=== PATIENT | male | born 1975 | race Caucasian/White ===

== ENCOUNTER 2023-10-30 22:10 | Emergency (ER) | payer OTHER, SELFPAY ==
[2023-10-30 22:12] VITALS: BP 171/84; PULSE 108; RESP 20; TEMP 37.2; O2SAT 94; BMI 30.3
--- NOTE | 2023-10-30 22:21 | ECG_ITS ---
Test Reason : CHEST PAIN Blood Pressure : / mmHG Vent. Rate : 102 BPM Atrial Rate : 102 BPM P-R Int : 132 ms QRS Dur : 078 ms QT Int : 342 ms P-R-T Axes : 068 048 044 degrees QTc Int : 445 ms Sinus tachycardia Nonspecific ST abnormality Abnormal ECG When compared with ECG of 10-SEP-2013 18:09, No significant change was found Referred By: Generic ED Physician Electronically Signed By:CHINTAN KING MD
[2023-10-30 22:39] LABS: Basophils Absolute Auto 0.1 X10*3/uL (0.0-0.2); Basophils Percent Auto 0.8 % (0-2); Eosinophils Absolute Auto 0.1 X10*3/uL (0.0-0.4); Eosinophils Percent Auto 0.9 % (0-4); Hematocrit 43.8 % (42.0-52.0); Hemoglobin 15.9 g/dl (14.0-18.0); Imm Gran Abs Auto 0.04 X10*3/uL (0.00-0.03); Imm Gran Pct Auto 0.3 % (0.0-0.4); Lymphocytes Percent Auto 25.4 % (20-40); MANUAL DIFF FLAG NO; Mean Corpuscular HGB Conc 36.3 g/dl (31.0-36.0); Mean Corpuscular Hemoglobin 31.3 pg (27.0-33.0); Mean Corpuscular Volume 86.2 fL (80.0-98.0); Mean Platelet Volume 10.4 fL (9.4-12.4); Monocytes Absolute Auto 1.3 X10*3/uL (0.1-1.2); Monocytes Percent Auto 10.5 % (2-11); Neutrophils Absolute Auto 7.4 x10*3/uL (2.0-8.3); Neutrophils Percent Auto 62.1 % (45-73); Platelet Count 254 X10*3/uL (160-400); Red Blood Count 5.08 X10*6/uL (4.60-5.80); White Blood Count 11.9 X10*3/uL (4.8-10.8)
[2023-10-30 22:55] LABS: Alanine Aminotransferase 18 U/L (0-40); Albumin Level 4.4 g/dL (3.5-5.0); Alkaline Phosphatase 126 U/L (39-117); Anion Gap 20 (12-20); Aspartate Amino Transferase 37 U/L (5-37); Bilirubin Total 0.7 mg/dL (0.0-1.0); Blood Urea Nitrogen 21 mg/dL (9-16); Calcium 9.1 mg/dL (8.4-10.2); Carbon Dioxide 20 mmol/L (22-29); Chloride 101 mmol/L (96-108); Creatinine Clr Calc Pharmacy 92.1; Estimated Glomerular Filt Rate > 60; Ethanol 14 mg/dL; Glucose Random 285 mg/dL (60-115); Potassium 4.1 mmol/L (3.3-5.1); Sodium 137 mmol/L (135-145); Total Protein 7.9 g/dL (6.5-8.0)
[2023-10-30 23:02] LABS: Troponin-I High Sensitivity 20.1 ng/L (<3.5-35.0)
--- NOTE | 2023-10-31 01:23 | ED_ITS ---
HPI - General Adult General Chief complaint: ETOH/Substance Use Stated complaint: detox Time Seen by Provider: 10/31/23 00:51 Source: patient, RN notes reviewed and old records reviewed Mode of arrival: ambulatory Limitations: no limitations History of Present Illness HPI narrative: 48-year-old male with past medical history significant for substance abuse, anxiety, depression presents for evaluation of muscle aches Patient reports that he left his snf house 2 days ago. He has been wandering the streets and walking all day every day ever since He states he left the snf house because ?they were talking about things that they had no business talking about and it was bringing up past trauma. ? Patient reports he had muscle aches all over his body over last couple of days. He endorses drinking alcohol using cocaine an hour prior to arrival He reports some chest pain to nursing staff but denied this during my evaluation. No other complaints or concerns at this time Related Data Allergies Allergy/AdvReac Type Severity Reaction Status Date / Time No Known Allergies Allergy Verified 10/30/23 22:19 Review of Systems 2 Constitutional: Constitutional: Denies body ache(s), Denies chills, Denies fever(s) and Denies frequent falls Eyes: Eyes: Denies blurry vision ENT: Denies sore throat Cardiovascular: Cardiovascular: Reports chest pain, Denies chest pain at rest and Denies dyspnea Respiratory: Respiratory: Denies cough and Denies dyspnea Gastrointestinal: Gastrointestinal: Denies abdominal pain, Denies nausea and Denies vomiting Genitourinary: Genitourinary: Denies hematuria and Denies dysuria Musculoskeletal: Musculoskeletal: Reports muscle cramps Integumentary/Breasts: Skin/Breast: Denies rash Neurologic: Denies frequent falls PMFSH Social History Social History Advance Directives: No Advance Directives Information Provided: No Do you have a plan to hurt others: No Plan Physical Exam ED Vital Signs: Vital Signs - 24 hr 10/30/23 22:12 10/31/23 02:00 10/31/23 06:30 Temperature 99.0 F 97.8 F 98.4 F Pulse Rate 108 H 96 80 Respiratory Rate 20 16 16 Blood Pressure 171/84 H 161/82 H 160/78 H Pulse Oximetry 94 96 96 Oxygen Delivery Method Room Air Room Air Room Air 10/31/23 09:08 Temperature 97.6 F Pulse Rate 84 Respiratory Rate 20 Blood Pressure 134/87 Pulse Oximetry 96 Oxygen Delivery Method Room Air BMI result Body Mass Index 30.3 Const General: healthy appearing, comfortable, no acute distress, alert and awake Nutritional Appearance: well nourished Orientation/consciousness: patient oriented x3 HENMT Head: Yes normocephalic and Yes atraumatic Throat: Yes posterior oropharynx normal Eyes Eyelids: Yes eyelids normal Conjunctivae: conjunctivae normal Sclerae: sclerae normal Corneas: corneas normal Pupils: Equal, round and reactive pupils present EOM: EOMs intact bilaterally Neck Neck: Yes full ROM Resp Effort & Inspection: normal respiratory effort, able to speak in complete sentences and not labored Cardio Rate: regular rate Rhythm: regular rhythm GI Inspection: No distended Palpation (GI): Soft to palpation, not firm, nontender, no guarding and not rigid Skin General skin exam: elasticity normal Neuro General: patient oriented x3 Cranial nerves: Yes CN's II-XII intact bilaterally, Yes Equal, round and reactive pupils present and Yes Bilaterally intact EOM present Cognition (Neuro): normal cognition Extrem Other: Moving all extremities well without any obvious deformities Course Reevaluation(s) Reevaluation #1: Patient's repeat troponin decreased from 20.1 to 18.7. He is now medically cleared for addiction medicine intervention Time: 02:11 Reevaluation #2: patients CPK 2600 should receive more fluid and a recheck of CPK - I ordered both he is very upset and states he was not given any medications overnight his phone is not charging he is demanding his suboxone 16mg he states he last took it yesterday he is not worried about precipitated withdrawal he is threatening to leave AMA but now agrees to fluids and recheck of labs. CELESTINE 824am Reevaluation #3: observation care revealed that the patient does not meet medical necessity for hospitalization. final disposition discussed with the patient. The patient completed observation care at 1153am. Total time in observation care was 10 hours. Medications Administered Discontinued Medications Generic Name Dose Route Start Last Admin Trade Name Freq PRN Reason Stop Dose Admin Buprenorphine/Naloxone 2 film 10/31/23 08:22 10/31/23 08:43 Buprenorphine/Naloxone 8/2 Mg Film SUBLINGUAL 10/31/23 08:23 2 film ONCE ONE Administration Sodium Chloride 1,000 mls @ 999 mls/hr 10/31/23 01:30 10/31/23 03:23 Ns IV 10/31/23 02:30 Infused .Q1H1M CHELSEA Infusion Sodium Chloride 1,000 mls @ 999 mls/hr 10/31/23 08:09 10/31/23 08:43 Ns IV 10/31/23 09:09 999 mls/hr .Q1H1M ONE Administration Medical Decision Making Medical Decision Making [facility] Narrative: 48-year-old male with past medical history as documented above presents for evaluation of body aches. He reports being homeless and walking for last 2 days, plan to check basic labs, CPK to evaluate for rhabdomyolysis. Plan for UA, tox screen. The patient is not suicidal. He did complain of chest pain, his EKG is unchanged from August of this year. His initial troponin was 20.1 plan to repeat a troponin level. The patient is resting quite comfortably he was slightly hypertensive which may be related to cocaine use Differential Diagnosis Differential Diagnoses: The differential diagnosis associated with the presentation includes Substance abuse Homelessness Elevated troponin ACS less likely Rhabdomyolysis Admission/Observation Consideration of admission/observation: Escalation of care including admission/observation considered Consider admission for rhabdomyolysis Lab Data [facility] Lab Attestation statement: I reviewed the patient's lab results. Leukocytosis to 11.9 which is likely related to substance abuse. No anemia and normal platelet count. No significant electrolyte abnormalities. Patient's CO2 is just below normal at 20. His BUN is slightly elevated 21 but his creatinine is normal at 1.08. Patient's sugar is elevated to 285 10/30/23 22:32 10/30/23 22:32 Labs: Lab Results 10/30/23 10/31/23 10/31/23 Range/Units 22:32 01:41 02:03 WBC 11.9 H (4.8-10.8) X10*3/uL RBC 5.08 (4.60-5.80) X10*6/uL Hgb 15.9 (14.0-18.0) g/dl Hct 43.8 (42.0-52.0) % MCV 86.2 (80.0-98.0) fL MCH 31.3 (27.0-33.0) pg MCHC 36.3 H (31.0-36.0) g/dl RDW 13.0 (11.0-16.0) % Plt Count 254 (160-400) X10*3/uL MPV 10.4 (9.4-12.4) fL Immature Gran % (Auto) 0.3 (0.0-0.4) % Neut % (Auto) 62.1 (45-73) % Lymph % (Auto) 25.4 (20-40) % [place] % (Auto) 10.5 (2-11) % Eos % (Auto) 0.9 (0-4) % Baso % (Auto) 0.8 (0-2) % Lymph # (Auto) 3.0 (1.2-4.9) X10*3/uL [place] # (Auto) 1.3 H (0.1-1.2) X10*3/uL Eos # (Auto) 0.1 (0.0-0.4) X10*3/uL Baso # (Auto) 0.1 (0.0-0.2) X10*3/uL Abs Immat Gran (auto) 0.04 H (0.00-0.03) X10*3/uL Absolute Neuts (auto) 7.4 (2.0-8.3) x10*3/uL Absolute Nucleated RBC 0.000 (0.0-0.012) X10*3/uL Nucleated RBC % (auto) 0.0 (0.0-0.2) /100WBC Sodium 137 (135-145) mmol/L Potassium 4.1 (3.3-5.1) mmol/L Chloride 101 (96-108) mmol/L Carbon Dioxide 20 L (22-29) mmol/L Anion Gap 20 (12-20) BUN 21 H (9-16) mg/dL Creatinine 1.08 (0.5-1.4) mg/dL Estim Creat Clear Calc 92.1 Estimated GFR > 60 Random Glucose 285 H (60-115) mg/dL Calcium 9.1 (8.4-10.2) mg/dL Total Bilirubin 0.7 (0.0-1.0) mg/dL AST 37 (5-37) U/L ALT 18 (0-40) U/L Alkaline Phosphatase 126 H (39-117) U/L Total Creatine Kinase 2684 H (38-174) U/L Troponin I High Sens 20.1 18.7 (<3.5-35.0) ng/L Total Protein 7.9 (6.5-8.0) g/dL Albumin 4.4 (3.5-5.0) g/dL Urine Color Yellow Urine Appearance Clear Urine pH 5.5 (5.0-9.0) Ur Specific [employer] >= 1.030 H (1.005-1.025) Urine Protein Trace (Neg-Trace) mg/dL Urine Glucose (UA) >=1000 H (Negative) mg/dL Urine Ketones 40 (Negative) mg/dL Urine Blood Negative (Negative) Urine Nitrite Negative (Negative) Ur Leukocyte Esterase Negative (Negative) Urine RBC 0-2 (0-2) /HPF Urine WBC 0-5 (0-5) /HPF Ur Squamous Epith Cells 0-2 (0-2) /HPF Urine Bacteria None Seen (None Seen) Hyaline Casts 0-2 (0-2) /LPF Urine Opiates Screen Not Detected (Not Detect) Ur Buprenorphine Scrn Positive H (Not Detect) ng/mL Ur Oxycodone Screen Not Detected (Not Detect) ng/mL Urine Methadone Screen Not Detected (Not Detect) ng/mL Urine Fentanyl Screen Not Detected (Not Detect) Ur Barbiturates Screen Not Detected (Not Detect) Ur Phencyclidine Scrn Not Detected (Not Detect) Ur Amphetamines Screen Not Detected (Not Detect) U Benzodiazepines Scrn Not Detected (Not Detect) Urine Cocaine Screen POSITIVE H (Not Detect) U Marijuana (THC) Screen Not Detected (Not Detect) Ethyl Alcohol 14 mg/dL 10/31/23 Range/Units 10:40 WBC (4.8-10.8) X10*3/uL RBC (4.60-5.80) X10*6/uL Hgb (14.0-18.0) g/dl Hct (42.0-52.0) % MCV (80.0-98.0) fL MCH (27.0-33.0) pg MCHC (31.0-36.0) g/dl RDW (11.0-16.0) % Plt Count (160-400) X10*3/uL MPV (9.4-12.4) fL Immature Gran % (Auto) (0.0-0.4) % Neut % (Auto) (45-73) % Lymph % (Auto) (20-40) % [place] % (Auto) (2-11) % Eos % (Auto) (0-4) % Baso % (Auto) (0-2) % Lymph # (Auto) (1.2-4.9) X10*3/uL [place] # (Auto) (0.1-1.2) X10*3/uL Eos # (Auto) (0.0-0.4) X10*3/uL Baso # (Auto) (0.0-0.2) X10*3/uL Abs Immat Gran (auto) (0.00-0.03) X10*3/uL Absolute Neuts (auto) (2.0-8.3) x10*3/uL Absolute Nucleated RBC (0.0-0.012) X10*3/uL Nucleated RBC % (auto) (0.0-0.2) /100WBC Sodium (135-145) mmol/L Potassium (3.3-5.1) mmol/L Chloride (96-108) mmol/L Carbon Dioxide (22-29) mmol/L Anion Gap (12-20) BUN (9-16) mg/dL Creatinine (0.5-1.4) mg/dL Estim Creat Clear Calc Estimated GFR Random Glucose (60-115) mg/dL Calcium (8.4-10.2) mg/dL Total Bilirubin (0.0-1.0) mg/dL AST (5-37) U/L ALT (0-40) U/L Alkaline Phosphatase (39-117) U/L Total Creatine Kinase 1361 H (38-174) U/L Troponin I High Sens (<3.5-35.0) ng/L Total Protein (6.5-8.0) g/dL Albumin (3.5-5.0) g/dL Urine Color Urine Appearance Urine pH (5.0-9.0) Ur Specific [employer] (1.005-1.025) Urine Protein (Neg-Trace) mg/dL Urine Glucose (UA) (Negative) mg/dL Urine Ketones (Negative) mg/dL Urine Blood (Negative) Urine Nitrite (Negative) Ur Leukocyte Esterase (Negative) Urine RBC (0-2) /HPF Urine WBC (0-5) /HPF Ur Squamous Epith Cells (0-2) /HPF Urine Bacteria (None Seen) Hyaline Casts (0-2) /LPF Urine Opiates Screen (Not Detect) Ur Buprenorphine Scrn (Not Detect) ng/mL Ur Oxycodone Screen (Not Detect) ng/mL Urine Methadone Screen (Not Detect) ng/mL Urine Fentanyl Screen (Not Detect) Ur Barbiturates Screen (Not Detect) Ur Phencyclidine Scrn (Not Detect) Ur Amphetamines Screen (Not Detect) U Benzodiazepines Scrn (Not Detect) Urine Cocaine Screen (Not Detect) U Marijuana (THC) Screen (Not Detect) Ethyl Alcohol mg/dL Independent Interpretation I performed an independent interpretation of an: EKG (Sinus tachycardia rate of 102 beats minute. No significant change when compared to September 11, 2023) Discharge Plan Discharge Clinical Impression: Substance abuse, Rhabdomyolysis Patient Disposition: Home, Self-Care Instructions: Rhabdomyolysis (ED), Polysubstance Abuse (ED) Additional Instructions: please follow up with detox resources given to you by addiction medicine can follow up with vika kelly if you have any issues such as severe muscle pain, dark brown urine please return to the ER Print Language: Guyanese
[2023-10-31 02:00] VITALS: BP 161/82; PULSE 96; RESP 16; TEMP 36.6; O2SAT 96
[2023-10-31] MEDS: 0.9 % Sodium Chloride 1,000 ML 999 ML IV ×2 (02:04→08:43)
--- NOTE | 2023-10-31 02:07 | PC.NURSE ---
Pt safety checked, belongings placed in locker #12.
[2023-10-31 02:08] LABS: Appearance Urine Clear; Color Urine Yellow; Glucose Urine UA >=1000 mg/dL (Negative); Leukocyte Esterase Urine Negative (Negative); Nitrite Urine Negative (Negative); PH 5.5 (5.0-9.0); Specific Gravity - Urine >= 1.030 (1.005-1.025); UMIC TRIGGER UACC YES; Urine Blood Negative (Negative); Urine Ketones 40 mg/dL (Negative); Urine Protein Trace mg/dL (Neg-Trace)
[2023-10-31 02:09] LABS: Troponin-I High Sensitivity 18.7 ng/L (<3.5-35.0)
[2023-10-31 02:13] LABS: Bacteria Urine None Seen (None Seen); Hyaline Casts Urine 0-2 /LPF (0-2); RBC Urine 0-2 /HPF (0-2); Squamous Epithelial Cell Urine 0-2 /HPF (0-2); WBC Urine 0-5 /HPF (0-5)
[2023-10-31 02:21] LABS: Amphetamine Screen Urine Not Detected (Not Detect); Barbiturates, Urine Not Detected (Not Detect); Benzodiazepines Screen Urine Not Detected (Not Detect); Buprenorphine Scr Positive (Not Detect); Cannabinoid Screen Urine Not Detected (Not Detect); Cocaine Screen Urine POSITIVE (Not Detect); Fentanyl, urine Not Detected (Not Detect); Methadone Screen, Urine Not Detected (Not Detect); Opiate Screen Urine Not Detected (Not Detect); Oxycodone Screen Urine Not Detected (Not Detect); Phencyclidine Screen Urine Not Detected (Not Detect)
--- NOTE | 2023-10-31 03:29 | PC.NURSE ---
pt cleansed of urinary incontinence.
[2023-10-31 06:30] VITALS: BP 160/78; PULSE 80; RESP 16; TEMP 36.9; O2SAT 96
[2023-10-31] MEDS: Buprenorphine/Naloxone 8/2 mg FILM 2 FILM SUBLINGUAL (08:43)
[2023-10-31 09:08] VITALS: BP 134/87; PULSE 84; RESP 20; TEMP 36.4; O2SAT 96
[2023-10-31 12:02] VITALS: BP 134/87; PULSE 84; RESP 20; TEMP 36.4; O2SAT 96
== END 2023-10-31 12:03 | disposition home or self-care (01) ==
PROVIDERS: Emergency Medicine; Physician Assistant; Emergency Provider Emergency Medicine
DX: M62.82 Rhabdomyolysis (principal); F19.10 Other psychoactive substance abuse, uncomplicated; Z79.891 Long term (current) use of opiate analgesic
CPT/HCPCS: 36415; 80053; 80307; 81001; 82550; 84484; 85025; 93005; 96360; 99284; 99285

== ENCOUNTER → 2023-10-30 22:21 | Outpatient (BNV) | payer OTHER, SELFPAY | PROVIDERS: Emergency Provider Emergency Medicine; Visit Provider Internal Medicine Cardiovascular Disease | DX: R00.0 Tachycardia, unspecified (principal) | CPT/HCPCS: 93010 ==

== ENCOUNTER 2024-06-03 17:12 | Inpatient (IN) | payer OTHER, SELFPAY ==
[2024-06-03 17:14] VITALS: BP 157/99; PULSE 103; RESP 20; TEMP 36.9; O2SAT 97; BMI 28.2
--- NOTE | 2024-06-03 17:18 | ED_ITS ---
HPI - Psych General Chief Complaint: Psychiatric Symptoms Stated Complaint: Crisis Time Seen by Provider: 06/03/24 17:38 Source: patient, RN notes reviewed and old records reviewed Mode of arrival: ambulatory History of Present Illness ED Provider: Ambika Pascal PA-C [facility] Narrative: 48-year-old male with a past medical history substance abuse, anxiety, depression, homelessness, presenting to the ED complaining of substance abuse, SI, increasing depression/anxiety, and feels like his mental health is out of control. Per triage patient with SI plan of by endoscopy rn. Admits to using crack cocaine, most recently last night. Denies recent ETOH. States he was previously clean for 5 weeks, and restarted his prescribed psych medications which he feels haven't kicked in yet. Reports auditory and visual hallucinations chronically. Related Data Allergies Allergy/AdvReac Type Severity Reaction Status Date / Time No Known Allergies Allergy Verified 06/03/24 17:20 Review of Systems 2 Review of Systems: Yes all other systems are reviewed and are negative Constitutional: Constitutional: Reports as per HPI [facility] Past Medical History Attestation statement: The following information was validated with the patient. Source: old records reviewed Social History Social History Smoked in Last 30 Days: Yes Use of substances other than those prescribed or required for medical reasons: Yes Substance Use Type: Crack/Cocaine Substance Use Frequency: Chronic Longstanding Any prior treatment program specific to substance use: Yes Advance Directives: No Advance Directives Information Provided: No Do you have a plan to hurt others: No Plan Physical Exam 2 Vital Signs: Vital Signs: Last Vital Signs Temp 98.4 F 06/03/24 17:38 Pulse 103 H 06/03/24 17:38 Resp 20 06/03/24 17:38 BP 157/99 H 06/03/24 17:38 Pulse Ox 97 06/03/24 17:38 O2 Del Method Room Air 06/03/24 17:38 BMI result Body Mass Index 28.2 Const: General: cooperative, healthy appearing and no acute distress O rientation/consciousness: patient oriented x3 Limitations: no limitations HEENT: Head: Yes normal to inspection and Yes atraumatic Ears: hearing grossly normal bilaterally General nose exam: Normal external nose present Face and sinus: Yes normal facial exam Eyes: General: appearance normal, both eyes and all related structures EOM: EOMs intact bilaterally Neck: Neck: Yes normal visual inspection and Yes no meningeal signs Resp: Effort & Inspection: normal respiratory effort and no respiratory distress Cardio: Rate: regular rate GI: Inspection: Yes normal to inspection Palpation (GI): Soft to palpation, nontender, no guarding and not rigid Skin: Rashes: no rashes Wounds: no wounds Neuro: General: patient oriented x3, tone normal and no meningeal signs C ranial nerves: Yes CN's II-XII intact bilaterally Gait exam (Neuro): Normal gait present Extrem: General: Yes normal to inspection Psych: Attitude: cooperative Thought process: Flight of ideas present T hought content: Suicidality present, no homicidality, Hallucination(s) present and Depressive thoughts present Course Course Course Narrative: This is a Rapid Medical Examination (RME) performed by Trent Vaughn PA-C in triage. Full HPI, ROS, assessment and treatment plan per primary provider in the Main ED. 48-year-old male with past medical history significant for substance abuse, anxiety, depression, homelessness who presents to the ER for SI with plan by endoscopy rn. he has been taking all of his psych meds for the last 5 weeks and doesn't feel like they are working. has appointment with psychiatrist on 06/07. last drug use was crack last night. feels like if he homeless any longer he will kill himself. +AH and VH which are ongoing for years. Plan: medical clearance, CARE team evaluation -1926--leukocytosis of 13.2. BUN chronically elevated. Labs otherwise reassuring. -UA with 80 ketones, not infected. Tox screen positive for cocaine > physician observation initiated at 19:27 as patient needs more time to be evaluated by CARE team -2099--ED care transferred to [facility] pending CARE team eval Medical Decision Making Medical Decision Making MDM Narrative: 48-year-old male with a past medical history substance abuse, anxiety, depression, homelessness, presenting to the ED complaining of substance abuse, SI, increasing depression/anxiety, and feels like his mental health is out of control. On exam mildly tachycardic, NAD, depressed, flight of ideas, pressured speech, suicidal. Concern for substance abuse and mental health disorder. Rule out metabolic infectious etiologies Plan: Labs, tox screen, CARE team consult Please refer to course for remaining clinical decision making, interpretation of labs/imaging results, and discussions with consultants and/or family members. Differential Diagnosis Differential Diagnoses: The differential diagnosis associated with the presentation includes As above Admission/Observation Consideration of admission/observation: Escalation of care including admission/observation considered Consult Healthcare Provider Management of the patient was discussed with: Behavioral Health Provider Lab Data MDM Lab Attestation statement: I reviewed the patient's lab results. 06/03/24 17:52 06/03/24 17:52 Labs: Lab Results 06/03/24 06/03/24 Range/Units 17:52 18:26 WBC 13.2 H (4.8-10.8) X10*3/uL RBC 4.91 (4.60-5.80) X10*6/uL Hgb 15.6 (14.0-18.0) g/dl Hct 44.4 (42.0-52.0) % MCV 90.4 (80.0-98.0) fL MCH 31.8 (27.0-33.0) pg MCHC 35.1 (31.0-36.0) g/dl RDW 13.5 (11.0-16.0) % Plt Count 165 D (160-400) X10*3/uL MPV 10.0 (9.4-12.4) fL Immature Gran % (Auto) 0.8 H (0.0-0.4) % Neut % (Auto) 67.7 (45-73) % Lymph % (Auto) 20.8 (20-40) % [place] % (Auto) 9.1 (2-11) % Eos % (Auto) 0.9 (0-4) % Baso % (Auto) 0.7 (0-2) % Lymph # (Auto) 2.7 (1.2-4.9) X10*3/uL [place] # (Auto) 1.2 (0.1-1.2) X10*3/uL Eos # (Auto) 0.1 (0.0-0.4) X10*3/uL Baso # (Auto) 0.1 (0.0-0.2) X10*3/uL Abs Immat Gran (auto) 0.10 H (0.00-0.03) X10*3/uL Absolute Neuts (auto) 8.9 H (2.0-8.3) x10*3/uL Absolute Nucleated RBC 0.000 (0.0-0.012) X10*3/uL Nucleated RBC % (auto) 0.0 (0.0-0.2) /100WBC Sodium 142 (135-145) mmol/L Potassium 3.8 (3.3-5.1) mmol/L Chloride 106 (96-108) mmol/L Carbon Dioxide 25 (22-29) mmol/L Anion Gap 15 (12-20) BUN 23 H (9-16) mg/dL Creatinine 1.02 (0.5-1.4) mg/dL Estim Creat Clear Calc 94.3 Estimated GFR > 60 Random Glucose 137 H (60-115) mg/dL Calcium 9.3 (8.4-10.2) mg/dL Magnesium 2.2 (1.6-2.6) mg/dL Total Bilirubin 1.2 H (0.0-1.0) mg/dL Direct Bilirubin 0.3 (0.0-0.5) mg/dL AST 35 (5-37) U/L ALT 19 (0-40) U/L Alkaline Phosphatase 98 (39-117) U/L Total Protein 8.1 H (6.5-8.0) g/dL Albumin 4.7 (3.5-5.0) g/dL Urine Color Dark Yellow Urine Appearance Clear Urine pH 5.5 (5.0-9.0) Ur Specific [place] >= 1.030 H (1.005-1.025) Urine Protein 30 (1+) H (Neg-Trace) mg/dL Urine Glucose (UA) Negative (Negative) mg/dL Urine Ketones 80 (Negative) mg/dL Urine Blood Negative (Negative) Urine Nitrite Negative (Negative) Ur Leukocyte Esterase Negative (Negative) Urine RBC 0-2 (0-2) /HPF Urine WBC 0-5 (0-5) /HPF Ur Squamous Epith Cells 0-2 (0-2) /HPF Urine Bacteria None Seen (None Seen) Hyaline Casts 0-2 (0-2) /LPF Urine Opiates Screen Not Detected (Not Detect) Ur Buprenorphine Scrn Not Detected (Not Detect) ng/mL Ur Oxycodone Screen Not Detected (Not Detect) ng/mL Urine Methadone Screen Not Detected (Not Detect) ng/mL Urine Fentanyl Screen Not Detected (Not Detect) Ur Barbiturates Screen Not Detected (Not Detect) Ur Phencyclidine Scrn Not Detected (Not Detect) Ur Amphetamines Screen Not Detected (Not Detect) U Benzodiazepines Scrn Not Detected (Not Detect) Urine Cocaine Screen POSITIVE H (Not Detect) U Marijuana (THC) Screen Not Detected (Not Detect) Ethyl Alcohol < 10 mg/dL External Record Review External record reviewed: Inpatient record, Office record, Outpatient record, Prior outpatient labs, Prior outpatient radiology, Primary care record and Outside ED record Tests considered The following testing was considered but not selected: As above Prescription Management I considered prescription management with: Other Chronic Conditions Patient?s care impacted by: Other Social Determinants Patient?s care significantly limited by Social Determinants of Health including: Inadequate housing, Low income, Alcoholism and drug addiction in family, Problems related to primary support group, Unemployment, Problems related to employment and Other Social Determinant of Health Discharge Plan Discharge Clinical Impression: Suicidal ideation, Substance use disorder Patient Disposition: Still a Patient Interventions: [place]-Suicide Risk Severity Scale Last Done: 06/03/24 17:38 Print Language: Kyrgyz
[2024-06-03 17:38] VITALS: BP 157/99; PULSE 103; RESP 20; TEMP 36.9; O2SAT 97
[2024-06-03 17:57] LABS: MANUAL DIFF FLAG NO
--- NOTE | 2024-06-03 18:00 | PC.NURSE ---
Pt comes to ED BH pod from waiting room. Pt reports SI with a plan for suicide by [employer]. He reports he is currently homeless, using crack/cocaine, uses ETOH when he can, and he has been exchanging sex for drugs. Given these factors he feels like he cannot go on much longer like this. A&Ox3, VSS Pt denies any new injuries/new pain. Breaths and speech are unlabored. NAD noted. auto seat cover installer completed with security. Belongings locked in pod locker--security took custody of several weapons Pt arrived with.
[2024-06-03 18:02] LABS: Basophils Absolute Auto 0.1 X10*3/uL (0.0-0.2); Basophils Percent Auto 0.7 % (0-2); Eosinophils Absolute Auto 0.1 X10*3/uL (0.0-0.4); Eosinophils Percent Auto 0.9 % (0-4); Hematocrit 44.4 % (42.0-52.0); Hemoglobin 15.6 g/dl (14.0-18.0); Imm Gran Pct Auto 0.8 % (0.0-0.4); Lymphocytes Absolute Auto 2.7 X10*3/uL (1.2-4.9); Lymphocytes Percent Auto 20.8 % (20-40); Mean Corpuscular HGB Conc 35.1 g/dl (31.0-36.0); Mean Corpuscular Hemoglobin 31.8 pg (27.0-33.0); Mean Corpuscular Volume 90.4 fL (80.0-98.0); Monocytes Absolute Auto 1.2 X10*3/uL (0.1-1.2); Monocytes Percent Auto 9.1 % (2-11); Neutrophils Absolute Auto 8.9 x10*3/uL (2.0-8.3); Neutrophils Percent Auto 67.7 % (45-73); Platelet Count 165 X10*3/uL (160-400); Red Blood Count 4.91 X10*6/uL (4.60-5.80); Red Cell Distribution Width 13.5 % (11.0-16.0); White Blood Count 13.2 X10*3/uL (4.8-10.8)
[2024-06-03 18:13] LABS: Alanine Aminotransferase 19 U/L (0-40); Albumin Level 4.7 g/dL (3.5-5.0); Alkaline Phosphatase 98 U/L (39-117); Anion Gap 15 (12-20); Aspartate Amino Transferase 35 U/L (5-37); Bilirubin Direct 0.3 mg/dL (0.0-0.5); Bilirubin Total 1.2 mg/dL (0.0-1.0); Blood Urea Nitrogen 23 mg/dL (9-16); Calcium 9.3 mg/dL (8.4-10.2); Carbon Dioxide 25 mmol/L (22-29); Chloride 106 mmol/L (96-108); Creatinine Clr Calc Pharmacy 94.3; Estimated Glomerular Filt Rate > 60; Ethanol < 10 mg/dL; Glucose Random 137 mg/dL (60-115); Magnesium 2.2 mg/dL (1.6-2.6); Potassium 3.8 mmol/L (3.3-5.1); Sodium 142 mmol/L (135-145); Total Protein 8.1 g/dL (6.5-8.0)
[2024-06-03 18:44] LABS: Appearance Urine Clear; Color Urine Dark Yellow; Glucose Urine UA Negative (Negative); Leukocyte Esterase Urine Negative (Negative); Nitrite Urine Negative (Negative); PH 5.5 (5.0-9.0); Specific Gravity - Urine >= 1.030 (1.005-1.025); UMIC TRIGGER UACC YES; Urine Blood Negative (Negative); Urine Ketones 80 mg/dL (Negative); Urine Protein 30 (1+) mg/dL (Neg-Trace)
[2024-06-03 18:47] LABS: Bacteria Urine None Seen (None Seen); Hyaline Casts Urine 0-2 /LPF (0-2); RBC Urine 0-2 /HPF (0-2); Squamous Epithelial Cell Urine 0-2 /HPF (0-2); WBC Urine 0-5 /HPF (0-5)
[2024-06-03 18:54] LABS: Amphetamine Screen Urine Not Detected (Not Detect); Barbiturates, Urine Not Detected (Not Detect); Benzodiazepines Screen Urine Not Detected (Not Detect); Buprenorphine Scr Not Detected (Not Detect); Cannabinoid Screen Urine Not Detected (Not Detect); Cocaine Screen Urine POSITIVE (Not Detect); Fentanyl, urine Not Detected (Not Detect); Methadone Screen, Urine Not Detected (Not Detect); Opiate Screen Urine Not Detected (Not Detect); Oxycodone Screen Urine Not Detected (Not Detect); Phencyclidine Screen Urine Not Detected (Not Detect)
--- NOTE | 2024-06-03 20:20 | PC.NURSE ---
patient appears relaxed in milieu, asked to shower, completed, appears in no distress.
--- NOTE | 2024-06-03 22:17 | PHA.MEDREC ---
Addendum entered by Angelo Beltran [facility] 06/04/24 09:17: JK, patient saw the inhaler in question in his locker, and confirmed he is on this medication. Addendum entered by Angelo Beltran [facility] 06/04/24 08:56: When asking patient to bring in his inhaler Ciclesonide ([place]), pt says he is not on an inhaler and does not have this medication? Contacting provider. Original Note: Pharmacy Consult ? Medication Reconciliation Pharmacy has completed the medication reconciliation.Med rec complete, spoke to patient who was a good historian, patient also had a large bag of medications with him so was able to compare bottles with what patient stated.
--- NOTE | 2024-06-03 22:25 | MHC.CARE ---
Pt accepted to [facility], [address] [place] [address] for 06/04/24, ETA 12pm, accepting faclity will call for n2n, Dr. Jimenes accepting
[2024-06-03] MEDS: Topiramate 25 MG TABLET PO (22:32)
--- NOTE | 2024-06-04 | ECG_ITS ---
Test Reason : CHECK PRLONG QT Blood Pressure : / mmHG Vent. Rate : 086 BPM Atrial Rate : 086 BPM P-R Int : 142 ms QRS Dur : 080 ms QT Int : 368 ms P-R-T Axes : 072 064 056 degrees QTc Int : 440 ms Normal sinus rhythm Normal ECG When compared with ECG of 30-OCT-2023 22:22, No significant change was found Referred By: Felix Ames Electronically Signed By:TABBY RECIO
[2024-06-04 00:09] LABS: Valproate 16.7 mcg/mL (50.0-100.0)
[2024-06-04] MEDS: Gabapentin 300 MG CAPSULE PO ×2 (00:36→20:46)
[2024-06-04 00:37] VITALS: BP 157/99
[2024-06-04] MEDS: Divalproex Sodium 500 MG TABLET.DR 1000 MG PO ×2 (00:37→20:45)
[2024-06-04] MEDS: cloNIDine HCL 0.2 MG TABLET PO ×3 (00:37→20:45)
[2024-06-04] MEDS: QUEtiapine Fumarate 300 MG TABLET PO ×2 (00:37→20:46)
[2024-06-04 02:27] VITALS: BP 137/84; PULSE 91; RESP 16; TEMP 36.7; O2SAT 98
[2024-06-04] MEDS: amLODIPine Besylate 5 MG TABLET PO (08:38)
[2024-06-04] MEDS: QUEtiapine Fumarate 50 MG TABLET 150 MG PO (08:39)
[2024-06-04] MEDS: buPROPion HCL 100 MG TABLET PO (08:40)
[2024-06-04] MEDS: Divalproex Sodium 500 MG TABLET.DR PO (08:40)
[2024-06-04] MEDS: metFORMIN HCl 500 MG TABLET 1000 MG PO ×2 (08:40→20:45)
[2024-06-04] MEDS: Emtricitabin/Tenofovir DF 200/300 TABLET 1 TAB PO (08:41)
[2024-06-04] MEDS: Nicotine Polacrilex 2 MG GUM 4 MG BUCCAL (08:42)
[2024-06-04] MEDS: Topiramate 25 MG TABLET PO ×2 (08:44→20:47)
[2024-06-04] MEDS: Buprenorphine/Naloxone 8/2 mg FILM 1 FILM SUBLINGUAL ×2 (09:07→18:51)
--- NOTE | 2024-06-04 09:32 | PC.NURSE ---
Patients medications in locker # 5, controlled medications counted with 2 nurses
--- NOTE | 2024-06-04 10:28 | PC.NURSE ---
Patient aware that inhaler he brought from home is and cant be used. Aware that provider ordered new inhaler- patient stating I dont need that right now, I will let you know when I need to use my inhaler . Educated about difference between rescue vs maintenance inhalers
--- NOTE | 2024-06-04 13:46 | PC.NURSE ---
Report given to María on m5
[2024-06-04 14:38] VITALS: BP 116/70; PULSE 82; RESP 18; TEMP 36.6; O2SAT 98; BMI 29.3
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
[2024-06-04 20:00] VITALS: BP 125/63; PULSE 94; TEMP 36.7; O2SAT 97
[2024-06-04 20:45] VITALS: BP 125/63
[2024-06-04] MEDS: Prazosin HCL 1 MG CAPSULE PO (20:45)
[2024-06-05 08:17] LABS: Glucose, Whole Blood 122 mg/dL (60-115)
[2024-06-05 08:19] LABS: Estimated Average Glucose 137 mg/dL; Hemoglobin A1c % 6.4 % (<6.0); Total Hemoglobin (HGBA1C) 3090.9679 umol/L
[2024-06-05 08:29] LABS: Cholesterol 145 mg/dL (<200); HDL Cholesterol 35 mg/dL (>40); LDL Cholesterol Calculated 84 mg/dL (<100); Triglycerides 131 mg/dL (<150)
[2024-06-05 08:44] LABS: TSH reflex Free T4 6.54 uIU/mL (0.32-4.0)
[2024-06-05 08:50] VITALS: BP 126/85; PULSE 94; RESP 16; TEMP 36.9; O2SAT 95
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
[2024-06-05 09:25] LABS: Free T4 (Free Thyroxine) 1.13 ng/dL (0.71-1.85)
[2024-06-05 09:57] VITALS: BP 136/74
[2024-06-05] MEDS: Topiramate 25 MG TABLET PO ×2 (09:57→20:22)
[2024-06-05] MEDS: Nicotine 21 MG PATCH.TD24 TRANSDERMA (09:57)
[2024-06-05] MEDS: cloNIDine HCL 0.2 MG TABLET PO ×2 (09:57→20:22)
[2024-06-05] MEDS: Fluticasone Propionate 100 MCG BLST.W.DEV 1 PUFF INHALE ×2 (09:57→20:22)
[2024-06-05] MEDS: QUEtiapine Fumarate 50 MG TABLET 150 MG PO (09:57)
[2024-06-05] MEDS: metFORMIN HCl 500 MG TABLET 1000 MG PO ×2 (09:57→20:21)
[2024-06-05] MEDS: Nicotine Polacrilex 2 MG GUM 4 MG BUCCAL (09:57)
[2024-06-05 09:58] VITALS: BP 136/74
[2024-06-05] MEDS: amLODIPine Besylate 5 MG TABLET PO (09:58)
[2024-06-05] MEDS: Divalproex Sodium 500 MG TABLET.DR PO ×3 (09:58→20:21)
[2024-06-05] MEDS: Emtricitabin/Tenofovir DF 200/300 TABLET 1 TAB PO (09:58)
[2024-06-05] MEDS: buPROPion HCL 100 MG TABLET PO (09:58)
[2024-06-05] MEDS: Buprenorphine/Naloxone 8/2 mg FILM 1 FILM SUBLINGUAL ×2 (10:30→20:27)
[2024-06-05 20:00] VITALS: BP 130/82; PULSE 88; O2SAT 97
[2024-06-05 20:09] LABS: Glucose, Whole Blood 106 mg/dL (60-115)
[2024-06-05] MEDS: QUEtiapine Fumarate 300 MG TABLET PO (20:20)
[2024-06-05] MEDS: Acetaminophen 325 MG TABLET 650 MG PO (20:20)
[2024-06-05] MEDS: Gabapentin 300 MG CAPSULE PO (20:20)
[2024-06-05 20:21] VITALS: BP 130/82
[2024-06-05] MEDS: Prazosin HCL 1 MG CAPSULE PO (20:21)
[2024-06-05 20:22] VITALS: BP 130/82
[2024-06-05] MEDS: CICLESONIDE 1 EACH INHALE (20:22)
[2024-06-06 08:19] LABS: Glucose, Whole Blood 131 mg/dL (60-115)
[2024-06-06 09:09] VITALS: BP 131/76
[2024-06-06] MEDS: Nicotine 21 MG PATCH.TD24 TRANSDERMA (09:09)
[2024-06-06] MEDS: QUEtiapine Fumarate 50 MG TABLET 150 MG PO (09:09)
[2024-06-06] MEDS: cloNIDine HCL 0.2 MG TABLET PO ×2 (09:09→20:36)
[2024-06-06] MEDS: buPROPion HCL 100 MG TABLET PO (09:09)
[2024-06-06 09:10] VITALS: BP 131/76; PULSE 87; RESP 16; TEMP 36.4; O2SAT 96
[2024-06-06] MEDS: Emtricitabin/Tenofovir DF 200/300 TABLET 1 TAB PO (09:10)
[2024-06-06] MEDS: amLODIPine Besylate 5 MG TABLET PO (09:10)
[2024-06-06] MEDS: Nicotine Polacrilex 2 MG GUM 4 MG BUCCAL (09:10)
[2024-06-06] MEDS: metFORMIN HCl 500 MG TABLET 1000 MG PO ×2 (09:10→20:39)
[2024-06-06] MEDS: Topiramate 25 MG TABLET PO ×2 (09:10→20:35)
--- NOTE | 2024-06-06 09:28 | P.PNPSI_ITS ---
Subjective Subjective Date of Service: 06/06/24 Reason For Visit: depressed / SI Subjective Notes: Conditional Voluntary Interim History: Patient was seen and discussed in rounds today. Records and plans were reviewed. He has settled in and is visible, social and interactive with others. No complaints or side effects. He is compliant with medications. No SI. No changes were made today Review of Systems Review of Systems Yes all other systems are reviewed and are negative Mental Status Exam Mental Status Exam Narrative: In today's visit he is alert, oriented and pleasant. Normal speech. Good eye contact. Appropriate affect. No signs of psychosis. No SI. Moves all limbs. No abnormalities of gait. Cognitively intact. Judgment is intact Diagnostics Vital Signs (24Hr): Vital Signs - 24 hr 06/05/24 09:57 06/05/24 09:58 06/05/24 20:00 Pulse Rate 88 Blood Pressure 136/74 136/74 130/82 Pulse Oximetry 97 Oxygen Delivery Method Room Air 06/05/24 20:21 06/05/24 20:22 06/06/24 09:09 Pulse Rate Blood Pressure 130/82 130/82 131/76 Pulse Oximetry Oxygen Delivery Method 06/06/24 09:10 Pulse Rate Blood Pressure 131/76 Pulse Oximetry Oxygen Delivery Method BMI result Body Mass Index 29.3 Labs 06/03/24 17:52 06/03/24 17:52 Labs: Laboratory Results - last 48 hr 06/05/24 06/05/24 06/05/24 08:02 08:09 20:04 POC Glucose 122 H 106 Estimat Average Glucose 137 Hemoglobin A1c % 6.4 H Triglycerides 131 Cholesterol 145 LDL Cholesterol, Calc 84 HDL Cholesterol 35 L TSH 6.54 H Free T4 1.13 06/06/24 08:15 POC Glucose 131 H Estimat Average Glucose Hemoglobin A1c % Triglycerides Cholesterol LDL Cholesterol, Calc HDL Cholesterol TSH Free T4 Medications Medications Current Medications Acetaminophen (Acetaminophen 325 Mg Tablet) 650 mg PO Q6H PRN PRN Reason: Headache/Pain Mild Scale (1-3) Last Admin: 06/05/24 20:20 Dose: 650 mg Al Hydroxide/Mg Hydroxide (Magnesium Hydrox/Alum Hydrox 30 Ml Oral.Susp) 30 ml PO Q6H PRN PRN Reason: Heartburn/Nausea Amlodipine Besylate (Amlodipine Besylate 5 Mg Tablet) 5 mg PO DAILY [facility]; Protocol Last Admin: 06/06/24 09:10 Dose: 5 mg Buprenorphine/Naloxone (Buprenorphine/Naloxone 8/2 Mg Film) 1 film SUBLINGUAL BID PRN PRN Reason: opiate wd Last Admin: 06/05/24 20:27 Dose: 1 film Bupropion HCl (Bupropion Hcl 100 Mg Tablet) 100 mg PO DAILY [facility] Last Admin: 06/06/24 09:09 Dose: 100 mg Clonidine HCl (Clonidine Hcl 0.2 Mg Tablet) 0.2 mg PO BID [facility]; Protocol Last Admin: 06/06/24 09:09 Dose: 0.2 mg Divalproex Sodium (Divalproex Sodium 500 Mg Tablet.Dr) 500 mg PO TID [facility] Last Admin: 06/05/24 20:21 Dose: 500 mg Emtricitabine/Tenofovir (Emtricitabin/Tenofovir Df 200/300 Tablet) 1 tab PO DAILY [facility] Last Admin: 06/06/24 09:10 Dose: 1 tab Fluticasone Propionate (Fluticasone Propionate 100 Mcg Blst.W.Dev) 1 puff INHALE RBID [facility] Last Admin: 06/05/24 20:22 Dose: 1 puff Gabapentin (Gabapentin 300 Mg Capsule) 300 mg PO BEDTIME [facility] Last Admin: 06/05/24 20:20 Dose: 300 mg Hydroxyzine HCl (Hydroxyzine Hcl 25 Mg Tablet) 25 mg PO Q6H PRN PRN Reason: Anxiety Magnesium Hydroxide (Milk Of Magnesia 30 Ml Oral.Susp) 30 ml PO DAILY PRN PRN Reason: Constipation Metformin HCl (Metformin Hcl 500 Mg Tablet) 1,000 mg PO BID [facility] Last Admin: 06/06/24 09:10 Dose: 1,000 mg Nicotine (Nicotine 21 Mg Patch.Td24) 21 mg TRANSDERMA DAILY PRN PRN Reason: smoking cessation Last Admin: 06/06/24 09:09 Dose: 21 mg Nicotine Polacrilex (Nicotine Polacrilex 2 Mg Gum) 4 mg BUCCAL Q2H PRN PRN Reason: Nicotine Cravings Last Admin: 06/06/24 09:10 Dose: 4 mg Patient Own Medication ( Ciclesonide [Alvesco ] 160 Mcg/Actuation Hfa Aerosol Inhaler) 1 puff INHALE RBID [facility] Last Admin: 06/05/24 20:22 Dose: 1 puff Olanzapine (Olanzapine 5 Mg Tablet) 5 mg PO TID PRN PRN Reason: agitation Prazosin HCl (Prazosin Hcl 1 Mg Capsule) 1 mg PO BEDTIME [facility]; Protocol Last Admin: 06/05/24 20:21 Dose: 1 mg Quetiapine Fumarate (Quetiapine Fumarate 50 Mg Tablet) 150 mg PO DAILY [facility] Last Admin: 06/06/24 09:09 Dose: 150 mg Quetiapine Fumarate (Quetiapine Fumarate 300 Mg Tablet) 300 mg PO BEDTIME [facility] Last Admin: 06/05/24 20:20 Dose: 300 mg Topiramate (Topiramate 25 Mg Tablet) 25 mg PO BID [facility] Last Admin: 06/06/24 09:10 Dose: 25 mg Trazodone HCl (Trazodone Hcl 50 Mg Tablet) 50 mg PO BEDTIME [id number] PRN PRN Reason: Insomnia Allergies Allergies Allergy/AdvReac Type Severity Reaction Status Date / Time No Known Allergies Allergy Verified 06/03/24 17:20 Assessment & Plan Assessment & Plan (1) Suicidal ideation: Status: Acute Code(s): R45.851 - Suicidal ideations (2) Bipolar 1 disorder, mixed: Status: Acute Code(s): F31.60 - Bipolar disorder, current episode mixed, unspecified Plan Geo meets criteria for IP LOC for safety and stabilization. Medications were reviewed and maintained and continued. Depakote was changed to 500 mg t.i.d. prazosin which was started recently has been helpful with his nightmares but still has some sleep interruptions. He is not appearing to be in need of detoxification from alcohol. He will meet with his treatment team on 06/07/24. 06/06: Continue current regimen and plans Reason for continued inpatient stay Substantial Risk for: med/psych decompensation Time Spent With Patient Time: Total time managing care of this patient today ____ minutes.
[2024-06-06] MEDS: Buprenorphine/Naloxone 8/2 mg FILM 1 FILM SUBLINGUAL ×2 (09:45→20:46)
[2024-06-06] MEDS: CICLESONIDE 1 EACH INHALE ×2 (09:45→20:41)
[2024-06-06] MEDS: Fluticasone Propionate 100 MCG BLST.W.DEV 1 PUFF INHALE ×2 (09:45→20:41)
[2024-06-06] MEDS: Divalproex Sodium 500 MG TABLET.DR PO ×3 (09:45→20:38)
[2024-06-06] MEDS: OLANZapine 5 MG TABLET PO (09:45)
[2024-06-06 12:15] LABS: Glucose, Whole Blood 139 mg/dL (60-115)
[2024-06-06 17:09] LABS: Glucose, Whole Blood 138 mg/dL (60-115)
[2024-06-06 20:00] VITALS: BP 115/66; PULSE 90; TEMP 37.1; O2SAT 96
[2024-06-06 20:36] VITALS: BP 115/66
[2024-06-06 20:37] VITALS: BP 115/66
[2024-06-06] MEDS: Prazosin HCL 1 MG CAPSULE PO (20:37)
[2024-06-06] MEDS: QUEtiapine Fumarate 300 MG TABLET PO (20:37)
[2024-06-06] MEDS: Acetaminophen 325 MG TABLET 650 MG PO (20:37)
[2024-06-06] MEDS: Gabapentin 300 MG CAPSULE PO (20:37)
[2024-06-06 21:08] LABS: Glucose, Whole Blood 186 mg/dL (60-115)
[2024-06-07 08:00] VITALS: BP 151/77; PULSE 89; RESP 16; TEMP 36.4; O2SAT 97
[2024-06-07 08:11] LABS: Glucose, Whole Blood 161 mg/dL (60-115)
[2024-06-07] MEDS: CICLESONIDE 1 EACH INHALE ×2 (08:41→20:41)
[2024-06-07] MEDS: Fluticasone Propionate 100 MCG BLST.W.DEV 1 PUFF INHALE ×2 (08:41→20:41)
[2024-06-07] MEDS: Buprenorphine/Naloxone 8/2 mg FILM 1 FILM SUBLINGUAL ×2 (08:43→20:48)
[2024-06-07 08:44] VITALS: BP 151/77
[2024-06-07] MEDS: cloNIDine HCL 0.2 MG TABLET PO ×2 (08:44→20:38)
[2024-06-07] MEDS: metFORMIN HCl 500 MG TABLET 1000 MG PO ×2 (08:44→20:43)
[2024-06-07] MEDS: QUEtiapine Fumarate 50 MG TABLET 150 MG PO (08:44)
[2024-06-07 08:45] VITALS: BP 151/77
[2024-06-07] MEDS: Divalproex Sodium 500 MG TABLET.DR PO ×3 (08:45→20:43)
[2024-06-07] MEDS: buPROPion HCL 100 MG TABLET PO (08:45)
[2024-06-07] MEDS: amLODIPine Besylate 5 MG TABLET PO (08:45)
[2024-06-07] MEDS: Topiramate 25 MG TABLET PO ×2 (08:45→20:38)
[2024-06-07] MEDS: Emtricitabin/Tenofovir DF 200/300 TABLET 1 TAB PO (08:45)
--- NOTE | 2024-06-07 08:57 | P.PNPSI_ITS ---
Subjective Subjective Date of Service: 06/07/24 Reason For Visit: depressed / SI Interim History: Met with Patient; discussed with team; reviewed chart Patient reviewed recent history and he explains that He Came back here (from [place]) May 04. He was arrested and charged for shoplifting assaulting an officer and has an upcoming court date this June. Patient was accepted to [facility] around that time and completed the program. However, on completion he was sent to a TSS in [place], in the same neighborhood where he's spent years both embroiled in substance abuse and getting into trouble and where he currently feels he is a target. Patient was overwhelmed with anxiety and so He left the TSS after 2 hours, got high and next day self-presented to hospital. He has remained on his medications. Regarding symptoms said his mood is better. He struggles with AH throughout the day (that say degrading things to him); also says he can't filter shit out and is hypersensitive to noises on the unit and hears typing, footsteps and other noises... He also reports that there is electronic hum which has been in his head for years. Regarding sleep, he finds that while he is now able to fall asleep he still waking up frequently, anxious, however he is no longer having the nightmares and not remembering nightmares. 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 He's only been able to get off the [employer] jobs and finding it hard to move forward. Meds: Depakote dose splt up this weekend to help with daytime AH Patient agreed to moving his Seroquel to bedtime since he has had trouble sleeping and adding Seroquel 50 mg p.r.n. throughout the day to help with bothersome AH; patient used to be on 600 mg Seroquel total daily dose Prazosin increased to 2 mg to help continued sleep anxiety Patient described what sounds like ADHD symptoms and asks about stimulant Mental Status Exam Mental Status Exam Narrative: Pt is alert and oriented; behavior is cooperative, calm; patient is not in distress; dressed in casual attire with unkempt hair but adequate hygiene; mood is described as still depressed but better and affect congruent, though still downcast; eye contact appropriate; Speech is verbose, but not pressured, normal rate, volume and prosody and not pressured; no psychomotor agitation/retardation present; thought process is organized and goal directed; Thought content is on tx and aftercare; otherwise pertinent to relevant topics and without any delusional content, paranoid ideations or grandiosity; denies any SI/HI. AH remains bothersome and pronounced throughout the day. Patients insight and judgment impaired but improving Diagnostics Vital Signs (24Hr): Vital Signs - 24 hr 06/06/24 09:09 06/06/24 09:10 06/06/24 09:10 Temperature 97.6 F Pulse Rate 87 Respiratory Rate 16 Blood Pressure 131/76 131/76 131/76 Pulse Oximetry 96 Oxygen Delivery Method Room Air 06/06/24 20:00 06/06/24 20:36 06/06/24 20:37 Temperature 98.7 F Pulse Rate 90 Respiratory Rate Blood Pressure 115/66 115/66 115/66 Pulse Oximetry 96 Oxygen Delivery Method Room Air 06/07/24 08:44 06/07/24 08:45 Temperature Pulse Rate Respiratory Rate Blood Pressure 151/77 H 151/77 H Pulse Oximetry Oxygen Delivery Method BMI result Body Mass Index 29.3 Labs 06/03/24 17:52 06/03/24 17:52 Labs: Laboratory Results - last 48 hr 06/05/24 06/05/24 06/06/24 08:02 20:04 08:15 POC Glucose 106 131 H Free T4 1.13 06/06/24 06/06/24 06/06/24 12:10 17:06 21:04 POC Glucose 139 H 138 H 186 H Free T4 06/07/24 08:07 POC Glucose 161 H Free T4 Medications Medications Current Medications Acetaminophen (Acetaminophen 325 Mg Tablet) 650 mg PO Q6H PRN PRN Reason: Headache/Pain Mild Scale (1-3) Last Admin: 06/06/24 20:37 Dose: 650 mg Al Hydroxide/Mg Hydroxide (Magnesium Hydrox/Alum Hydrox 30 Ml Oral.Susp) 30 ml PO Q6H PRN PRN Reason: Heartburn/Nausea Amlodipine Besylate (Amlodipine Besylate 5 Mg Tablet) 5 mg PO DAILY [facility]; Protocol Last Admin: 06/07/24 08:45 Dose: 5 mg Buprenorphine/Naloxone (Buprenorphine/Naloxone 8/2 Mg Film) 1 film SUBLINGUAL BID PRN PRN Reason: opiate wd Last Admin: 06/07/24 08:43 Dose: 1 film Bupropion HCl (Bupropion Hcl 100 Mg Tablet) 100 mg PO DAILY [facility] Last Admin: 06/07/24 08:45 Dose: 100 mg Clonidine HCl (Clonidine Hcl 0.2 Mg Tablet) 0.2 mg PO BID [facility]; Protocol Last Admin: 06/07/24 08:44 Dose: 0.2 mg Divalproex Sodium (Divalproex Sodium 500 Mg Tablet.Dr) 500 mg PO TID [facility] Last Admin: 06/07/24 08:45 Dose: 500 mg Emtricitabine/Tenofovir (Emtricitabin/Tenofovir Df 200/300 Tablet) 1 tab PO DAILY [facility] Last Admin: 06/07/24 08:45 Dose: 1 tab Fluticasone Propionate (Fluticasone Propionate 100 Mcg Blst.W.Dev) 1 puff INHALE RBID [facility] Last Admin: 06/07/24 08:41 Dose: 1 puff Gabapentin (Gabapentin 300 Mg Capsule) 300 mg PO BEDTIME [facility] Last Admin: 06/06/24 20:37 Dose: 300 mg Hydroxyzine HCl (Hydroxyzine Hcl 25 Mg Tablet) 25 mg PO Q6H PRN PRN Reason: Anxiety Magnesium Hydroxide (Milk Of Magnesia 30 Ml Oral.Susp) 30 ml PO DAILY PRN PRN Reason: Constipation Metformin HCl (Metformin Hcl 500 Mg Tablet) 1,000 mg PO BID [facility] Last Admin: 06/07/24 08:44 Dose: 1,000 mg Nicotine (Nicotine 21 Mg Patch.Td24) 21 mg TRANSDERMA DAILY PRN PRN Reason: smoking cessation Last Admin: 06/06/24 09:09 Dose: 21 mg Nicotine Polacrilex (Nicotine Polacrilex 2 Mg Gum) 4 mg BUCCAL Q2H PRN PRN Reason: Nicotine Cravings Last Admin: 06/06/24 09:10 Dose: 4 mg Patient Own Medication ( Ciclesonide [Alvesco ] 160 Mcg/Actuation Hfa Aerosol Inhaler) 1 puff INHALE RBID [facility] Last Admin: 06/07/24 08:41 Dose: 1 puff Olanzapine (Olanzapine 5 Mg Tablet) 5 mg PO TID PRN PRN Reason: agitation Last Admin: 06/06/24 09:45 Dose: 5 mg Prazosin HCl (Prazosin Hcl 1 Mg Capsule) 1 mg PO BEDTIME [facility]; Protocol Last Admin: 06/06/24 20:37 Dose: 1 mg Quetiapine Fumarate (Quetiapine Fumarate 50 Mg Tablet) 150 mg PO DAILY [facility] Last Admin: 06/07/24 08:44 Dose: 150 mg Quetiapine Fumarate (Quetiapine Fumarate 300 Mg Tablet) 300 mg PO BEDTIME [facility] Last Admin: 06/06/24 20:37 Dose: 300 mg Topiramate (Topiramate 25 Mg Tablet) 25 mg PO BID [facility] Last Admin: 06/07/24 08:45 Dose: 25 mg Trazodone HCl (Trazodone Hcl 50 Mg Tablet) 50 mg PO BEDTIME MRX1 PRN PRN Reason: Insomnia Allergies Allergies Allergy/AdvReac Type Severity Reaction Status Date / Time No Known Allergies Allergy Verified 06/03/24 17:20 Assessment & Plan Assessment & Plan (1) Suicidal ideation: Status: Acute Code(s): R45.851 - Suicidal ideations (2) Bipolar 1 disorder, mixed: Status: Acute Code(s): F31.60 - Bipolar disorder, current episode mixed, unspecified Plan HPI: Geo is a 48-year-old white, , unemployed, homeless man who is known to me from previous years at [employer]. He has a longstanding history of bipolar disorder, crack cocaine and some alcohol abuse/dependence. He had moved to [place] over the past few months; this April he returned to [place] on May 04. He was arrested and charged for shoplifting assaulting an officer and has an upcoming court date this June. Patient was accepted to [facility] around that time and completed the program. However, on completion he was sent to a TSS in [place], in the same neighborhood where he's spent years both embroiled in substance abuse and getting into trouble and where he currently feels he is a target. Patient was overwhelmed with anxiety and so He left the TSS after 2 hours, got high and next day self-presented to hospital, reporting depression and SI (no history of attempts). He has remained on his medications. He reports he uses substance abuse to treat his symptoms including racing 1000 ADHD symptoms. HOSPITAL COURSE: Geo meets criteria for IP LOC for safety and stabilization. Medications were reviewed and maintained and continued. Depakote was changed to 500 mg t.i.d. prazosin which was started recently has been helpful with his nightmares but still has some sleep interruptions. He is not appearing to be in need of detoxification from alcohol. He will meet with his treatment team on 06/07/24. 06/07 Patient reviewed recent history. Regarding symptoms said his mood is better. He struggles with AH throughout the day (that say degrading things to him); also says he can't filter shit out and is hypersensitive to noises on the unit and hears typing, footsteps and other noises... He also reports that there is electronic hum which has been in his head for years. Regarding sleep, he finds that while he is now able to fall asleep he still waking up frequently, anxious, however he is no longer having the nightmares and not remembering nightmares. 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 He's only been able to get off the [employer] jobs and finding it hard to move forward. Meds: Depakote dose splt up this weekend to help with daytime AH Patient agreed to moving his Seroquel to bedtime since he has had trouble sleeping and adding Seroquel 50 mg p.r.n. throughout the day to help with bothersome AH; patient used to be on 600 mg Seroquel total daily dose Prazosin increased to 2 mg to help continued sleep anxiety Patient described what sounds like ADHD symptoms and asks about stimulant Plan: CV Q 15 minute check Change Seroquel to 450 mg q.h.s. (instead of divided doses); to help with sleep Add Seroquel 50 mg t.i.d. p.r.n. for AH during the day Continue Divalproex Sodium 500 mg PO TID [facility] (broken up into divided doses to address AH during the day) -will get Level>... For now, continue Bupropion HCl 100 mg PO DAILY [facility] Continue Clonidine HCl 0.2 mg PO BID [facility] Continue Gabapentin 300 mg PO BEDTIME [facility]; says started to help asleep Increase to Prazosin HCl 2 mg PO BEDTIME [facility]; since patient still having anxiety filled sleep Patient asked to be restarted on baclofen 10 mg b.i.d. which was started for cocaine craving; rfp writer discussed risks/side effects including withdrawal from stopping, which he understands and with which he wants to continue Continue Buprenorphine/Naloxone 8/2 Mg Film? 1 film SUBLINGUAL BID PRN Topiramate (Topiramate 25 Mg Tablet) 25 mg PO BID [facility] Amlodipine Besylate 5 mg PO DAILY [facility]; Protocol Emtricitabine/Tenofovir (Emtricitabin/Tenofovir Df 200/300 Tablet) 1 tab PO DAILY [facility] Fluticasone Propionate (Fluticasone Propionate 100 Mcg Blst.W.Dev) 1 puff INHALE RBID Metformin HCl 1,000 mg PO BID [facility] Patient Own Medication ( Ciclesonide [Alvesco ] 160 Mcg/Actuation Hfa Aerosol Inhaler) 1 puff INHALE RBID [facility] Patient educated on: diagnosis, medication risk/benefits, substance abuse and therapeutic strategies Informed Consent: understands Reason for continued inpatient stay Substantial Risk for: stable for discharge and rapid decompensation Time Spent With Patient Time: Total time managing care of this patient today ____ minutes.
[2024-06-07] MEDS: Nicotine Polacrilex 2 MG GUM 4 MG BUCCAL ×2 (08:59→20:48)
[2024-06-07] MEDS: Nicotine 21 MG PATCH.TD24 TRANSDERMA (09:00)
[2024-06-07] MEDS: Acetaminophen 325 MG TABLET 650 MG PO (11:32)
[2024-06-07 16:56] LABS: Glucose, Whole Blood 168 mg/dL (60-115)
[2024-06-07 20:00] VITALS: BP 142/82; PULSE 84; TEMP 36.8; O2SAT 96
[2024-06-07 20:31] LABS: Glucose, Whole Blood 157 mg/dL (60-115)
[2024-06-07 20:37] VITALS: BP 142/82
[2024-06-07] MEDS: Prazosin HCL 1 MG CAPSULE 2 MG PO (20:37)
[2024-06-07 20:38] VITALS: BP 142/82
[2024-06-07] MEDS: Gabapentin 300 MG CAPSULE PO (20:38)
[2024-06-07] MEDS: QUEtiapine Fumarate 300 MG TABLET PO (20:44)
--- NOTE | 2024-06-07 20:51 | PC.NURSE ---
Patient is angry at this time. 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 This law writer attempted to explain this is a hospital, he is a patient, and the peer is a confused person. The patient continued to be highly agitated, bouncing on the balls of his feet, scanning the hallway, and unable to be around any peers. He was assessed, medicated, and he returned to his room in an attempt to calm down.
[2024-06-08 08:16] LABS: Glucose, Whole Blood 166 mg/dL (60-115)
[2024-06-08] MEDS: metFORMIN HCl 500 MG TABLET 1000 MG PO ×2 (08:48→20:35)
[2024-06-08] MEDS: Topiramate 25 MG TABLET PO ×2 (08:48→20:35)
[2024-06-08] MEDS: Emtricitabin/Tenofovir DF 200/300 TABLET 1 TAB PO (08:48)
[2024-06-08] MEDS: Divalproex Sodium 500 MG TABLET.DR PO (08:49)
[2024-06-08] MEDS: cloNIDine HCL 0.2 MG TABLET PO ×2 (08:49→20:35)
[2024-06-08] MEDS: amLODIPine Besylate 5 MG TABLET PO (08:49)
[2024-06-08] MEDS: buPROPion HCL 100 MG TABLET PO (08:49)
[2024-06-08] MEDS: Fluticasone Propionate 100 MCG BLST.W.DEV 1 PUFF INHALE ×2 (08:55→20:38)
[2024-06-08] MEDS: CICLESONIDE 1 EACH INHALE ×2 (08:55→20:38)
[2024-06-08] MEDS: Nicotine 21 MG PATCH.TD24 TRANSDERMA (08:55)
[2024-06-08 09:01] VITALS: BP 129/76; PULSE 98; RESP 18; TEMP 36.9; O2SAT 97
--- NOTE | 2024-06-08 09:58 | HO.PSYCHPN ---
Subjective Subjective Date of Service: 06/08/24 Reason For Visit: depressed / SI Interim History: Met with patient; discussed with team discussed more of hx and 2005 first time in alf, started hum in ear regarding depakote, he does not think it likely he'll be able to keep up TID regimen and so agrees to move it all to bedtime- feels mood is better, though still depressed Mental Status Exam Mental Status Exam Narrative: Pt is alert and oriented; behavior is cooperative, calm; patient is not in distress; dressed in casual attire with unkempt hair but adequate hygiene; mood is described as still depressed but better and affect congruent, though still downcast; eye contact appropriate; Speech is verbose, but not pressured, normal rate, volume and prosody and not pressured; no psychomotor agitation/retardation present; thought process is organized and goal directed; Thought content is on tx and aftercare; otherwise pertinent to relevant topics and without any delusional content, paranoid ideations or grandiosity; denies any SI/HI. AH remains bothersome and pronounced throughout the day. Patients insight and judgment impaired but improving Diagnostics Vital Signs (24Hr): Vital Signs - 24 hr 06/07/24 20:00 06/07/24 20:37 06/07/24 20:38 Temperature 98.3 F Pulse Rate 84 Respiratory Rate Blood Pressure 142/82 H 142/82 H 142/82 H Pulse Oximetry 96 Oxygen Delivery Method Room Air 06/08/24 09:01 Temperature 98.5 F Pulse Rate 98 Respiratory Rate 18 Blood Pressure 129/76 Pulse Oximetry 97 Oxygen Delivery Method Room Air BMI result Body Mass Index 29.3 Labs 06/03/24 17:52 06/10/24 08:11 Labs: Laboratory Results - last 48 hr 06/06/24 06/06/24 06/06/24 12:10 17:06 21:04 POC Glucose 139 H 138 H 186 H 06/07/24 06/07/24 06/07/24 08:07 16:51 20:26 POC Glucose 161 H 168 H 157 H 06/08/24 08:12 POC Glucose 166 H Medications Medications Current Medications Acetaminophen (Acetaminophen 325 Mg Tablet) 650 mg PO Q6H PRN PRN Reason: Headache/Pain Mild Scale (1-3) Last Admin: 06/07/24 11:32 Dose: 650 mg Al Hydroxide/Mg Hydroxide (Magnesium Hydrox/Alum Hydrox 30 Ml Oral.Susp) 30 ml PO Q6H PRN PRN Reason: Heartburn/Nausea Amlodipine Besylate (Amlodipine Besylate 5 Mg Tablet) 5 mg PO DAILY [facility]; Protocol Last Admin: 06/08/24 08:49 Dose: 5 mg Baclofen (Baclofen 10 Mg Tablet) 10 mg PO BID [facility] Buprenorphine/Naloxone (Buprenorphine/Naloxone 8/2 Mg Film) 1 film SUBLINGUAL BID PRN PRN Reason: opiate wd Last Admin: 06/07/24 20:48 Dose: 1 film Bupropion HCl (Bupropion Hcl 100 Mg Tablet) 100 mg PO DAILY [facility] Last Admin: 06/08/24 08:49 Dose: 100 mg Clonidine HCl (Clonidine Hcl 0.2 Mg Tablet) 0.2 mg PO BID [facility]; Protocol Last Admin: 06/08/24 08:49 Dose: 0.2 mg Divalproex Sodium (Divalproex Sodium 500 Mg Tablet.Dr) 500 mg PO TID [facility] Last Admin: 06/08/24 08:49 Dose: 500 mg Emtricitabine/Tenofovir (Emtricitabin/Tenofovir Df 200/300 Tablet) 1 tab PO DAILY [facility] Last Admin: 06/08/24 08:48 Dose: 1 tab Fluticasone Propionate (Fluticasone Propionate 100 Mcg Blst.W.Dev) 1 puff INHALE RBID [facility] Last Admin: 06/08/24 08:55 Dose: 1 puff Gabapentin (Gabapentin 300 Mg Capsule) 300 mg PO BEDTIME [facility] Last Admin: 06/07/24 20:38 Dose: 300 mg Hydroxyzine HCl (Hydroxyzine Hcl 25 Mg Tablet) 25 mg PO Q6H PRN PRN Reason: Anxiety Magnesium Hydroxide (Milk Of Magnesia 30 Ml Oral.Susp) 30 ml PO DAILY PRN PRN Reason: Constipation Metformin HCl (Metformin Hcl 500 Mg Tablet) 1,000 mg PO BID [facility] Last Admin: 06/08/24 08:48 Dose: 1,000 mg Nicotine (Nicotine 21 Mg Patch.Td24) 21 mg TRANSDERMA DAILY PRN PRN Reason: smoking cessation Last Admin: 06/08/24 08:55 Dose: 21 mg Nicotine Polacrilex (Nicotine Polacrilex 2 Mg Gum) 4 mg BUCCAL Q2H PRN PRN Reason: Nicotine Cravings Last Admin: 06/07/24 20:48 Dose: 4 mg Patient Own Medication ( Ciclesonide [Alvesco ] 160 Mcg/Actuation Hfa Aerosol Inhaler) 1 puff INHALE RBID [facility] Last Admin: 06/08/24 08:55 Dose: 1 puff Prazosin HCl (Prazosin Hcl 1 Mg Capsule) 2 mg PO BEDTIME [facility]; Protocol Last Admin: 06/07/24 20:37 Dose: 2 mg Quetiapine Fumarate (Quetiapine Fumarate 50 Mg Tablet) 50 mg PO TID PRN PRN Reason: AH/mild agitation Quetiapine Fumarate (Quetiapine Fumarate 400 Mg Tablet) 400 mg PO BEDTIME [facility] Quetiapine Fumarate (Quetiapine Fumarate 50 Mg Tablet) 50 mg PO BEDTIME [facility] Topiramate (Topiramate 25 Mg Tablet) 25 mg PO BID [facility] Last Admin: 06/08/24 08:48 Dose: 25 mg Trazodone HCl (Trazodone Hcl 50 Mg Tablet) 50 mg PO BEDTIME MRX1 PRN PRN Reason: Insomnia Allergies Allergies Allergy/AdvReac Type Severity Reaction Status Date / Time No Known Allergies Allergy Verified 06/03/24 17:20 Assessment & Plan Assessment & Plan (1) Bipolar 1 disorder, mixed: Status: Acute Code(s): F31.60 - Bipolar disorder, current episode mixed, unspecified Plan HPI: Geo is a 48-year-old white, , unemployed, homeless man who is known to me from previous years at [facility] [facility]. He has a longstanding history of bipolar disorder, crack cocaine and some alcohol abuse/dependence. He had moved to [place] over the past few months; this April he returned to [place] on May 04. He was arrested and charged for shoplifting assaulting an officer and has an upcoming court date this June. Patient was accepted to [facility] around that time and completed the program. However, on completion he was sent to a TSS in [place], in the same neighborhood where he's spent years both embroiled in substance abuse and getting into trouble and where he currently feels he is a target. Patient was overwhelmed with anxiety and so He left the TSS after 2 hours, got high and next day self-presented to hospital, reporting depression and SI (no history of attempts). He has remained on his medications. He reports he uses substance abuse to treat his symptoms including racing 1000 ADHD symptoms. HOSPITAL COURSE: Geo meets criteria for IP LOC for safety and stabilization. Medications were reviewed and maintained and continued. Depakote was changed to 500 mg t.i.d. prazosin which was started recently has been helpful with his nightmares but still has some sleep interruptions. He is not appearing to be in need of detoxification from alcohol. He will meet with his treatment team on 06/07/24. 06/07 Patient reviewed recent history. Regarding symptoms said his mood is better. He struggles with AH throughout the day (that say degrading things to him); also says he can't filter shit out and is hypersensitive to noises on the unit and hears typing, footsteps and other noises... He also reports that there is electronic hum which has been in his head for years. Regarding sleep, he finds that while he is now able to fall asleep he still waking up frequently, anxious, however he is no longer having the nightmares and not remembering nightmares. 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 He's only been able to get off the [employer] jobs and finding it hard to move forward. Meds: Depakote dose splt up this weekend to help with daytime AH Patient agreed to moving his Seroquel to bedtime since he has had trouble sleeping and adding Seroquel 50 mg p.r.n. throughout the day to help with bothersome AH; patient used to be on 600 mg Seroquel total daily dose Prazosin increased to 2 mg to help continued sleep anxiety Patient described what sounds like ADHD symptoms and asks about stimulant 06/08 discussed more of hx and 2005 first time in alf, started hum in ear regarding depakote, he does not think it likely he'll be able to keep up TID regimen and so agrees to move it all to bedtime- feels mood is better, though still depressed -has not availed self of prn serqouel Plan: CV Q 15 minute check Changed to Seroquel to 450 mg q.h.s. (instead of divided doses); to help with sleep Add Seroquel 50 mg t.i.d. p.r.n. for AH during the day Changed to Divalproex Sodium ER 1500mg qhs -will get Level>... For now, continue Bupropion HCl 100 mg PO DAILY [facility] Continue Clonidine HCl 0.2 mg PO BID [facility] Continue Gabapentin 300 mg PO BEDTIME [facility]; says started to help asleep Increase to Prazosin HCl 2 mg PO BEDTIME [facility]; since patient still having anxiety filled sleep Patient asked to be restarted on baclofen 10 mg b.i.d. which was started for cocaine craving; commercial real estate underwriter discussed risks/side effects including withdrawal from stopping, which he understands and with which he wants to continue Continue Buprenorphine/Naloxone 8/2 Mg Film? 1 film SUBLINGUAL BID PRN Topiramate (Topiramate 25 Mg Tablet) 25 mg PO BID [facility] Amlodipine Besylate 5 mg PO DAILY [facility]; Protocol Emtricitabine/Tenofovir (Emtricitabin/Tenofovir Df 200/300 Tablet) 1 tab PO DAILY [facility] Fluticasone Propionate (Fluticasone Propionate 100 Mcg Blst.W.Dev) 1 puff INHALE RBID Metformin HCl 1,000 mg PO BID [facility] Patient Own Medication ( Ciclesonide [Alvesco ] 160 Mcg/Actuation Hfa Aerosol Inhaler) 1 puff INHALE RBID [facility] Patient educated on: diagnosis, medication risk/benefits, substance abuse and therapeutic strategies Informed Consent: understands Reason for continued inpatient stay Substantial Risk for: rapid decompensation Time Spent With Patient Time: Total time managing care of this patient today ____ minutes.
[2024-06-08 13:13] LABS: CT PCR NOT DETECTED (Not Detect.); NG PCR NOT DETECTED (Not Detect.)
[2024-06-08] MEDS: QUEtiapine Fumarate 50 MG TABLET PO ×3 (15:11→20:36)
[2024-06-08 20:30] VITALS: BP 134/73; PULSE 87; RESP 18; TEMP 36.8; O2SAT 95
[2024-06-08] MEDS: Divalproex Sodium ER 500 MG TAB.ER.24H 1500 MG PO (20:35)
[2024-06-08] MEDS: Gabapentin 300 MG CAPSULE PO (20:35)
[2024-06-08] MEDS: Prazosin HCL 1 MG CAPSULE 2 MG PO (20:36)
[2024-06-08] MEDS: QUEtiapine Fumarate 400 MG TABLET PO (20:36)
--- NOTE | 2024-06-09 08:54 | HO.PSYCHPN ---
Subjective Subjective Date of Service: 06/09/24 Reason For Visit: depressed / SI Interim History: Met with pt, reviewed with the team. Pt denies specific concerns today. He denies feeling overmedicated, however, appears to be sedate at times. It is good that I am here I guess. He did ask for renewal of Alvesco for asthma which was completed. Medication Compliance: Yes Side effects from medications: No Attending Groups: Intermittent Review of Systems Acute medical concerns: No Review of Systems Review of Systems asthma sx Mental Status Exam Mental Status Exam Patient Appearance: Fatigued Patient Orientation: Person, Place, Time and Situation Level of Consciousness: Alert Patient Behavior: Appropriate, Talkative and Good Eye Contact Mood Description: Apprehensive Affect Description: Apprehensive Patient Cognition Impaired: No Ability to Follow Directions: Fair Speech Pattern: Spontaneous Speech Memory Description: Intact Thought Process: Distracted Thought Content: positive for Circumstantial and positive for Suicidal Ideation (reports safety on the unit today) Judgement: Fair Diagnostics Vital Signs (24Hr): Vital Signs - 24 hr 06/08/24 09:01 06/08/24 20:30 Temperature 98.5 F 98.2 F Pulse Rate 98 87 Respiratory Rate 18 18 Blood Pressure 129/76 134/73 Pulse Oximetry 97 95 Oxygen Delivery Method Room Air Room Air BMI result Body Mass Index 29.3 Labs 06/03/24 17:52 06/10/24 08:11 Labs: Laboratory Results - last 48 hr 06/07/24 06/07/24 06/08/24 16:51 20:26 08:12 POC Glucose 168 H 157 H 166 H Chlam trachomat DNA PCR N.gonorrhoeae DNA (PCR) 06/08/24 11:15 POC Glucose Chlam trachomat DNA PCR NOT DETECTED N.gonorrhoeae DNA (PCR) NOT DETECTED Medications Medications Current Medications Acetaminophen (Acetaminophen 325 Mg Tablet) 650 mg PO Q6H PRN PRN Reason: Headache/Pain Mild Scale (1-3) Last Admin: 06/07/24 11:32 Dose: 650 mg Al Hydroxide/Mg Hydroxide (Magnesium Hydrox/Alum Hydrox 30 Ml Oral.Susp) 30 ml PO Q6H PRN PRN Reason: Heartburn/Nausea Amlodipine Besylate (Amlodipine Besylate 5 Mg Tablet) 5 mg PO DAILY [facility]; Protocol Last Admin: 06/08/24 08:49 Dose: 5 mg Baclofen (Baclofen 10 Mg Tablet) 10 mg PO BID [facility] Buprenorphine/Naloxone (Buprenorphine/Naloxone 8/2 Mg Film) 1 film SUBLINGUAL BID PRN PRN Reason: opiate wd Last Admin: 06/07/24 20:48 Dose: 1 film Bupropion HCl (Bupropion Hcl 100 Mg Tablet) 100 mg PO DAILY [facility] Last Admin: 06/08/24 08:49 Dose: 100 mg Clonidine HCl (Clonidine Hcl 0.2 Mg Tablet) 0.2 mg PO BID [facility]; Protocol Last Admin: 06/08/24 20:35 Dose: 0.2 mg Divalproex Sodium (Divalproex Sodium Er 500 Mg Tab.Er.24h) 1,500 mg PO BEDTIME [facility] Last Admin: 06/08/24 20:35 Dose: 1,500 mg Emtricitabine/Tenofovir (Emtricitabin/Tenofovir Df 200/300 Tablet) 1 tab PO DAILY [facility] Last Admin: 06/08/24 08:48 Dose: 1 tab Fluticasone Propionate (Fluticasone Propionate 100 Mcg Blst.W.Dev) 1 puff INHALE RBID [facility] Last Admin: 06/08/24 20:38 Dose: 1 puff Gabapentin (Gabapentin 300 Mg Capsule) 300 mg PO BEDTIME [facility] Last Admin: 06/08/24 20:35 Dose: 300 mg Hydroxyzine HCl (Hydroxyzine Hcl 25 Mg Tablet) 25 mg PO Q6H PRN PRN Reason: Anxiety Magnesium Hydroxide (Milk Of Magnesia 30 Ml Oral.Susp) 30 ml PO DAILY PRN PRN Reason: Constipation Metformin HCl (Metformin Hcl 500 Mg Tablet) 1,000 mg PO BID [facility] Last Admin: 06/08/24 20:35 Dose: 1,000 mg Nicotine (Nicotine 21 Mg Patch.Td24) 21 mg TRANSDERMA DAILY PRN PRN Reason: smoking cessation Last Admin: 06/08/24 08:55 Dose: 21 mg Nicotine Polacrilex (Nicotine Polacrilex 2 Mg Gum) 4 mg BUCCAL Q2H PRN PRN Reason: Nicotine Cravings Last Admin: 06/07/24 20:48 Dose: 4 mg Patient Own Medication ( Ciclesonide [Alvesco ] 160 Mcg/Actuation Hfa Aerosol Inhaler) 1 puff INHALE RBID [facility] Last Admin: 06/08/24 20:38 Dose: 1 puff Prazosin HCl (Prazosin Hcl 1 Mg Capsule) 2 mg PO BEDTIME [facility]; Protocol Last Admin: 06/08/24 20:36 Dose: 2 mg Quetiapine Fumarate (Quetiapine Fumarate 50 Mg Tablet) 50 mg PO TID PRN PRN Reason: AH/mild agitation Last Admin: 06/08/24 18:05 Dose: 50 mg Quetiapine Fumarate (Quetiapine Fumarate 400 Mg Tablet) 400 mg PO BEDTIME [facility] Last Admin: 06/08/24 20:36 Dose: 400 mg Quetiapine Fumarate (Quetiapine Fumarate 50 Mg Tablet) 50 mg PO BEDTIME [facility] Last Admin: 06/08/24 20:36 Dose: 50 mg Topiramate (Topiramate 25 Mg Tablet) 25 mg PO BID [facility] Last Admin: 06/08/24 20:35 Dose: 25 mg Trazodone HCl (Trazodone Hcl 50 Mg Tablet) 50 mg PO BEDTIME MRX1 PRN PRN Reason: Insomnia Allergies Allergies Allergy/AdvReac Type Severity Reaction Status Date / Time No Known Allergies Allergy Verified 06/03/24 17:20 Assessment & Plan Assessment & Plan (1) Suicidal ideation: Status: Acute Code(s): R45.851 - Suicidal ideations (2) Bipolar 1 disorder, mixed: Status: Acute Code(s): F31.60 - Bipolar disorder, current episode mixed, unspecified Plan HPI: Geo is a 48-year-old white, , unemployed, homeless man who is known to me from previous years at service [employer]. He has a longstanding history of bipolar disorder, crack cocaine and some alcohol abuse/dependence. He had moved to [place] over the past few months; this April he returned to [place] on May 04. He was arrested and charged for shoplifting assaulting an officer and has an upcoming court date this June. Patient was accepted to [facility] around that time and completed the program. However, on completion he was sent to a TSS in [place], in the same neighborhood where he's spent years both embroiled in substance abuse and getting into trouble and where he currently feels he is a target. Patient was overwhelmed with anxiety and so He left the TSS after 2 hours, got high and next day self-presented to hospital, reporting depression and SI (no history of attempts). He has remained on his medications. He reports he uses substance abuse to treat his symptoms including racing 1000 ADHD symptoms. HOSPITAL COURSE: Geo meets criteria for IP LOC for safety and stabilization. Medications were reviewed and maintained and continued. Depakote was changed to 500 mg t.i.d. prazosin which was started recently has been helpful with his nightmares but still has some sleep interruptions. He is not appearing to be in need of detoxification from alcohol. He will meet with his treatment team on 06/07/24. 06/07 Patient reviewed recent history. Regarding symptoms said his mood is better. He struggles with AH throughout the day (that say degrading things to him); also says he can't filter shit out and is hypersensitive to noises on the unit and hears typing, footsteps and other noises... He also reports that there is electronic hum which has been in his head for years. Regarding sleep, he finds that while he is now able to fall asleep he still waking up frequently, anxious, however he is no longer having the nightmares and not remembering nightmares. 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 He's only been able to get off the [employer] jobs and finding it hard to move forward. !08/10: Continue current plan of care and regime. Meds: Depakote dose splt up this weekend to help with daytime AH Patient agreed to moving his Seroquel to bedtime since he has had trouble sleeping and adding Seroquel 50 mg p.r.n. throughout the day to help with bothersome AH; patient used to be on 600 mg Seroquel total daily dose Prazosin increased to 2 mg to help continued sleep anxiety Patient described what sounds like ADHD symptoms and asks about stimulant Plan: CV Q 15 minute check Change Seroquel to 450 mg q.h.s. (instead of divided doses); to help with sleep Add Seroquel 50 mg t.i.d. p.r.n. for AH during the day Continue Divalproex Sodium 500 mg PO TID [facility] (broken up into divided doses to address AH during the day) -will get Level>... For now, continue Bupropion HCl 100 mg PO DAILY [facility] Continue Clonidine HCl 0.2 mg PO BID [facility] Continue Gabapentin 300 mg PO BEDTIME [facility]; says started to help asleep Increase to Prazosin HCl 2 mg PO BEDTIME [facility]; since patient still having anxiety filled sleep Patient asked to be restarted on baclofen 10 mg b.i.d. which was started for cocaine craving; food writer discussed risks/side effects including withdrawal from stopping, which he understands and with which he wants to continue Continue Buprenorphine/Naloxone 8/2 Mg Film? 1 film SUBLINGUAL BID PRN Topiramate (Topiramate 25 Mg Tablet) 25 mg PO BID [facility] Amlodipine Besylate 5 mg PO DAILY [facility]; Protocol Emtricitabine/Tenofovir (Emtricitabin/Tenofovir Df 200/300 Tablet) 1 tab PO DAILY [facility] Fluticasone Propionate (Fluticasone Propionate 100 Mcg Blst.W.Dev) 1 puff INHALE RBID Metformin HCl 1,000 mg PO BID [facility] Patient Own Medication ( Ciclesonide [Alvesco ] 160 Mcg/Actuation Hfa Aerosol Inhaler) 1 puff INHALE RBID [facility] Reason for continued inpatient stay Substantial Risk for: rapid decompensation Time Spent With Patient Time: Total time managing care of this patient today ____ minutes.
[2024-06-09] MEDS: CICLESONIDE 1 EACH INHALE (09:45)
[2024-06-09] MEDS: metFORMIN HCl 500 MG TABLET 1000 MG PO ×2 (09:46→21:28)
[2024-06-09] MEDS: Baclofen 10 MG TABLET PO ×2 (09:46→21:28)
[2024-06-09] MEDS: Fluticasone Propionate 100 MCG BLST.W.DEV 1 PUFF INHALE ×2 (09:46→21:32)
[2024-06-09] MEDS: cloNIDine HCL 0.2 MG TABLET PO ×2 (09:46→21:30)
[2024-06-09] MEDS: buPROPion HCL 100 MG TABLET PO (09:46)
[2024-06-09] MEDS: amLODIPine Besylate 5 MG TABLET PO (09:46)
[2024-06-09] MEDS: Topiramate 25 MG TABLET PO ×2 (09:46→21:32)
[2024-06-09] MEDS: Emtricitabin/Tenofovir DF 200/300 TABLET 1 TAB PO (09:46)
[2024-06-09] MEDS: QUEtiapine Fumarate 50 MG TABLET PO ×2 (14:22→21:31)
[2024-06-09 20:00] VITALS: BP 148/85; BP 169/88; PULSE 87; TEMP 36.7; O2SAT 97
[2024-06-09] MEDS: Divalproex Sodium ER 500 MG TAB.ER.24H 1500 MG PO (21:27)
[2024-06-09 21:29] VITALS: BP 169/88
[2024-06-09] MEDS: Prazosin HCL 1 MG CAPSULE 2 MG PO (21:29)
[2024-06-09 21:30] VITALS: BP 169/88
[2024-06-09] MEDS: QUEtiapine Fumarate 400 MG TABLET PO (21:31)
[2024-06-09] MEDS: Gabapentin 300 MG CAPSULE PO (21:31)
[2024-06-10 07:59] VITALS: BP 163/89; PULSE 82; TEMP 36.5; O2SAT 97
[2024-06-10] MEDS: Fluticasone Propionate 100 MCG BLST.W.DEV 1 PUFF INHALE ×2 (08:47→20:52)
[2024-06-10] MEDS: Emtricitabin/Tenofovir DF 200/300 TABLET 1 TAB PO (08:48)
[2024-06-10] MEDS: metFORMIN HCl 500 MG TABLET 1000 MG PO ×2 (08:48→20:46)
[2024-06-10] MEDS: Nicotine 21 MG PATCH.TD24 TRANSDERMA (08:48)
[2024-06-10] MEDS: cloNIDine HCL 0.2 MG TABLET PO ×2 (08:48→20:47)
[2024-06-10] MEDS: Baclofen 10 MG TABLET PO ×2 (08:48→20:47)
[2024-06-10] MEDS: Topiramate 25 MG TABLET PO ×2 (08:49→20:46)
[2024-06-10] MEDS: buPROPion HCL 100 MG TABLET PO (08:49)
[2024-06-10] MEDS: amLODIPine Besylate 5 MG TABLET PO (08:49)
[2024-06-10] MEDS: Buprenorphine/Naloxone 8/2 mg FILM 1 FILM SUBLINGUAL ×2 (08:54→20:51)
[2024-06-10 08:56] LABS: Creatinine Clr Calc Pharmacy 130.7; Estimated Glomerular Filt Rate > 60
--- NOTE | 2024-06-10 09:26 | HO.PSYCHPN ---
Subjective Subjective Date of Service: 06/10/24 Reason For Visit: depressed / SI Subjective Notes: Conditional Voluntary Interim History: Pt reports sleeping better. He reports in terms of his mood, it has improved with treatment and he is no longer suicidal. He presents as future oriented, wondering where he will go next and looking forward to talk with SW about aftercare. We discussed about moving meds to nighttime. Review of Systems Review of Systems Yes all other systems are reviewed and are negative Constitutional: Reports as per HPI Mental Status Exam Mental Status Exam Narrative: Pt is alert and oriented; behavior is cooperative, calm; patient is not in distress; dressed in casual attire with unkempt hair but adequate hygiene; mood is described as still depressed but better and affect congruent, though still downcast; eye contact appropriate; Speech is verbose, but not pressured, normal rate, volume and prosody and not pressured; no psychomotor agitation/retardation present; thought process is organized and goal directed; Thought content is on tx and aftercare; otherwise pertinent to relevant topics and without any delusional content, paranoid ideations or grandiosity; denies any SI/HI. AH remains bothersome and pronounced throughout the day. Patients insight and judgment impaired but improving Diagnostics Vital Signs (24Hr): Vital Signs - 24 hr 06/09/24 20:00 06/09/24 20:00 06/09/24 21:29 Temperature 98.0 F Pulse Rate 87 Blood Pressure 169/88 H 148/85 H 169/88 H Pulse Oximetry 97 Oxygen Delivery Method Room Air 06/09/24 21:30 06/10/24 07:59 Temperature 97.7 F Pulse Rate 82 Blood Pressure 169/88 H 163/89 H Pulse Oximetry 97 Oxygen Delivery Method Room Air BMI result Body Mass Index 29.3 Labs 06/03/24 17:52 06/10/24 08:11 Labs: Laboratory Results - last 48 hr 06/08/24 06/10/24 11:15 08:11 Creatinine 0.75 Estim Creat Clear Calc 130.7 Estimated GFR > 60 Chlam trachomat DNA PCR NOT DETECTED N.gonorrhoeae DNA (PCR) NOT DETECTED Medications Medications Current Medications Acetaminophen (Acetaminophen 325 Mg Tablet) 650 mg PO Q6H PRN PRN Reason: Headache/Pain Mild Scale (1-3) Last Admin: 06/07/24 11:32 Dose: 650 mg Al Hydroxide/Mg Hydroxide (Magnesium Hydrox/Alum Hydrox 30 Ml Oral.Susp) 30 ml PO Q6H PRN PRN Reason: Heartburn/Nausea Amlodipine Besylate (Amlodipine Besylate 5 Mg Tablet) 5 mg PO DAILY [facility]; Protocol Last Admin: 06/10/24 08:49 Dose: 5 mg Baclofen (Baclofen 10 Mg Tablet) 10 mg PO BID [facility] Last Admin: 06/10/24 08:48 Dose: 10 mg Buprenorphine/Naloxone (Buprenorphine/Naloxone 8/2 Mg Film) 1 film SUBLINGUAL BID PRN PRN Reason: opiate wd Last Admin: 06/10/24 08:54 Dose: 1 film Bupropion HCl (Bupropion Hcl 100 Mg Tablet) 100 mg PO DAILY [facility] Last Admin: 06/10/24 08:49 Dose: 100 mg Clonidine HCl (Clonidine Hcl 0.2 Mg Tablet) 0.2 mg PO BID [facility]; Protocol Last Admin: 06/10/24 08:48 Dose: 0.2 mg Divalproex Sodium (Divalproex Sodium Er 500 Mg Tab.Er.24h) 1,500 mg PO BEDTIME [facility] Last Admin: 06/09/24 21:27 Dose: 1,500 mg Emtricitabine/Tenofovir (Emtricitabin/Tenofovir Df 200/300 Tablet) 1 tab PO DAILY [facility] Last Admin: 06/10/24 08:48 Dose: 1 tab Fluticasone Propionate (Fluticasone Propionate 100 Mcg Blst.W.Dev) 1 puff INHALE RBID [facility] Last Admin: 06/10/24 08:47 Dose: 1 puff Gabapentin (Gabapentin 300 Mg Capsule) 300 mg PO BEDTIME [facility] Last Admin: 06/09/24 21:31 Dose: 300 mg Hydroxyzine HCl (Hydroxyzine Hcl 25 Mg Tablet) 25 mg PO Q6H PRN PRN Reason: Anxiety Magnesium Hydroxide (Milk Of Magnesia 30 Ml Oral.Susp) 30 ml PO DAILY PRN PRN Reason: Constipation Metformin HCl (Metformin Hcl 500 Mg Tablet) 1,000 mg PO BID [facility] Last Admin: 06/10/24 08:48 Dose: 1,000 mg Nicotine (Nicotine 21 Mg Patch.Td24) 21 mg TRANSDERMA DAILY PRN PRN Reason: smoking cessation Last Admin: 06/10/24 08:48 Dose: 21 mg Nicotine Polacrilex (Nicotine Polacrilex 2 Mg Gum) 4 mg BUCCAL Q2H PRN PRN Reason: Nicotine Cravings Last Admin: 06/07/24 20:48 Dose: 4 mg Patient Own Medication ( Ciclesonide [Alvesco ] 160 Mcg/Actuation Hfa Aerosol Inhaler) 1 puff INHALE RBID [facility] Last Admin: 06/10/24 08:54 Dose: Not Given Prazosin HCl (Prazosin Hcl 1 Mg Capsule) 2 mg PO BEDTIME [facility]; Protocol Last Admin: 06/09/24 21:29 Dose: 2 mg Quetiapine Fumarate (Quetiapine Fumarate 50 Mg Tablet) 50 mg PO TID PRN PRN Reason: AH/mild agitation Last Admin: 06/09/24 14:22 Dose: 50 mg Quetiapine Fumarate (Quetiapine Fumarate 400 Mg Tablet) 400 mg PO BEDTIME [facility] Last Admin: 06/09/24 21:31 Dose: 400 mg Quetiapine Fumarate (Quetiapine Fumarate 50 Mg Tablet) 50 mg PO BEDTIME [facility] Last Admin: 06/09/24 21:31 Dose: 50 mg Topiramate (Topiramate 25 Mg Tablet) 25 mg PO BID [facility] Last Admin: 06/10/24 08:49 Dose: 25 mg Trazodone HCl (Trazodone Hcl 50 Mg Tablet) 50 mg PO BEDTIME MRX1 PRN PRN Reason: Insomnia Allergies Allergies Allergy/AdvReac Type Severity Reaction Status Date / Time No Known Allergies Allergy Verified 06/03/24 17:20 Assessment & Plan Assessment & Plan (1) Suicidal ideation: Status: Acute Code(s): R45.851 - Suicidal ideations (2) Bipolar 1 disorder, mixed: Status: Acute Code(s): F31.60 - Bipolar disorder, current episode mixed, unspecified Plan HPI: Geo is a 48-year-old white, , unemployed, homeless man who is known to me from previous years at service [employer]. He has a longstanding history of bipolar disorder, crack cocaine and some alcohol abuse/dependence. He had moved to [place] over the past few months; this April he returned to [place] on May 04. He was arrested and charged for shoplifting assaulting an officer and has an upcoming court date this June. Patient was accepted to [facility] around that time and completed the program. However, on completion he was sent to a [facility] in [place], in the same neighborhood where he's spent years both embroiled in substance abuse and getting into trouble and where he currently feels he is a target. Patient was overwhelmed with anxiety and so He left the TSS after 2 hours, got high and next day self-presented to hospital, reporting depression and SI (no history of attempts). He has remained on his medications. He reports he uses substance abuse to treat his symptoms including racing 1000 ADHD symptoms. HOSPITAL COURSE: Geo meets criteria for IP LOC for safety and stabilization. Medications were reviewed and maintained and continued. Depakote was changed to 500 mg t.i.d. prazosin which was started recently has been helpful with his nightmares but still has some sleep interruptions. He is not appearing to be in need of detoxification from alcohol. He will meet with his treatment team on 06/07/24. 06/07 Patient reviewed recent history. Regarding symptoms said his mood is better. He struggles with AH throughout the day (that say degrading things to him); also says he can't filter shit out and is hypersensitive to noises on the unit and hears typing, footsteps and other noises... He also reports that there is electronic hum which has been in his head for years. Regarding sleep, he finds that while he is now able to fall asleep he still waking up frequently, anxious, however he is no longer having the nightmares and not remembering nightmares. 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 He's only been able to get off the [employer] jobs and finding it hard to move forward. Meds: Depakote dose splt up this weekend to help with daytime AH Patient agreed to moving his Seroquel to bedtime since he has had trouble sleeping and adding Seroquel 50 mg p.r.n. throughout the day to help with bothersome AH; patient used to be on 600 mg Seroquel total daily dose Prazosin increased to 2 mg to help continued sleep anxiety Patient described what sounds like ADHD symptoms and asks about stimulant 06/10 continue tx. will change depakote to bedtime. Plan: CV Q 15 minute check Change Seroquel to 450 mg q.h.s. (instead of divided doses); to help with sleep Add Seroquel 50 mg t.i.d. p.r.n. for AH during the day Continue Divalproex Sodium 500 mg PO TID [facility] (broken up into divided doses to address AH during the day) -will get Level>... For now, continue Bupropion HCl 100 mg PO DAILY [facility] Continue Clonidine HCl 0.2 mg PO BID [facility] Continue Gabapentin 300 mg PO BEDTIME [facility]; says started to help asleep Increase to Prazosin HCl 2 mg PO BEDTIME [facility]; since patient still having anxiety filled sleep Patient asked to be restarted on baclofen 10 mg b.i.d. which was started for cocaine craving; speech writer discussed risks/side effects including withdrawal from stopping, which he understands and with which he wants to continue Continue Buprenorphine/Naloxone 8/2 Mg Film? 1 film SUBLINGUAL BID PRN Topiramate (Topiramate 25 Mg Tablet) 25 mg PO BID [facility] Amlodipine Besylate 5 mg PO DAILY [facility]; Protocol Emtricitabine/Tenofovir (Emtricitabin/Tenofovir Df 200/300 Tablet) 1 tab PO DAILY [facility] Fluticasone Propionate (Fluticasone Propionate 100 Mcg Blst.W.Dev) 1 puff INHALE RBID Metformin HCl 1,000 mg PO BID [facility] Patient Own Medication ( Ciclesonide [Alvesco ] 160 Mcg/Actuation Hfa Aerosol Inhaler) 1 puff INHALE RBID [facility] Reason for continued inpatient stay Substantial Risk for: harm to self Time Spent With Patient Time: Total time managing care of this patient today ____ minutes.
[2024-06-10] MEDS: Nicotine Polacrilex 2 MG GUM 4 MG BUCCAL (10:22)
[2024-06-10 15:19] LABS: Syphilis Screen Nonreactive (Nonreactive)
[2024-06-10 15:30] LABS: HBS Num1 1.73 mIU/mL (0-7.99); HBc Num1 0.12 S/CO (0.00-0.79); HBsAGNum1 0.36 S/CO (0.00-0.99); HIV AB/AG Nonreactive (Nonreactive); HIV Num 1 0.07 S/CO (0.00-0.99); Hepatitis B Core Antibody Nonreactive (Nonreactive); Hepatitis B Surface Antigen Negative (Negative); ~HepC Num1 0.14 S/CO (0.00-0.79); ~Hepatitis B Surface Antibody NONREACTIVE (Nonreactive); ~Hepatitis C Antibody Nonreactive (Nonreactive)
[2024-06-10 19:44] VITALS: BP 120/80; PULSE 81; RESP 16; TEMP 36.8; O2SAT 98
[2024-06-10] MEDS: Divalproex Sodium ER 500 MG TAB.ER.24H 1500 MG PO (20:46)
[2024-06-10] MEDS: QUEtiapine Fumarate 400 MG TABLET PO (20:47)
[2024-06-10] MEDS: QUEtiapine Fumarate 50 MG TABLET PO (20:47)
[2024-06-10] MEDS: Gabapentin 300 MG CAPSULE PO (20:47)
[2024-06-10] MEDS: Prazosin HCL 1 MG CAPSULE 2 MG PO (20:47)
[2024-06-11 08:09] VITALS: BP 120/81; PULSE 84; TEMP 36.5; O2SAT 98
[2024-06-11] MEDS: Fluticasone Propionate 100 MCG BLST.W.DEV 1 PUFF INHALE ×2 (09:20→21:31)
[2024-06-11] MEDS: metFORMIN HCl 500 MG TABLET 1000 MG PO ×2 (09:20→21:35)
[2024-06-11] MEDS: Baclofen 10 MG TABLET PO ×2 (09:20→21:33)
[2024-06-11] MEDS: Buprenorphine/Naloxone 8/2 mg FILM 1 FILM SUBLINGUAL (09:21)
[2024-06-11] MEDS: Topiramate 25 MG TABLET PO ×2 (09:21→21:33)
[2024-06-11] MEDS: cloNIDine HCL 0.2 MG TABLET PO ×2 (09:21→21:34)
[2024-06-11] MEDS: Emtricitabin/Tenofovir DF 200/300 TABLET 1 TAB PO (09:21)
[2024-06-11] MEDS: buPROPion HCL 100 MG TABLET PO (09:21)
[2024-06-11] MEDS: amLODIPine Besylate 5 MG TABLET PO (09:21)
[2024-06-11] MEDS: Nicotine 21 MG PATCH.TD24 TRANSDERMA (09:40)
[2024-06-11] MEDS: Nicotine Polacrilex 2 MG GUM 4 MG BUCCAL (09:45)
--- NOTE | 2024-06-11 09:55 | HO.PSYCHPN ---
Subjective Subjective Date of Service: 06/11/24 Reason For Visit: depressed / SI Interim History: Met with patient; discussed with team Patient remains depressed and agrees to increase Wellbutrin to long-acting. AH is much better; it is only at a low level and he is able to ignore it. Patient reports that he is sleeping well. Discussed aftercare and patient understands options are limited. He very much wants to remain sober and asks for Suboxone to be scheduled Mental Status Exam Mental Status Exam Narrative: Pt is alert and oriented; behavior is cooperative, calm; patient is not in distress; dressed in casual attire with unkempt hair but adequate hygiene; mood is described as still depressed but better and affect congruent, though still downcast; eye contact appropriate; Speech is normal rate, volume and prosody; not pressured; no psychomotor agitation/retardation present; thought process is organized and goal directed; Thought content is on tx and aftercare; otherwise pertinent to relevant topics and without any delusional content, paranoid ideations or grandiosity; denies any SI/HI. AH mostly resolved and able to be ignored. Patients insight and judgment fair. Diagnostics Vital Signs (24Hr): Vital Signs - 24 hr 06/10/24 19:44 06/11/24 08:09 Temperature 98.2 F 97.7 F Pulse Rate 81 84 Respiratory Rate 16 Blood Pressure 120/80 120/81 Pulse Oximetry 98 98 Oxygen Delivery Method Room Air Room Air BMI result Body Mass Index 29.3 Labs 06/03/24 17:52 06/10/24 08:11 Labs: Laboratory Results - last 48 hr 06/07/24 06/10/24 19:12 08:11 Creatinine 0.75 Estim Creat Clear Calc 130.7 Estimated GFR > 60 T.pallidum Ab (EIA) Nonreactive Hep Bs Antigen Negative Hep Bs Antibody NONREACTIVE Hep B Core Total Ab Nonreactive Hepatitis C Ab (EIA) Nonreactive HIV 1&2 Ab/P24 Ag 4thGn Nonreactive Medications Medications Current Medications Acetaminophen (Acetaminophen 325 Mg Tablet) 650 mg PO Q6H PRN PRN Reason: Headache/Pain Mild Scale (1-3) Last Admin: 06/07/24 11:32 Dose: 650 mg Al Hydroxide/Mg Hydroxide (Magnesium Hydrox/Alum Hydrox 30 Ml Oral.Susp) 30 ml PO Q6H PRN PRN Reason: Heartburn/Nausea Amlodipine Besylate (Amlodipine Besylate 5 Mg Tablet) 5 mg PO DAILY [facility]; Protocol Last Admin: 06/11/24 09:21 Dose: 5 mg Baclofen (Baclofen 10 Mg Tablet) 10 mg PO BID [facility] Last Admin: 06/11/24 09:20 Dose: 10 mg Buprenorphine/Naloxone (Buprenorphine/Naloxone 8/2 Mg Film) 1 film SUBLINGUAL BID PRN PRN Reason: opiate wd Last Admin: 06/11/24 09:21 Dose: 1 film Bupropion HCl (Bupropion Hcl 100 Mg Tablet) 100 mg PO DAILY [facility] Last Admin: 06/11/24 09:21 Dose: 100 mg Clonidine HCl (Clonidine Hcl 0.2 Mg Tablet) 0.2 mg PO BID [facility]; Protocol Last Admin: 06/11/24 09:21 Dose: 0.2 mg Divalproex Sodium (Divalproex Sodium Er 500 Mg Tab.Er.24h) 1,500 mg PO BEDTIME [facility] Last Admin: 06/10/24 20:46 Dose: 1,500 mg Emtricitabine/Tenofovir (Emtricitabin/Tenofovir Df 200/300 Tablet) 1 tab PO DAILY [facility] Last Admin: 06/11/24 09:21 Dose: 1 tab Fluticasone Propionate (Fluticasone Propionate 100 Mcg Blst.W.Dev) 1 puff INHALE RBID [facility] Last Admin: 06/11/24 09:20 Dose: 1 puff Gabapentin (Gabapentin 300 Mg Capsule) 300 mg PO BEDTIME [facility] Last Admin: 06/10/24 20:47 Dose: 300 mg Hydroxyzine HCl (Hydroxyzine Hcl 25 Mg Tablet) 25 mg PO Q6H PRN PRN Reason: Anxiety Magnesium Hydroxide (Milk Of Magnesia 30 Ml Oral.Susp) 30 ml PO DAILY PRN PRN Reason: Constipation Metformin HCl (Metformin Hcl 500 Mg Tablet) 1,000 mg PO BID [facility] Last Admin: 06/11/24 09:20 Dose: 1,000 mg Nicotine (Nicotine 21 Mg Patch.Td24) 21 mg TRANSDERMA DAILY PRN PRN Reason: smoking cessation Last Admin: 06/11/24 09:40 Dose: 21 mg Nicotine Polacrilex (Nicotine Polacrilex 2 Mg Gum) 4 mg BUCCAL Q2H PRN PRN Reason: Nicotine Cravings Last Admin: 06/11/24 09:45 Dose: 4 mg Patient Own Medication ( Ciclesonide [Alvesco ] 160 Mcg/Actuation Hfa Aerosol Inhaler) 1 puff INHALE RBID [facility] Last Admin: 06/11/24 09:19 Dose: Not Given Prazosin HCl (Prazosin Hcl 1 Mg Capsule) 2 mg PO BEDTIME [facility]; Protocol Last Admin: 06/10/24 20:47 Dose: 2 mg Quetiapine Fumarate (Quetiapine Fumarate 50 Mg Tablet) 50 mg PO TID PRN PRN Reason: AH/mild agitation Last Admin: 06/09/24 14:22 Dose: 50 mg Quetiapine Fumarate (Quetiapine Fumarate 400 Mg Tablet) 400 mg PO BEDTIME [facility] Last Admin: 06/10/24 20:47 Dose: 400 mg Quetiapine Fumarate (Quetiapine Fumarate 50 Mg Tablet) 50 mg PO BEDTIME [facility] Last Admin: 06/10/24 20:47 Dose: 50 mg Topiramate (Topiramate 25 Mg Tablet) 25 mg PO BID [facility] Last Admin: 06/11/24 09:21 Dose: 25 mg Trazodone HCl (Trazodone Hcl 50 Mg Tablet) 50 mg PO BEDTIME MRX1 PRN PRN Reason: Insomnia Allergies Allergies Allergy/AdvReac Type Severity Reaction Status Date / Time No Known Allergies Allergy Verified 06/03/24 17:20 Assessment & Plan Assessment & Plan (1) Bipolar 1 disorder, mixed: Status: Acute Code(s): F31.60 - Bipolar disorder, current episode mixed, unspecified (2) Substance use disorder: Status: Acute Code(s): F19.90 - Other psychoactive substance use, unspecified, uncomplicated Plan HPI: Geo is a 48-year-old white, , unemployed, homeless man who is known to me from previous years at service [facility]. He has a longstanding history of bipolar disorder, crack cocaine and some alcohol abuse/dependence. He had moved to [place] over the past few months; this April he returned to [place] on May 04. He was arrested and charged for shoplifting assaulting an officer and has an upcoming court date this June. Patient was accepted to [facility] around that time and completed the program. However, on completion he was sent to a [facility] in [place], in the same neighborhood where he's spent years both embroiled in substance abuse and getting into trouble and where he currently feels he is a target. Patient was overwhelmed with anxiety and so He left the TSS after 2 hours, got high and next day self-presented to hospital, reporting depression and SI (no history of attempts). He has remained on his medications. He reports he uses substance abuse to treat his symptoms including racing 1000 ADHD symptoms. HOSPITAL COURSE: Geo meets criteria for IP LOC for safety and stabilization. Medications were reviewed and maintained and continued. Depakote was changed to 500 mg t.i.d. prazosin which was started recently has been helpful with his nightmares but still has some sleep interruptions. He is not appearing to be in need of detoxification from alcohol. He will meet with his treatment team on 06/07/24. 06/07 Patient reviewed recent history. Regarding symptoms said his mood is better. He struggles with AH throughout the day (that say degrading things to him); also says he can't filter shit out and is hypersensitive to noises on the unit and hears typing, footsteps and other noises... He also reports that there is electronic hum which has been in his head for years. Regarding sleep, he finds that while he is now able to fall asleep he still waking up frequently, anxious, however he is no longer having the nightmares and not remembering nightmares. 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 He's only been able to get off the [employer] jobs and finding it hard to move forward. Meds: Depakote dose splt up this weekend to help with daytime AH Patient agreed to moving his Seroquel to bedtime since he has had trouble sleeping and adding Seroquel 50 mg p.r.n. throughout the day to help with bothersome AH; patient used to be on 600 mg Seroquel total daily dose Prazosin increased to 2 mg to help continued sleep anxiety Patient described what sounds like ADHD symptoms and asks about stimulant 06/08 discussed more of hx and 2005 [facility] time in [facility], started hum in ear regarding depakote, he does not think it likely he'll be able to keep up TID regimen and so agrees to move it all to bedtime- feels mood is better, though still depressed -has not availed self of prn serqouel 06/11 steadily improving; still with depression although mood is better. Will switch to long-acting Wellbutrin and consider titration. Patient sleeping well. AH is a non-issue, only minimal and able to be ignored. -Depakote level pending; alk-phos and ammonia mildly elevated. Depending on level will adjust Patient is stabilizing well, with improved mood. He remains in good behavioral and impulse control, engaged in treatment, attending groups and forthcoming in 1 on 1 sessions. Appropriate with peers and staff Plan: CV Q 15 minute check Continue Seroquel to 450 mg q.h.s. (instead of divided doses); to help with sleep Continue Seroquel 50 mg t.i.d. p.r.n. for AH during the day Continue Divalproex Sodium ER 1500mg qhs -level pending Change to Wellbutrin XL 150 mg daily; will titrate as needed Continue Clonidine HCl 0.2 mg PO BID [facility] Continue Gabapentin 300 mg PO BEDTIME [facility]; says started to help asleep Continue Prazosin HCl 2 mg PO BEDTIME [facility]; since patient still having anxiety filled sleep Patient asked to be restarted on baclofen 10 mg b.i.d. 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 1 film SUBLINGUAL BID Topiramate (Topiramate 25 Mg Tablet) 25 mg PO BID [facility] Amlodipine Besylate 5 mg PO DAILY [facility]; Protocol Emtricitabine/Tenofovir (Emtricitabin/Tenofovir Df 200/300 Tablet) 1 tab PO change to p.r.n. daily Fluticasone Propionate (Fluticasone Propionate 100 Mcg Blst.W.Dev) 1 puff INHALE RBID Metformin HCl 1,000 mg PO BID [facility] Patient Own Medication ( Ciclesonide [Alvesco ] 160 Mcg/Actuation Hfa Aerosol Inhaler) 1 puff INHALE RBID [facility] Patient educated on: diagnosis, medication risk/benefits, substance abuse and therapeutic strategies Informed Consent: understands Reason for continued inpatient stay Substantial Risk for: stable for discharge Time Spent With Patient Time: Total time managing care of this patient today ____ minutes.
[2024-06-11 14:27] LABS: Ammonia 62 umol/L (13-55)
[2024-06-11 14:36] LABS: Alanine Aminotransferase 12 U/L (0-40); Albumin Level 4.2 g/dL (3.5-5.0); Alkaline Phosphatase 130 U/L (39-117); Aspartate Amino Transferase 15 U/L (5-37); Bilirubin Direct 0.1 mg/dL (0.0-0.5); Bilirubin Total 0.3 mg/dL (0.0-1.0); Total Protein 7.4 g/dL (6.5-8.0)
[2024-06-11 14:45] LABS: Valproate 67.4 mcg/mL (50.0-100.0)
[2024-06-11 20:00] VITALS: BP 129/83; PULSE 85; RESP 16; TEMP 36.7; O2SAT 97
[2024-06-11] MEDS: QUEtiapine Fumarate 400 MG TABLET PO (21:34)
[2024-06-11] MEDS: QUEtiapine Fumarate 50 MG TABLET PO (21:34)
[2024-06-11] MEDS: Gabapentin 300 MG CAPSULE PO (21:34)
[2024-06-11] MEDS: Divalproex Sodium ER 500 MG TAB.ER.24H 1500 MG PO (21:35)
[2024-06-11] MEDS: Prazosin HCL 1 MG CAPSULE 2 MG PO (21:35)
[2024-06-12 08:00] VITALS: BP 128/64; PULSE 88; RESP 18; TEMP 36.5; O2SAT 99
[2024-06-12] MEDS: Fluticasone Propionate 100 MCG BLST.W.DEV 1 PUFF INHALE ×2 (08:55→20:56)
[2024-06-12] MEDS: Baclofen 10 MG TABLET PO ×2 (08:56→20:57)
[2024-06-12] MEDS: Buprenorphine/Naloxone 8/2 mg FILM 1 FILM SUBLINGUAL ×2 (08:56→18:14)
[2024-06-12] MEDS: Nicotine 21 MG PATCH.TD24 TRANSDERMA (08:56)
[2024-06-12] MEDS: buPROPion HCl XL 150 MG TAB.ER.24H PO (08:56)
[2024-06-12] MEDS: Topiramate 25 MG TABLET PO ×2 (08:57→21:07)
[2024-06-12] MEDS: Acetaminophen 325 MG TABLET 650 MG PO (08:57)
[2024-06-12] MEDS: amLODIPine Besylate 5 MG TABLET PO (08:57)
[2024-06-12] MEDS: cloNIDine HCL 0.2 MG TABLET PO ×2 (08:57→20:57)
[2024-06-12] MEDS: metFORMIN HCl 500 MG TABLET 1000 MG PO ×2 (08:57→20:59)
--- NOTE | 2024-06-12 15:17 | HO.PSYCHPN ---
Subjective Subjective Date of Service: 06/12/24 Reason For Visit: depressed / SI Interim History: Pt seen in the milieu, discussed with team Interactive with team, peers, and on the phone. States he is feeling well. Team reports no issues of concern. Medication Compliance: Yes Side effects from medications: No Attending Groups: Intermittent Review of Systems Acute medical concerns: No Medical Review of Systems: unchanged Review of Systems Review of Systems Denies Mental Status Exam Mental Status Exam Patient Appearance: Appropriate Patient Orientation: Person, Place and Situation Level of Consciousness: Alert Patient Behavior: Appropriate Mood Description: Constricted Affect Description: Constricted Patient Cognition Impaired: No Ability to Follow Directions: Good Speech Pattern: Spontaneous Speech Thought Process: Intact Thought Content: positive for Intact and positive for Suicidal Ideation (denies) Depressive Symptoms: Thoughts of /Suicide (denies) Judgement: Fair Diagnostics Vital Signs (24Hr): Vital Signs - 24 hr 06/11/24 20:00 06/12/24 08:00 Temperature 98.1 F 97.7 F Pulse Rate 85 88 Respiratory Rate 16 18 Blood Pressure 129/83 128/64 Pulse Oximetry 97 99 Oxygen Delivery Method Room Air Room Air BMI result Body Mass Index 29.3 Labs 06/03/24 17:52 06/10/24 08:11 Labs: Laboratory Results - last 48 hr 06/07/24 06/11/24 19:12 14:14 Total Bilirubin 0.3 Direct Bilirubin 0.1 AST 15 ALT 12 Alkaline Phosphatase 130 H Ammonia 62 H Total Protein 7.4 Albumin 4.2 Valproic Acid 67.4 T.pallidum Ab (EIA) Nonreactive Hep Bs Antigen Negative Hep Bs Antibody NONREACTIVE Hep B Core Total Ab Nonreactive Hepatitis C Ab (EIA) Nonreactive HIV 1&2 Ab/P24 Ag 4thGn Nonreactive Medications Medications Current Medications Acetaminophen (Acetaminophen 325 Mg Tablet) 650 mg PO Q6H PRN PRN Reason: Headache/Pain Mild Scale (1-3) Last Admin: 06/12/24 08:57 Dose: 650 mg Al Hydroxide/Mg Hydroxide (Magnesium Hydrox/Alum Hydrox 30 Ml Oral.Susp) 30 ml PO Q6H PRN PRN Reason: Heartburn/Nausea Amlodipine Besylate (Amlodipine Besylate 5 Mg Tablet) 5 mg PO DAILY [facility]; Protocol Last Admin: 06/12/24 08:57 Dose: 5 mg Baclofen (Baclofen 10 Mg Tablet) 10 mg PO BID [facility] Last Admin: 12/28/24 08:56 Dose: 10 mg Buprenorphine/Naloxone (Buprenorphine/Naloxone 8/2 Mg Film) 1 film SUBLINGUAL BID@0900,1700 [facility] Last Admin: 06/12/24 08:56 Dose: 1 film Bupropion HCl (Bupropion Hcl Xl 150 Mg Tab.Er.24h) 150 mg PO DAILY [facility] Last Admin: 06/12/24 08:56 Dose: 150 mg Clonidine HCl (Clonidine Hcl 0.2 Mg Tablet) 0.2 mg PO BID [facility]; Protocol Last Admin: 06/12/24 08:57 Dose: 0.2 mg Divalproex Sodium (Divalproex Sodium Er 500 Mg Tab.Er.24h) 1,500 mg PO BEDTIME [facility] Last Admin: 06/11/24 21:35 Dose: 1,500 mg Emtricitabine/Tenofovir (Emtricitabin/Tenofovir Df 200/300 Tablet) 1 tab PO DAILY PRN PRN Reason: prior to risky behavior Fluticasone Propionate (Fluticasone Propionate 100 Mcg Blst.W.Dev) 1 puff INHALE RBID [facility] Last Admin: 06/12/24 08:55 Dose: 1 puff Gabapentin (Gabapentin 300 Mg Capsule) 300 mg PO BEDTIME [facility] Last Admin: 06/11/24 21:34 Dose: 300 mg Hydroxyzine HCl (Hydroxyzine Hcl 25 Mg Tablet) 25 mg PO Q6H PRN PRN Reason: Anxiety Magnesium Hydroxide (Milk Of Magnesia 30 Ml Oral.Susp) 30 ml PO DAILY PRN PRN Reason: Constipation Metformin HCl (Metformin Hcl 500 Mg Tablet) 1,000 mg PO BID [facility] Last Admin: 06/12/24 08:57 Dose: 1,000 mg Nicotine (Nicotine 21 Mg Patch.Td24) 21 mg TRANSDERMA DAILY PRN PRN Reason: smoking cessation Last Admin: 06/12/24 08:56 Dose: 21 mg Nicotine Polacrilex (Nicotine Polacrilex 2 Mg Gum) 4 mg BUCCAL Q2H PRN PRN Reason: Nicotine Cravings Last Admin: 06/11/24 09:45 Dose: 4 mg Patient Own Medication ( Ciclesonide [Alvesco ] 160 Mcg/Actuation Hfa Aerosol Inhaler) 1 puff INHALE RBID [facility] Last Admin: 06/12/24 09:46 Dose: Not Given Prazosin HCl (Prazosin Hcl 1 Mg Capsule) 2 mg PO BEDTIME [facility]; Protocol Last Admin: 06/11/24 21:35 Dose: 2 mg Quetiapine Fumarate (Quetiapine Fumarate 50 Mg Tablet) 50 mg PO TID PRN PRN Reason: AH/mild agitation Last Admin: 06/09/24 14:22 Dose: 50 mg Quetiapine Fumarate (Quetiapine Fumarate 400 Mg Tablet) 400 mg PO BEDTIME [facility] Last Admin: 06/11/24 21:34 Dose: 400 mg Quetiapine Fumarate (Quetiapine Fumarate 50 Mg Tablet) 50 mg PO BEDTIME [facility] Last Admin: 06/11/24 21:34 Dose: 50 mg Topiramate (Topiramate 25 Mg Tablet) 25 mg PO BID [facility] Last Admin: 06/12/24 08:57 Dose: 25 mg Trazodone HCl (Trazodone Hcl 50 Mg Tablet) 50 mg PO BEDTIME MRX1 PRN PRN Reason: Insomnia Allergies Allergies Allergy/AdvReac Type Severity Reaction Status Date / Time No Known Allergies Allergy Verified 06/03/24 17:20 Assessment & Plan Assessment & Plan (1) Suicidal ideation: Status: Acute Code(s): R45.851 - Suicidal ideations (2) Bipolar 1 disorder, mixed: Status: Acute Code(s): F31.60 - Bipolar disorder, current episode mixed, unspecified Plan HPI: Geo is a 48-year-old white, , unemployed, homeless man who is known to me from previous years at [employer] [facility]. He has a longstanding history of bipolar disorder, crack cocaine and some alcohol abuse/dependence. He had moved to [place] over the past few months; this April he returned to [place] on May 04. He was arrested and charged for shoplifting assaulting an officer and has an upcoming court date this June. Patient was accepted to [facility] around that time and completed the program. However, on completion he was sent to a [facility]SS in [place], in the same neighborhood where he's spent years both embroiled in substance abuse and getting into trouble and where he currently feels he is a target. Patient was overwhelmed with anxiety and so He left the TSS after 2 hours, got high and next day self-presented to hospital, reporting depression and SI (no history of attempts). He has remained on his medications. He reports he uses substance abuse to treat his symptoms including racing 1000 ADHD symptoms. HOSPITAL COURSE: Geo meets criteria for IP LOC for safety and stabilization. Medications were reviewed and maintained and continued. Depakote was changed to 500 mg t.i.d. prazosin which was started recently has been helpful with his nightmares but still has some sleep interruptions. He is not appearing to be in need of detoxification from alcohol. He will meet with his treatment team on 06/07/24. 06/07 Patient reviewed recent history. Regarding symptoms said his mood is better. He struggles with AH throughout the day (that say degrading things to him); also says he can't filter shit out and is hypersensitive to noises on the unit and hears typing, footsteps and other noises... He also reports that there is electronic hum which has been in his head for years. Regarding sleep, he finds that while he is now able to fall asleep he still waking up frequently, anxious, however he is no longer having the nightmares and not remembering nightmares. 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 He's only been able to get off the [employer] jobs and finding it hard to move forward. !08/10: Continue current plan of care and regime. 06/12: Continue current plan of care and regime. Meds: Depakote dose splt up this weekend to help with daytime AH Patient agreed to moving his Seroquel to bedtime since he has had trouble sleeping and adding Seroquel 50 mg p.r.n. throughout the day to help with bothersome AH; patient used to be on 600 mg Seroquel total daily dose Prazosin increased to 2 mg to help continued sleep anxiety Patient described what sounds like ADHD symptoms and asks about stimulant Plan: CV Q 15 minute check Change Seroquel to 450 mg q.h.s. (instead of divided doses); to help with sleep Add Seroquel 50 mg t.i.d. p.r.n. for AH during the day Continue Divalproex Sodium 500 mg PO TID [facility] (broken up into divided doses to address AH during the day) -will get Level>... For now, continue Bupropion HCl 100 mg PO DAILY [facility] Continue Clonidine HCl 0.2 mg PO BID [facility] Continue Gabapentin 300 mg PO BEDTIME [facility]; says started to help asleep Increase to Prazosin HCl 2 mg PO BEDTIME [facility]; since patient still having anxiety filled sleep Patient asked to be restarted on baclofen 10 mg b.i.d. 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 1 film SUBLINGUAL BID PRN Topiramate (Topiramate 25 Mg Tablet) 25 mg PO BID [facility] Amlodipine Besylate 5 mg PO DAILY [facility]; Protocol Emtricitabine/Tenofovir (Emtricitabin/Tenofovir Df 200/300 Tablet) 1 tab PO DAILY [facility] Fluticasone Propionate (Fluticasone Propionate 100 Mcg Blst.W.Dev) 1 puff INHALE RBID Metformin HCl 1,000 mg PO BID [facility] Patient Own Medication ( Ciclesonide [Alvesco ] 160 Mcg/Actuation Hfa Aerosol Inhaler) 1 puff INHALE RBID [facility] Reason for continued inpatient stay Substantial Risk for: rapid decompensation Time Spent With Patient Time: Total time managing care of this patient today ____ minutes.
[2024-06-12 19:42] VITALS: BP 122/80; PULSE 82; RESP 18; TEMP 37.1; O2SAT 98
[2024-06-12] MEDS: Divalproex Sodium ER 500 MG TAB.ER.24H 1500 MG PO (20:58)
[2024-06-12] MEDS: QUEtiapine Fumarate 400 MG TABLET PO (20:58)
[2024-06-12] MEDS: Prazosin HCL 1 MG CAPSULE 2 MG PO (20:58)
[2024-06-12] MEDS: Gabapentin 300 MG CAPSULE PO (20:59)
[2024-06-12] MEDS: QUEtiapine Fumarate 50 MG TABLET PO (21:02)
[2024-06-12] MEDS: Nicotine Polacrilex 2 MG GUM 4 MG BUCCAL (21:02)
[2024-06-13 08:00] VITALS: BP 130/64; PULSE 83; TEMP 36.9; O2SAT 96
[2024-06-13] MEDS: Fluticasone Propionate 100 MCG BLST.W.DEV 1 PUFF INHALE ×2 (09:11→21:16)
[2024-06-13] MEDS: Baclofen 10 MG TABLET PO ×2 (09:13→21:17)
[2024-06-13] MEDS: Topiramate 25 MG TABLET PO ×2 (09:14→21:18)
[2024-06-13] MEDS: amLODIPine Besylate 5 MG TABLET PO (09:14)
[2024-06-13] MEDS: metFORMIN HCl 500 MG TABLET 1000 MG PO ×2 (09:14→21:21)
[2024-06-13] MEDS: buPROPion HCl XL 150 MG TAB.ER.24H PO (09:14)
[2024-06-13] MEDS: cloNIDine HCL 0.2 MG TABLET PO ×2 (09:14→21:20)
[2024-06-13] MEDS: Buprenorphine/Naloxone 8/2 mg FILM 1 FILM SUBLINGUAL ×2 (09:16→18:40)
[2024-06-13] MEDS: Nicotine 21 MG PATCH.TD24 TRANSDERMA (10:07)
--- NOTE | 2024-06-13 14:01 | P.PNPSI_ITS ---
Subjective Subjective Date of Service: 06/13/24 Reason For Visit: depressed / SI Subjective Notes: Conditional Voluntary Interim History: Team reports mental status decline with increase in confusion today. Ammonia level slightly high. Will trial Lactulose 20 gm x 1 Pt reports he slept well, feels OK, however is confused Medication Compliance: Yes Side effects from medications: No Attending Groups: Intermittent Review of Systems Acute medical concerns: No Medical Review of Systems: unchanged Review of Systems Review of Systems Denies Observed confusion Mental Status Exam Mental Status Exam Patient Appearance: Fatigued Patient Orientation: Person, Place and Situation Level of Consciousness: Alert Patient Behavior: Confused Mood Description: Flat Affect Description: Flat Patient Cognition Impaired: Yes Ability to Follow Directions: Fair Speech Pattern: Spontaneous Speech and Delayed Memory Description: Episodic Impaired Hallucinations: None Delusions: Not Present Thought Process: Confusion Thought Content: positive for Slowed Thinking Depressive Symptoms: Increased Fatigue Judgement: Poor Diagnostics Vital Signs (24Hr): Vital Signs - 24 hr 06/12/24 19:42 06/13/24 08:00 Temperature 98.7 F 98.4 F Pulse Rate 82 83 Respiratory Rate 18 Blood Pressure 122/80 130/64 Pulse Oximetry 98 96 Oxygen Delivery Method Room Air Room Air BMI result Body Mass Index 29.3 Labs 06/16/24 00:45 06/16/24 00:45 Labs: Laboratory Results - last 48 hr 06/11/24 14:14 Total Bilirubin 0.3 Direct Bilirubin 0.1 AST 15 ALT 12 Alkaline Phosphatase 130 H Ammonia 62 H Total Protein 7.4 Albumin 4.2 Valproic Acid 67.4 Medications Medications Current Medications Acetaminophen (Acetaminophen 325 Mg Tablet) 650 mg PO Q6H PRN PRN Reason: Headache/Pain Mild Scale (1-3) Last Admin: 06/12/24 08:57 Dose: 650 mg Al Hydroxide/Mg Hydroxide (Magnesium Hydrox/Alum Hydrox 30 Ml Oral.Susp) 30 ml PO Q6H PRN PRN Reason: Heartburn/Nausea Amlodipine Besylate (Amlodipine Besylate 5 Mg Tablet) 5 mg PO DAILY [facility]; Protocol Last Admin: 06/13/24 09:14 Dose: 5 mg Baclofen (Baclofen 10 Mg Tablet) 10 mg PO BID [facility] Last Admin: 06/13/24 09:13 Dose: 10 mg Buprenorphine/Naloxone (Buprenorphine/Naloxone 8/2 Mg Film) 1 film SUBLINGUAL BID@0900,1700 [facility] Last Admin: 06/13/24 09:16 Dose: 1 film Bupropion HCl (Bupropion Hcl Xl 150 Mg Tab.Er.24h) 150 mg PO DAILY [facility] Last Admin: 06/13/24 09:14 Dose: 150 mg Clonidine HCl (Clonidine Hcl 0.2 Mg Tablet) 0.2 mg PO BID [facility]; Protocol Last Admin: 06/13/24 09:14 Dose: 0.2 mg Divalproex Sodium (Divalproex Sodium Er 500 Mg Tab.Er.24h) 1,500 mg PO BEDTIME [facility] Last Admin: 06/12/24 20:58 Dose: 1,500 mg Emtricitabine/Tenofovir (Emtricitabin/Tenofovir Df 200/300 Tablet) 1 tab PO DAILY PRN PRN Reason: prior to risky behavior Fluticasone Propionate (Fluticasone Propionate 100 Mcg Blst.W.Dev) 1 puff INHALE RBID [facility] Last Admin: 06/13/24 09:11 Dose: 1 puff Gabapentin (Gabapentin 300 Mg Capsule) 300 mg PO BEDTIME [facility] Last Admin: 06/12/24 20:59 Dose: 300 mg Hydroxyzine HCl (Hydroxyzine Hcl 25 Mg Tablet) 25 mg PO Q6H PRN PRN Reason: Anxiety Magnesium Hydroxide (Milk Of Magnesia 30 Ml Oral.Susp) 30 ml PO DAILY PRN PRN Reason: Constipation Metformin HCl (Metformin Hcl 500 Mg Tablet) 1,000 mg PO BID [facility] Last Admin: 06/13/24 09:14 Dose: 1,000 mg Nicotine (Nicotine 21 Mg Patch.Td24) 21 mg TRANSDERMA DAILY PRN PRN Reason: smoking cessation Last Admin: 06/13/24 10:07 Dose: 21 mg Nicotine Polacrilex (Nicotine Polacrilex 2 Mg Gum) 4 mg BUCCAL Q2H PRN PRN Reason: Nicotine Cravings Last Admin: 06/12/24 21:02 Dose: 4 mg Patient Own Medication ( Ciclesonide [Alvesco ] 160 Mcg/Actuation Hfa Aerosol Inhaler) 1 puff INHALE RBID [facility] Last Admin: 06/13/24 09:19 Dose: Not Given Prazosin HCl (Prazosin Hcl 1 Mg Capsule) 2 mg PO BEDTIME [facility]; Protocol Last Admin: 06/12/24 20:58 Dose: 2 mg Quetiapine Fumarate (Quetiapine Fumarate 50 Mg Tablet) 50 mg PO TID PRN PRN Reason: AH/mild agitation Last Admin: 06/09/24 14:22 Dose: 50 mg Quetiapine Fumarate (Quetiapine Fumarate 400 Mg Tablet) 400 mg PO BEDTIME [facility] Last Admin: 06/12/24 20:58 Dose: 400 mg Quetiapine Fumarate (Quetiapine Fumarate 50 Mg Tablet) 50 mg PO BEDTIME [facility] Last Admin: 06/12/24 21:02 Dose: 50 mg Topiramate (Topiramate 25 Mg Tablet) 25 mg PO BID [facility] Last Admin: 06/13/24 09:14 Dose: 25 mg Trazodone HCl (Trazodone Hcl 50 Mg Tablet) 50 mg PO BEDTIME MRX1 PRN PRN Reason: Insomnia Allergies Allergies Allergy/AdvReac Type Severity Reaction Status Date / Time No Known Allergies Allergy Verified 06/03/24 17:20 Assessment & Plan Assessment & Plan (1) Suicidal ideation: Status: Acute Code(s): R45.851 - Suicidal ideations (2) Bipolar 1 disorder, mixed: Status: Acute Code(s): F31.60 - Bipolar disorder, current episode mixed, unspecified Plan HPI: Geo is a 48-year-old white, , unemployed, homeless man who is known to me from previous years at [employer]. He has a longstanding history of bipolar disorder, crack cocaine and some alcohol abuse/dependence. He had moved to [place] over the past few months; this April he returned to [place] on May 04. He was arrested and charged for shoplifting assaulting an officer and has an upcoming court date this June. Patient was accepted to [facility] around that time and completed the program. However, on completion he was sent to a TSS in [place], in the same neighborhood where he's spent years both embroiled in substance abuse and getting into trouble and where he currently feels he is a target. Patient was overwhelmed with anxiety and so He left the TSS after 2 hours, got high and next day self-presented to hospital, reporting depression and SI (no history of attempts). He has remained on his medications. He reports he uses substance abuse to treat his symptoms including racing 1000 ADHD symptoms. HOSPITAL COURSE: Geo meets criteria for IP LOC for safety and stabilization. Medications were reviewed and maintained and continued. Depakote was changed to 500 mg t.i.d. prazosin which was started recently has been helpful with his nightmares but still has some sleep interruptions. He is not appearing to be in need of detoxification from alcohol. He will meet with his treatment team on 06/07/24. 06/07 Patient reviewed recent history. Regarding symptoms said his mood is better. He struggles with AH throughout the day (that say degrading things to him); also says he can't filter shit out and is hypersensitive to noises on the unit and hears typing, footsteps and other noises... He also reports that there is electronic hum which has been in his head for years. Regarding sleep, he finds that while he is now able to fall asleep he still waking up frequently, anxious, however he is no longer having the nightmares and not remembering nightmares. 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 He's only been able to get off the [employer] jobs and finding it hard to move forward. !08/10: Continue current plan of care and regime. 06/12: Continue current plan of care and regime. 06/13: Lactulose 20 g x 1 Meds: Depakote dose splt up this weekend to help with daytime AH Patient agreed to moving his Seroquel to bedtime since he has had trouble sleeping and adding Seroquel 50 mg p.r.n. throughout the day to help with bothersome AH; patient used to be on 600 mg Seroquel total daily dose Prazosin increased to 2 mg to help continued sleep anxiety Patient described what sounds like ADHD symptoms and asks about stimulant Plan: CV Q 15 minute check Change Seroquel to 450 mg q.h.s. (instead of divided doses); to help with sleep Add Seroquel 50 mg t.i.d. p.r.n. for AH during the day Continue Divalproex Sodium 500 mg PO TID [facility] (broken up into divided doses to address AH during the day) -will get Level>... For now, continue Bupropion HCl 100 mg PO DAILY [facility] Continue Clonidine HCl 0.2 mg PO BID [facility] Continue Gabapentin 300 mg PO BEDTIME [facility]; says started to help asleep Increase to Prazosin HCl 2 mg PO BEDTIME [facility]; since patient still having anxiety filled sleep Patient asked to be restarted on baclofen 10 mg b.i.d. which was started for cocaine craving; mortgage or loan underwriter discussed risks/side effects including withdrawal from stopping, which he understands and with which he wants to continue Continue Buprenorphine/Naloxone 8/2 Mg Film? 1 film SUBLINGUAL BID PRN Topiramate (Topiramate 25 Mg Tablet) 25 mg PO BID [facility] Amlodipine Besylate 5 mg PO DAILY [facility]; Protocol Emtricitabine/Tenofovir (Emtricitabin/Tenofovir Df 200/300 Tablet) 1 tab PO DAILY [facility] Fluticasone Propionate (Fluticasone Propionate 100 Mcg Blst.W.Dev) 1 puff INHALE RBID Metformin HCl 1,000 mg PO BID [facility] Patient Own Medication ( Ciclesonide [Alvesco ] 160 Mcg/Actuation Hfa Aerosol Inhaler) 1 puff INHALE RBID [facility] Reason for continued inpatient stay Substantial Risk for: med/psych decompensation Time Spent With Patient Time: Total time managing care of this patient today ____ minutes.
[2024-06-13] MEDS: Lactulose 20 GM/30 ML SOLUTION PO (18:27)
[2024-06-13 20:00] VITALS: BP 132/78; PULSE 88; TEMP 36.9; O2SAT 96
[2024-06-13] MEDS: QUEtiapine Fumarate 50 MG TABLET PO (21:17)
[2024-06-13] MEDS: Divalproex Sodium ER 500 MG TAB.ER.24H 1500 MG PO (21:17)
[2024-06-13] MEDS: Gabapentin 300 MG CAPSULE PO (21:18)
[2024-06-13 21:19] VITALS: BP 137/78
[2024-06-13] MEDS: Prazosin HCL 1 MG CAPSULE 2 MG PO (21:19)
[2024-06-13 21:20] VITALS: BP 132/78
[2024-06-13] MEDS: QUEtiapine Fumarate 400 MG TABLET PO (21:20)
[2024-06-14 08:00] VITALS: BP 154/97; PULSE 108; RESP 18; TEMP 37.1; O2SAT 93
[2024-06-14 08:56] LABS: MANUAL DIFF FLAG NO
[2024-06-14 09:01] LABS: Basophils Absolute Auto 0.1 X10*3/uL (0.0-0.2); Basophils Percent Auto 0.8 % (0-2); Eosinophils Absolute Auto 0.6 X10*3/uL (0.0-0.4); Eosinophils Percent Auto 4.8 % (0-4); Hematocrit 39.4 % (42.0-52.0); Hemoglobin 13.6 g/dl (14.0-18.0); Imm Gran Abs Auto 0.11 X10*3/uL (0.00-0.03); Imm Gran Pct Auto 0.9 % (0.0-0.4); Lymphocytes Absolute Auto 1.7 X10*3/uL (1.2-4.9); Lymphocytes Percent Auto 14.6 % (20-40); Mean Corpuscular HGB Conc 34.5 g/dl (31.0-36.0); Mean Corpuscular Hemoglobin 31.3 pg (27.0-33.0); Mean Corpuscular Volume 90.6 fL (80.0-98.0); Mean Platelet Volume 9.7 fL (9.4-12.4); Monocytes Absolute Auto 0.9 X10*3/uL (0.1-1.2); Monocytes Percent Auto 7.5 % (2-11); Neutrophils Absolute Auto 8.5 x10*3/uL (2.0-8.3); Neutrophils Percent Auto 71.4 % (45-73); Platelet Count 181 X10*3/uL (160-400); Red Blood Count 4.35 X10*6/uL (4.60-5.80); Red Cell Distribution Width 13.6 % (11.0-16.0); White Blood Count 11.9 X10*3/uL (4.8-10.8)
[2024-06-14] MEDS: Fluticasone Propionate 100 MCG BLST.W.DEV 1 PUFF INHALE ×2 (09:11→21:09)
[2024-06-14] MEDS: Buprenorphine/Naloxone 8/2 mg FILM 1 FILM SUBLINGUAL ×2 (09:12→18:03)
[2024-06-14] MEDS: Baclofen 10 MG TABLET PO ×2 (09:12→21:08)
[2024-06-14] MEDS: metFORMIN HCl 500 MG TABLET 1000 MG PO ×2 (09:12→21:08)
[2024-06-14] MEDS: cloNIDine HCL 0.2 MG TABLET PO ×2 (09:12→21:08)
[2024-06-14] MEDS: amLODIPine Besylate 5 MG TABLET PO (09:12)
[2024-06-14] MEDS: buPROPion HCl XL 150 MG TAB.ER.24H PO (09:12)
[2024-06-14] MEDS: Topiramate 25 MG TABLET PO ×2 (09:12→21:08)
[2024-06-14 09:15] LABS: Alanine Aminotransferase 16 U/L (0-40); Alkaline Phosphatase 167 U/L (39-117); Anion Gap 13 (12-20); Aspartate Amino Transferase 14 U/L (5-37); Bilirubin Total 0.4 mg/dL (0.0-1.0); Blood Urea Nitrogen 11 mg/dL (9-16); Calcium 8.9 mg/dL (8.4-10.2); Carbon Dioxide 24 mmol/L (22-29); Chloride 107 mmol/L (96-108); Creatinine Clr Calc Pharmacy 112.6; Estimated Glomerular Filt Rate > 60; Glucose Random 183 mg/dL (60-115); Potassium 4.4 mmol/L (3.3-5.1); Sodium 140 mmol/L (135-145); Total Protein 7.2 g/dL (6.5-8.0)
--- NOTE | 2024-06-14 09:45 | P.PNPSI_ITS ---
Subjective Subjective Date of Service: 06/14/24 Reason For Visit: depressed / SI Interim History: Met with patient; discussed with team; reviewed chart pt mildly confused, repeating himself all very likely due to hyperammoniema; discussed this with patient who understood and agreed to Lactulose and lowering depakote dose Mood remains improved; AH negligible and a non-factor Mental Status Exam Mental Status Exam Narrative: Pt is alert and oriented; behavior is cooperative, calm; some repetitive movements; patient is not in distress; dressed in casual attire with adequate hygiene; mood is described as better and affect congruent; eye contact appropriate; Speech is normal rate, volume and prosody; not pressured; no psychomotor agitation/retardation present; thought process is a little confused; Thought content is on tx and aftercare; otherwise pertinent to relevant topics and without any delusional content, paranoid ideations or grandiosity; denies any SI/HI. AH negligible. Patients insight and judgment fair. Diagnostics Vital Signs (24Hr): Vital Signs - 24 hr 06/13/24 20:00 06/13/24 21:19 06/13/24 21:20 Temperature 98.4 F Pulse Rate 88 Blood Pressure 132/78 137/78 132/78 Pulse Oximetry 96 Oxygen Delivery Method Room Air BMI result Body Mass Index 29.3 Labs 06/14/24 08:51 06/14/24 08:51 Labs: Laboratory Results - last 48 hr 06/14/24 08:51 WBC 11.9 H RBC 4.35 L Hgb 13.6 L Hct 39.4 L MCV 90.6 MCH 31.3 MCHC 34.5 RDW 13.6 Plt Count 181 MPV 9.7 Immature Gran % (Auto) 0.9 H Neut % (Auto) 71.4 Lymph % (Auto) 14.6 L Valencia % (Auto) 7.5 Eos % (Auto) 4.8 H Baso % (Auto) 0.8 Lymph # (Auto) 1.7 Valencia # (Auto) 0.9 Eos # (Auto) 0.6 H Baso # (Auto) 0.1 Abs Immat Gran (auto) 0.11 H Absolute Neuts (auto) 8.5 H Absolute Nucleated RBC 0.000 Nucleated RBC % (auto) 0.0 Sodium 140 Potassium 4.4 Chloride 107 Carbon Dioxide 24 Anion Gap 13 BUN 11 Creatinine 0.87 Estim Creat Clear Calc 112.6 Estimated GFR > 60 Random Glucose 183 H Calcium 8.9 Total Bilirubin 0.4 AST 14 ALT 16 Alkaline Phosphatase 167 H Total Protein 7.2 Albumin 4.0 Medications Medications Current Medications Acetaminophen (Acetaminophen 325 Mg Tablet) 650 mg PO Q6H PRN PRN Reason: Headache/Pain Mild Scale (1-3) Last Admin: 06/12/24 08:57 Dose: 650 mg Al Hydroxide/Mg Hydroxide (Magnesium Hydrox/Alum Hydrox 30 Ml Oral.Susp) 30 ml PO Q6H PRN PRN Reason: Heartburn/Nausea Amlodipine Besylate (Amlodipine Besylate 5 Mg Tablet) 5 mg PO DAILY [facility]; Protocol Last Admin: 06/14/24 09:12 Dose: 5 mg Baclofen (Baclofen 10 Mg Tablet) 10 mg PO BID [facility] Last Admin: 06/14/24 09:12 Dose: 10 mg Buprenorphine/Naloxone (Buprenorphine/Naloxone 8/2 Mg Film) 1 film SUBLINGUAL BID@0900,1700 [facility] Last Admin: 06/14/24 09:12 Dose: 1 film Bupropion HCl (Bupropion Hcl Xl 150 Mg Tab.Er.24h) 150 mg PO DAILY [facility] Last Admin: 06/14/24 09:12 Dose: 150 mg Clonidine HCl (Clonidine Hcl 0.2 Mg Tablet) 0.2 mg PO BID [facility]; Protocol Last Admin: 06/14/24 09:12 Dose: 0.2 mg Divalproex Sodium (Divalproex Sodium Er 500 Mg Tab.Er.24h) 1,500 mg PO BEDTIME [facility] Last Admin: 06/13/24 21:17 Dose: 1,500 mg Emtricitabine/Tenofovir (Emtricitabin/Tenofovir Df 200/300 Tablet) 1 tab PO DAILY PRN PRN Reason: prior to risky behavior Fluticasone Propionate (Fluticasone Propionate 100 Mcg Blst.W.Dev) 1 puff INHALE RBID [facility] Last Admin: 06/14/24 09:11 Dose: 1 puff Gabapentin (Gabapentin 300 Mg Capsule) 300 mg PO BEDTIME [facility] Last Admin: 06/13/24 21:18 Dose: 300 mg Hydroxyzine HCl (Hydroxyzine Hcl 25 Mg Tablet) 25 mg PO Q6H PRN PRN Reason: Anxiety Magnesium Hydroxide (Milk Of Magnesia 30 Ml Oral.Susp) 30 ml PO DAILY PRN PRN Reason: Constipation Metformin HCl (Metformin Hcl 500 Mg Tablet) 1,000 mg PO BID [facility] Last Admin: 06/14/24 09:12 Dose: 1,000 mg Nicotine (Nicotine 21 Mg Patch.Td24) 21 mg TRANSDERMA DAILY PRN PRN Reason: smoking cessation Last Admin: 06/13/24 10:07 Dose: 21 mg Nicotine Polacrilex (Nicotine Polacrilex 2 Mg Gum) 4 mg BUCCAL Q2H PRN PRN Reason: Nicotine Cravings Last Admin: 06/12/24 21:02 Dose: 4 mg Patient Own Medication ( Ciclesonide [Alvesco ] 160 Mcg/Actuation Hfa Aerosol Inhaler) 1 puff INHALE RBID [facility] Last Admin: 06/14/24 09:32 Dose: Not Given Prazosin HCl (Prazosin Hcl 1 Mg Capsule) 2 mg PO BEDTIME [facility]; Protocol Last Admin: 06/13/24 21:19 Dose: 2 mg Quetiapine Fumarate (Quetiapine Fumarate 50 Mg Tablet) 50 mg PO TID PRN PRN Reason: AH/mild agitation Last Admin: 06/09/24 14:22 Dose: 50 mg Quetiapine Fumarate (Quetiapine Fumarate 400 Mg Tablet) 400 mg PO BEDTIME [facility] Last Admin: 06/13/24 21:20 Dose: 400 mg Quetiapine Fumarate (Quetiapine Fumarate 50 Mg Tablet) 50 mg PO BEDTIME [facility] Last Admin: 06/13/24 21:17 Dose: 50 mg Topiramate (Topiramate 25 Mg Tablet) 25 mg PO BID [facility] Last Admin: 06/14/24 09:12 Dose: 25 mg Trazodone HCl (Trazodone Hcl 50 Mg Tablet) 50 mg PO BEDTIME MRX1 PRN PRN Reason: Insomnia Allergies Allergies Allergy/AdvReac Type Severity Reaction Status Date / Time No Known Allergies Allergy Verified 06/03/24 17:20 Assessment & Plan Assessment & Plan (1) Bipolar 1 disorder, mixed: Status: Acute Code(s): F31.60 - Bipolar disorder, current episode mixed, unspecified (2) PTSD (post-traumatic stress disorder): Status: Acute Code(s): F43.10 - Post-traumatic stress disorder, unspecified (3) Cocaine use disorder: Status: Acute Code(s): F14.10 - Cocaine abuse, uncomplicated (4) Opioid use disorder: Status: Acute Code(s): F11.90 - Opioid use, unspecified, uncomplicated Plan HPI: Geo is a 48-year-old white, , unemployed, homeless man who is known to me from previous years at [employer]. He has a longstanding history of bipolar disorder, crack cocaine and some alcohol abuse/dependence. He had moved to [place] over the past few months; this April he returned to [place] on May 04. He was arrested and charged for shoplifting assaulting an officer and has an upcoming court date this June. Patient was accepted to [facility] around that time and completed the program. However, on completion he was sent to a TSS in [place], in the same neighborhood where he's spent years both embroiled in substance abuse and getting into trouble and where he currently feels he is a target. Patient was overwhelmed with anxiety and so He left the TSS after 2 hours, got high and next day self-presented to hospital, reporting depression and SI (no history of attempts). He has remained on his medications. He reports he uses substance abuse to treat his symptoms including racing 1000 ADHD symptoms. HOSPITAL COURSE: Geo meets criteria for IP LOC for safety and stabilization. Medications were reviewed and maintained and continued. Depakote was changed to 500 mg t.i.d. prazosin which was started recently has been helpful with his nightmares but still has some sleep interruptions. He is not appearing to be in need of detoxification from alcohol. He will meet with his treatment team on 06/07/24. 06/07 Patient reviewed recent history. Regarding symptoms said his mood is better. He struggles with AH throughout the day (that say degrading things to him); also says he can't filter shit out and is hypersensitive to noises on the unit and hears typing, footsteps and other noises... He also reports that there is electronic hum which has been in his head for years. Regarding sleep, he finds that while he is now able to fall asleep he still waking up frequently, anxious, however he is no longer having the nightmares and not remembering nightmares. 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 He's only been able to get off the [employer] jobs and finding it hard to move forward. Meds: Depakote dose splt up this weekend to help with daytime AH Patient agreed to moving his Seroquel to bedtime since he has had trouble sleeping and adding Seroquel 50 mg p.r.n. throughout the day to help with bothersome AH; patient used to be on 600 mg Seroquel total daily dose Prazosin increased to 2 mg to help continued sleep anxiety Patient described what sounds like ADHD symptoms and asks about stimulant 06/08 discussed more of hx and 2005 first time in [facility], started hum in ear regarding depakote, he does not think it likely he'll be able to keep up TID regimen and so agrees to move it all to bedtime- feels mood is better, though still depressed -has not availed self of prn serqouel 06/11 steadily improving; still with depression although mood is better. Will switch to long-acting Wellbutrin and consider titration. Patient sleeping well. AH is a non-issue, only minimal and able to be ignored. -Depakote level pending; alk-phos and ammonia mildly elevated. Depending on level will adjust 06/14 remains overall much improved. Sleeping well. engaged in treatment; Mood remains improved; This weekend and today, pt mildly confused, repeating himself all very likely due to hyperammoniema even though it's only mildly elevated; discussed this with patient who understood and agreed to Lactulose and lowering depakote dose -will consider adding Lcarnatine Otherwise, Patient remains stabilizing well, with improved mood. He remains in good behavioral and impulse control, engaged in treatment, attending groups and forthcoming in 1 on 1 sessions. Appropriate with peers and staff Plan: CV Q 15 minute check LOWERed Divalproex ER to 1000mg qhs (due to mildly elevated ammonia) Continue Seroquel to 450 mg q.h.s. (instead of divided doses); to help with sleep Continue Seroquel 50 mg t.i.d. p.r.n. for AH during the day Change to Wellbutrin XL 150 mg daily; will titrate as needed Continue Clonidine HCl 0.2 mg PO BID [facility] Continue Gabapentin 300 mg PO BEDTIME [facility]; says started to help asleep Continue Prazosin HCl 2 mg PO BEDTIME [facility]; since patient still having anxiety filled sleep Patient asked to be restarted on baclofen 10 mg b.i.d. which was started for cocaine craving; mortgage or loan underwriter discussed risks/side effects including withdrawal from stopping, which he understands and with which he wants to continue Continue Buprenorphine/Naloxone 8/2 Mg Film? 1 film SUBLINGUAL BID Topiramate (Topiramate 25 Mg Tablet) 25 mg PO BID [facility] Amlodipine Besylate 5 mg PO DAILY [facility]; Protocol Emtricitabine/Tenofovir (Emtricitabin/Tenofovir Df 200/300 Tablet) 1 tab PO DAILY [facility] Fluticasone Propionate (Fluticasone Propionate 100 Mcg Blst.W.Dev) 1 puff INHALE RBID Metformin HCl 1,000 mg PO BID [facility] Patient Own Medication ( Ciclesonide [Alvesco ] 160 Mcg/Actuation Hfa Aerosol Inhaler) 1 puff INHALE RBID [facility] Patient educated on: diagnosis, medication risk/benefits and medical condition Informed Consent: understands Reason for continued inpatient stay Substantial Risk for: stable for discharge and med/psych decompensation Time Spent With Patient Time: Total time managing care of this patient today ____ minutes.
[2024-06-14 12:01] LABS: Ammonia 62 umol/L (13-55)
[2024-06-14] MEDS: Lactulose 20 GM/30 ML SOLUTION PO (13:17)
[2024-06-14] MEDS: QUEtiapine Fumarate 50 MG TABLET PO ×2 (18:02→21:08)
[2024-06-14 18:37] LABS: Bacteria Urine None Seen (None Seen); Hyaline Casts Urine 0-2 /LPF (0-2); RBC Urine 0-2 /HPF (0-2); Squamous Epithelial Cell Urine 0-2 /HPF (0-2); WBC Urine 0-5 /HPF (0-5)
[2024-06-14 18:42] LABS: Appearance Urine Clear; Color Urine Yellow; Glucose Urine UA Negative (Negative); Leukocyte Esterase Urine Negative (Negative); Nitrite Urine Negative (Negative); Specific Gravity - Urine 1.025 (1.005-1.025); Urine Blood Negative (Negative); Urine Ketones 15 mg/dL (Negative); Urine Protein Negative (Neg-Trace)
[2024-06-14 19:46] VITALS: BP 128/71; PULSE 93; RESP 16; TEMP 36.7; O2SAT 97
[2024-06-14] MEDS: Gabapentin 300 MG CAPSULE PO (21:08)
[2024-06-14] MEDS: Divalproex Sodium ER 500 MG TAB.ER.24H 1000 MG PO (21:08)
[2024-06-14] MEDS: QUEtiapine Fumarate 400 MG TABLET PO (21:08)
[2024-06-14] MEDS: Prazosin HCL 1 MG CAPSULE 2 MG PO (21:09)
[2024-06-15 08:00] VITALS: BP 179/92; PULSE 85; RESP 16; TEMP 36.6; O2SAT 96
[2024-06-15] MEDS: Nicotine 21 MG PATCH.TD24 TRANSDERMA (08:55)
[2024-06-15] MEDS: Buprenorphine/Naloxone 8/2 mg FILM 1 FILM SUBLINGUAL ×2 (08:56→16:57)
[2024-06-15] MEDS: Topiramate 25 MG TABLET PO ×2 (08:56→22:09)
[2024-06-15] MEDS: Fluticasone Propionate 100 MCG BLST.W.DEV 1 PUFF INHALE ×2 (08:56→22:09)
[2024-06-15] MEDS: metFORMIN HCl 500 MG TABLET 1000 MG PO ×2 (08:56→22:09)
[2024-06-15] MEDS: QUEtiapine Fumarate 50 MG TABLET PO ×2 (08:56→22:09)
[2024-06-15] MEDS: buPROPion HCl XL 150 MG TAB.ER.24H PO (08:57)
[2024-06-15] MEDS: Acetaminophen 325 MG TABLET 650 MG PO (08:57)
[2024-06-15 08:58] VITALS: BP 179/92
[2024-06-15] MEDS: amLODIPine Besylate 5 MG TABLET PO (08:58)
[2024-06-15] MEDS: cloNIDine HCL 0.2 MG TABLET PO ×2 (08:58→22:09)
[2024-06-15] MEDS: Baclofen 10 MG TABLET PO ×2 (08:59→22:09)
[2024-06-15] MEDS: Nicotine Polacrilex 2 MG GUM 4 MG BUCCAL (09:03)
--- NOTE | 2024-06-15 18:00 | HO.PSYCHPN ---
Subjective Subjective Date of Service: 06/15/24 Reason For Visit: depressed / SI Interim History: Met with patient; discussed with team Patient doing much better today, confusion fully cleared. He said he is aware that he was confused, not only did staff and patient felt this but his girlfriend it also. He also said that he was aware he was losing his train of thought which is now back intact. Discussed medication management and he declined to start L carnitine to mitigate possible side effects of Depakote; rather he wants to see how he does on the lower dose of a 1000 mg. Patient shared how he is utilizing his coping skills Mental Status Exam Mental Status Exam Narrative: Pt is alert and oriented; behavior is cooperative, calm; patient is not in distress; dressed in casual attire with adequate hygiene; mood is described as good and affect congruent; eye contact appropriate; Speech is normal rate, volume and prosody; not pressured; no psychomotor agitation/retardation present; thought process is organized and goal directed; Thought content is on tx and aftercare; otherwise pertinent to relevant topics and without any delusional content, paranoid ideations or grandiosity; denies any SI/HI. AH negligible. Patients insight and judgment fair. Diagnostics Vital Signs (24Hr): Vital Signs - 24 hr 06/14/24 19:46 06/15/24 08:00 06/15/24 08:58 Temperature 98.0 F 97.8 F Pulse Rate 93 85 Respiratory Rate 16 16 Blood Pressure 128/71 179/92 H 179/92 H Pulse Oximetry 97 96 Oxygen Delivery Method Room Air 06/15/24 08:58 Temperature Pulse Rate Respiratory Rate Blood Pressure 179/92 H Pulse Oximetry Oxygen Delivery Method BMI result Body Mass Index 29.3 Labs 06/14/24 08:51 06/14/24 08:51 Labs: Laboratory Results - last 48 hr 06/14/24 06/14/24 06/14/24 08:51 11:48 18:28 WBC 11.9 H RBC 4.35 L Hgb 13.6 L Hct 39.4 L MCV 90.6 MCH 31.3 MCHC 34.5 RDW 13.6 Plt Count 181 MPV 9.7 Immature Gran % (Auto) 0.9 H Neut % (Auto) 71.4 Lymph % (Auto) 14.6 L Bertie % (Auto) 7.5 Eos % (Auto) 4.8 H Baso % (Auto) 0.8 Lymph # (Auto) 1.7 Bertie # (Auto) 0.9 Eos # (Auto) 0.6 H Baso # (Auto) 0.1 Abs Immat Gran (auto) 0.11 H Absolute Neuts (auto) 8.5 H Absolute Nucleated RBC 0.000 Nucleated RBC % (auto) 0.0 Sodium 140 Potassium 4.4 Chloride 107 Carbon Dioxide 24 Anion Gap 13 BUN 11 Creatinine 0.87 Estim Creat Clear Calc 112.6 Estimated GFR > 60 Random Glucose 183 H Calcium 8.9 Total Bilirubin 0.4 AST 14 ALT 16 Alkaline Phosphatase 167 H Ammonia 62 H Total Protein 7.2 Albumin 4.0 Urine Color Yellow Urine Appearance Clear Urine pH 6.0 Ur Specific [place] 1.025 Urine Protein Negative Urine Glucose (UA) Negative Urine Ketones 15 Urine Blood Negative Urine Nitrite Negative Ur Leukocyte Esterase Negative Urine RBC 0-2 Urine WBC 0-5 Ur Squamous Epith Cells 0-2 Urine Bacteria None Seen Hyaline Casts 0-2 Medications Medications Current Medications Acetaminophen (Acetaminophen 325 Mg Tablet) 650 mg PO Q6H PRN PRN Reason: Headache/Pain Mild Scale (1-3) Last Admin: 06/15/24 08:57 Dose: 650 mg Al Hydroxide/Mg Hydroxide (Magnesium Hydrox/Alum Hydrox 30 Ml Oral.Susp) 30 ml PO Q6H PRN PRN Reason: Heartburn/Nausea Amlodipine Besylate (Amlodipine Besylate 5 Mg Tablet) 5 mg PO DAILY [facility]; Protocol Last Admin: 06/15/24 08:58 Dose: 5 mg Baclofen (Baclofen 10 Mg Tablet) 10 mg PO BID [facility] Last Admin: 06/15/24 08:59 Dose: 10 mg Buprenorphine/Naloxone (Buprenorphine/Naloxone 8/2 Mg Film) 1 film SUBLINGUAL BID@0900,1700 [facility] Last Admin: 06/15/24 16:57 Dose: 1 film Bupropion HCl (Bupropion Hcl Xl 150 Mg Tab.Er.24h) 150 mg PO DAILY [facility] Last Admin: 06/15/24 08:57 Dose: 150 mg Clonidine HCl (Clonidine Hcl 0.2 Mg Tablet) 0.2 mg PO BID [facility]; Protocol Last Admin: 06/15/24 08:58 Dose: 0.2 mg Divalproex Sodium (Divalproex Sodium Er 500 Mg Tab.Er.24h) 1,000 mg PO BEDTIME [facility] Last Admin: 06/14/24 21:08 Dose: 1,000 mg Emtricitabine/Tenofovir (Emtricitabin/Tenofovir Df 200/300 Tablet) 1 tab PO DAILY PRN PRN Reason: prior to risky behavior Fluticasone Propionate (Fluticasone Propionate 100 Mcg Blst.W.Dev) 1 puff INHALE RBID CHELSEA Last Admin: 06/15/24 08:56 Dose: 1 puff Gabapentin (Gabapentin 300 Mg Capsule) 300 mg PO BEDTIME CHELSEA Last Admin: 06/14/24 21:08 Dose: 300 mg Hydroxyzine HCl (Hydroxyzine Hcl 25 Mg Tablet) 25 mg PO Q6H PRN PRN Reason: Anxiety Magnesium Hydroxide (Milk Of Magnesia 30 Ml Oral.Susp) 30 ml PO DAILY PRN PRN Reason: Constipation Metformin HCl (Metformin Hcl 500 Mg Tablet) 1,000 mg PO BID [facility] Last Admin: 06/15/24 08:56 Dose: 1,000 mg Nicotine (Nicotine 21 Mg Patch.Td24) 21 mg TRANSDERMA DAILY PRN PRN Reason: smoking cessation Last Admin: 06/15/24 08:55 Dose: 21 mg Nicotine Polacrilex (Nicotine Polacrilex 2 Mg Gum) 4 mg BUCCAL Q2H PRN PRN Reason: Nicotine Cravings Last Admin: 06/15/24 09:03 Dose: 4 mg Patient Own Medication ( Ciclesonide [Alvesco ] 160 Mcg/Actuation Hfa Aerosol Inhaler) 1 puff INHALE RBID [facility] Last Admin: 06/15/24 10:02 Dose: Not Given Prazosin HCl (Prazosin Hcl 1 Mg Capsule) 2 mg PO BEDTIME [facility]; Protocol Last Admin: 06/14/24 21:09 Dose: 2 mg Quetiapine Fumarate (Quetiapine Fumarate 50 Mg Tablet) 50 mg PO TID PRN PRN Reason: AH/mild agitation Last Admin: 06/15/24 08:56 Dose: 50 mg Quetiapine Fumarate (Quetiapine Fumarate 400 Mg Tablet) 400 mg PO BEDTIME [facility] Last Admin: 06/14/24 21:08 Dose: 400 mg Quetiapine Fumarate (Quetiapine Fumarate 50 Mg Tablet) 50 mg PO BEDTIME [facility] Last Admin: 06/14/24 21:08 Dose: 50 mg Topiramate (Topiramate 25 Mg Tablet) 25 mg PO BID [facility] Last Admin: 06/15/24 08:56 Dose: 25 mg Trazodone HCl (Trazodone Hcl 50 Mg Tablet) 50 mg PO BEDTIME MRX1 PRN PRN Reason: Insomnia Allergies Allergies Allergy/AdvReac Type Severity Reaction Status Date / Time No Known Allergies Allergy Verified 06/03/24 17:20 Assessment & Plan Assessment & Plan (1) Bipolar 1 disorder, mixed: Status: Acute Code(s): F31.60 - Bipolar disorder, current episode mixed, unspecified (2) PTSD (post-traumatic stress disorder): Status: Acute Code(s): F43.10 - Post-traumatic stress disorder, unspecified (3) Cocaine use disorder: Status: Acute Code(s): F14.10 - Cocaine abuse, uncomplicated (4) Opioid use disorder: Status: Acute Code(s): F11.90 - Opioid use, unspecified, uncomplicated Plan HPI: Geo is a 48-year-old white, , unemployed, homeless man who is known to me from previous years at [employer]. He has a longstanding history of bipolar disorder, crack cocaine and some alcohol abuse/dependence. He had moved to [place] over the past few months; this April he returned to [place] on May 04. He was arrested and charged for shoplifting assaulting an officer and has an upcoming court date this June. Patient was accepted to [facility] around that time and completed the program. However, on completion he was sent to a TSS in [place], in the same neighborhood where he's spent years both embroiled in substance abuse and getting into trouble and where he currently feels he is a target. Patient was overwhelmed with anxiety and so He left the TSS after 2 hours, got high and next day self-presented to hospital, reporting depression and SI (no history of attempts). He has remained on his medications. He reports he uses substance abuse to treat his symptoms including racing 1000 ADHD symptoms. HOSPITAL COURSE: Geo meets criteria for IP LOC for safety and stabilization. Medications were reviewed and maintained and continued. Depakote was changed to 500 mg t.i.d. prazosin which was started recently has been helpful with his nightmares but still has some sleep interruptions. He is not appearing to be in need of detoxification from alcohol. He will meet with his treatment team on 06/07/24. 12/23 Patient reviewed recent history. Regarding symptoms said his mood is better. He struggles with AH throughout the day (that say degrading things to him); also says he can't filter shit out and is hypersensitive to noises on the unit and hears typing, footsteps and other noises... He also reports that there is electronic hum which has been in his head for years. Regarding sleep, he finds that while he is now able to fall asleep he still waking up frequently, anxious, however he is no longer having the nightmares and not remembering nightmares. 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 He's only been able to get off the [employer] jobs and finding it hard to move forward. Meds: Depakote dose splt up this weekend to help with daytime AH Patient agreed to moving his Seroquel to bedtime since he has had trouble sleeping and adding Seroquel 50 mg p.r.n. throughout the day to help with bothersome AH; patient used to be on 600 mg Seroquel total daily dose Prazosin increased to 2 mg to help continued sleep anxiety Patient described what sounds like ADHD symptoms and asks about stimulant 06/08 discussed more of hx and 2005 first time in [facility], started hum in ear regarding depakote, he does not think it likely he'll be able to keep up TID regimen and so agrees to move it all to bedtime- feels mood is better, though still depressed -has not availed self of prn serqouel 06/11 steadily improving; still with depression although mood is better. Will switch to long-acting Wellbutrin and consider titration. Patient sleeping well. AH is a non-issue, only minimal and able to be ignored. -Depakote level pending; alk-phos and ammonia mildly elevated. Depending on level will adjust 06/14 remains overall much improved. Sleeping well. engaged in treatment; Mood remains improved; holding depakote tonight and then tomorrow restart at lower dose This weekend and today, pt mildly confused, repeating himself all very likely due to hyperammoniema even though it's only mildly elevated; discussed this with patient who understood and agreed to Lactulose and lowering depakote dose -will consider adding Lcarnatine 06/15 patient doing much better, confusion fully resolved; remains sleeping well. Does not want to try L carnitine at this time but will see how he does on Depakote a 1000 mg, the lower dose. Patient remains stabilizing well, with improved mood. He remains in good behavioral and impulse control, engaged in treatment, attending groups and forthcoming in 1 on 1 sessions. Appropriate with peers and staff Plan: CV Q 15 minute check LOWERed Divalproex ER to 1000mg qhs (due to mildly elevated ammonia) Continue Seroquel to 450 mg q.h.s. (instead of divided doses); to help with sleep Continue Seroquel 50 mg t.i.d. p.r.n. for AH during the day Change to Wellbutrin XL 150 mg daily; will titrate as needed Continue Clonidine HCl 0.2 mg PO BID CHELSEA Continue Gabapentin 300 mg PO BEDTIME CHELSEA; says started to help asleep Continue Prazosin HCl 2 mg PO BEDTIME CHELSEA; since patient still having anxiety filled sleep Patient asked to be restarted on baclofen 10 mg b.i.d. 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 1 film SUBLINGUAL BID Topiramate (Topiramate 25 Mg Tablet) 25 mg PO BID [facility] Amlodipine Besylate 5 mg PO DAILY [facility]; Protocol Emtricitabine/Tenofovir (Emtricitabin/Tenofovir Df 200/300 Tablet) 1 tab PO DAILY [facility] Fluticasone Propionate (Fluticasone Propionate 100 Mcg Blst.W.Dev) 1 puff INHALE RBID Metformin HCl 1,000 mg PO BID [facility] Patient Own Medication ( Ciclesonide [Alvesco ] 160 Mcg/Actuation Hfa Aerosol Inhaler) 1 puff INHALE RBID [facility] Patient educated on: diagnosis, medication risk/benefits and therapeutic strategies Informed Consent: understands Reason for continued inpatient stay Substantial Risk for: stable for discharge Time Spent With Patient Time: Total time managing care of this patient today ____ minutes.
[2024-06-15 19:41] VITALS: BP 134/75; PULSE 96; RESP 14; TEMP 36.9; O2SAT 98
[2024-06-15] MEDS: Gabapentin 300 MG CAPSULE PO (22:09)
[2024-06-15] MEDS: Divalproex Sodium ER 500 MG TAB.ER.24H 1000 MG PO (22:09)
[2024-06-15] MEDS: QUEtiapine Fumarate 400 MG TABLET PO (22:09)
[2024-06-15] MEDS: Prazosin HCL 1 MG CAPSULE 2 MG PO (22:10)
[2024-06-16 00:17] LABS: Glucose, Whole Blood 274 mg/dL (60-115)
--- NOTE | 2024-06-16 00:46 | HO.PM.IMCN ---
History of Present Illness Data of Consult Service Date: 06/16/24 Requesting physician: Nic Bey Primary Care Provider: Unknown Physician HPI Reason for consult: AMS Patient is a 48-year-old male with a past medical history significant for substance use disorder PTSD, bipolar 1, admitted to adult Psychiatry on M5, consulted for altered mental status. The patient has had multiple episodes recently with confusion and altered mental status and was found to have hyperalbuminemia treated with single doses of lactulose with improvement. Earlier today the patient was back to his normal baseline. His nurse noted that just recently he was pacing the hallway and was confused. She reports that he was saying something about his cell phone which he does not have, and reported that he just showered, however he did not. Review of Systems Constitutional: Constitutional: Denies chills, Denies fatigue, Denies fever(s) and Denies headache(s) Eyes: Eyes: Denies change in vision ENT: Denies headache(s), Denies nasal congestion, Denies nasal discharge and Denies sore throat Cardiovascular: Cardiovascular: Denies chest pain, Denies rapid heart rate, Denies lightheadedness and Denies dyspnea Respiratory: Respiratory: Denies chest congestion, Denies cough, Denies dyspnea and Denies wheezing Gastrointestinal: Gastrointestinal: Denies diarrhea, Denies nausea and Denies vomiting Genitourinary: Genitourinary: Denies dysuria and Denies urinary urgency Musculoskeletal: Musculoskeletal: Denies myalgias Integumentary/Breasts: Skin/Breast: Denies rash Neurologic: Reports as per HPI and Denies headache(s) Psychiatric: Psychiatric: Reports as per HPI Endocrine: Endocrine: Denies fatigue Allergic/Immunologic: Allergic/Immunologic: Denies wheezing [facility] Medical History (Updated 06/16/24 @ 00:53 by Amanda Cedeño PA-C) Opioid use disorder Cocaine use disorder PTSD (post-traumatic stress disorder) Functional capacity: independent ambulation Social History Household Members: None Housing: Homeless Do you presently have visiting nurse or other home services: No Patient Tobacco Use Status: Current everyday Tobacco user Tobacco use type: Cigarette Cigarette Packs Per Day: 1 Cigarettes Per Day: 20.0 Years Smoked: 25 Smoked in Last 30 Days: Yes e-Cigarette/Vaping Use: Currently Using Patient Interested in Nicotine Replacement: Yes Patient Given Instructions on How to Stop Smoking: Yes Date Education Initiated: 06/04/24 Second Hand Smoke Exposure: Yes Use of substances other than those prescribed or required for medical reasons: Yes Substance Use Type: Crack/Cocaine Substance Use Frequency: Recent Binge Last Used Substance: Just Prior to Admission Currently Displaying Signs/Symptoms of Drug Intoxication Withdrawal: No Any prior treatment program specific to substance use: Yes ([facility] and [facility]) Have you been hit, kicked, punched, or otherwise hurt by someone within the past year? If so, by whom?: No Do you feel safe in your current relationship?: Yes Is there a partner from a previous relationship who is making you feel unsafe now?: No Are you made to feel afraid or neglected: No Advance Directives: No Advance Directives Information Provided: No Do you have thoughts of harming others: None Do you have a plan to hurt others: No Plan Recently lost weight without trying: Yes How much weight loss: 2-13 pounds Eating poorly because of decreased appetite: No Nutrition screen score: 3 Nutrition Risks: No Nutritional Risk Poor oral hygiene: No service: No Sexual orientation: Unable to collect Meds Allergies Allergy/AdvReac Type Severity Reaction Status Date / Time No Known Allergies Allergy Verified 06/03/24 17:20 Active Medications: Current Medications Acetaminophen (Acetaminophen 325 Mg Tablet) 650 mg PO Q6H PRN PRN Reason: Headache/Pain Mild Scale (1-3) Last Admin: 06/15/24 08:57 Dose: 650 mg Al Hydroxide/Mg Hydroxide (Magnesium Hydrox/Alum Hydrox 30 Ml Oral.Susp) 30 ml PO Q6H PRN PRN Reason: Heartburn/Nausea Amlodipine Besylate (Amlodipine Besylate 5 Mg Tablet) 5 mg PO DAILY [facility]; Protocol Last Admin: 06/15/24 08:58 Dose: 5 mg Baclofen (Baclofen 10 Mg Tablet) 10 mg PO BID [facility] Last Admin: 06/15/24 22:09 Dose: 10 mg Buprenorphine/Naloxone (Buprenorphine/Naloxone 8/2 Mg Film) 1 film SUBLINGUAL BID@0900,1700 [facility] Last Admin: 06/15/24 16:57 Dose: 1 film Bupropion HCl (Bupropion Hcl Xl 150 Mg Tab.Er.24h) 150 mg PO DAILY [facility] Last Admin: 06/15/24 08:57 Dose: 150 mg Clonidine HCl (Clonidine Hcl 0.2 Mg Tablet) 0.2 mg PO BID [facility]; Protocol Last Admin: 06/15/24 22:09 Dose: 0.2 mg Divalproex Sodium (Divalproex Sodium Er 500 Mg Tab.Er.24h) 1,000 mg PO BEDTIME CHELSEA Last Admin: 06/15/24 22:09 Dose: 1,000 mg Emtricitabine/Tenofovir (Emtricitabin/Tenofovir Df 200/300 Tablet) 1 tab PO DAILY PRN PRN Reason: prior to risky behavior Fluticasone Propionate (Fluticasone Propionate 100 Mcg Blst.W.Dev) 1 puff INHALE RBID CHELSEA Last Admin: 06/15/24 22:09 Dose: 1 puff Gabapentin (Gabapentin 300 Mg Capsule) 300 mg PO BEDTIME [facility] Last Admin: 06/15/24 22:09 Dose: 300 mg Hydroxyzine HCl (Hydroxyzine Hcl 25 Mg Tablet) 25 mg PO Q6H PRN PRN Reason: Anxiety Magnesium Hydroxide (Milk Of Magnesia 30 Ml Oral.Susp) 30 ml PO DAILY PRN PRN Reason: Constipation Metformin HCl (Metformin Hcl 500 Mg Tablet) 1,000 mg PO BID [facility] Last Admin: 06/15/24 22:09 Dose: 1,000 mg Nicotine (Nicotine 21 Mg Patch.Td24) 21 mg TRANSDERMA DAILY PRN PRN Reason: smoking cessation Last Admin: 06/15/24 08:55 Dose: 21 mg Nicotine Polacrilex (Nicotine Polacrilex 2 Mg Gum) 4 mg BUCCAL Q2H PRN PRN Reason: Nicotine Cravings Last Admin: 06/15/24 09:03 Dose: 4 mg Patient Own Medication ( Ciclesonide [Alvesco ] 160 Mcg/Actuation Hfa Aerosol Inhaler) 1 puff INHALE RBID CHELSEA Last Admin: 06/15/24 21:42 Dose: Not Given Prazosin HCl (Prazosin Hcl 1 Mg Capsule) 2 mg PO BEDTIME [facility]; Protocol Last Admin: 06/15/24 22:10 Dose: 2 mg Quetiapine Fumarate (Quetiapine Fumarate 50 Mg Tablet) 50 mg PO TID PRN PRN Reason: AH/mild agitation Last Admin: 06/15/24 08:56 Dose: 50 mg Quetiapine Fumarate (Quetiapine Fumarate 400 Mg Tablet) 400 mg PO BEDTIME C[facility] Last Admin: 06/15/24 22:09 Dose: 400 mg Quetiapine Fumarate (Quetiapine Fumarate 50 Mg Tablet) 50 mg PO BEDTIME CHELSEA Last Admin: 06/15/24 22:09 Dose: 50 mg Topiramate (Topiramate 25 Mg Tablet) 25 mg PO BID [facility] Last Admin: 06/15/24 22:09 Dose: 25 mg Trazodone HCl (Trazodone Hcl 50 Mg Tablet) 50 mg PO BEDTIME MRX1 PRN PRN Reason: Insomnia Home Medications ?Medication ?Instructions ?Recorded ?Confirmed ?Last Taken ?Type amlodipine 5 mg tablet 5 mg PO DAILY 06/03/24 06/03/24 Unknown History buprenorphine 8 mg-naloxone 2 mg 1 film sublingual BID PRN opiate wd 06/03/24 06/03/24 Unknown History sublingual film (Suboxone) bupropion HCl 100 mg tablet 100 mg PO DAILY 06/03/24 06/03/24 Unknown History ciclesonide 160 mcg/actuation 1 puff inhalation BID 06/03/24 06/03/24 Unknown History aerosol inhaler (Alvesco) clonidine HCl 0.2 mg tablet 0.2 mg PO BID 06/03/24 06/03/24 Unknown History divalproex 500 mg tablet,delayed 500 mg PO DAILY 06/03/24 06/03/24 Unknown History release divalproex 500 mg tablet,delayed 1,000 mg PO BEDTIME 06/03/24 06/03/24 Unknown History release (Depakote) emtricitabine 200 mg-tenofovir 1 tab PO DAILY blood clot 06/03/24 06/03/24 Unknown History disoproxil fumarate 300 mg tablet (Truvada) gabapentin 300 mg capsule 300 mg PO BEDTIME 06/03/24 06/03/24 Unknown History metformin 500 mg tablet 1,000 mg PO BID 06/03/24 06/03/24 Unknown History nicotine (polacrilex) 4 mg gum 4 mg buccal Q2H PRN Nicotine 06/03/24 06/03/24 Unknown History Cravings prazosin 1 mg capsule 1 mg PO BEDTIME 06/03/24 06/03/24 Unknown History quetiapine 100 mg tablet (Seroquel) 150 mg PO DAILY 06/03/24 06/03/24 Unknown History quetiapine 300 mg tablet (Seroquel) 300 mg PO BEDTIME 06/03/24 06/03/24 Unknown History topiramate 25 mg tablet 25 mg PO BID 06/03/24 06/03/24 Unknown History Physical Exam Vital Signs and Narrative: Vital Signs: Last Vital Signs Temp 98.4 F 06/15/24 19:41 Pulse 96 06/15/24 19:41 Resp 14 06/15/24 19:41 BP 134/75 06/15/24 19:41 Pulse Ox 98 06/15/24 19:41 O2 Del Method Room Air 06/15/24 19:41 BMI result Body Mass Index 29.3 General: AOx3, no acute distress, appears agitated, pacing the room but cooperative for exam Skin: Warm, dry Neuro: Cranial nerves II-XII grossly intact bilaterally. Motor grossly intact bilaterally Extremities: No LE edema Psych: No confusion but agitated Exam limited due to patient's agitation, did not want to trigger him to become more agitated. Did not seem confused in no acute distress. Results Labs 06/16/24 00:45 06/16/24 00:45 Labs: Laboratory Results - last 24 hr 06/16/24 00:12 POC Glucose 274 H Assessment and Plan (1) AMS (altered mental status): Status: Acute Plan Patient is a 48-year-old male with a past medical history significant for substance use disorder PTSD, bipolar 1, admitted to adult Psychiatry on M5, consulted for altered mental status. Patient did not appear altered when examined, his nurse who agrees that his mood fluctuated significantly from the time of initial concern within the last hour. He was agitated therefore exam was limited to prevent further escalation. Neuro exam was normal. He does not have any upper respiratory, urinary or abdominal complaints. He has had multiple recent episode with hyperammonemia, likely secondary to the Depakote. His dose was decreased today however the patient declined the additional L carnitine. It is likely that his mood fluctuations and hypoammonemia are related to the Depakote. Labs were drawn while the patient was examined, CBC CMP and ammonia. Would recommend additional lactulose if ammonia elevated again, patient may need dosing up to 3 times daily with goal of 3+ bowel movements per day. At this time there is no need for further medical evaluation or transfer to the medical floor. Thank you for allowing me to participate in the pt's care. Signing off for now. Please contact the medical team if any questions or concerns.
[2024-06-16 01:04] LABS: MANUAL DIFF FLAG NO
[2024-06-16 01:05] LABS: Basophils Absolute Auto 0.1 X10*3/uL (0.0-0.2); Basophils Percent Auto 1.1 % (0-2); Eosinophils Absolute Auto 0.6 X10*3/uL (0.0-0.4); Eosinophils Percent Auto 6.8 % (0-4); Hematocrit 38.3 % (42.0-52.0); Hemoglobin 13.3 g/dl (14.0-18.0); Imm Gran Abs Auto 0.16 X10*3/uL (0.00-0.03); Imm Gran Pct Auto 1.9 % (0.0-0.4); Lymphocytes Absolute Auto 3.2 X10*3/uL (1.2-4.9); Lymphocytes Percent Auto 37.5 % (20-40); Mean Corpuscular HGB Conc 34.7 g/dl (31.0-36.0); Mean Corpuscular Hemoglobin 31.7 pg (27.0-33.0); Mean Corpuscular Volume 91.4 fL (80.0-98.0); Mean Platelet Volume 10.2 fL (9.4-12.4); Monocytes Absolute Auto 0.7 X10*3/uL (0.1-1.2); Monocytes Percent Auto 7.8 % (2-11); Neutrophils Absolute Auto 3.8 x10*3/uL (2.0-8.3); Neutrophils Percent Auto 44.9 % (45-73); Platelet Count 164 X10*3/uL (160-400); Red Blood Count 4.19 X10*6/uL (4.60-5.80); Red Cell Distribution Width 13.9 % (11.0-16.0); White Blood Count 8.5 X10*3/uL (4.8-10.8)
[2024-06-16 01:18] LABS: Ammonia 44 umol/L (13-55)
[2024-06-16 01:26] LABS: Alanine Aminotransferase 23 U/L (0-40); Alkaline Phosphatase 248 U/L (39-117); Anion Gap 18 (12-20); Aspartate Amino Transferase 57 U/L (5-37); Bilirubin Total 0.2 mg/dL (0.0-1.0); Blood Urea Nitrogen 14 mg/dL (9-16); Calcium 9.1 mg/dL (8.4-10.2); Carbon Dioxide 21 mmol/L (22-29); Chloride 107 mmol/L (96-108); Creatinine Clr Calc Pharmacy 111.3; Estimated Glomerular Filt Rate > 60; Glucose Fasting 305 mg/dL (60-99); Potassium 3.8 mmol/L (3.3-5.1); Sodium 142 mmol/L (135-145)
[2024-06-16 07:42] VITALS: BP 150/81; PULSE 92; RESP 18; TEMP 36.8; O2SAT 97
[2024-06-16] MEDS: amLODIPine Besylate 5 MG TABLET PO (08:14)
[2024-06-16] MEDS: Baclofen 10 MG TABLET PO ×2 (08:15→20:24)
[2024-06-16] MEDS: metFORMIN HCl 500 MG TABLET 1000 MG PO ×2 (08:15→20:25)
[2024-06-16] MEDS: cloNIDine HCL 0.2 MG TABLET PO ×2 (08:15→20:24)
[2024-06-16] MEDS: Topiramate 25 MG TABLET PO ×2 (08:15→20:26)
[2024-06-16] MEDS: buPROPion HCl XL 150 MG TAB.ER.24H PO (08:15)
[2024-06-16] MEDS: Fluticasone Propionate 100 MCG BLST.W.DEV 1 PUFF INHALE ×2 (08:16→20:19)
[2024-06-16] MEDS: Buprenorphine/Naloxone 8/2 mg FILM 1 FILM SUBLINGUAL ×2 (08:38→17:36)
[2024-06-16] MEDS: Nicotine 21 MG PATCH.TD24 TRANSDERMA (08:38)
[2024-06-16] MEDS: Nicotine Polacrilex 2 MG GUM 4 MG BUCCAL (09:09)
--- NOTE | 2024-06-16 10:18 | P.PNPSI_ITS ---
Subjective Subjective Date of Service: 06/16/24 Reason For Visit: depressed / SI Interim History: Met with patient; discussed with team During the day yesterday, patient was back to baseline, fully organized in speech behavior. Last evening around midnight, patient got confused again; labs ordered which were WNL, including ammonia back to normal. Hospitalist VIPIN came to see patient and reported neurologically was intact, though little bit agitated, and did not feel he warranted any further workup. -review of labs show that alk-phos continues to trend upwards, now 246 Earlier This morning was again briefly disorganized, the nurse described him standing in the kitchen, staring at the butter and a straw he was holding, not moving much and seemingly not sure what he wanted to do; said something about rats in his room last night. Discuss this with business writer who remembers that he did get disorganized this past evening and wonders if it was because he was dreaming. Discussed his history and regarding trauma, business writer asked about dissociative episodes which patient acknowledged he has had often on throughout his lifetime; he is not aware if it was a similar as it has been this week but says he will call his family and ask. Discussed medication management and patient agrees to going back to immediate release; Discontinuing Depakote ER; it is possible that extended release which stays in the blood stream longer is affecting kidneys differently than immediate release. Blood glucose elevated as well Mental Status Exam Mental Status Exam Narrative: Pt is alert and oriented; behavior is cooperative, calm; patient is not in distress; dressed in casual attire with adequate hygiene; mood is described as good and affect congruent; eye contact appropriate; Speech is normal rate, volume and prosody; not pressured; no psychomotor agitation/retardation present; thought process is organized and goal directed; Thought content is on tx and aftercare; otherwise pertinent to relevant topics and without any delusional content, paranoid ideations or grandiosity; denies any SI/HI. AH negligible. Patients insight and judgment fair. Diagnostics Vital Signs (24Hr): Vital Signs - 24 hr 06/15/24 19:41 06/16/24 07:42 Temperature 98.4 F 98.2 F Pulse Rate 96 92 Respiratory Rate 14 18 Blood Pressure 134/75 150/81 H Pulse Oximetry 98 97 Oxygen Delivery Method Room Air Room Air BMI result Body Mass Index 29.3 Labs 06/16/24 00:45 06/16/24 00:45 Labs: Laboratory Results - last 48 hr 06/14/24 06/14/24 06/16/24 11:48 18:28 00:12 WBC RBC Hgb Hct MCV MCH MCHC RDW Plt Count MPV Immature Gran % (Auto) Neut % (Auto) Lymph % (Auto) Dixie % (Auto) Eos % (Auto) Baso % (Auto) Lymph # (Auto) Dixie # (Auto) Eos # (Auto) Baso # (Auto) Abs Immat Gran (auto) Absolute Neuts (auto) Absolute Nucleated RBC Nucleated RBC % (auto) Sodium Potassium Chloride Carbon Dioxide Anion Gap BUN Creatinine Estim Creat Clear Calc Estimated GFR POC Glucose 274 H Fasting Glucose Calcium Total Bilirubin AST ALT Alkaline Phosphatase Ammonia 62 H Total Protein Albumin Urine Color Yellow Urine Appearance Clear Urine pH 6.0 Ur Specific [place] 1.025 Urine Protein Negative Urine Glucose (UA) Negative Urine Ketones 15 Urine Blood Negative Urine Nitrite Negative Ur Leukocyte Esterase Negative Urine RBC 0-2 Urine WBC 0-5 Ur Squamous Epith Cells 0-2 Urine Bacteria None Seen Hyaline Casts 0-2 06/16/24 00:45 WBC 8.5 RBC 4.19 L Hgb 13.3 L Hct 38.3 L MCV 91.4 MCH 31.7 MCHC 34.7 RDW 13.9 Plt Count 164 MPV 10.2 Immature Gran % (Auto) 1.9 H Neut % (Auto) 44.9 L Lymph % (Auto) 37.5 Dixie % (Auto) 7.8 Eos % (Auto) 6.8 H Baso % (Auto) 1.1 Lymph # (Auto) 3.2 Dixie # (Auto) 0.7 Eos # (Auto) 0.6 H Baso # (Auto) 0.1 Abs Immat Gran (auto) 0.16 H Absolute Neuts (auto) 3.8 Absolute Nucleated RBC 0.000 Nucleated RBC % (auto) 0.0 Sodium 142 Potassium 3.8 Chloride 107 Carbon Dioxide 21 L Anion Gap 18 BUN 14 Creatinine 0.88 Estim Creat Clear Calc 111.3 Estimated GFR > 60 POC Glucose Fasting Glucose 305 H Calcium 9.1 Total Bilirubin 0.2 AST 57 H ALT 23 Alkaline Phosphatase 248 H Ammonia 44 Total Protein 7.0 Albumin 4.0 Urine Color Urine Appearance Urine pH Ur Specific [place] Urine Protein Urine Glucose (UA) Urine Ketones Urine Blood Urine Nitrite Ur Leukocyte Esterase Urine RBC Urine WBC Ur Squamous Epith Cells Urine Bacteria Hyaline Casts Medications Medications Current Medications Acetaminophen (Acetaminophen 325 Mg Tablet) 650 mg PO Q6H PRN PRN Reason: Headache/Pain Mild Scale (1-3) Last Admin: 06/15/24 08:57 Dose: 650 mg Al Hydroxide/Mg Hydroxide (Magnesium Hydrox/Alum Hydrox 30 Ml Oral.Susp) 30 ml PO Q6H PRN PRN Reason: Heartburn/Nausea Amlodipine Besylate (Amlodipine Besylate 5 Mg Tablet) 5 mg PO DAILY [facility]; Protocol Last Admin: 06/16/24 08:14 Dose: 5 mg Baclofen (Baclofen 10 Mg Tablet) 10 mg PO BID [facility] Last Admin: 06/16/24 08:15 Dose: 10 mg Buprenorphine/Naloxone (Buprenorphine/Naloxone 8/2 Mg Film) 1 film SUBLINGUAL BID@0900,1700 [facility] Last Admin: 06/16/24 08:38 Dose: 1 film Bupropion HCl (Bupropion Hcl Xl 150 Mg Tab.Er.24h) 150 mg PO DAILY [facility] Last Admin: 06/16/24 08:15 Dose: 150 mg Clonidine HCl (Clonidine Hcl 0.2 Mg Tablet) 0.2 mg PO BID [facility]; Protocol Last Admin: 06/16/24 08:15 Dose: 0.2 mg Divalproex Sodium (Divalproex Sodium Er 500 Mg Tab.Er.24h) 1,000 mg PO BEDTIME [facility] Last Admin: 06/15/24 22:09 Dose: 1,000 mg Emtricitabine/Tenofovir (Emtricitabin/Tenofovir Df 200/300 Tablet) 1 tab PO DAILY PRN PRN Reason: prior to risky behavior Fluticasone Propionate (Fluticasone Propionate 100 Mcg Blst.W.Dev) 1 puff INHALE RBID [facility] Last Admin: 06/16/24 08:16 Dose: 1 puff Gabapentin (Gabapentin 300 Mg Capsule) 300 mg PO BEDTIME [facility] Last Admin: 06/15/24 22:09 Dose: 300 mg Hydroxyzine HCl (Hydroxyzine Hcl 25 Mg Tablet) 25 mg PO Q6H PRN PRN Reason: Anxiety Magnesium Hydroxide (Milk Of Magnesia 30 Ml Oral.Susp) 30 ml PO DAILY PRN PRN Reason: Constipation Metformin HCl (Metformin Hcl 500 Mg Tablet) 1,000 mg PO BID [facility] Last Admin: 06/16/24 08:15 Dose: 1,000 mg Nicotine (Nicotine 21 Mg Patch.Td24) 21 mg TRANSDERMA DAILY PRN PRN Reason: smoking cessation Last Admin: 06/16/24 08:38 Dose: 21 mg Nicotine Polacrilex (Nicotine Polacrilex 2 Mg Gum) 4 mg BUCCAL Q2H PRN PRN Reason: Nicotine Cravings Last Admin: 06/16/24 09:09 Dose: 4 mg Patient Own Medication ( Ciclesonide [Alvesco ] 160 Mcg/Actuation Hfa Aerosol Inhaler) 1 puff INHALE RBID [facility] Last Admin: 06/16/24 08:37 Dose: Not Given Prazosin HCl (Prazosin Hcl 1 Mg Capsule) 2 mg PO BEDTIME [facility]; Protocol Last Admin: 06/15/24 22:10 Dose: 2 mg Quetiapine Fumarate (Quetiapine Fumarate 50 Mg Tablet) 50 mg PO TID PRN PRN Reason: AH/mild agitation Last Admin: 06/15/24 08:56 Dose: 50 mg Quetiapine Fumarate (Quetiapine Fumarate 400 Mg Tablet) 400 mg PO BEDTIME [facility] Last Admin: 06/15/24 22:09 Dose: 400 mg Quetiapine Fumarate (Quetiapine Fumarate 50 Mg Tablet) 50 mg PO BEDTIME [facility] Last Admin: 06/15/24 22:09 Dose: 50 mg Topiramate (Topiramate 25 Mg Tablet) 25 mg PO BID [facility] Last Admin: 06/16/24 08:15 Dose: 25 mg Trazodone HCl (Trazodone Hcl 50 Mg Tablet) 50 mg PO BEDTIME MRX1 PRN PRN Reason: Insomnia Allergies Allergies Allergy/AdvReac Type Severity Reaction Status Date / Time No Known Allergies Allergy Verified 06/03/24 17:20 Assessment & Plan Assessment & Plan (1) AMS (altered mental status): Status: Acute Code(s): R41.82 - Altered mental status, unspecified (2) Bipolar 1 disorder, mixed: Status: Acute Code(s): F31.60 - Bipolar disorder, current episode mixed, unspecified (3) PTSD (post-traumatic stress disorder): Status: Acute Code(s): F43.10 - Post-traumatic stress disorder, unspecified (4) Cocaine use disorder: Status: Acute Code(s): F14.10 - Cocaine abuse, uncomplicated (5) Opioid use disorder: Status: Acute Code(s): F11.90 - Opioid use, unspecified, uncomplicated Plan HPI: Geo is a 48-year-old white, , unemployed, homeless man who is known to me from previous years at [employer]. He has a longstanding history of bipolar disorder, crack cocaine and some alcohol abuse/dependence. He had moved to [place] over the past few months; this April he returned to [place] on May 04. He was arrested and charged for shoplifting assaulting an officer and has an upcoming court date this June. Patient was accepted to [facility] around that time and completed the program. However, on completion he was sent to a TSS in [place], in the same neighborhood where he's spent years both embroiled in substance abuse and getting into trouble and where he currently feels he is a target. Patient was overwhelmed with anxiety and so He left the TSS after 2 hours, got high and next day self-presented to hospital, reporting depression and SI (no history of attempts). He has remained on his medications. He reports he uses substance abuse to treat his symptoms including racing 1000 ADHD symptoms. HOSPITAL COURSE: Geo meets criteria for IP LOC for safety and stabilization. Medications were reviewed and maintained and continued. Depakote was changed to 500 mg t.i.d. prazosin which was started recently has been helpful with his nightmares but still has some sleep interruptions. He is not appearing to be in need of detoxification from alcohol. He will meet with his treatment team on 06/07/24. 06/07 Patient reviewed recent history. Regarding symptoms said his mood is better. He struggles with AH throughout the day (that say degrading things to him); also says he can't filter shit out and is hypersensitive to noises on the unit and hears typing, footsteps and other noises... He also reports that there is electronic hum which has been in his head for years. Regarding sleep, he finds that while he is now able to fall asleep he still waking up frequently, anxious, however he is no longer having the nightmares and not remembering nightmares. 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 Meds: Depakote dose splt up this weekend to help with daytime AH Patient agreed to moving his Seroquel to bedtime since he has had trouble sleeping and adding Seroquel 50 mg p.r.n. throughout the day to help with bothersome AH; patient used to be on 600 mg Seroquel total daily dose Prazosin increased to 2 mg to help continued sleep anxiety Patient described what sounds like ADHD symptoms and asks about stimulant 06/08 discussed more of hx and 2005 first time in custodial, started hum in ear regarding depakote, he does not think it likely he'll be able to keep up TID regimen and so agrees to move it all to bedtime- feels mood is better, though still depressed -has not availed self of prn serqouel 06/11 steadily improving; still with depression although mood is better. Will switch to long-acting Wellbutrin and consider titration. Patient sleeping well. AH is a non-issue, only minimal and able to be ignored. -Depakote level pending; alk-phos and ammonia mildly elevated. Depending on level will adjust 06/14 remains overall much improved. Sleeping well. engaged in treatment; Mood remains improved; holding depakote tonight and then tomorrow restart at lower dose This weekend and today, pt mildly confused, repeating himself all very likely due to hyperammoniema even though it's only mildly elevated; discussed this with patient who understood and agreed to Lactulose and lowering depakote dose -will consider adding Lcarnatine 06/15 patient doing much better, confusion fully resolved; remains sleeping well. Does not want to try L carnitine at this time but will see how he does on Depakote a 1000 mg, the lower dose. Patient remains stabilizing well, with improved mood. He remains in good behavioral and impulse control, engaged in treatment, attending groups and forthcoming in 1 on 1 sessions. Appropriate with peers and staff 06/16/24 During the day yesterday, patient was back to baseline, fully organized in speech behavior.? Last evening around midnight, patient got confused again; labs ordered which were WNL, including ammonia back to normal.? Hospitalist VIPIN came to see patient and reported neurologically was intact, though little bit agitated, and did not feel he warranted any further workup. -review of labs show that alk-phos continues to trend upwards, now 246; Blood glucose elevated as well Earlier This morning was again briefly disorganized, the nurse described him standing in the kitchen, staring at the butter and a straw he was holding, not moving much and seemingly not sure what he wanted to do; said something about rats in his room last night. Discuss this with business writer who remembers that he did get disorganized this past evening and wonders if it was because he was dreaming.? Discussed his history and regarding trauma, business writer asked about dissociative episodes which patient acknowledged he has had often on throughout his lifetime; he is not aware if it was a similar as it has been this week but says he will call his family and ask. Discussed medication management and patient agrees to going back to delayed release. Formulation: Not sure what is causing these intermittent confused moments since they are fleeting seem to be resolved on their own. At 1st it seemed possibly due to increased ammonia that although low, could have cause confusion; however last night patient was confused again and ammonia was WNL. Patient has long history of trauma and a history of dissociative episodes making this a possibility. Will get an EEG Ativan abundance of caution though presentation seems less likely to be due to seizure. -although ammonia returned to normal, alk-phos has been steadily increasing, seeming to coincide with switch to extended release Depakote. Will discontinue Depakote ER and instead go back to immediate release as it is possible that extended release -which stays in the blood stream longer- is adversely affecting the liver differently than delayed/immediate release (patient on delayed release in the past) Plan: CV Q 15 minute check DISCONTINUE Divalproex ER (alk phose increasing) RESTART Depakote DR 500 mg in the morning and 1000 mg q.h.s. (past regimen) Continue Seroquel to 450 mg q.h.s. (instead of divided doses); to help with sleep Continue Seroquel 50 mg t.i.d. p.r.n. for AH during the day Change to Wellbutrin XL 150 mg daily; will titrate as needed Continue Clonidine HCl 0.2 mg PO BID [facility] Continue Gabapentin 300 mg PO BEDTIME [facility]; says started to help asleep Continue Prazosin HCl 2 mg PO BEDTIME [facility]; since patient still having anxiety filled sleep Patient asked to be restarted on baclofen 10 mg b.i.d. which was started for cocaine craving; business writer discussed risks/side effects including withdrawal from stopping, which he understands and with which he wants to continue Continue Buprenorphine/Naloxone 8/2 Mg Film? 1 film SUBLINGUAL BID Topiramate (Topiramate 25 Mg Tablet) 25 mg PO BID [facility] Amlodipine Besylate 5 mg PO DAILY [facility]; Protocol Emtricitabine/Tenofovir (Emtricitabin/Tenofovir Df 200/300 Tablet) 1 tab PO DAILY [facility] Fluticasone Propionate (Fluticasone Propionate 100 Mcg Blst.W.Dev) 1 puff INHALE RBID Metformin HCl 1,000 mg PO BID [facility] Patient Own Medication ( Ciclesonide [Alvesco ] 160 Mcg/Actuation Hfa Aerosol Inhaler) 1 puff INHALE RBID [facility] Patient educated on: diagnosis, medication risk/benefits and therapeutic strategies Informed Consent: understands Reason for continued inpatient stay Substantial Risk for: stable for discharge Time Spent With Patient Time: Total time managing care of this patient today ____ minutes.
[2024-06-16 19:54] VITALS: BP 131/83; PULSE 94; RESP 16; TEMP 36.6; O2SAT 96
[2024-06-16 20:24] VITALS: BP 131/83
[2024-06-16] MEDS: QUEtiapine Fumarate 400 MG TABLET PO (20:24)
[2024-06-16] MEDS: QUEtiapine Fumarate 50 MG TABLET PO (20:24)
[2024-06-16] MEDS: Gabapentin 300 MG CAPSULE PO (20:24)
[2024-06-16 20:25] VITALS: BP 131/83
[2024-06-16] MEDS: Prazosin HCL 1 MG CAPSULE 2 MG PO (20:25)
[2024-06-16] MEDS: Divalproex Sodium 500 MG TABLET.DR 1000 MG PO (20:26)
[2024-06-17] MEDS: hydrOXYzine HCL 25 MG TABLET PO (05:00)
[2024-06-17] MEDS: QUEtiapine Fumarate 50 MG TABLET PO ×2 (05:01→20:59)
[2024-06-17 07:00] VITALS: BMI 31.4
[2024-06-17 07:52] LABS: Glucose, Whole Blood 340 mg/dL (60-115)
[2024-06-17 09:30] VITALS: BP 141/76; PULSE 87; RESP 18; TEMP 36.3; O2SAT 98
[2024-06-17] MEDS: cloNIDine HCL 0.2 MG TABLET PO ×2 (09:34→20:58)
[2024-06-17] MEDS: Fluticasone Propionate 100 MCG BLST.W.DEV 1 PUFF INHALE ×2 (09:34→20:51)
[2024-06-17] MEDS: Divalproex Sodium 500 MG TABLET.DR PO (09:35)
[2024-06-17] MEDS: Baclofen 10 MG TABLET PO ×2 (09:35→20:58)
[2024-06-17] MEDS: buPROPion HCl XL 150 MG TAB.ER.24H PO (09:35)
[2024-06-17] MEDS: Nicotine 21 MG PATCH.TD24 TRANSDERMA (09:35)
[2024-06-17] MEDS: Buprenorphine/Naloxone 8/2 mg FILM 1 FILM SUBLINGUAL ×2 (09:35→16:34)
[2024-06-17] MEDS: Topiramate 25 MG TABLET PO ×2 (09:35→20:58)
[2024-06-17] MEDS: amLODIPine Besylate 5 MG TABLET PO (09:35)
[2024-06-17] MEDS: metFORMIN HCl 500 MG TABLET 1000 MG PO ×2 (09:35→20:59)
--- NOTE | 2024-06-17 10:09 | HO.PSYCHPN ---
Subjective Subjective Date of Service: 06/17/24 Reason For Visit: depressed / SI Interim History: Met with patient; discussed with team Patient is doing well, good mood and future oriented; no bouts of dissociative moments, clear minded and organized. Discussed medication management and patient feels good about current regimen. Sleeping well, eating well and feeling optimistic. While he continues to express anxieties about remaining in the area treatment, he is planning to make the best of it and use this time to progress towards the next step. Discussed dissociative episodes which his girlfriend says she has seen for years. Patient said that he can feel it coming on more readily and now A mechanism to stop it; he says when he feels it coming on, he immediately changes location and starts engaging in some activity; he does so intensely and says that by doing this he can run out the window for a dissociative episode to occur and thus it never develops. Patient discussed how he feels he was unconsciously triggered at night to have night sweats and nightmares which has resolved and that the same thing is happening during the day which he is trying harder to identify. Patient is optimistic about staying sober. Mental Status Exam Mental Status Exam Narrative: Pt is alert and oriented; behavior is cooperative, calm; patient is not in distress; dressed in casual attire with adequate hygiene; mood is described as good and affect congruent; eye contact appropriate; Speech is normal rate, volume and prosody; not pressured; no psychomotor agitation/retardation present; thought process is organized and goal directed; Thought content is on tx and aftercare; otherwise pertinent to relevant topics and without any delusional content, paranoid ideations or grandiosity; denies any SI/HI. AH negligible. Patients insight and judgment fair. Diagnostics Vital Signs (24Hr): Vital Signs - 24 hr 06/16/24 19:54 06/16/24 20:24 06/16/24 20:25 Temperature 97.8 F Pulse Rate 94 Respiratory Rate 16 Blood Pressure 131/83 131/83 131/83 Pulse Oximetry 96 Oxygen Delivery Method Room Air 06/17/24 09:30 Temperature 97.4 F Pulse Rate 87 Respiratory Rate 18 Blood Pressure 141/76 H Pulse Oximetry 98 Oxygen Delivery Method Room Air BMI result Body Mass Index 29.3 Labs 06/16/24 00:45 06/17/24 09:31 Labs: Laboratory Results - last 48 hr 06/16/24 06/16/24 06/17/24 00:12 00:45 07:47 WBC 8.5 RBC 4.19 L Hgb 13.3 L Hct 38.3 L MCV 91.4 MCH 31.7 MCHC 34.7 RDW 13.9 Plt Count 164 MPV 10.2 Immature Gran % (Auto) 1.9 H Neut % (Auto) 44.9 L Lymph % (Auto) 37.5 [place] % (Auto) 7.8 Eos % (Auto) 6.8 H Baso % (Auto) 1.1 Lymph # (Auto) 3.2 [place] # (Auto) 0.7 Eos # (Auto) 0.6 H Baso # (Auto) 0.1 Abs Immat Gran (auto) 0.16 H Absolute Neuts (auto) 3.8 Absolute Nucleated RBC 0.000 Nucleated RBC % (auto) 0.0 Sodium 142 Potassium 3.8 Chloride 107 Carbon Dioxide 21 L Anion Gap 18 BUN 14 Creatinine 0.88 Estim Creat Clear Calc 111.3 Estimated GFR > 60 POC Glucose 274 H 340 H Fasting Glucose 305 H Calcium 9.1 Total Bilirubin 0.2 AST 57 H ALT 23 Alkaline Phosphatase 248 H Ammonia 44 Total Protein 7.0 Albumin 4.0 Medications Medications Current Medications Acetaminophen (Acetaminophen 325 Mg Tablet) 650 mg PO Q6H PRN PRN Reason: Headache/Pain Mild Scale (1-3) Last Admin: 06/15/24 08:57 Dose: 650 mg Al Hydroxide/Mg Hydroxide (Magnesium Hydrox/Alum Hydrox 30 Ml Oral.Susp) 30 ml PO Q6H PRN PRN Reason: Heartburn/Nausea Amlodipine Besylate (Amlodipine Besylate 5 Mg Tablet) 5 mg PO DAILY [facility]; Protocol Last Admin: 06/17/24 09:35 Dose: 5 mg Baclofen (Baclofen 10 Mg Tablet) 10 mg PO BID [facility] Last Admin: 06/17/24 09:35 Dose: 10 mg Buprenorphine/Naloxone (Buprenorphine/Naloxone 8/2 Mg Film) 1 film SUBLINGUAL BID@0900,1700 [facility] Last Admin: 06/17/24 09:42 Dose: Not Given Bupropion HCl (Bupropion Hcl Xl 150 Mg Tab.Er.24h) 150 mg PO DAILY [facility] Last Admin: 06/17/24 09:35 Dose: 150 mg Clonidine HCl (Clonidine Hcl 0.2 Mg Tablet) 0.2 mg PO BID [facility]; Protocol Last Admin: 06/17/24 09:34 Dose: 0.2 mg Divalproex Sodium (Divalproex Sodium 500 Mg Tablet.) 500 mg PO DAILY [facility] Last Admin: 06/17/24 09:35 Dose: 500 mg Divalproex Sodium (Divalproex Sodium 500 Mg Tablet.) 1,000 mg PO BEDTIME [facility] Last Admin: 06/16/24 20:26 Dose: 1,000 mg Emtricitabine/Tenofovir (Emtricitabin/Tenofovir Df 200/300 Tablet) 1 tab PO DAILY PRN PRN Reason: prior to risky behavior Fluticasone Propionate (Fluticasone Propionate 100 Mcg Blst.W.Dev) 1 puff INHALE RBID [facility] Last Admin: 06/17/24 09:34 Dose: 1 puff Gabapentin (Gabapentin 300 Mg Capsule) 300 mg PO BEDTIME [facility] Last Admin: 06/16/24 20:24 Dose: 300 mg Hydroxyzine HCl (Hydroxyzine Hcl 25 Mg Tablet) 25 mg PO Q6H PRN PRN Reason: Anxiety Last Admin: 06/17/24 05:00 Dose: 25 mg Magnesium Hydroxide (Milk Of Magnesia 30 Ml Oral.Susp) 30 ml PO DAILY PRN PRN Reason: Constipation Metformin HCl (Metformin Hcl 500 Mg Tablet) 1,000 mg PO BID [facility] Last Admin: 06/17/24 09:35 Dose: 1,000 mg Nicotine (Nicotine 21 Mg Patch.Td24) 21 mg TRANSDERMA DAILY PRN PRN Reason: smoking cessation Last Admin: 06/17/24 09:35 Dose: 21 mg Nicotine Polacrilex (Nicotine Polacrilex 2 Mg Gum) 4 mg BUCCAL Q2H PRN PRN Reason: Nicotine Cravings Last Admin: 06/16/24 09:09 Dose: 4 mg Patient Own Medication ( Ciclesonide [Alvesco ] 160 Mcg/Actuation Hfa Aerosol Inhaler) 1 puff INHALE RBID [facility] Last Admin: 06/17/24 09:43 Dose: Not Given Prazosin HCl (Prazosin Hcl 1 Mg Capsule) 2 mg PO BEDTIME [facility]; Protocol Last Admin: 06/16/24 20:25 Dose: 2 mg Quetiapine Fumarate (Quetiapine Fumarate 50 Mg Tablet) 50 mg PO TID PRN PRN Reason: AH/mild agitation Last Admin: 06/17/24 05:01 Dose: 50 mg Quetiapine Fumarate (Quetiapine Fumarate 400 Mg Tablet) 400 mg PO BEDTIME [facility] Last Admin: 06/16/24 20:24 Dose: 400 mg Quetiapine Fumarate (Quetiapine Fumarate 50 Mg Tablet) 50 mg PO BEDTIME [facility] Last Admin: 06/16/24 20:24 Dose: 50 mg Topiramate (Topiramate 25 Mg Tablet) 25 mg PO BID [facility] Last Admin: 06/17/24 09:35 Dose: 25 mg Trazodone HCl (Trazodone Hcl 50 Mg Tablet) 50 mg PO BEDTIME MRX1 PRN PRN Reason: Insomnia Allergies Allergies Allergy/AdvReac Type Severity Reaction Status Date / Time No Known Allergies Allergy Verified 06/03/24 17:20 Assessment & Plan Assessment & Plan (1) Bipolar 1 disorder, mixed: Status: Acute Code(s): F31.60 - Bipolar disorder, current episode mixed, unspecified (2) Suicidal ideation: Status: Acute Code(s): R45.851 - Suicidal ideations (3) Homeless: Status: Acute Code(s): Z59.00 - Homelessness unspecified Plan HPI: Geo is a 48-year-old white, , unemployed, homeless man who is known to me from previous years at [facility] [place] He has a longstanding history of bipolar disorder, crack cocaine and some alcohol abuse/dependence. He had moved to [place] over the past few months; this April he returned to [place] on May 04. He was arrested and charged for shoplifting assaulting an officer and has an upcoming court date this June. Patient was accepted to [facility] around that time and completed the program. However, on completion he was sent to a TSS in [place], in the same neighborhood where he's spent years both embroiled in substance abuse and getting into trouble and where he currently feels he is a target. Patient was overwhelmed with anxiety and so He left the TSS after 2 hours, got high and next day self-presented to hospital, reporting depression and SI (no history of attempts). He has remained on his medications. He reports he uses substance abuse to treat his symptoms including racing 1000 ADHD symptoms. HOSPITAL COURSE: Geo meets criteria for IP LOC for safety and stabilization. Medications were reviewed and maintained and continued. Depakote was changed to 500 mg t.i.d. prazosin which was started recently has been helpful with his nightmares but still has some sleep interruptions. He is not appearing to be in need of detoxification from alcohol. He will meet with his treatment team on 06/07/24. 06/07 Patient reviewed recent history. Regarding symptoms said his mood is better. He struggles with AH throughout the day (that say degrading things to him); also says he can't filter shit out and is hypersensitive to noises on the unit and hears typing, footsteps and other noises... He also reports that there is electronic hum which has been in his head for years. Regarding sleep, he finds that while he is now able to fall asleep he still waking up frequently, anxious, however he is no longer having the nightmares and not remembering nightmares. 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 He's only been able to get off the [employer] jobs and finding it hard to move forward. !08/10: Continue current plan of care and regime. 06/12: Continue current plan of care and regime. 06/13: Lactulose 20 g x 1 Meds: Depakote dose splt up this weekend to help with daytime AH Patient agreed to moving his Seroquel to bedtime since he has had trouble sleeping and adding Seroquel 50 mg p.r.n. throughout the day to help with bothersome AH; patient used to be on 600 mg Seroquel total daily dose Prazosin increased to 2 mg to help continued sleep anxiety Patient described what sounds like ADHD symptoms and asks about stimulant 06/17/24 Patient is doing well, good mood and future oriented; no bouts of dissociative moments, clear minded and organized. Discussed medication management and patient feels good about current regimen. Sleeping well, eating well and feeling optimistic. While he continues to express anxieties about remaining in the area treatment, he is planning to make the best of it and use this time to progress towards the next step. Discussed dissociative episodes which his girlfriend says she has seen for years. Patient said that he can feel it coming on more readily and now A mechanism to stop it; he says when he feels it coming on, he immediately changes location and starts engaging in some activity; he does so intensely and says that by doing this he can run out the window for a dissociative episode to occur and thus it never develops. Patient discussed how he feels he was unconsciously triggered at night to have night sweats and nightmares which has resolved and that the same thing is happening during the day which he is trying harder to identify. Patient is optimistic about staying sober. 06/15 patient doing much better, confusion fully resolved; remains sleeping well. Does not want to try L carnitine at this time but will see how he does on Depakote a 1000 mg, the lower dose. Patient remains stabilizing well, with improved mood. He remains in good behavioral and impulse control, engaged in treatment, attending groups and forthcoming in on sessions. Appropriate with peers and staff 06/16/24 During the day yesterday, patient was back to baseline, fully organized in speech behavior.? Last evening around midnight, patient got confused again; labs ordered which were WNL, including ammonia back to normal.? Hospitalist VIPIN came to see patient and reported neurologically was intact, though little bit agitated, and did not feel he warranted any further workup. -review of labs show that alk-phos continues to trend upwards, now 246; Blood glucose elevated as well Earlier This morning was again briefly disorganized, the nurse described him standing in the kitchen, staring at the butter and a straw he was holding, not moving much and seemingly not sure what he wanted to do; said something about rats in his room last night. Discuss this with keno writer / runner who remembers that he did get disorganized this past evening and wonders if it was because he was dreaming.? Discussed his history and regarding trauma, keno writer / runner asked about dissociative episodes which patient acknowledged he has had often on throughout his lifetime; he is not aware if it was a similar as it has been this week but says he will call his family and ask. Discussed medication management and patient agrees to going back to delayed release. Formulation: Not sure what is causing these intermittent confused moments since they are fleeting seem to be resolved on their own. At 1st it seemed possibly due to increased ammonia that although low, could have cause confusion; however last night patient was confused again and ammonia was WNL. Patient has long history of trauma and a history of dissociative episodes making this a possibility. Will get an EEG Ativan abundance of caution though presentation seems less likely to be due to seizure. -although ammonia returned to normal, alk-phos has been steadily increasing, seeming to coincide with switch to extended release Depakote. Will discontinue Depakote ER and instead go back to immediate release as it is possible that extended release -which stays in the blood stream longer- is adversely affecting the liver differently than delayed/immediate release (patient on delayed release in the past) 06/17/24 Patient is doing well, good mood and future oriented; no bouts of dissociative moments, clear minded and organized. Discussed medication management and patient feels good about current regimen. Sleeping well, eating well and feeling optimistic. While he continues to express anxieties about remaining in the area treatment, he is planning to make the best of it and use this time to progress towards the next step. Discussed dissociative episodes which his girlfriend says she has seen for years. Patient said that he can feel it coming on more readily and now A mechanism to stop it; he says when he feels it coming on, he immediately changes location and starts engaging in some activity; he does so intensely and says that by doing this he can run out the window for a dissociative episode to occur and thus it never develops. Patient discussed how he feels he was unconsciously triggered at night to have night sweats and nightmares which has resolved and that the same thing is happening during the day which he is trying harder to identify. Patient is optimistic about staying sober. Patient was accepted into program and will discharge tomorrow. He is much improved,, good mood, no SI, almost no AH, future oriented, eating and sleeping well and optimistic. He feels medications were well adjusted. While he remains vulnerable to relapse and decompensation this is a chronic struggle with which he is well aware and committed to working on. Patient is not in imminent risk for harm to self or others and appropriate to return to the community for treatment. Plan: CV Q 15 minute check DISCONTINUE Divalproex ER (alk phose increasing) RESTART Depakote DR 500 mg in the morning and 1000 mg q.h.s. (past regimen) Continue Seroquel to 450 mg q.h.s. (instead of divided doses); to help with sleep Continue Seroquel 50 mg t.i.d. p.r.n. for AH during the day Change to Wellbutrin XL 150 mg daily; will titrate as needed Continue Clonidine HCl 0.2 mg PO BID [facility]HELSEA Continue Gabapentin 300 mg PO BEDTIME CHELSEA; says started to help asleep Continue Prazosin HCl 2 mg PO BEDTIME CHELSEA; since patient still having anxiety filled sleep Patient asked to be restarted on baclofen 10 mg b.i.d. which was started for cocaine craving; keno writer / runner discussed risks/side effects including withdrawal from stopping, which he understands and with which he wants to continue Continue Buprenorphine/Naloxone 8/2 Mg Film? 1 film SUBLINGUAL Bid Patient educated on: diagnosis, medication risk/benefits, substance abuse, therapeutic strategies and medical condition Informed Consent: understands Reason for continued inpatient stay Substantial Risk for: stable for discharge Time Spent With Patient Time: Total time managing care of this patient today ____ minutes.
[2024-06-17 10:45] LABS: Creatinine Clr Calc Pharmacy 113.9; Estimated Glomerular Filt Rate > 60
[2024-06-17] MEDS: Nicotine Polacrilex 2 MG GUM 4 MG BUCCAL (13:21)
[2024-06-17 19:58] VITALS: BP 140/90; PULSE 97; RESP 16; O2SAT 98
[2024-06-17 20:58] VITALS: BP 140/90
[2024-06-17] MEDS: QUEtiapine Fumarate 400 MG TABLET PO (20:58)
[2024-06-17] MEDS: Gabapentin 300 MG CAPSULE PO (20:58)
[2024-06-17] MEDS: Divalproex Sodium 500 MG TABLET.DR 1000 MG PO (20:59)
[2024-06-17 21:00] VITALS: BP 140/90
[2024-06-17] MEDS: Prazosin HCL 1 MG CAPSULE 2 MG PO (21:00)
[2024-06-17 21:18] LABS: Glucose, Whole Blood 250 mg/dL (60-115)
[2024-06-18 08:28] LABS: Glucose, Whole Blood 153 mg/dL (60-115)
--- NOTE | 2024-06-18 08:35 | PM.PSYDC ---
DS: Providers Provider Date of Service: 06/18/24 Date of admission: 06/04/24 12:42 Date of discharge: 06/18/24 Primary care physician: Unknown Physician Attending physician on admission: Nic Bey Consults: 06/16/24 00:17 Consult to Hospitalist Routine Comment: Consulting Provider: [facility] Reason For Exam: AMS Attending physician on discharge: Nic Bey DS: Diagnosis Discharge Diagnosis (1) Bipolar 1 disorder, mixed: Status: Acute (2) Suicidal ideation: Status: Acute (3) Homeless: Status: Acute DS: Medications Discharge Medications Home Medications: Previous Rx's ?Medication ?Instructions ?Recorded amlodipine 5 mg tablet 5 mg PO DAILY 30 days #30 tabs 06/18/24 baclofen 10 mg tablet 10 mg PO BID 30 days #60 tabs 06/18/24 buprenorphine 8 mg-naloxone 2 mg 1 film sublingual BID@0900,1700 30 06/18/24 sublingual film (Suboxone) days #60 ea bupropion HCl 150 mg 24 hr tablet, 150 mg PO DAILY 30 days #30 tabs 06/18/24 extended release ciclesonide 160 mcg/actuation 1 puff inhalation BID 30 days #6.1 06/18/24 aerosol inhaler (Alvesco) grams clonidine HCl 0.2 mg tablet 0.2 mg PO BID 30 days #60 tabs 06/18/24 divalproex 500 mg tablet,delayed See Rx Instructions .Route 06/18/24 release .COMPLEX 30 days #90 tabs emtricitabine 200 mg-tenofovir 1 tab PO DAILY PRN risky behavior 06/18/24 disoproxil fumarate 300 mg tablet 30 days #30 tabs (Truvada) gabapentin 300 mg capsule 300 mg PO BEDTIME 30 days #30 caps 06/18/24 hydroxyzine HCl 25 mg tablet 25 mg PO Q6H PRN Anxiety 30 days 06/18/24 #90 tabs metformin 1,000 mg tablet 1,000 mg PO BIDWMEAL 30 days #60 06/18/24 tabs nicotine (polacrilex) 4 mg gum 4 mg buccal Q2H PRN Nicotine 06/18/24 Cravings 30 days #100 ea nicotine 21 mg/24 hr daily 21 mg transdermal DAILY PRN 06/18/24 transdermal patch smoking cessation 28 days #28 ea prazosin 2 mg capsule 2 mg PO BEDTIME 30 days #30 caps 06/18/24 quetiapine 400 mg tablet 400 mg PO BEDTIME 30 days #30 tabs 06/18/24 quetiapine 50 mg tablet 50 mg PO BEDTIME 30 days #30 tabs 06/18/24 quetiapine 50 mg tablet 50 mg PO TID PRN AH/mild agitation 06/18/24 30 days #90 tabs topiramate 25 mg tablet 25 mg PO BID 30 days #60 tabs 06/18/24 Data Data Completed and Pending Completed studies during hospitalization [Text1]: 06/11/24 06/14/24 06/14/24 14:14 08:51 11:48 WBC 11.9 H RBC 4.35 L Hgb 13.6 L Hct 39.4 L MCV 90.6 MCH 31.3 MCHC 34.5 RDW 13.6 Plt Count 181 MPV 9.7 Immature Gran % (Auto) 0.9 H Neut % (Auto) 71.4 Lymph % (Auto) 14.6 L Marion % (Auto) 7.5 Eos % (Auto) 4.8 H Baso % (Auto) 0.8 Lymph # (Auto) 1.7 Marion # (Auto) 0.9 Eos # (Auto) 0.6 H Baso # (Auto) 0.1 Abs Immat Gran (auto) 0.11 H Absolute Neuts (auto) 8.5 H Absolute Nucleated RBC 0.000 Nucleated RBC % (auto) 0.0 Sodium 140 Potassium 4.4 Chloride 107 Carbon Dioxide 24 Anion Gap 13 BUN 11 Creatinine 0.87 Estim Creat Clear Calc 112.6 Estimated GFR > 60 POC Glucose Random Glucose 183 H Fasting Glucose Calcium 8.9 Total Bilirubin 0.3 0.4 Direct Bilirubin 0.1 AST 15 14 ALT 12 16 Alkaline Phosphatase 130 H 167 H Ammonia 62 H 62 H Total Protein 7.4 7.2 Albumin 4.2 4.0 Urine Color Urine Appearance Urine pH Ur Specific [place] Urine Protein Urine Glucose (UA) Urine Ketones Urine Blood Urine Nitrite Ur Leukocyte Esterase Urine RBC Urine WBC Ur Squamous Epith Cells Urine Bacteria Hyaline Casts Valproic Acid 67.4 06/14/24 06/16/24 06/16/24 18:28 00:12 00:45 WBC 8.5 RBC 4.19 L Hgb 13.3 L Hct 38.3 L MCV 91.4 MCH 31.7 MCHC 34.7 RDW 13.9 Plt Count 164 MPV 10.2 Immature Gran % (Auto) 1.9 H Neut % (Auto) 44.9 L Lymph % (Auto) 37.5 Marion % (Auto) 7.8 Eos % (Auto) 6.8 H Baso % (Auto) 1.1 Lymph # (Auto) 3.2 Marion # (Auto) 0.7 Eos # (Auto) 0.6 H Baso # (Auto) 0.1 Abs Immat Gran (auto) 0.16 H Absolute Neuts (auto) 3.8 Absolute Nucleated RBC 0.000 Nucleated RBC % (auto) 0.0 Sodium 142 Potassium 3.8 Chloride 107 Carbon Dioxide 21 L Anion Gap 18 BUN 14 Creatinine 0.88 Estim Creat Clear Calc 111.3 Estimated GFR > 60 POC Glucose 274 H Random Glucose Fasting Glucose 305 H Calcium 9.1 Total Bilirubin 0.2 Direct Bilirubin AST 57 H ALT 23 Alkaline Phosphatase 248 H Ammonia 44 Total Protein 7.0 Albumin 4.0 Urine Color Yellow Urine Appearance Clear Urine pH 6.0 Ur Specific Mac[place] 1.025 Urine Protein Negative Urine Glucose (UA) Negative Urine Ketones 15 Urine Blood Negative Urine Nitrite Negative Ur Leukocyte Esterase Negative Urine RBC 0-2 Urine WBC 0-5 Ur Squamous Epith Cells 0-2 Urine Bacteria None Seen Hyaline Casts 0-2 Valproic Acid 06/17/24 06/17/24 06/17/24 07:47 09:31 20:48 WBC RBC Hgb Hct MCV MCH MCHC RDW Plt Count MPV Immature Gran % (Auto) Neut % (Auto) Lymph % (Auto) Marion % (Auto) Eos % (Auto) Baso % (Auto) Lymph # (Auto) Marion # (Auto) Eos # (Auto) Baso # (Auto) Abs Immat Gran (auto) Absolute Neuts (auto) Absolute Nucleated RBC Nucleated RBC % (auto) Sodium Potassium Chloride Carbon Dioxide Anion Gap BUN Creatinine 0.86 Estim Creat Clear Calc 113.9 Estimated GFR > 60 POC Glucose 340 H 250 H Random Glucose Fasting Glucose Calcium Total Bilirubin Direct Bilirubin AST ALT Alkaline Phosphatase Ammonia Total Protein Albumin Urine Color Urine Appearance Urine pH Ur Specific [place] Urine Protein Urine Glucose (UA) Urine Ketones Urine Blood Urine Nitrite Ur Leukocyte Esterase Urine RBC Urine WBC Ur Squamous Epith Cells Urine Bacteria Hyaline Casts Valproic Acid 06/18/24 08:24 WBC RBC Hgb Hct MCV MCH MCHC RDW Plt Count MPV Immature Gran % (Auto) Neut % (Auto) Lymph % (Auto) Marion % (Auto) Eos % (Auto) Baso % (Auto) Lymph # (Auto) Marion # (Auto) Eos # (Auto) Baso # (Auto) Abs Immat Gran (auto) Absolute Neuts (auto) Absolute Nucleated RBC Nucleated RBC % (auto) Sodium Potassium Chloride Carbon Dioxide Anion Gap BUN Creatinine Estim Creat Clear Calc Estimated GFR POC Glucose 153 H Random Glucose Fasting Glucose Calcium Total Bilirubin Direct Bilirubin AST ALT Alkaline Phosphatase Ammonia Total Protein Albumin Urine Color Urine Appearance Urine pH Ur Specific [place] Urine Protein Urine Glucose (UA) Urine Ketones Urine Blood Urine Nitrite Ur Leukocyte Esterase Urine RBC Urine WBC Ur Squamous Epith Cells Urine Bacteria Hyaline Casts Valproic Acid DS: Summary Hospital Course Hospital Course: HPI: Geo is a 48-year-old white, , unemployed, homeless man who is known to me from previous years at service [employer]. He has a longstanding history of bipolar disorder, crack cocaine and some alcohol abuse/dependence. He had moved to [place] over the past few months; this April he returned to [place] on May 04. He was arrested and charged for shoplifting assaulting an officer and has an upcoming court date this June. Patient was accepted to [facility] around that time and completed the program. However, on completion he was sent to a TSS in [place], in the same neighborhood where he's spent years both embroiled in substance abuse and getting into trouble and where he currently feels he is a target. Patient was overwhelmed with anxiety and so He left the TSS after 2 hours, got high and next day self-presented to hospital, reporting depression and SI (no history of attempts). He has remained on his medications. He reports he uses substance abuse to treat his symptoms including racing 1000 ADHD symptoms. HOSPITAL COURSE: Geo meets criteria for IP LOC for safety and stabilization. Medications were reviewed and maintained and continued. Depakote was changed to 500 mg t.i.d. prazosin which was started recently has been helpful with his nightmares but still has some sleep interruptions. He is not appearing to be in need of detoxification from alcohol. He will meet with his treatment team on 06/07/24. 06/07 Patient reviewed recent history. Regarding symptoms said his mood is better. He struggles with AH throughout the day (that say degrading things to him); also says he can't filter shit out and is hypersensitive to noises on the unit and hears typing, footsteps and other noises... He also reports that there is electronic hum which has been in his head for years. Regarding sleep, he finds that while he is now able to fall asleep he still waking up frequently, anxious, however he is no longer having the nightmares and not remembering nightmares. 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 He's only been able to get off the [employer] jobs and finding it hard to move forward. !08/10: Continue current plan of care and regime. 06/12: Continue current plan of care and regime. 06/13: Lactulose 20 g x 1 Meds: Depakote dose splt up this weekend to help with daytime AH Patient agreed to moving his Seroquel to bedtime since he has had trouble sleeping and adding Seroquel 50 mg p.r.n. throughout the day to help with bothersome AH; patient used to be on 600 mg Seroquel total daily dose Prazosin increased to 2 mg to help continued sleep anxiety Patient described what sounds like ADHD symptoms and asks about stimulant 06/17/24 Patient is doing well, good mood and future oriented; no bouts of dissociative moments, clear minded and organized. Discussed medication management and patient feels good about current regimen. Sleeping well, eating well and feeling optimistic. While he continues to express anxieties about remaining in the area treatment, he is planning to make the best of it and use this time to progress towards the next step. Discussed dissociative episodes which his girlfriend says she has seen for years. Patient said that he can feel it coming on more readily and now A mechanism to stop it; he says when he feels it coming on, he immediately changes location and starts engaging in some activity; he does so intensely and says that by doing this he can run out the window for a dissociative episode to occur and thus it never develops. Patient discussed how he feels he was unconsciously triggered at night to have night sweats and nightmares which has resolved and that the same thing is happening during the day which he is trying harder to identify. Patient is optimistic about staying sober. 06/15 patient doing much better, confusion fully resolved; remains sleeping well. Does not want to try L carnitine at this time but will see how he does on Depakote a 1000 mg, the lower dose. Patient remains stabilizing well, with improved mood. He remains in good behavioral and impulse control, engaged in treatment, attending groups and forthcoming in on sessions. Appropriate with peers and staff 06/16/24 During the day yesterday, patient was back to baseline, fully organized in speech behavior.? Last evening around midnight, patient got confused again; labs ordered which were WNL, including ammonia back to normal.? Hospitalist VIPIN came to see patient and reported neurologically was intact, though little bit agitated, and did not feel he warranted any further workup. -review of labs show that alk-phos continues to trend upwards, now 246; Blood glucose elevated as well Earlier This morning was again briefly disorganized, the nurse described him standing in the kitchen, staring at the butter and a straw he was holding, not moving much and seemingly not sure what he wanted to do; said something about rats in his room last night. Discuss this with typewriter ribbon winder who remembers that he did get disorganized this past evening and wonders if it was because he was dreaming.? Discussed his history and regarding trauma, typewriter ribbon winder asked about dissociative episodes which patient acknowledged he has had often on throughout his lifetime; he is not aware if it was a similar as it has been this week but says he will call his family and ask. Discussed medication management and patient agrees to going back to delayed release. Formulation: Not sure what is causing these intermittent confused moments since they are fleeting seem to be resolved on their own. At 1st it seemed possibly due to increased ammonia that although low, could have cause confusion; however last night patient was confused again and ammonia was WNL. Patient has long history of trauma and a history of dissociative episodes making this a possibility. Will get an EEG Ativan abundance of caution though presentation seems less likely to be due to seizure. -although ammonia returned to normal, alk-phos has been steadily increasing, seeming to coincide with switch to extended release Depakote. Will discontinue Depakote ER and instead go back to immediate release as it is possible that extended release -which stays in the blood stream longer- is adversely affecting the liver differently than delayed/immediate release (patient on delayed release in the past) 06/17/24 Patient is doing well, good mood and future oriented; no bouts of dissociative moments, clear minded and organized. Discussed medication management and patient feels good about current regimen. Sleeping well, eating well and feeling optimistic. While he continues to express anxieties about remaining in the area treatment, he is planning to make the best of it and use this time to progress towards the next step. Discussed dissociative episodes which his girlfriend says she has seen for years. Patient said that he can feel it coming on more readily and now A mechanism to stop it; he says when he feels it coming on, he immediately changes location and starts engaging in some activity; he does so intensely and says that by doing this he can run out the window for a dissociative episode to occur and thus it never develops. Patient discussed how he feels he was unconsciously triggered at night to have night sweats and nightmares which has resolved and that the same thing is happening during the day which he is trying harder to identify. Patient is optimistic about staying sober. Patient was accepted into program and will discharge tomorrow. He is much improved,, good mood, no SI, almost no AH, future oriented, eating and sleeping well and optimistic. He feels medications were well adjusted. While he remains vulnerable to relapse and decompensation this is a chronic struggle with which he is well aware and committed to working on. Patient is not in imminent risk for harm to self or others and appropriate to return to the community for treatment. Plan: CV Q 15 minute check DISCONTINUE Divalproex ER (alk phose increasing) RESTART Depakote DR 500 mg in the morning and 1000 mg q.h.s. (past regimen) Continue Seroquel to 450 mg q.h.s. (instead of divided doses); to help with sleep Continue Seroquel 50 mg t.i.d. p.r.n. for AH during the day Change to Wellbutrin XL 150 mg daily; will titrate as needed Continue Clonidine HCl 0.2 mg PO BID CHLESEA Continue Gabapentin 300 mg PO BEDTIME CHELSEA; says started to help asleep Continue Prazosin HCl 2 mg PO BEDTIME CHELSEA; since patient still having anxiety filled sleep Patient asked to be restarted on baclofen 10 mg b.i.d. which was started for cocaine craving; typewriter ribbon winder discussed risks/side effects including withdrawal from stopping, which he understands and with which he wants to continue Continue Buprenorphine/Naloxone 8/2 Mg Film? 1 film SUBLINGUAL Bid Time Spent with Patient Time attestation: Total time managing care of this patient today ____ minutes. Discharge Plan Discharge Anticipated Discharge Date/Time: 06/18/24 11:30 Patient Disposition: Xfer Other Discharge Diagnosis: Bipolar I disorder, recurrent, severe, most recently depressed, in full remission Referrals: [facility] Appointment [Other] - 06/22/24 1:15 pm Physician,Unknown J [Primary Care Provider] - 1 Week Discharge Medications: New baclofen 10 mg Tablet 10 mg PO BID 30 Days Qty: 60 1RF nicotine 21 mg/24 hr Patch 24 Hour 21 mg transdermal DAILY PRN (Reason: smoking cessation) 28 Days Qty: 28 1RF Rx Instructions: remove at bedtime bupropion HCl 150 mg Tablet Extended Release 24 Hr 150 mg PO DAILY 30 Days Qty: 30 1RF hydroxyzine HCl 25 mg Tablet 25 mg PO Q6H PRN (Reason: Anxiety) 30 Days Qty: 90 1RF quetiapine 50 mg Tablet 50 mg PO TID PRN (Reason: AH/mild agitation) 30 Days Qty: 90 1RF Continued topiramate 25 mg tablet 25 mg PO BID 30 Days Qty: 60 1RF amlodipine 5 mg tablet 5 mg PO DAILY 30 Days Qty: 30 1RF clonidine HCl 0.2 mg Tablet 0.2 mg PO BID 30 Days Qty: 60 1RF nicotine (polacrilex) 4 mg Gum 4 mg BUCCAL Q2H PRN (Reason: Nicotine Cravings) 30 Days Qty: 100 1RF gabapentin 300 mg Capsule 300 mg PO BEDTIME 30 Days Qty: 30 1RF Rx Instructions: may take up to 2 hours before bedtime Alvesco 160 mcg/actuation Hfa Aerosol Inhaler 1 puff INHALATION BID 30 Days Qty: 6.1 1RF Changed divalproex 500 mg Tablet,Delayed Release (Dr/Ec) See Rx Instructions .ROUTE .COMPLEX 30 Days Qty: 90 1RF Rx Instructions: take 1 tab in the morning and take 2 tabs at bedtime metformin 1,000 mg tablet 1,000 mg PO BIDWMEAL 30 Days Qty: 60 1RF prazosin 2 mg capsule 2 mg PO BEDTIME 30 Days Qty: 30 1RF emtricitabine-tenofovir (TDF) [Truvada] 200-300 mg tablet 1 tab PO DAILY PRN (Reason: risky behavior) 30 Days Qty: 30 0RF Rx Instructions: take 24-48 hours before and after risky behavior quetiapine 50 mg tablet 50 mg PO BEDTIME 30 Days Qty: 30 1RF Rx Instructions: take with 400mg tab quetiapine 400 mg tablet 400 mg PO BEDTIME 30 Days Qty: 30 1RF Rx Instructions: take with 50mg tab buprenorphine-naloxone [Suboxone] 8-2 mg film 1 film sublingual BID@0900,1700 30 Days Qty: 60 0RF Discontinued divalproex [Depakote] 500 mg Tablet,Delayed Release (Dr/Ec) 1,000 mg PO BEDTIME bupropion HCl 100 mg Tablet 100 mg PO DAILY Discharge Orders: Discharge Order (Routine); Ordered 06/18/24 Ordered By: Nic Bey Diet: diabetic diet if willing Activity on Discharge: As tolerated Stand Alone Forms: Patient Portal Discharge page Print Language: Belgian Care Plan Goals: Maintain mood and safe behaviors Take medications as prescribed Continue to pursue sobriety Practice coping skills Continue with outpatient providers and reach out to them as needed Health Concerns: Mood stability and behaviors Sobriety Diabetes COPD/asthma Plan of Treatment: Follow up with your PCP, psychiatric provider and other outpatient providers regarding above concerns Take medications as prescribed Assessment: Risk assessment at time of discharge:? Patient was interviewed prior to discharge and found to be fully oriented and without any SI or HI. Patient has improved insight and judgment and wants to continue treatment. Patient is not in imminent risk of harm to self or others and has a safety plan that includes presenting to the closest ER or calling 911 if feeling unsafe.? Patient has been observed closely by nursing and unit staff throughout admission; patient has not engaged in any behaviors that suggest dangerousness to self or others and has demonstrated appropriate behaviors and impulse control
[2024-06-18] MEDS: metFORMIN HCl 500 MG TABLET 1000 MG PO (09:13)
[2024-06-18] MEDS: Buprenorphine/Naloxone 8/2 mg FILM 1 FILM SUBLINGUAL (09:13)
[2024-06-18] MEDS: buPROPion HCl XL 150 MG TAB.ER.24H PO (09:13)
[2024-06-18] MEDS: Divalproex Sodium 500 MG TABLET.DR PO (09:14)
[2024-06-18] MEDS: Topiramate 25 MG TABLET PO (09:14)
[2024-06-18] MEDS: Baclofen 10 MG TABLET PO (09:14)
[2024-06-18] MEDS: cloNIDine HCL 0.2 MG TABLET PO (09:14)
[2024-06-18] MEDS: amLODIPine Besylate 5 MG TABLET PO (09:14)
[2024-06-18] MEDS: Fluticasone Propionate 100 MCG BLST.W.DEV 1 PUFF INHALE (09:17)
== END 2024-06-18 13:23 | disposition other institution (70) | DRG 753 ==
LOC: HO.ED 06-04 07:10 → HO.PM5 06-04 12:59
PROVIDERS: Clinical Nurse Specialist Psychiatric/Mental Health, Adult; Emergency Medicine; Physician Assistant; Admitting Provider Psychiatry & Neurology Psychiatry; Emergency Provider Emergency Medicine Emergency Medical Services; Visit Provider Psychiatry & Neurology Psychiatry
DX: F31.60 Bipolar disorder, current episode mixed, unspecified (principal); R45.851 Suicidal ideations; E11.9 Type 2 diabetes mellitus without complications; F43.10 Post-traumatic stress disorder, unspecified; F14.10 Cocaine abuse, uncomplicated; F11.20 Opioid dependence, uncomplicated; I10 Essential (primary) hypertension; J45.909 Unspecified asthma, uncomplicated; F17.210 Nicotine dependence, cigarettes, uncomplicated; Z59.02 Unsheltered homelessness; Z71.6 Tobacco abuse counseling; Z79.84 Long term (current) use of oral hypoglycemic drugs; Z79.899 Other long term (current) drug therapy
CPT/HCPCS: 36415; 80048; 80053; 80061; 80076; 80164; 80307; 81001; 82140; 82565; 82947; 83036; 83735; 84439; 84443; 85025; 86704; 86706; 86780; 86803; 87340; 87389; 87491; 87591; 93005; 99285

== ENCOUNTER → 2024-06-04 09:15 | Outpatient (BNV) | payer OTHER, SELFPAY | PROVIDERS: Emergency Provider Emergency Medicine Emergency Medical Services; Visit Provider Internal Medicine | DX: Z51.81 Encounter for therapeutic drug level monitoring (principal) | CPT/HCPCS: 93010 ==

== ENCOUNTER → 2024-06-04 12:42 | Outpatient (BNV) | payer OTHER, SELFPAY | PROVIDERS: Admitting Provider Psychiatry & Neurology Psychiatry; Emergency Provider Emergency Medicine Emergency Medical Services; Visit Provider Psychiatry & Neurology Psychiatry | DX: F31.60 Bipolar disorder, current episode mixed, unspecified (principal); R45.851 Suicidal ideations | CPT/HCPCS: 90792; 99231; 99232 ==

== ENCOUNTER → 2024-06-04 12:42 | Outpatient (BNV) | payer OTHER, SELFPAY | PROVIDERS: Admitting Provider Psychiatry & Neurology Psychiatry; Emergency Provider Emergency Medicine Emergency Medical Services; Visit Provider Physician Assistant | DX: R41.82 Altered mental status, unspecified (principal) | CPT/HCPCS: 99222 ==

== ENCOUNTER 2025-01-13 15:43 | Emergency (ER) | payer OTHER, SELFPAY ==
--- NOTE | 2025-01-13 16:11 | ED.PSYCH ---
HPI - Psych General Chief Complaint: Psychiatric Symptoms Stated Complaint: SI Time Seen by Provider: 01/13/25 15:56 Source: patient Mode of arrival: ambulatory Limitations: no limitations History of Present Illness ED Provider: Dr. Felix Ames HPI Narrative: 49-year-old male with a history of opiate use disorder, cocaine use disorder, PTSD, bipolar disorder who presents emergency department for evaluation of suicidal ideation and hearing voices. Patient states he has been having daily thoughts of harming himself. He states he does not have a specific plan but if he were to kill himself he would overdose on drugs. Patient states that he has demons that are haunting him and he is hearing voices. He states that he can understand the voices and they are reminding him of all the things that he has done wrong. Patient states that he ran out in his medications 1 month prior. He told me that he has diabetes and needs his diabetic medications but this is not a diagnosis listed in his medical record. He states that he was on Suboxone around on a Suboxone 1 week prior. He states that he has been having insomnia in his unable to sleep and does have bad nightmares. He states he wakes up with sweats secondary to his nightmares. Patient states that he has been smoking crack cocaine daily for 2 months, drinks beer when he smokes cocaine. He also states that he has significant heroin to come down from the cocaine Related Data Home Medications ?Medication ?Instructions ?Recorded ?Confirmed buprenorphine 8 mg-naloxone 2 mg 1 film sublingual TID 01/13/25 01/13/25 sublingual film (Suboxone) bupropion HCl 150 mg 24 hr tablet, 150 mg PO QAM 01/13/25 01/13/25 extended release divalproex 500 mg tablet,delayed 1,000 mg PO BEDTIME 01/13/25 01/13/25 release divalproex 500 mg tablet,delayed 500 mg PO DAILY 01/13/25 01/13/25 release fluticasone furoate 100 1 ea inhalation DAILY 01/13/25 01/13/25 mcg-vilanterol 25 mcg/dose inhalation powder (Breo Ellipta) gabapentin 300 mg capsule 300 mg PO BEDTIME 01/13/25 01/13/25 glipizide 5 mg tablet, extended 5 mg PO BID 01/13/25 01/13/25 release 24 hr quetiapine 100 mg tablet 100 mg PO QAM 01/13/25 01/13/25 quetiapine 50 mg tablet 50 mg PO BID 01/13/25 01/13/25 topiramate 50 mg tablet 50 mg PO BID 01/13/25 01/13/25 Previous Rx's ?Medication ?Instructions ?Recorded amlodipine 5 mg tablet 5 mg PO DAILY 30 days #30 tabs 06/18/24 baclofen 10 mg tablet 10 mg PO BID 30 days #60 tabs 06/18/24 clonidine HCl 0.2 mg tablet 0.2 mg PO BID 30 days #60 tabs 06/18/24 hydroxyzine HCl 25 mg tablet 25 mg PO Q6H PRN Anxiety 30 days 06/18/24 #90 tabs metformin 1,000 mg tablet 1,000 mg PO BIDWMEAL 30 days #60 06/18/24 tabs nicotine (polacrilex) 4 mg gum 4 mg buccal Q2H PRN Nicotine 06/18/24 Cravings 30 days #100 ea nicotine 21 mg/24 hr daily 21 mg transdermal DAILY PRN 06/18/24 transdermal patch smoking cessation 28 days #28 ea prazosin 2 mg capsule 2 mg PO BEDTIME 30 days #30 caps 06/18/24 quetiapine 400 mg tablet 400 mg PO BEDTIME 30 days #30 tabs 06/18/24 Allergies Allergy/AdvReac Type Severity Reaction Status Date / Time No Known Allergies Allergy Verified 01/13/25 16:16 Review of Systems Review of Systems: Yes all other systems are reviewed and are negative PMFSH Past Medical History Medical History (Updated 01/13/25 @ 16:27 by Felix Ames MD) Substance use disorder Homeless Opioid use disorder Cocaine use disorder PTSD (post-traumatic stress disorder) Social History Social History Household Members: None Housing: Homeless Do you presently have visiting nurse or other home services: No Alcohol intake: current Alcohol intake frequency: a few times a week Alcohol type: beer Patient Tobacco Use Status: Current everyday Tobacco user Tobacco use type: Cigarette Cigarette Packs Per Day: 1 Cigarettes Per Day: 20.0 Years Smoked: 25 Smoked in Last 30 Days: Yes e-Cigarette/Vaping Use: Currently Using Second Hand Smoke Exposure: Yes Use of substances other than those prescribed or required for medical reasons: Yes Substance Use Type: Crack/Cocaine and Heroin Advance Directives: No Advance Directives Information Provided: No service: No Sexual orientation: Unable to collect Physical Exam Vital Signs: Vital Signs: Last Vital Signs Temp 97.7 F 01/14/25 04:45 Pulse 77 01/14/25 04:45 Resp 15 01/14/25 04:45 BP 140/80 H 01/14/25 04:45 Pulse Ox 100 01/14/25 04:45 O2 Del Method Room Air 01/14/25 04:45 BMI result Body Mass Index 22.6 Exam: General: Awake, alert in no distress, cooperative, answers questions appropriately Head: Normocephalic, atraumatic EENT: PERRL, Lids normal, sclera normal, conjunctiva normal, nose normal , ears normal, throat without erythema or exudates Neck: Supple, no adenopathy Lung: breath sounds symmetric, no wheezing, rales or rhonchi Chest: symmetric movement, nontender Heart: regular rate and rhythm, normal S1, S2 no murmurs or rubs Abdomen: soft, non-tender, nondistended, normal bowel sounds Back: no vertebral tenderness, no CVAT Extremities: no deformities, moves all extremities symmetrically Neuro: Awake, alert, oriented, normal speech, cranial nerves intact, moves all extremities symmetrically Psych: Pleasant, cooperative Course Course Course Narrative: Time: 06:24 Date: 01/14/25 Provider: Felix Ames MD Patient in physician observation for psychiatric evaluation. Patient has been in the emergency department for 14 hours.? No acute events reported overnight. No current complaints. VS stable.? Patient was not able to participate in care team evaluation therefore care team plans to re-evaluate him in this morning. Will continue to monitor. Time: 13:32 Date: 01/14/25 Provider: Felix Ames MD Physician observation ended at 13:32 hours. The patient has been accepted a [facility] in [facility]. Patient will be transferred by ambulance. Medications Administered Generic Name Dose Route Start Last Admin Trade Name Freq PRN Reason Stop Dose Admin Amlodipine Besylate 5 mg 01/13/25 17:30 01/14/25 10:03 Amlodipine Besylate 5 Mg Tablet PO 5 mg DAILY CHELSEA Administration Protocol Baclofen 10 mg 01/13/25 21:00 01/14/25 10:57 Baclofen 10 Mg Tablet PO 10 mg BID CHELSEA Administration Buprenorphine/Naloxone 1 film 01/13/25 21:00 01/14/25 10:03 Buprenorphine/Naloxone 8/2 Mg Film SUBLINGUAL 1 film TID CHELSEA Administration Bupropion HCl 150 mg 01/13/25 17:30 01/14/25 10:04 Bupropion Hcl Xl 150 Mg Tab.Er.24h PO 150 mg DAILY CHELSEA Administration Clonidine HCl 0.2 mg 01/13/25 21:00 01/14/25 10:57 Clonidine Hcl 0.2 Mg Tablet PO 0.2 mg BID CHELSEA Administration Protocol Divalproex Sodium 500 mg 01/14/25 09:00 01/14/25 10:04 Divalproex Sodium 500 Mg Tablet.Dr PO 500 mg DAILY CHELSEA Administration Fluticasone/Vilanterol 1 puff 01/14/25 08:00 01/14/25 11:09 Fluticasone/Vilanterol 100/25 Blst.W.Dev INHALE 1 puff RDAILY CHELSEA Administration Gabapentin 300 mg 01/13/25 21:00 01/13/25 21:47 Gabapentin 300 Mg Capsule PO 300 mg BEDTIME CHELSEA Administration Glipizide 5 mg 01/13/25 21:00 01/14/25 11:27 Glipizide Xl 5 Mg Tab.Er.24 PO 5 mg BID CHELSEA Administration Metformin HCl 1,000 mg 01/13/25 17:30 01/14/25 10:57 Metformin Hcl 1,000 Mg Tablet PO 1,000 mg BIDWM CHELSEA Administration Prazosin HCl 2 mg 01/13/25 21:00 01/13/25 21:47 Prazosin Hcl 1 Mg Capsule PO 2 mg BEDTIME CHELSEA Administration Protocol Quetiapine Fumarate 50 mg 01/13/25 21:00 01/14/25 10:04 Quetiapine Fumarate 50 Mg Tablet PO 50 mg BID CHELSEA Administration Quetiapine Fumarate 100 mg 01/13/25 17:30 01/14/25 10:03 Quetiapine Fumarate 100 Mg Tablet PO 100 mg DAILY CHELSEA Administration Quetiapine Fumarate 400 mg 01/13/25 21:00 01/13/25 22:04 Quetiapine Fumarate 400 Mg Tablet PO Not Given BEDTIME CHELSEA Topiramate 50 mg 01/13/25 21:00 01/14/25 10:57 Topiramate 25 Mg Tablet PO 50 mg BID CHELSEA Administration Medical Decision Making Medical Decision Making [facility] Narrative: 49-year-old male with a history of opiate use disorder, cocaine use disorder, PTSD, bipolar disorder who presents emergency department for evaluation of suicidal ideation and hearing voices. Patient states he has been having daily thoughts of harming himself. He states he does not have a specific plan but if he were to kill himself he would overdose on drugs. Patient states that he has demons that are haunting him and he is hearing voices. He states that he can understand the voices and they are reminding him of all the things that he has done wrong. Patient states that he ran out in his medications 1 month prior. He told me that he has diabetes and needs his diabetic medications but this is not a diagnosis listed in his medical record. He states that he was on Suboxone around on a Suboxone 1 week prior. He states that he has been having insomnia in his unable to sleep and does have bad nightmares. He states he wakes up with sweats secondary to his nightmares.Patient states that he has been smoking crack cocaine daily for 2 months, drinks beer when he smokes cocaine. He also states that he has significant heroin to come down from the cocaine. Physical examination was unremarkable . Differential diagnosis: ?Includes but is not limited to suicidal ideation, anxiety, depression, noncompliance with medications, cocaine use disorder, heroin use disorder, alcohol use disorder Course: 16:25 I ordered the following on the patient: CBC, CMP, ethanol level, drug screen urine, COVID-19, influenza, RSV. Patient was ordered to get Ativan 2 mg q.4 hours prn agitation and anxiety. 17:18 My independent interpretation patient's laboratory evaluation is as follows CBC was normal. CMP was normal. Ethanol was below detectable limits. Urine tox screen is pending urine collection. COVID-19 Patient was placed in physician observation for psychiatric evaluation. The patient is medically cleared and waiting for CARE team evaluation to determine disposition. Will continue to monitor. At the end of my shift, patient's care was turned over to my colleague, Dr. Lopez Menon. Admission/Observation Consideration of admission/observation: Escalation of care including admission/observation considered (Yes) Lab Data [facility] Lab Attestation statement: I reviewed the patient's lab results. 01/13/25 16:54 01/13/25 16:54 Labs: Lab Results 01/13/25 01/13/25 Range/Units 16:54 21:55 WBC 8.3 (4.8-10.8) X10*3/uL RBC 5.20 D (4.60-5.80) X10*6/uL Hgb 16.3 D (14.0-18.0) g/dl Hct 45.4 (42.0-52.0) % MCV 87.3 (80.0-98.0) fL MCH 31.3 (27.0-33.0) pg MCHC 35.9 (31.0-36.0) g/dl RDW 14.5 (11.0-16.0) % Plt Count 261 D (160-400) X10*3/uL MPV 10.4 (9.4-12.4) fL Immature Gran % (Auto) 0.1 (0.0-0.4) % Neut % (Auto) 64.7 (45-73) % Lymph % (Auto) 27.7 (20-40) % [place] % (Auto) 6.5 (2-11) % Eos % (Auto) 0.4 (0-4) % Baso % (Auto) 0.6 (0-2) % Lymph # (Auto) 2.3 (1.2-4.9) X10*3/uL [place] # (Auto) 0.5 (0.1-1.2) X10*3/uL Eos # (Auto) 0.0 (0.0-0.4) X10*3/uL Baso # (Auto) 0.1 (0.0-0.2) X10*3/uL Abs Immat Gran (auto) 0.01 (0.00-0.03) X10*3/uL Absolute Neuts (auto) 5.4 (2.0-8.3) x10*3/uL Absolute Nucleated RBC 0.000 (0.0-0.012) X10*3/uL Nucleated RBC % (auto) 0.0 (0.0-0.2) /100WBC Sodium 142 (135-145) mmol/L Potassium 3.9 (3.3-5.1) mmol/L Chloride 107 (96-108) mmol/L Carbon Dioxide 25 (22-29) mmol/L Anion Gap 14 (12-20) BUN 12 (9-16) mg/dL Creatinine 0.79 (0.5-1.4) mg/dL Estim Creat Clear Calc 99.3 Estimated GFR > 60 Random Glucose 108 (60-115) mg/dL Calcium 9.1 (8.4-10.2) mg/dL Total Bilirubin 0.9 (0.0-1.0) mg/dL AST 32 (5-37) U/L ALT 28 (0-40) U/L Alkaline Phosphatase 109 (39-117) U/L Total Protein 7.6 (6.5-8.0) g/dL Albumin 4.8 (3.5-5.0) g/dL Urine Color Yellow Urine Appearance Clear Urine pH 6.0 (5.0-9.0) Ur Specific [place] 1.020 (1.005-1.025) Urine Protein Negative (Neg-Trace) mg/dL Urine Glucose (UA) Negative (Negative) mg/dL Urine Ketones Trace (Negative) mg/dL Urine Blood Negative (Negative) Urine Nitrite Negative (Negative) Ur Leukocyte Esterase Negative (Negative) Urine Opiates Screen Not Detected (Not Detect) Ur Buprenorphine Scrn Positive H (Not Detect) ng/mL Ur Oxycodone Screen Not Detected (Not Detect) ng/mL Urine Methadone Screen Not Detected (Not Detect) ng/mL Urine Fentanyl Screen POSITIVE H (Not Detect) Ur Barbiturates Screen Not Detected (Not Detect) Ur Phencyclidine Scrn Not Detected (Not Detect) Ur Amphetamines Screen Not Detected (Not Detect) U Benzodiazepines Scrn POSITIVE H (Not Detect) Urine Cocaine Screen POSITIVE H (Not Detect) U Marijuana (THC) Screen Not Detected (Not Detect) Ethyl Alcohol < 10 mg/dL Influenza Type A (PCR) NEGATIVE (Negative) Influenza Type B (PCR) NEGATIVE (Negative) RSV RNA Qual (PCR) NEGATIVE (Negative) SARS-CoV-2 RNA (RT-PCR) NEGATIVE (Negative) Chronic Conditions Patient?s care impacted by: Diabetes and Other (Crack cocaine use disorder) Social Determinants Patient?s care significantly limited by Social Determinants of Health including: Inadequate housing Discharge Plan Discharge Clinical Impression: Suicidal ideation, Polysubstance use disorder Patient Disposition: Xfer Psychiatric Hosp Transfer Details: [facility] Prescriptions: No Action baclofen 10 mg Tablet 10 mg PO BID 30 Days Qty: 60 1RF nicotine 21 mg/24 hr Patch 24 Hour 21 mg transdermal DAILY PRN (Reason: smoking cessation) 28 Days Qty: 28 1RF Rx Instructions: remove at bedtime hydroxyzine HCl 25 mg Tablet 25 mg PO Q6H PRN (Reason: Anxiety) 30 Days Qty: 90 1RF amlodipine 5 mg tablet 5 mg PO DAILY 30 Days Qty: 30 1RF clonidine HCl 0.2 mg Tablet 0.2 mg PO BID 30 Days Qty: 60 1RF nicotine (polacrilex) 4 mg Gum 4 mg BUCCAL Q2H PRN (Reason: Nicotine Cravings) 30 Days Qty: 100 1RF metformin 1,000 mg tablet 1,000 mg PO BIDWMEAL 30 Days Qty: 60 1RF prazosin 2 mg capsule 2 mg PO BEDTIME 30 Days Qty: 30 1RF quetiapine 400 mg tablet 400 mg PO BEDTIME 30 Days Qty: 30 1RF buprenorphine-naloxone [Suboxone] 8-2 mg film 1 film sublingual TID fluticasone furoate-vilanterol [Breo Ellipta] 100-25 mcg/dose blister with device 1 ea inhalation DAILY bupropion HCl 150 mg tablet extended release 24 hr 150 mg PO QAM divalproex 500 mg tablet,delayed release (DR/EC) 500 mg PO DAILY gabapentin 300 mg capsule 300 mg PO BEDTIME glipizide 5 mg tablet extended release 24hr 5 mg PO BID topiramate 50 mg tablet 50 mg PO BID quetiapine 100 mg tablet 100 mg PO QAM quetiapine 50 mg tablet 50 mg PO BID Rx Instructions: takes at 1200 and 1800 divalproex 500 mg tablet,delayed release (DR/EC) 1,000 mg PO BEDTIME Interventions: Norman-Suicide Risk Severity Scale Last Done: 01/13/25 17:04 Print Language: Slovak
[2025-01-13 16:12] VITALS: BMI 22.6
--- NOTE | 2025-01-13 16:14 | MHC.EDTECH ---
Changeover completed in Family berevement rm with this tech and security Pa. 2 Plastic patient belonging bags and 1 green duffle bag secured in laundry closet in POD right side bottom near floor. Belonging list in chart
[2025-01-13 16:32] VITALS: BP 141/90; PULSE 88; RESP 18; TEMP 36.5; O2SAT 99
[2025-01-13 16:58] LABS: MANUAL DIFF FLAG NO
[2025-01-13 17:01] LABS: Hematocrit 45.4 % (42.0-52.0); Hemoglobin 16.3 g/dl (14.0-18.0); Imm Gran Abs Auto 0.01 X10*3/uL (0.00-0.03); Imm Gran Pct Auto 0.1 % (0.0-0.4); Lymphocytes Absolute Auto 2.3 X10*3/uL (1.2-4.9); Mean Corpuscular HGB Conc 35.9 g/dl (31.0-36.0); Mean Corpuscular Hemoglobin 31.3 pg (27.0-33.0); Mean Corpuscular Volume 87.3 fL (80.0-98.0); NRBC Abs Auto 0.000 X10*3/uL (0.0-0.012); NRBC Pct Auto 0.0 /100WBC (0.0-0.2); Platelet Count 261 X10*3/uL (160-400); Red Blood Count 5.20 X10*6/uL (4.60-5.80); White Blood Count 8.3 X10*3/uL (4.8-10.8)
--- NOTE | 2025-01-13 17:01 | PC.NURSE ---
Med rec completed with patient , provider aware
--- NOTE | 2025-01-13 17:06 | PC.NURSE ---
Patient reports SI with plan to overdose, states last smoked heroin 2 days ago, last etoh use this am, used crack minutes prior to Ed arrival.
[2025-01-13 17:15] LABS: Alanine Aminotransferase 28 U/L (0-40); Albumin Level 4.8 g/dL (3.5-5.0); Alkaline Phosphatase 109 U/L (39-117); Anion Gap 14 (12-20); Aspartate Amino Transferase 32 U/L (5-37); Blood Urea Nitrogen 12 mg/dL (9-16); Calcium 9.1 mg/dL (8.4-10.2); Carbon Dioxide 25 mmol/L (22-29); Chloride 107 mmol/L (96-108); Creatinine Clr Calc Pharmacy 99.3; Estimated Glomerular Filt Rate > 60; Potassium 3.9 mmol/L (3.3-5.1); Sodium 142 mmol/L (135-145); Total Protein 7.6 g/dL (6.5-8.0)
--- NOTE | 2025-01-13 17:38 | PHA.MEDREC ---
Pharmacy Consult ? Medication Reconciliation Pharmacy has reviewed the medication reconciliation completed by nursing. Confirmed pt takes Divalproex 500mg in AM and 1,000mg HS.
[2025-01-13 17:39] LABS: Resp Syncy Virus RNA Qual PCR NEGATIVE (Negative); SARS COV2 PCR INHOUSE NEGATIVE (Negative)
[2025-01-13] MEDS: buPROPion HCl XL 150 MG TAB.ER.24H PO (17:53)
--- NOTE | 2025-01-13 19:31 | PC.NURSE ---
Assumed care of patient at 1845, patient refusing to wake up and speak with CARE team, MHT Renetta attempted to wake patient. Pt became agitated, calling tech names, refusing to participate in care. Pt now resting in bed again
--- OUTSIDE RECORDS SUMMARY | 2025-01-13 19:44 | XMS_ITS | Clinical Summary ---
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 Do not crush, chew, or split.1 tab in morning and 2 tab in evening Active cloNIDine (CATAPRES) 0.2 mg tablet Take 1 tablet (0.2 mg total) by mouth 2 (two) times a day. Active gabapentin (NEURONTIN) 300 mg capsule Take 1 capsule (300 mg total) by mouth 1 (one) time each day. Active baclofen (LIORESAL) 10 mg tablet Take 1 tablet (10 mg total) by mouth 2 (two) times a day. Active buPROPion XL (WELLBUTRIN XL) 150 mg 24 hr tablet Take 1 tablet (150 mg total) by mouth 1 (one) time each day. Do not crush, chew, or split. Active buprenorphine -naloxone (Suboxone) 8-[address] 2 films under the tongue 3 (three) times a day. After the medication is completely dissolved, take a large sip of water, swish it around teeth and gums, and swallow. Wait at least 1 hour before brushing teeth to avoid damage to your teeth. Active hydrOXYzine HCL (ATARAX) 50 mg tablet 1 tablet (50 mg total). Active topiramate (TOPAMAX SPRINKLE) 25 mg capsule Take 1 capsule (25 mg total) by mouth 2 (two) times a day. Do not crush or chew. Active nicotine (NICODERM CQ) 21 mg/[address] 1 patch on the skin 1 (one) time each day at the same time. Active nicotine polacrilex (NICORETTE) [address] 1 each (4 mg total) into mouth between cheek and gum every 2 (two) hours if needed for smoking cessation. Active prazosin (MINIPRESS) 2 mg capsule Take 1 capsule (2 mg total) by mouth at bedtime. Active QUEtiapine (SEROquel) 100 mg tablet Take 1 tablet (100 mg total) by mouth 1 (one) time each day in the morning. Active QUEtiapine (SEROquel) 50 mg tablet Take 1 tablet (50 mg total) by mouth 2 (two) times a day. Active QUEtiapine (SEROquel) 400 mg tablet Take 1 tablet (400 mg total) by mouth at bedtime. Active amLODIPine (NORVASC) 5 mg tablet Take 1 tablet (5 mg total) by mouth 1 (one) time each day. 90 each 1 11/10/19 25 Active metFORMIN (GLUCOPHAGE) 1,000 mg tablet Take 1 tablet (1,000 mg total) by mouth 2 (two) times a day with meals. 180 each 1 11/10/19 25 Active Breo Ellipta 100-25 mcg/dose inhaler Inhale 1 puff by mouth 1 (one) time each day. 1 each 2 11/10/19 25 Active glipiZIDE (Glucotrol XL) 5 mg 24 hr tablet Take 1 tablet (5 mg total) by mouth 2 (two) times a day with meals. Do not crush, chew, or split. 180 each 11/11/19 25 Active FreeStyle Lite Meter monitoring kitIndication s:Type 2 diabetes mellitus with hyperglycemia , with long-term current use of insulin (CMS/HCC V24, CMS/HCC V28) 1 each 1 (one) time each day. Use to test blood sugar daily 1 each 11/12/19 25 2025 Active blood sugar diagnostic (FreeStyle Lite Strips) test stripIndicati ons:Type 2 diabetes mellitus with hyperglycemia , with long-term current use of insulin [place] [place] [facility] [place] Use to test blood sugar daily 100 each 3 11/12/19 25 2025 Active FreeStyle Lancets 28 gauge lancetsIndica tions:Type 2 diabetes mellitus with hyperglycemia , with long-term current use of insulin ([facility] [place] [facility] [place] Use to test blood sugar daily 100 each 3 11/12/19 25 2025 Active Ventolin HFA 90 mcg/actuation inhaler INHALE 2 PUFFS BY MOUTH EVERY 6 HOURS NEEDED FOR WHEEZE OR FOR SHORTNESS OF BREATH 18 each 1 12/29/19 25 Active Ventolin HFA 90 mcg/actuation inhaler Inhale 2 puffs by mouth every 6 (six) hours if needed for wheezing or shortness of breath. 18 g 1 11/10/19 25 2024 Discontinued Active Problems Problem Noted Date Diagnosed Date Polysubstance abuse ([facility] [place] [facility] [place] 0 11/09/2024 Hypertension 11/09/2024 Hypogonadism, male 11/09/2024 Bipolar affective disorder, current episode mixed ([facility] [place] [facility] [place] 11/09/2024 Encounters Date Type Department Care Team Description 12/27/2024 Telephone Lung Screening Program - [place] [address] [facility] [address] [place] [phone] Katina Vaz [place] Appointment (Lung Screening) 11/26/2024 12:58 PM EDT - 11/26/2024 11:59 PM EDT Hospital Encounter [facility] [address] [place] [phone] Discharge Disposition: Home or Self Care 11/11/2024 Telephone Gastroenterology - [place] 175 [facility] 175 [facility] [address] [place] [phone] Peng Segura DO special procedure 11/10/2024 Telephone Adult Medicine [address] [phone] Myrna Dunbar, PANFILO 11/09/2024 11:30 AM EDT Office Visit [facility] [address] [phone] Fer Swanson MD Encounter to establish care (Primary Dx); Hypertension, unspecified type; Polysubstance abuse ([facility] [place], [facility] V28); Type 2 diabetes mellitus with hyperglycemia, with long-term current use of insulin ([facility] [place], [facility] V28); Screening for prostate cancer; Hypogonadism, male; Encounter for screening for malignant neoplasm of colon; Screen for sexually transmitted diseases; Tobacco dependence; Encounter for screening for malignant neoplasm of lung in current smoker with 20 pack year history or greater; Shortness of breath; Bipolar affective disorder, current episode mixed, current episode severity unspecified ([facility] V24, [facility] V28) from Last 3 Months Surgical History Surgery Date Site/Laterality Comments NO PAST SURGERIES Medical History Medical History Date Comments Type 2 diabetes mellitus ([facility] [place], [facility] V 28) HTN (hypertension) Substance abuse ([facility] [place], [facility] [place] Family History Medical History Relation Name Comments Cirrhosis Father COPD Mother Relation Name Status Comments Father Mother Social History Tobacco Use Types Packs/Day Years Used Date Smoking Tobacco: Every Day Cigarettes 1 20 Smokeless Tobacco: Never Tobacco Cessation:Ready to Q uit: Not Asked; Counseling Given: Not Answered Alcohol Use Standard Drinks/Week Comments Not Currently 0 (1 standard drink = 0.6 oz pur e alcohol) Sex and Gender Information Value Date Recorded Sex Assigned at Male 11/15/2024 10:25 AM EDT Legal Sex Male 2:13 AM EST Gender Identity Male 11/15/2024 10:25 AM EDT Sexual Orientation Straight 11/15/2024 10 :25 AM EDT Obstetrics History Last Filed Vital Signs Vital Sign Reading Time Taken Comments Blood Pressure 122/76 11/09/2024 11:13 AM EDT Pulse 102 11/09/2024 11:13 AM EDT Temperature 36.7 C (98 F) 11/09/2024 11:13 AM EDT Respiratory Rate 16 11/09/2024 11:13 AM EDT Oxygen Saturation - - Inhaled Oxygen Concentration - - Weight 91.2 kg (201 lb) 11/09/2024 11:13 AM EDT Height 175.3 cm (5' 9 ) 11/09/2024 11:13 AM EDT Body Mass Index 29.68 11/09/2024 11:13 AM EDT Plan of Treatment Upcoming Encounters Date Type Department Care Team (Late st Contact Info) Description 01/19/2025 1:15 PM EDT Office Visit Adult Medicine [facility] [address] [place] [phone] Fer Swanson MD [address] [place] [address] 02/01/2025 8:00 AM EDT Appointment [facility] End[facility] [address] [place] [phone] Peng Segura DO [address] [phone] Health Maintenance Due Date Last Done Comments Diabetes: Annual Foot Exam 10/06/1983 Diabetes: Annual Retina Eye Exam 10/06/1983 Hepatitis A Vaccines (1 of 2 - Risk 2-dose series) 1992 Hepatitis B Vaccines (1 of 3 - 19+ 3-dose series) 1992 Pneumococcal Vaccine: 50+ Years (1 of 2 - PCV) 1992 Zoster Vaccines (1 of 2) 10/06/2023 Colorectal Cancer Screening: Colonoscopy 01/06/2024 Lung Cancer Screening (Low Dose CT) 01/06/2024 Social Influencers of Health Screening 01/06/2024 COVID-19 Vaccine ( - 2023-2 5 season) 2024 Influenza Vaccine (#1) 2025 Diabetes: Blood Sugar Contro l Test (HGBA1C) 05/13/2025 11/10/2024 Diabetes: Annual Urine Albumin-Creatinine Ratio (uACR) 11/10/2025 11/10/2024 Diabetes: Annual GFR (Glomerular Filtration Rate) 11/10/2025 11/10/2024, 11/27/1999 Hypertension/CHF/CAD Annual BMP Blood Test 11/10/2025 11/10/2024, 11/27/1999 Cholesterol Screening (Lipid Panel) 11/10/2029 11/10/2024 DTaP,Tdap,and Td Vaccines (2 - Td or Tdap) 01/24/2033 01/24/2023 HIV Screening Completed 11/10/2024 Hepatitis C Screening Completed 11/10/2024 Depression Screening Completed 12/10/2024 HIB Vaccines Aged Out No longer eligi ble based on patient's age to complete this topic HPV Vaccines Aged Out No longer eligi ble based on patient's age to complete this topic IPV Vaccines Aged Out No longer eligi ble based on patient's age to complete this topic MMR Vaccines Aged Out No longer eligi ble based on patient's age to complete this topic Meningococcal ACWY Vaccine Aged Out N o longer eligible based on patient's age to complete this topic Meningococcal B Vaccine Aged Out No l onger eligible based on patient's age to complete this topic RSV Immunization Patients Under 20 months Aged Out No longer eligible b ased on patient's age to complete this topic Varicella Vaccines Aged Out No longer eligible based on patient's age to complete this topic Procedures Procedure Name Priority Date/Time Associated Diagnosis Comments HC SPIROMETRY BRONCHODILATION RESPONSIVENESS PRE/POST BRONCHODILATOR ADMINISTRATION Routine 11/26/2024 2:31 PM EDT Shortness of breath CBC WITH AUTO DIFFERENTIAL Routine 11/10/2024 8:28 AM EDT Type 2 diabetes mellitus with hyperglycemia, with long-term current use of insulin ([facility] V24, [facility] V28) CBC AND DIFFERENTIAL Routine 11/10/2024 8:28 AM EDT Type 2 diabetes mellitus with hyperglycemia, with long-term current use of insulin ([facility] V24, [facility] V28) LIPID PANEL WITH REFLEX TO DIRECT LDL Routine 11/10/2024 8:28 AM EDT Type 2 diabetes mellitus with hyperglycemia, with long-term current use of insulin ([facility] V24, [facility] V28) MICROALBUMIN CREATININE URINE RATIO Routine 11/10/2024 8:28 AM EDT Type 2 diabetes mellitus with hyperglycemia, with long-term current use of insulin ([facility] V24, [facility] V28) COMPREHENSIVE METABOLIC PANEL Routine 11/10/2024 8:28 AM EDT Type 2 diabetes mellitus with hyperglycemia, with long-term current use of insulin ([facility] V24, [facility] V28) HEMOGLOBIN A1C Routine 11/10/2024 8:28 AM EDT Type 2 diabetes mellitus with hyperglycemia, with long-term current use of insulin ([facility] V24, [facility] V28) PROSTATE SPECIFIC ANTIGEN SCREEN Routine 11/10/2024 8:28 AM EDT Screening for prostate cancer FOLLICLE STIMULATING HORMONE Routine 11/10/2024 8:28 AM EDT Hypogonadism, male LUTEINIZING HORMONE Routine 11/10/2024 8 :28 AM EDT Hypogonadism, male PROLACTIN Routine 11/10/2024 8:28 AM EDT Hypogonadism, male TESTOSTERONE, TOTAL AND BIOAVAILABLE Routine 11/10/2024 8:28 AM EDT Hypogonadism, male THYROID STIMULATING HORMONE WITH REFLEX TO FREE T4 AND FREE T3 Routine 11/10/2024 8:28 AM EDT Hypogonadism, male TREPONEMA PALLIDUM ANTIBODY WITH REFLEX TO RPR AND PARTICLE AGGLUTINATION Routine 11/10/2024 8:28 AM EDT Screen for sexually transmitted diseases HIV 1, 2 ANTIBODY, P24 ANTIGEN WITH REFLEX TO DIFFERENTIATION Routine 11/10/2024 8:28 AM EDT Screen for sexually transmitted diseases HEPATITIS PANEL, ACUTE WITH REFLEX TO CONFIRMATION Routine 11/10/2024 8:28 AM EDT Screen for sexually transmitted diseases CHLAMYDIA TRACHOMATIS AND NEISSERIA GONORRHOEAE PCR Routine 11/10/2024 8:28 AM EDT Screen for sexually transmitted diseases from Last 3 Months Results * Pulmonary function testing: Spirometry with Bronchodilator, Nitrogen Wash Out, Carbon Monoxide Diffusing Capacity (11/26/2024 2:31 PM EDT) Ana Sosa MD - 11/30/2024 12:38 PM EDT Table formatting from the original result was not included. Images from the original result were not included. [facility] [address] [place] [phone] Pulmonary Functions Report Date of service: 11/26/24 Patient Name: Neelam King Date of : 1975 Age: 49 y.o. Gender: male Ordering Provider: Fer Swanson MD Diagnosis listed on Order: Shortness of breath Reason for Exam: Order Questions Answers Reason for Exam: smoker, shortness of breath Which PFTs would you like to perform? Spirometry with Bronchodilator,Nitrogen Wash Out,Carbon Monoxide Diffusing Capacity SPIROMETRY: FEV1 is 93 % predicted and an FVC is 92 % predicted. The FEV1/FVC ratio is 102% of normal, no response to bronchodilators noted. LUNG VOLUMES: Total lung capacity (TLC): 90% predicted. Residual volume (RV): 109% predicted RV/TLC ratio is 123% of normal DIFFUSION CAPACITY: DLCO 86% predicted. DlCO/VA 88% of predicted COMPARISONS: INTERPRETATION: This pulmonary function test shows normal symmetry and diffusion. There is no evidence of lung disease based on this PFT Ana Landry MD us Fer Swanson MD PFT ORDERABLES Final Result * Prostate specific antigen screen (11/10/2024 8:28 AM EDT) PSA 0.79 0.00 - 4.00 ng/mL LAB CHEMISTRY METHOD 11/10/2024 1:44 PM EDT [facility] Blood Venous blood specimen / Unknown Venipuncture / Unknown 11/10/2024 8:28 AM EDT 11/10/2024 8:28 AM EDT Narrative [facility] - 11/10/2024 1:44 PM EDT The Siemens Advia Centaur Chemiluminescent Immunoassay is used. Results obtained with different assay methods or kits cannot be used interchangeably. Results cannot be interpreted as absolute evidence of the presence or absence of malignant disease. us Fer Swanson MD LAB BLOOD ORDERABLES F inal Result Performing Organization Address [facility]/ZIP Co de Phone Number [facility] [address] [place] [address], [place] [phone] * HIV 1,2 antibody, p24 antigen with reflex to differentiation (11/10/2024 8:28 AM EDT) HIV Combo AB/AG Negative Negative LAB CHEMISTRY METHOD 11/10/2024 2:24 PM EDT [facility] Blood Venous blood specimen / Unknown Venipuncture / Unknown 11/10/2024 8:28 AM EDT 11/10/2024 8:28 AM EDT Narrative [facility] - 11/10/2024 2:24 PM EDT This assay is a 4th generation assay allowing for earlier detection of HIV infection by detecting the presence of the HIV-1 p24 antigen as well as the traditional antibodies to HIV type 1 (including group O) and type 2. Use of a 4th generation assay is the current CDC recommendation for HIV screening. us Fer Swanson MD LAB BLOOD ORDERABLES F inal Result Performing Organization Address [facility] Co de Phone Number [facility] [address] [place] [address], [place] [phone] * Treponema pallidum antibody with reflex to RPR and particle agglutination (11/10/2024 8:28 AM EDT) T. Pallidum Antibodies Negative Negative LAB CHEMISTRY METHOD 11/10/2024 2:39 PM EDT [facility] Blood Venous blood specimen / Unknown Venipuncture / Unknown 11/10/2024 8:28 AM EDT 11/10/2024 8:28 AM EDT us Fer Swanson MD LAB BLOOD ORDERABLES F inal Result [facility] [address] [place] [address], [place] [phone] * Thyroid stimulating hormone with reflex to free t4 and free t3 (11/10/2024 8:28 AM EDT) [facility] TSH 2.12 0.40 - 4.00 mcIU/mL LAB CHEMISTRY METHOD 11/10/2024 2:28 PM EDT [facility] Blood Venous blood specimen / Unknown Venipuncture / Unknown 11/10/2024 8:28 AM EDT 11/10/2024 8:28 AM EDT us Fer Swanson MD LAB BLOOD ORDERABLES F inal Result Performing Organization Address City/[facility]/ZIP Co de Phone Number [facility] [address] [place] [address], [place] [phone] * (ABNORMAL) Lipid panel with reflex to direct LDL (11/10/2024 8:28 AM EDT) [facility] Cholesterol 164 0 - 200 mg/dL LAB CHEMISTRY METHOD 11/10/2024 11:08 AM EDT [facility] Triglycerides 214(H) 0 - 150 mg/dL LAB CHEMISTRY METHOD 11/10/2024 11:08 AM EDT [facility] HDL 34(L) >=40 mg/dL LAB CHEMISTRY METHOD 11/10/2024 11:08 AM EDT [facility] LDL Calculated 87 0 - 100 mg/dL LAB CHEMISTRY METHOD 11/10/2024 11:08 AM EDT [facility] VLDL Cholesterol [place] 42.8 mg/dL LAB CHEMISTRY METHOD 11/10/2024 11:08 AM EDT [facility] Non HDL Chol. (LDL+VLDL) 130 <145 mg/dL LAB CHEMISTRY METHOD 11/10/2024 11:08 AM EDT [facility] Chol/HDL Ratio 4.8(H) 0.0 - 4.4 LAB CHEMISTRY METHOD 11/10/2024 11:08 AM EDT [facility] Blood Venous blood specimen / Unknown Venipuncture / Unknown 11/10/2024 8:28 AM EDT 11/10/2024 8:28 AM EDT us Fer Swanson MD LAB BLOOD ORDERABLES F inal Result [facility] [address] [place] [address], [place] [phone] * Hepatitis panel, acute with reflex to confirmation (11/10/2024 8:28 AM EDT) Hepatitis B Surface Ag Negative Negative LAB CHEMISTRY METHOD 11/10/2024 2:25 PM EDT [facility] Hepatitis A Antibody IgM Negative Negative LAB CHEMISTRY METHOD 11/10/2024 2:25 PM EDT [facility] Hep B Core IgM Negative Negative LAB CHEMISTRY METHOD 11/10/2024 2:25 PM EDT [facility] Hepatitis C Antibody Negative Negative LAB CHEMISTRY METHOD 11/10/2024 2:25 PM EDT [facility] Blood Venous blood specimen / Unknown Venipuncture / Unknown 11/10/2024 8:28 AM EDT 11/10/2024 8:28 AM EDT us Fer Swanson MD LAB BLOOD ORDERABLES F inal Result [facility] [address] [place] [address], * (ABNORMAL) CBC auto differential (11/10/2024 8:28 AM EDT) [facility] Signature WBC 4.9 4.8 - 10.8 K/mcL LAB HEMETOLOGY METHOD 11/10/2024 10:35 AM EDT [facility] RBC 5.10 4.50 - 5.50 M/mcL LAB HEMETOLOGY METHOD 11/10/2024 10:35 AM EDT [facility] Hemoglobin 15.0 13.5 - 17.5 g/dL LAB HEMETOLOGY METHOD 11/10/2024 10:35 AM EDT [facility] Hematocrit 44.2 42.0 - 54.0 % LAB HEMETOLOGY METHOD 11/10/2024 10:35 AM EDT [facility] MCV 87.2 79.0 - 98.0 FL LAB HEMETOLOGY METHOD 11/10/2024 10:35 AM EDT [facility] MCH 29.6 27.0 - 32.0 pcg LAB HEMETOLOGY METHOD 11/10/2024 10:35 AM EDT [facility] MCHC 33.9 32.0 - 37.0 g/dL LAB HEMETOLOGY METHOD 11/10/2024 10:35 AM EDT [facility] RDW 14.2 11.0 - 15.0 % LAB HEMETOLOGY METHOD 11/10/2024 10:35 AM EDT [facility] Platelets 152 130 - 400 K/mcL LAB HEMETOLOGY METHOD 11/10/2024 10:35 AM EDT [facility] MPV 12.2(H) 7.0 - 11.0 FL LAB HEMETOLOGY METHOD 11/10/2024 10:35 AM EDT [facility] NRBC 0.0 <1.0 % LAB HEMETOLOGY METHOD 11/10/2024 10:35 AM EDT [facility] NRBC Absolute 0.00 <0.10 K/mcL LAB HEMETOLOGY METHOD 11/10/2024 10:35 AM [facility] Neutrophils Relative 56.3 % LAB HEMETOLOGY METHOD 11/10/2024 10:35 AM [facility] Lymphocytes Relative 33.8 % LAB HEMETOLOGY METHOD 11/10/2024 10:35 AM [facility] Monocytes Relative 6.8 % LAB HEMETOLOGY METHOD 11/10/2024 10:35 AM [facility] Eosinophils Relative 1.9 % LAB HEMETOLOGY METHOD 11/10/2024 10:35 AM [facility] Basophils Relative 0.8 % LAB HEMETOLOGY METHOD 11/10/2024 10:35 AM [facility] Immature Granulocytes Relative 0.4 % LAB HEMETOLOGY METHOD 11/10/2024 10:35 AM [facility] Neutrophils Absolute 2.73 1.50 - 7.00 K/mcL LAB HEMETOLOGY METHOD 11/10/2024 10:35 AM [facility] Lymphocytes Absolute 1.64 1.00 - 5.00 K/mcL LAB HEMETOLOGY METHOD 11/10/2024 10:35 AM [facility] Monocytes Absolute 0.33 0.20 - 1.00 K/mcL LAB HEMETOLOGY METHOD 11/10/2024 10:35 AM [facility] Eosinophils Absolute 0.09 0.00 - 0.50 K/mcL LAB HEMETOLOGY METHOD 11/10/2024 10:35 AM [facility] Basophils Absolute 0.04 0.00 - 0.20 K/mcL LAB HEMETOLOGY METHOD 11/10/2024 10:35 AM [facility] Immature Granulocytes Absolute 0.02 0.00 - 0.03 K/mcL LAB HEMETOLOGY METHOD 11/10/2024 10:35 AM EDT [facility] Blood Venous blood specimen / Unknown Venipuncture / Unknown 11/10/2024 8:28 AM EDT 11/10/2024 8:28 AM EDT us Fer Swanson MD LAB BLOOD ORDERABLES F inal Result [facility] [address] [place] [address], [place] [phone] * (ABNORMAL) Testosterone, total and bioavailable (11/10/2024 8:28 AM EDT) Testosterone Total LC/MS/MS 141.8(L) 264.0 - 916.0 ng/dL 11/16/2024 9:05 AM EDT [facility] Comment: This [facility] LC/MS-MS method is currently certified by the CDC Hormone Standardization Program (HoSt). Adult male reference interval is based on a population of healthy nonobese males (BMI <30) between 19 and 39 years old. Shreyas, et.al. JCEM 2017,102;3474-8717. PMID: 73838361. Testosterone % Free+Weakly Bound 43.3 9.0 - 46.0 % 11/16/2024 9:05 AM EDT [facility] Comment: This test was developed and its performance characteristics determined by [facility]. It has not been cleared or approved by the Food and Drug Administration. Testosterone % Free+Weakly Bound 61.4 40.0 - 250.0 ng/dL 11/16/2024 9:05 AM EDT [facility] Blood Venous blood specimen / Unknown Venipuncture / Unknown 11/10/2024 8:28 AM EDT 11/10/2024 8:28 AM EDT Narrative [facility] - 11/16/2024 9:05 AM EDT Test(s) [id number], Total, LC/MS was developed and its performance characteristics determined by [facility]. It has not been cleared or approved by the Food and Drug Administration. Performed at: - [address] [id number] Wireless Architect: Kimi Gatica MD, Phone: [phone] Fer Swanson MD LAB BLOOD ORDERABLES F inal Result Performing Organization Address City/[facility]/ZIP Co de Phone Number [facility] * Microalbumin creatinine urine ratio (11/10/2024 8:28 AM EDT) Creatinine, Urine 64.0 mg/dL LAB CHEMISTRY METHOD 11/10/2024 11:15 AM EDT [facility] Microalb, Ur <5.0 0.0 - 29.0 mg/L LAB CHEMISTRY METHOD 11/10/2024 11:15 AM EDT [facility] Microalb/Creat Ratio <8 <30 mg/g creat LAB CHEMISTRY METHOD 11/10/2024 11:15 AM EDT [facility] Urine Urine specimen obtained by clean catch procedure / Unknown Non-blood Collection / Unknown 11/10/2024 8:28 AM EDT 11/10/2024 8:28 AM EDT us Fer Swanson MD LAB URINE ORDERABLES F inal Result Performing Organization Address City/[facility]/ZIP Co de Phone Number [facility] [address] [place] [address], * Chlamydia trachomatis and Neisseria gonorrhoeae molecular study (11/10/2024 8:28 AM EDT) Neisseria gonorrhoeae PCR Negative Negative LAB MOLECULAR DIAGNOSTICS METHOD 11/10/2024 12:31 PM EDT [facility] Chlamydia trachomatis PCR Negative Negative LAB MOLECULAR DIAGNOSTICS METHOD 11/10/2024 12:31 PM EDT [facility] Urine Urine specimen from urethra / Unknown Non-blood Collection / Unknown 11/10/2024 8:28 AM EDT 11/10/2024 8:28 AM EDT us Fer Swanson MD LAB MICROBIOLOGY - GEN ERAL ORDERABLES Final Result Performing Organization Address City/[facility]/ZIP Co de Phone Number [facility] [address] [place] [address], [place] [phone] * Prolactin (11/10/2024 8:28 AM EDT) Prolactin 8.20 2.50 - 17.40 ng/mL LAB CHEMISTRY METHOD 11/10/2024 11:08 AM EDT [facility] Blood Venous blood specimen / Unknown Venipuncture / Unknown 11/10/2024 8:28 AM EDT 11/10/2024 8:28 AM EDT us Fer Swanson MD LAB BLOOD ORDERABLES F inal Result Performing Organization Address [facility] de Phone Number [facility] [address] [place] [address], [place] [phone] * (ABNORMAL) Hemoglobin A1c (11/10/2024 8:28 AM EDT) [facility] Hemoglobin A1C 9.9(H) <6.5 % LAB CHEMISTRY METHOD 11/10/2024 11:27 AM EDT [facility] Mean Bld Glu Estim. 237 mg/dL LAB CHEMISTRY METHOD 11/10/2024 11:27 AM EDT [facility] Blood Venous blood specimen / Unknown Venipuncture / Unknown 11/10/2024 8:28 AM EDT 11/10/2024 8:28 AM EDT us Fer Swanson MD LAB BLOOD ORDERABLES F inal Result Performing Organization Address City/[facility]/ZIP Co de Phone Number [facility] [address] [place] [address], [place] [phone] * Luteinizing hormone (11/10/2024 8:28 AM EDT) [facility] Luteinizing Hormone 6.0 1.2 - 10.6 mIU/mL LAB CHEMISTRY METHOD 11/10/2024 11:08 AM EDT [facility] Blood Venous blood specimen / Unknown Venipuncture / Unknown 11/10/2024 8:28 AM EDT 11/10/2024 8:28 AM EDT us Fer Swanson MD LAB BLOOD ORDERABLES F inal Result Performing Organization Address [facility]/ZIP Co de Phone Number [facility] [address] [place] [address], [place] [phone] * Follicle stimulating hormone (11/10/2024 8:28 AM EDT) [facility] Follicle Stimulating Hormone 7.2 0.7 - 10.8 mIU/mL LAB CHEMISTRY METHOD 11/10/2024 11:08 AM EDT [facility] Blood Venous blood specimen / Unknown Venipuncture / Unknown 11/10/2024 8:28 AM EDT 11/10/2024 8:28 AM EDT us Fer Swanson MD LAB BLOOD ORDERABLES F inal Result [facility] [address] [place] [address], [place] [phone] * (ABNORMAL) Comprehensive metabolic panel (11/10/2024 8:28 AM EDT) [facility] Sodium 134 133 - 145 mmol/L LAB CHEMISTRY METHOD 11/10/2024 11:46 AM EDT [facility] Potassium 4.3 3.5 - 5.5 mmol/L LAB CHEMISTRY METHOD 11/10/2024 11:46 AM [facility] Chloride 103 96 - 110 mmol/L LAB CHEMISTRY METHOD 11/10/2024 11:46 AM [facility] CO2 23 21 - 32 mmol/L LAB CHEMISTRY METHOD 11/10/2024 11:46 AM [facility] Anion Gap 8 3 - 11 LAB CHEMISTRY METHOD 11/10/2024 11:46 AM [facility] Glucose 411(HH) 70 - 100 mg/dL LAB CHEMISTRY METHOD 11/10/2024 11:46 AM [facility] BUN 11 5 - 25 mg/dL LAB CHEMISTRY METHOD 11/10/2024 11:46 AM [facility] Creatinine 0.94 0.70 - 1.30 mg/dL LAB CHEMISTRY METHOD 11/10/2024 11:46 AM [facility] eGFR 98 >=60 mL/min/1. 73m2 LAB CHEMISTRY METHOD 11/10/2024 11:46 AM [facility] Comment:Calculation based on the Chronic Kidney Disease Epidemiology Collaboration (CKD-EPI) equation refit without adjustment for race. BUN/Creatinine Ratio 11.7 LAB CHEMISTRY METHOD 11/10/2024 11:46 AM [facility] Calcium 9.2 8.5 - 10.5 mg/dL LAB CHEMISTRY METHOD 11/10/2024 11:46 AM [facility] AST (SGOT) 5(L) 10 - 42 unit/L LAB CHEMISTRY METHOD 11/10/2024 11:46 AM [facility] ALT (SGPT) 20 10 - 60 unit/L LAB CHEMISTRY METHOD 11/10/2024 11:46 AM [facility] Alkaline Phosphatase 176(H) 42 - 121 unit/L LAB CHEMISTRY METHOD 11/10/2024 11:46 AM [facility] Total Protein 7.6 6.0 - 8.0 g/dL LAB CHEMISTRY METHOD 11/10/2024 11:46 AM EDT [facility] Albumin 3.9 3.2 - 5.0 g/dL LAB CHEMISTRY METHOD 11/10/2024 11:46 AM EDT [facility] Total Bilirubin 0.7 0.0 - 1.4 mg/dL LAB CHEMISTRY METHOD 11/10/2024 11:46 AM EDT [facility] Blood Venous blood specimen / Unknown Venipuncture / Unknown 11/10/2024 8:28 AM EDT 11/10/2024 8:28 AM EDT Fer Swanson MD LAB BLOOD ORDERABLES F inal Result [facility]) [facility] [address] [place] [address], from Last [address] [place] [address] [place] [id number] PLAN Care Teams Pl[employer] Out[employer] Relationship Specialty Start Date End Date Fer Swanson MD [address] [place] [address] PCP - General Internal Medicine 06/01/24
[2025-01-13 21:48] VITALS: BP 155/88
[2025-01-13 21:54] VITALS: BP 155/88; PULSE 84; RESP 16; TEMP 36.7; O2SAT 98
--- NOTE | 2025-01-13 21:56 | PC.NURSE ---
RE: Suboxone timing Attempted to offer patient suboxone (and other night medications) at 0840, pt initially refused medications, rolling back over and telling this RN to come back later . Pt reapproached at later time and pt was willing to take
[2025-01-13 22:17] LABS: Appearance Urine Clear; Glucose Urine UA Negative (Negative); PH 6.0 (5.0-9.0); Specific Gravity - Urine 1.020 (1.005-1.025)
[2025-01-13 22:20] LABS: Cannabinoid Screen Urine Not Detected (Not Detect)
--- NOTE | 2025-01-13 23:57 | PC.NURSE ---
pt sleeping at this time.
[2025-01-14 04:45] VITALS: BP 140/80; PULSE 77; RESP 15; TEMP 36.5; O2SAT 100
--- NOTE | 2025-01-14 05:16 | PC.NURSE ---
pt oob, drink given.
--- NOTE | 2025-01-14 07:14 | PC.NURSE ---
Addendum entered by Constanza Yañez RN 01/14/25 07:15: Patient is a 49-year-old male with a history of opiate use disorder, cocaine use disorder, PTSD, bipolar disorder who presents emergency department for evaluation of suicidal ideation and hearing voices. Patient states he has been having daily thoughts of harming himself. He states he does not have a specific plan but if he were to kill himself he would overdose on drugs. Patient states that he has demons that are haunting him and he is hearing voices. He states that he can understand the voices and they are reminding him of all the things that he has done wrong. He states that he has been having insomnia in his unable to sleep and does have bad nightmares. He states he wakes up with sweats secondary to his nightmares. Patient states that he has been smoking crack cocaine daily for 2 months, drinks beer when he smokes cocaine. He also states that he uses heroin to come down from the cocaine. History of? but is not limited to suicidal ideation, anxiety, depression, noncompliance with medications, cocaine use disorder, heroin use disorder, alcohol use disorder Original Note: Medical History Substance use disorder Homeless Opioid use disorder Cocaine use disorder PTSD (post-traumatic stress diso
--- NOTE | 2025-01-14 09:52 | MHC.CARE ---
Pt meets the criteria for a DUAL DX bed search. Section 12a in chart although Pt is voluntary for TX. ED provider in agreement.
[2025-01-14] MEDS: buPROPion HCl XL 150 MG TAB.ER.24H PO (10:04)
[2025-01-14] MEDS: Fluticasone/Vilanterol 100/25 BLST.W.DEV 1 PUFF INHALE (11:09)
[2025-01-14 13:47] VITALS: BP 140/80; PULSE 77; RESP 15; TEMP 36.5; O2SAT 100
== END 2025-01-14 13:48 ==
PROVIDERS: Emergency Provider Emergency Medicine Emergency Medical Services; PCP Internal Medicine
DX: R44.0 Auditory hallucinations (principal); F14.90 Cocaine use, unspecified, uncomplicated; G47.00 Insomnia, unspecified; F17.210 Nicotine dependence, cigarettes, uncomplicated; Z03.818 Encounter for observation for suspected exposure to other biological agents ruled out; Z51.81 Encounter for therapeutic drug level monitoring; Z79.899 Other long term (current) drug therapy
CPT/HCPCS: 36415; 80053; 80307; 81003; 85025; 87637; 99285; S9485

== ENCOUNTER 2025-01-26 13:46 | Emergency (ER) | payer OTHER, SELFPAY ==
[2025-01-26 13:53] VITALS: BP 157/90; PULSE 87; RESP 18; TEMP 36.5; O2SAT 99; BMI 25.5
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
--- OUTSIDE RECORDS SUMMARY | 2025-01-26 14:39 | XMS_ITS | Clinical Summary ---
Author Organization [facility] [address] [place] [address] [place] [phone] Phone Care Team Providers Care Tiltrotor Crew Chief Name Role Phone Fer Swanson MD Primary [...] with long-term current use of insulin [place] [place] [facility] [place] Use to test blood sugar daily 100 each 3 11/12/19 25 2025 Active FreeStyle Lancets 28 gauge lancetsIndica tions:Type 2 diabetes mellitus with hyperglycemia , with long-term current use of insulin ([facility] [place], [facility] [place] Use to test blood sugar daily 100 each 3 11/12/19 25 2025 Active Ventolin HFA 90 mcg/actuation inhaler INHALE 2 PUFFS BY MOUTH EVERY 6 HOURS NEEDED FOR WHEEZE OR FOR SHORTNESS OF BREATH 18 each 1 12/29/19 25 Active polyethylene glycol (Golytely) 236-22.74-6.7 4 -5.86 gram solution Take 4L by mouth once for one dose. May substitue any PEG. Starting at 2PM the day before your procedure drink 1 8oz glasses at your own pace until you complete half of the gallon. Finish 2nd half of the gallon at 8PM. 4000 mL 01/19/20 25 Active bisacodyL (DULCOLAX) 5 mg EC tablet Take 2 tablets by mouth right before beginning bowel prep. See instructions provided by the office 2 tablet 01/19/20 25 Active Ventolin HFA 90 mcg/actuation inhaler Inhale 2 puffs by mouth every 6 (six) hours if needed for wheezing or shortness of breath. 18 g 1 11/10/19 25 2024 Discontinued Active Problems Problem Noted Date Diagnosed Date Hypertension 11/09/2024 Hypogonadism, male 11/09/2024 Bipolar affective disorder, current episode mixed [place] [place] [place] [facility] [place] [place] 11/09/2024 Resolved Problems Problem Noted Date Diagnosed Date Resolved Date Polysubstance abuse ([facility] [place], [facility] [place] [place] 11/09/2024 01/24/2025 Encounters Date Type Department Care Team Description 01/19/2025 Telephone Adult Medicine [address] [phone] Melissa Santiago MA Hospital Follow-up 12/27/2024 Telephone Lung Screening Program - [address] [place] [phone] Katina Vaz MA Appointment (Lung Screening) 11/26/2024 12:58 PM EDT - 11/26/2024 11:59 PM EDT Hospital Encounter [facility] Pulmonary [address] [place] [phone] Discharge Disposition: Home or Self Care 11/11/2024 Telephone Gastroenterology - [place] 175 [facility] 175 [facility] [address] [place] [address] Peng Segura, DO special procedure 11/10/2024 Telephone Adult Medicine [address] [phone] Myrna Dunbar RN 11/09/2024 11:30 AM EDT Office Visit Adult Medicine [address] [phone] Fer Swanson MD Encounter to establish care (Primary Dx); Hypertension, unspecified type; Polysubstance abuse ([facility] V24, [facility] V28); Type 2 diabetes mellitus with hyperglycemia, with long-term current use of insulin ([facility] [place], [facility] V28); Screening for prostate cancer; Hypogonadism, male; Encounter for screening for malignant neoplasm of colon; Screen for sexually transmitted diseases; Tobacco dependence; Encounter for screening for malignant neoplasm of lung in current smoker with 20 pack year history or greater; Shortness of breath; Bipolar affective disorder, current episode mixed, current episode severity unspecified ([facility] V24, [facility] V28) from Last 3 Months Immunizations Name Administration Dates Next Due Tdap Tetanus diptheria acell ular pertussis (Boostrix; Adacel) 7yo and older 01/24/2023 Surgical History Surgery Date Site/Laterality Comments NO PAST SURGERIES Medical History Medical History Date Comments Type 2 diabetes mellitus ([facility] V24, [facility] V 28) HTN (hypertension) Substance abuse ([facility] V24, [facility] V28) Family History Medical History Relation Name [...] Care Team (Late st Contact Info) Description 02/01/2025 8:00 AM EDT Hospital Encounter [facility] Endoscopy [address] [place] [phone] Peng Segura DO 175 [facility] [address] [place] [address] Health Maintenance Due Date Last Done Comments [...] Influencers of Health Screening 01/06/2024 COVID-19 Vaccine (1 - 2023-2 5 season) 2024 Influenza Vaccine [...] Procedure Name Priority Date/Time Associated Diagnosis Comments SPIROMETRY BRONCHODILATION RESPONSIVENESS PRE/POST BRONCHODILATOR ADMINISTRATION Routine 11/26/2024 2:31 PM EDT Shortness of breath CBC WITH AUTO DIFFERENTIAL Routine 11/10/2024 8:28 AM EDT Type 2 diabetes mellitus with hyperglycemia, with long-term current use of insulin ([facility] V24, [facility] V28) CBC AND DIFFERENTIAL Routine 11/10/2024 8:28 AM EDT Type 2 diabetes mellitus with hyperglycemia, with long-term current use of insulin ([facility] V24, CMS/HCC V28) LIPID PANEL WITH REFLEX TO DIRECT LDL Routine 11/10/2024 8:28 AM EDT Type 2 diabetes mellitus with hyperglycemia, with long-term current use of insulin ([facility] V24, CMS/HCC V28) MICROALBUMIN CREATININE URINE RATIO Routine 11/10/2024 8:28 AM EDT Type 2 diabetes mellitus with hyperglycemia, with long-term current use of insulin ([facility] V24, [facility] V28) COMPREHENSIVE METABOLIC PANEL Routine 11/10/2024 8:28 AM EDT Type 2 diabetes mellitus with hyperglycemia, with long-term current use of insulin ([facility] V24, [facility] V28) HEMOGLOBIN A1C Routine 11/10/2024 8:28 AM EDT Type 2 diabetes mellitus with hyperglycemia, with long-term current use of insulin ([facility] V24, CMS/[facility] V28) PROSTATE SPECIFIC ANTIGEN SCREEN Routine 11/10/2024 [...] Monoxide Diffusing Capacity (11/26/2024 2:31 PM EDT) Narrative Ana Landry MD - 11/30/2024 12:38 PM EDT Table formatting from the original result was not included. Images from the original result were not included. [facility] [address] [place] [id number] Pulmonary Functions Report Date of service: 11/26/24 [...] LAB CHEMISTRY METHOD 11/10/2024 1:44 PM EDT [facility] Blood Venous blood specimen / Unknown Venipuncture / Unknown 11/10/2024 8:28 AM EDT 11/10/2024 8:28 AM EDT [facility] - 11/10/2024 1:44 PM EDT The Siemens Advia Orbital Tractionaur Chemiluminescent Immunoassay is used. Results obtained with different assay methods or kits cannot be used interchangeably. Results cannot be interpreted as absolute evidence of the presence or absence of malignant disease. us Fer Swanson MD LAB BLOOD ORDERABLES F inal Result [facility] [address] [place] [address], [place] [phone] * HIV 1,2 antibody, p24 antigen with reflex to differentiation (11/10/2024 8:28 AM EDT) Pathologist [facility] HIV Combo AB/AG Negative Negative LAB CHEMISTRY METHOD 11/10/2024 2:24 PM EDT [facility] Blood Venous blood specimen / Unknown Venipuncture / Unknown 11/10/2024 8:28 AM EDT 11/10/2024 8:28 AM EDT Narrative [facility] - 11/10/2024 2:24 PM EDT This [...] ORDERABLES F inal Result Performing Organization Address [facility]/ZIP Co de Phone Number [facility] [address] [place] [address], [place] [phone] * Treponema pallidum antibody with reflex to RPR and particle agglutination (11/10/2024 8:28 AM EDT) [facility] T. Pallidum Antibodies Negative Negative LAB CHEMISTRY METHOD 11/10/2024 2:39 PM EDT [facility] Blood Venous blood specimen / Unknown Venipuncture / Unknown 11/10/2024 8:28 AM EDT 11/10/2024 8:28 AM EDT us Fer Swanson MD LAB BLOOD ORDERABLES F inal Result Performing Organization Address [facility] Co de Phone Number [facility] [address] [place] [address], [place] [phone] * Thyroid stimulating hormone with reflex to free t4 and free t3 (11/10/2024 8:28 AM EDT) [facility] TSH 2.12 0.40 - 4.00 mcIU/mL LAB CHEMISTRY METHOD 11/10/2024 2:28 PM EDT [facility] Blood Venous blood specimen / Unknown Venipuncture / Unknown 11/10/2024 8:28 AM EDT 11/10/2024 8:28 AM EDT us Fer Swanson MD LAB BLOOD ORDERABLES F inal Result Performing Organization Address City/[facility]/ZIP Co de Phone Number [facility] [address] [place] [address], [place] [phone] * (ABNORMAL) Lipid panel with reflex to direct LDL (11/10/2024 8:28 AM EDT) [facility] Cholesterol 164 0 - 200 mg/dL LAB CHEMISTRY METHOD 11/10/2024 11:08 AM EDT [facility] Triglycerides 214(H) 0 - 150 mg/dL LAB CHEMISTRY METHOD 11/10/2024 11:08 AM [facility] HDL 34(L) >=40 mg/dL LAB CHEMISTRY METHOD 11/10[facility]2024 11:[facility] LDL Calculated 87 0 - 100 mg/dL LAB CHEMISTRY METHOD 11/10/2024 11:08 AM EDT [facility] VLDL Cholesterol [place] 42.8 mg/dL LAB CHEMISTRY METHOD 11/10/2024 11:08 AM [facility] Non HDL Chol. (LDL+VLDL) 130 <145 mg/dL LAB CHEMISTRY METHOD 11/10/2024 11:08 AM [facility] Chol/HDL Ratio 4.8(H) 0.0 - 4.4 LAB CHEMISTRY METHOD 11/10/2024 11:08 AM [facility] Blood Venous blood specimen / Unknown Venipuncture / Unknown 11/10/2024 8:28 AM EDT 11/10/2024 8:28 AM EDT us Fer Swanson MD LAB BLOOD ORDERABLES F inal Result [facility] [address] [place] [address], * Hepatitis panel, acute with reflex to confirmation (11/10/2024 8:28 AM EDT) [facility] Hepatitis B Surface Ag Negative Negative LAB CHEMISTRY METHOD 11/10/2024 2:25 PM EDT [facility] Hepatitis A Antibody IgM Negative Negative LAB CHEMISTRY METHOD 11/10/2024 2:25 PM EDT [facility] Hep B Core IgM Negative Negative LAB CHEMISTRY METHOD 11/10/2024 2:25 PM EDT [facility] Hepatitis C Antibody Negative Negative LAB CHEMISTRY METHOD 11/10/2024 2:25 PM T [facility] Blood Venous blood specimen / Unknown Venipuncture / Unknown 11/10/2024 8:28 AM EDT 11/10/2024 8:28 AM EDT us Fer Swanson MD LAB BLOOD ORDERABLES F inal Result [facility] [address] [place] [address], [place] [phone] * (ABNORMAL) CBC auto differential (11/10/2024 8:28 AM EDT) WBC 4.9 4.8 - 10.8 K/mcL LAB HEMETOLOGY METHOD 11/10/2024 10:35 AM [facility] RBC 5.10 4.50 - 5.50 M/mcL LAB HEMETOLOGY METHOD 11/10/2024 10:35 AM [facility] Hemoglobin 15.0 13.5 - 17.5 g/dL LAB HEMETOLOGY METHOD 11/10/2024 10:35 AM [facility] Hematocrit 44.2 42.0 - 54.0 % LAB HEMETOLOGY METHOD 11/10/2024 10:35 AM [facility] MCV 87.2 79.0 - 98.0 FL LAB HEMETOLOGY METHOD 11/10/2024 10:35 AM [facility] MCH 29.6 27.0 - 32.0 pcg LAB HEMETOLOGY METHOD 11/10/2024 10:35 AM [facility] MCHC 33.9 32.0 - 37.0 g/dL LAB HEMETOLOGY METHOD 11/10/2024 10:35 AM [facility] RDW 14.2 11.0 - 15.0 % LAB HEMETOLOGY METHOD 11/10/2024 10:35 AM [facility] Platelets 152 130 - 400 K/mcL LAB HEMETOLOGY METHOD 11/10/2024 10:35 AM [facility] MPV 12.2(H) 7.0 - 11.0 FL LAB HEMETOLOGY METHOD 11/10/2024 10:35 AM [facility] NRBC 0.0 <1.0 % LAB HEMETOLOGY METHOD 11/10/2024 10:35 AM [facility] NRBC Absolute 0.00 <0.10 K/mcL LAB HEMETOLOGY METHOD 11/10/2024 10:35 AM [facility] Neutrophils Relative 56.3 % LAB HEMETOLOGY METHOD 11/10/2024 10:35 AM [facility] Lymphocytes Relative 33.8 % LAB HEMETOLOGY METHOD 11/10/2024 10:35 AM [facility] Monocytes Relative 6.8 % LAB HEMETOLOGY METHOD 11/10/2024 10:35 AM [facility] Eosinophils Relative 1.9 % LAB HEMETOLOGY METHOD 11/10/2024 10:35 AM [facility] Basophils Relative 0.8 % LAB HEMETOLOGY METHOD 11/10/2024 10:35 AM [facility] Immature Granulocytes Relative 0.4 % LAB HEMETOLOGY METHOD 11/10/2024 10:35 AM [facility] Neutrophils Absolute 2.73 1.50 - 7.00 K/mcL LAB HEMETOLOGY METHOD 11/10/2024 10:35 AM [facility] Lymphocytes Absolute 1.64 1.00 - 5.00 K/mcL LAB HEMETOLOGY METHOD 11/10/2024 10:35 AM EDT [facility] Monocytes Absolute 0.33 0.20 - 1.00 K/mcL LAB HEMETOLOGY METHOD 11/10/2024 10:35 AM EDT [facility] Eosinophils Absolute 0.09 0.00 - 0.50 K/mcL LAB HEMETOLOGY METHOD 11/10/2024 10:35 AM EDT [facility] Basophils Absolute 0.04 0.00 - 0.20 K/mcL LAB HEMETOLOGY METHOD 11/10/2024 10:35 AM EDT [facility] Immature Granulocytes Absolute 0.02 0.00 - 0.03 K/mcL LAB HEMETOLOGY METHOD 11/10/2024 10:35 AM EDT [facility] Blood Venous blood specimen / Unknown Venipuncture / Unknown 11/10/2024 8:28 AM EDT 11/10/2024 8:28 AM EDT Fer Swanson MD LAB BLOOD ORDERABLES F inal Result [facility] [address] [place] [address], * (ABNORMAL) Testosterone, total and bioavailable (11/10/2024 8:28 AM EDT) Testosterone Total LC/MS/MS 141.8(L) 264.0 - 916.0 ng/dL 11/16/2024 9:05 AM EDT [facility] Comment: This [facility] LC/MS-MS method is currently certified by the CDC Hormone Standardization Program (HoSt). Adult male reference interval is based on a population of healthy nonobese males (BMI <30) between 19 and 39 years old. Shreyas et.al. JCEM 2017,102;8122-9270. PMID: [id number]. Testosterone % Free+Weakly Bound 43.3 9.0 - 46.0 % 11/16/2024 9:05 AM EDT [facility] Comment: This test was developed and its performance characteristics determined by [facility]. It has not been cleared or approved by the Food and Drug Administration. Testosterone % Free+Weakly Bound 61.4 40.0 - 250.0 ng/dL 11/16/2024 9:05 AM EDT [facility] Blood Venous blood specimen / Unknown Venipuncture / Unknown 11/10/2024 8:28 AM EDT 11/10/2024 8:28 AM EDT Narrative [facility] - 11/16/2024 9:05 AM EDT Test(s) [id number], Total, LC/MS was developed and its performance characteristics determined by [facility]. It has not been cleared or approved by the Food and Drug Administration. Performed at: [address] [id number] Quality Intern: Kimi Gatica MD, Phone: [phone] us Fer Swanson MD LAB BLOOD ORDERABLES F inal Result Performing Organization Address [facility]/ZIP Co de Phone Number [facility] * Microalbumin creatinine urine ratio (11/10/2024 8:28 AM EDT) Creatinine, Urine 64.0 mg/dL LAB CHEMISTRY METHOD 11/10/2024 11:15 AM EDT [facility] Microalb, Ur <5.0 0.0 - 29.0 mg/L LAB CHEMISTRY METHOD 11/10/2024 11:15 AM EDT [facility] Microalb/Creat Ratio <8 <30 mg/g creat LAB CHEMISTRY METHOD 11/10/2024 11:15 AM EDT [facility] Urine Urine specimen obtained by clean catch procedure / Unknown Non-blood Collection / Unknown 11/10/2024 8:28 AM EDT 11/10/2024 8:28 AM EDT us Fer Swanson MD LAB URINE ORDERABLES F inal Result Performing Organization Address City/[facility]/ZIP Co de Phone Number [facility] [address] [place] [address], * Chlamydia trachomatis and Neisseria gonorrhoeae molecular study (11/10/2024 8:28 AM EDT) [facility] Neisseria gonorrhoeae PCR Negative Negative LAB MOLECULAR DIAGNOSTICS METHOD 11/10/2024 12:31 PM EDT [facility] Chlamydia trachomatis PCR Negative Negative LAB MOLECULAR DIAGNOSTICS METHOD 11/10/2024 12:31 PM EDT [facility] Urine Urine specimen from urethra / Unknown Non-blood Collection / Unknown 11/10/2024 8:28 AM EDT 11/10/2024 8:28 AM EDT us Fer Swanson MD LAB MICROBIOLOGY - GEN ERAL ORDERABLES Final Result [facility] [address] [place] [address], * Prolactin (11/10/2024 8:28 AM EDT) [facility] Prolactin 8.20 2.50 - 17.40 ng/mL LAB CHEMISTRY METHOD 11/10/2024 11:08 AM EDT [facility] Blood Venous blood specimen / Unknown Venipuncture / Unknown 11/10/2024 8:28 AM EDT 11/10/2024 8:28 AM EDT us Fer Swanson MD LAB BLOOD ORDERABLES F inal Result [facility] [address] [place] [address], * (ABNORMAL) Hemoglobin A1c (11/10/2024 8:28 AM EDT) [facility] Hemoglobin A1C 9.9(H) <6.5 % LAB CHEMISTRY METHOD 11/10/2024 11:27 AM EDT [facility] Mean Bld Glu Estim. 237 mg/dL LAB CHEMISTRY METHOD 11/10/2024 11:27 AM EDT [facility] Blood Venous blood specimen / Unknown Venipuncture / Unknown 11/10/2024 8:28 AM EDT 11/10/2024 8:28 AM EDT us Fer Swanson MD LAB BLOOD ORDERABLES F inal Result Performing Organization Address City/[facility]/ZIP Co de Phone Number [facility] [address] [place] [address], [place] [phone] * Luteinizing hormone (11/10/2024 8:28 AM EDT) Luteinizing Hormone 6.0 1.2 - 10.6 mIU/mL LAB CHEMISTRY METHOD 11/10/2024 11:08 AM EDT [facility] Blood Venous blood specimen / Unknown Venipuncture / Unknown 11/10/2024 8:28 AM EDT 11/10/2024 8:28 AM EDT us Fer Swanson MD LAB BLOOD ORDERABLES F inal Result Performing Organization Address City/[facility]/ZIP Co de Phone Number [facility] [address] [place] [address], [place] [phone] * Follicle stimulating hormone (11/10/2024 8:28 AM EDT) Follicle Stimulating Hormone 7.2 0.7 - 10.8 mIU/mL LAB CHEMISTRY METHOD 11/10/2024 11:08 AM EDT [facility] Blood Venous blood specimen / Unknown Venipuncture / Unknown 11/10/2024 8:28 AM EDT 11/10/2024 8:28 AM EDT us Fer Swanson MD LAB BLOOD ORDERABLES F inal Result [facility] [address] [place] [address], * (ABNORMAL) Comprehensive metabolic panel (11/10/2024 8:28 AM EDT) Sodium 134 133 - 145 mmol/L LAB CHEMISTRY METHOD 11/10/2024 11:46 AM T [facility] Potassium 4.3 3.5 - 5.5 mmol/L LAB CHEMISTRY METHOD 11/10/2024 11:46 AM [facility] Chloride 103 96 - 110 mmol/L LAB CHEMISTRY METHOD 11/10/2024 11:46 AM [facility] CO2 23 21 - 32 mmol/L LAB CHEMISTRY METHOD 11/10/2024 11:46 AM [facility] Anion Gap 8 3 - 11 LAB CHEMISTRY METHOD 11/10/2024 11:46 AM [facility] Glucose 411(HH) 70 - 100 mg/dL LAB CHEMISTRY METHOD 11/10/2024 11:46 AM [facility] BUN 11 5 - 25 mg/dL LAB CHEMISTRY METHOD 11/10/2024 11:46 AM [facility] Creatinine 0.94 0.70 - 1.30 mg/dL LAB CHEMISTRY METHOD 11/10/2024 11:46 AM [facility] eGFR 98 >=60 mL/min/1. 73m2 LAB CHEMISTRY METHOD 11/10/2024 11:46 AM [facility] Comment:Calculation based on the Chronic Kidney Disease Epidemiology Collaboration (CKD-EPI) equation refit without adjustment for race. BUN/Creatinine Ratio 11.7 LAB CHEMISTRY METHOD 11/10/2024 11:46 AM [facility] Calcium 9.2 8.5 - 10.5 mg/dL LAB CHEMISTRY METHOD 11/10/2024 11:46 AM [facility] AST (SGOT) 5(L) 10 - 42 unit/L LAB CHEMISTRY METHOD 11/10/2024 11:46 AM EDT [facility] ALT (SGPT) 20 10 - 60 unit/L LAB CHEMISTRY METHOD 11/10/2024 11:46 AM EDT [facility] Alkaline Phosphatase 176(H) 42 - 121 unit/L LAB CHEMISTRY METHOD 11/10/2024 11:46 AM EDT [facility] Total Protein 7.6 6.0 - 8.0 g/dL LAB CHEMISTRY METHOD 11/10/2024 11:46 AM EDT [facility] Albumin 3.9 3.2 - 5.0 g/dL LAB CHEMISTRY METHOD 11/10/2024 11:46 AM EDT [facility] Total Bilirubin 0.7 0.0 - 1.4 mg/dL LAB CHEMISTRY METHOD 11/10/2024 11:46 AM EDT [facility] Blood Venous blood specimen / Unknown Venipuncture / Unknown 11/10/2024 8:28 AM EDT 11/10/2024 8:28 AM EDT us Fer Swanson MD LAB BLOOD ORDERABLES F inal Result [facility] [address] [place] [address], from Last 3 Months Insurance [facility] Care Teams Tiltrotor Crew Chief Relationship Specialty Start Date End Date Fer Swanson MD [address] [place] [address] PCP - General Internal Medicine 06/01/24
[2025-01-26 14:56] LABS: MANUAL DIFF FLAG NO
[2025-01-26 14:58] LABS: Hematocrit 41.0 % (42.0-52.0); Hemoglobin 14.1 g/dl (14.0-18.0); Imm Gran Abs Auto 0.01 X10*3/uL (0.00-0.03); Imm Gran Pct Auto 0.2 % (0.0-0.4); Lymphocytes Absolute Auto 1.5 X10*3/uL (1.2-4.9); Mean Corpuscular HGB Conc 34.4 g/dl (31.0-36.0); Mean Corpuscular Hemoglobin 30.7 pg (27.0-33.0); Mean Corpuscular Volume 89.1 fL (80.0-98.0); NRBC Abs Auto 0.000 X10*3/uL (0.0-0.012); NRBC Pct Auto 0.0 /100WBC (0.0-0.2); Platelet Count 184 X10*3/uL (160-400); Red Blood Count 4.60 X10*6/uL (4.60-5.80); White Blood Count 6.0 X10*3/uL (4.8-10.8)
[2025-01-26 15:24] LABS: Alanine Aminotransferase 23 U/L (0-40); Albumin Level 4.1 g/dL (3.5-5.0); Alkaline Phosphatase 113 U/L (39-117); Anion Gap 11 (12-20); Aspartate Amino Transferase 20 U/L (5-37); Blood Urea Nitrogen 10 mg/dL (9-16); Calcium 8.4 mg/dL (8.4-10.2); Carbon Dioxide 26 mmol/L (22-29); Chloride 107 mmol/L (96-108); Creatinine Clr Calc Pharmacy 128.5; Estimated Glomerular Filt Rate > 60; Potassium 3.4 mmol/L (3.3-5.1); Sodium 141 mmol/L (135-145); Total Protein 6.6 g/dL (6.5-8.0)
[2025-01-26 16:07] LABS: Acetaminophen LAB < 3 mcg/mL (<30); Salicylate < 5.0 mg/dL (15-30)
[2025-01-26 18:50] VITALS: BP 141/76; PULSE 72; RESP 16; TEMP 36.7; O2SAT 100
== END 2025-01-26 19:10 | disposition home or self-care (01) ==
PROVIDERS: Registered Nurse Emergency; Emergency Provider Emergency Medicine; PCP Internal Medicine
DX: F33.1 Major depressive disorder, recurrent, moderate (principal); F14.90 Cocaine use, unspecified, uncomplicated; F11.90 Opioid use, unspecified, uncomplicated; Z59.00 Homelessness unspecified; Z51.81 Encounter for therapeutic drug level monitoring; Z79.899 Other long term (current) drug therapy
CPT/HCPCS: 36415; 80053; 80143; 80164; 80179; 80307; 85025; 99284; S9485

== ENCOUNTER 2025-04-30 03:17 | Emergency (ER) | payer OTHER, SELFPAY ==
[2025-04-30 03:20] VITALS: BP 146/85; PULSE 88; RESP 18; TEMP 36.6; O2SAT 95; BMI 26.6
--- OUTSIDE RECORDS SUMMARY | 2025-04-30 03:41 | XMS_ITS | Clinical Summary ---
Author Organization [employer] Address [address] [facility] 7 [place] [address] Care Team Providers Care Armature Inspector Name Role Phone Unavailable Primary Care Provider Unavailabl e Encounters Date Type Department Care Team Description 02/28/2025 Patient Outreach [facility] [address] [place] [phone] Zeb Damon Recovery Supports from Last 3 Months Social History Tobacco Use Types Packs/Day Years Used Date Smoking Tobacco: Never Assessed Sex and Gender Information Value Date Recorded Sex Assigned at Not on file Legal Sex Male 2:38 PM EDT Gender Identity Not on file Sexual Orientation Not on file Plan of Treatment Health Maintenance Due Date Last Done Comments CT Colonography 1973 Colonoscopy 1973 Colorectal Cancer Screening 1973 Depression Screening 1973 FIT DNA/Cologuard 1973 FIT 1973 FOBT 1973 HIV Screening 1973 Lipid Panel 1973 SDOH Screening 1973 Sigmoidoscopy 1973 Disability Screening 1973 Alcohol/Substance Use Screening 1985 Tobacco Screening 1985 Family Planning (PISQ) 1988 Hepatitis C Screening 10/06/1991 DTaP/Tdap/Td Vaccines (1 - Tdap) 1992 Hepatitis B Vaccines (1 of 3 - 19+ 3-dose series) 1992 Pneumococcal Vaccine: 50+ Ye ars (1 of 1 - PCV) 10/06/2023 Zoster Vaccines (1 of 2) 10/06/2023 COVID-19 Vaccine ( - 2024-2 6 season) 2025 Influenza Vaccine (#1) 2025 RSV Patients and Pa tients Aged 60 years or older (1 - 1-dose 75+ series) 2048 HIB Vaccines Aged Out No longer eligi ble based on patient's age to complete this topic HPV Vaccines Aged Out No longer eligi ble based on patient's age to complete this topic Hepatitis A Vaccines Aged Out No long er eligible based on patient's age to complete this topic IPV Vaccines Aged Out No longer eligi ble based on patient's age to complete this topic Meningococcal B Vaccine Aged Out No l onger eligible based on patient's age to complete this topic Meningococcal Vaccine Aged Out No erick lizet eligible based on patient's age to complete this topic RSV under 20 months Aged Out No longe r eligible based on patient's age to complete this topic Rotavirus Vaccines Aged Out No longer eligible based on patient's age to complete this topic Insurance ([facility])
--- OUTSIDE RECORDS SUMMARY | 2025-04-30 03:41 | XMS_ITS | Clinical Summary ---
Author Organization [address] Address [address] [place] [address] Phone Care Team Providers Care Varnishing Unit Tool Setter Name Role Phone Fer Swanson MD Primary [...] Do not crush, chew, or split. Active buprenorphine- naloxone (Suboxone) 8-[address] [...] (one) time each day. 90 each 1 5 Active Additional Information Patient not taking.Reported on 03/15/2025 metFORMIN (GLUCOPHAGE) 1,000 mg tablet Take 1 tablet (1,000 mg total) by mouth 2 (two) times a day with meals. 180 each 1 5 Active Breo Ellipta 100-25 mcg/dose inhaler Inhale 1 puff by mouth 1 (one) time each day. 1 each 2 5 Active glipiZIDE (Glucotrol XL) 5 mg 24 hr tablet Take 1 tablet (5 mg total) by mouth 2 (two) times a day with meals. Do not crush, chew, or split. 180 each 1 5 Active FreeStyle Lite Meter monitoring kitIndications :Type 2 diabetes mellitus with hyperglycemia, with long-term current use of insulin (CMS/HCC V24, CMS/HCC V28) 1 each 1 (one) time each day. Use to test blood sugar daily 1 each 5 026 Active blood sugar diagnostic (FreeStyle Lite Strips) test stripIndicatio ns:Type 2 diabetes mellitus with hyperglycemia, with long-term current use of insulin ([facility] V24, [facility] V28) Use to test blood sugar daily 100 each 3 5 026 Active FreeStyle Lancets 28 gauge lancetsIndicat ions:Type 2 diabetes mellitus with hyperglycemia, with long-term current use of insulin ([facility] V24, [facility] V28) Use to test blood sugar daily 100 each 3 5 026 Active Ventolin HFA 90 mcg/actuation inhaler INHALE 2 PUFFS BY MOUTH EVERY 6 HOURS NEEDED FOR WHEEZE OR FOR SHORTNESS OF BREATH 18 each 1 5 Active polyethylene glycol (Golytely) 236-22.74-6.74 -5.86 gram solution Take 4L by mouth once for one dose. May substitue any PEG. Starting at 2PM the day before your procedure drink 1 8oz glasses at your own pace until you complete half of the gallon. Finish 2nd half of the gallon at 8PM. 4000 mL 5 Active Additional Information Patient not taking.Reported on 03/15/2025 bisacodyL (DULCOLAX) 5 mg EC tablet Take 2 tablets by mouth right before beginning bowel prep. See instructions provided by the office 2 tablet Active lisinopriL (PRINIVIL,ZEST RIL) 10 mg tablet Take 1 tablet (10 mg total) by mouth 1 (one) time each day. Active Active Problems Problem Noted Date Diagnosed Date Hypertension 11/09/2024 Hypogonadism, male 11/09/2024 Bipolar affective disorder, current episode mixed ([facility] V24, [facility] V28) 11/09/2024 Resolved Problems Problem Noted Date Diagnosed Date Resolved Date Polysubstance abuse ([facility] V24, [facility] V28) 11/09/2024 01/24/2025 Encounters Date Type Department Care Team Description 03/18/2025 Lab Requisition [facility] [address] [facility] [place] [address] Laura Gramajo NP 03/18/2025 Lab Requisition [facility] [address] [place] [address] Laura Gramajo NP Other usp (current) drug therapy 03/15/2025 2:36 PM EDT - 03/15/2025 8:46 PM EDT Emergency [facility] Emergency [address] [place] [address] Robert Miranda MD Corrado, Adam D, MD Polysubstance use disorder (Primary Dx); Mental health problem [facility] 3 Months Immunizations Immunization Administration Dates Next Due Tdap Tetanus diptheria acell ular pertussis (Boostrix; Adacel) 7yo and older 01/24/2023 Surgical History Surgery Date Site/Laterality Comments NO PAST SURGERIES Medical History Medical History Date Comments Type 2 diabetes mellitus ([facility] V24, [facility] V 28) HTN (hypertension) Substance abuse ([facility] V24, [facility] V28) Family History Medical History Relation Name [...] Sign Reading Time Taken Comments Blood Pressure 118/70 03/15/2025 7:00 PM EDT Pulse 96 03/15/2025 7:00 PM EDT Temperature 36.7 C (98.1 F) 03/15/2025 7:00 PM EDT Respiratory Rate 16 03/15/2025 7:00 PM EDT Oxygen Saturation 96% 03/15/2025 7:00 PM EDT Inhaled Oxygen Concentration - - Weight 86.2 kg (190 lb) 03/15/2025 2:48 PM EDT Height 175.3 cm (5' 9 ) 03/15/2025 2:48 PM EDT Body Mass Index 28.06 03/15/2025 2:48 PM EDT Plan of Treatment Health Maintenance Due Date Last Done Comments Colorectal Cancer Screening: Colonoscopy 1973 Hepatitis A Vaccines (1 of 2 - Risk 2-dose series) 1992 Hepatitis B Vaccines (1 of 3 - 19+ 3-dose series) 1992 Pneumococcal Vaccine: 50+ Years (1 of 2 - PCV) 1992 Zoster Vaccines (1 of 2) 10/06/2023 Lung Cancer Screening (Low Dose CT) 01/06/2024 Social Influencers of Health Screening 01/06/2024 COVID-19 Vaccine (1 - 2024-2 6 season) 2025 Influenza Vaccine (#1) 2025 Hypertension/CHF/CAD Annual BMP Blood Test 03/15/2026 03/15/2025, 11/10/2024, 11/27/1999 Cholesterol Screening (Lipid Panel) 11/10/2029 11/10/2024 DTaP,Tdap,and Td Vaccines (2 - Td or Tdap) 01/24/2033 01/24/2023 RSV Immunization Adult Patients (1 - 1-dose 75+ series) 2048 HIV Screening Completed 11/10/2024 Hepatitis C Screening [...] Procedure Name Priority Date/Time Associated Diagnosis Comments CBC WITH AUTO DIFFERENTIAL Routine 03/18/2025 7:00 AM EDT Other long distance operator (current) drug therapy AMMONIA Routine 03/18/2025 7:00 AM EDT Other usp (current) drug therapy VALPROIC ACID LEVEL, TOTAL Routine 03/18/2025 7:00 AM EDT Other long distance operator (current) drug therapy HEPATIC FUNCTION PANEL Routine 7:00 AM EDT Other usp (current) drug therapy CBC AND DIFFERENTIAL Routine 03/18/2025 7:00 AM EDT Other usp (current) drug therapy CBC WITH AUTO DIFFERENTIAL STAT 03/15/2025 4:47 PM EDT SALICYLATE LEVEL STAT 03/15/2025 4:47 PM EDT ACETAMINOPHEN LEVEL STAT 03/15/2025 4 :47 PM EDT ETHANOL STAT 03/15/2025 4:47 PM EDT COMPREHENSIVE METABOLIC PANEL STAT 03/15/2025 4:47 PM EDT CBC AND DIFFERENTIAL STAT 03/15/2025 4:47 PM EDT METHADONE SCREEN, URINE STAT 03/15/20 3:20 PM EDT PHENCYCLIDINE, URINE STAT 03/15/2025 3:20 PM EDT BUPRENORPHINE SCREEN, URINE STAT 03/15/2025 3:20 PM EDT DRUG ABUSE SCREEN 8A PANEL, URINE STAT 03/15/2025 3:20 PM EDT HEPATITIS PANEL, ACUTE WITH REFLEX TO CONFIRMATION Routine 11/10/2024 8:28 AM EDT Screen for sexually transmitted diseases HIV 1, 2 ANTIBODY, P24 ANTIGEN WITH REFLEX TO DIFFERENTIATION Routine 11/10/2024 8:28 AM EDT Screen for sexually transmitted diseases LIPID PANEL WITH REFLEX TO DIRECT LDL Routine 11/10/2024 8:28 AM EDT Type 2 diabetes mellitus with hyperglycemia, with long-term current use of insulin ([facility] V24, [facility] V28) from Last 3 Months or Most Recently Relevant to Health Maintenance Results * (ABNORMAL) CBC auto differential (03/18/2025 7:00 AM EDT) Only the most recent of2 resultswithin the time period is included. [facility] WBC 5.4 4.8 - 10.8 K/mcL LAB HEMETOLOGY METHOD 03/18/2025 10:29 AM [facility] LAB RBC 4.30(L) 4.50 - 5.50 M/mcL LAB HEMETOLOGY METHOD 03/18/2025 10:29 AM [facility] LAB Hemoglobin 12.6(L) 13.5 - 17.5 g/dL LAB HEMETOLOGY METHOD 03/18/2025 10:29 AM [facility] LAB Hematocrit 39.2(L) 42.0 - 54.0 % LAB HEMETOLOGY METHOD 03/18/2025 10:29 AM [facility] LAB MCV 91.2 79.0 - 98.0 FL LAB HEMETOLOGY METHOD 03/18/2025 10:29 AM [facility] LAB MCH 29.3 27.0 - 32.0 pcg LAB HEMETOLOGY METHOD 03/18/2025 10:29 AM [facility] LAB MCHC 32.1 32.0 - 37.0 g/dL LAB HEMETOLOGY METHOD 03/18/2025 10:29 AM [facility] LAB RDW 13.5 11.0 - 15.0 % LAB HEMETOLOGY METHOD 03/18/2025 10:29 AM [facility] LAB Platelets 213 130 - 400 K/mcL LAB HEMETOLOGY METHOD 03/18/2025 10:29 AM [facility] LAB MPV 10.6 7.0 - 11.0 FL LAB HEMETOLOGY METHOD 03/18/2025 10:29 AM [facility] LAB NRBC 0.0 <1.0 % LAB HEMETOLOGY METHOD 03/18/2025 10:29 AM [facility] LAB NRBC Absolute 0.00 <0.10 K/[facility] LAB HEMETOLOGY METHOD 03/18/2025 10:29 AM [facility] LAB Neutrophils Relative 56.2 % LAB HEMETOLOGY METHOD 03/18/2025 10:29 AM [facility] LAB Lymphocytes Relative 32.7 % LAB HEMETOLOGY METHOD 03/18/2025 10:29 AM [facility] LAB Monocytes Relative 5.9 % LAB HEMETOLOGY METHOD 03/18/2025 10:29 AM [facility] LAB Eosinophils Relative 3.0 % LAB HEMETOLOGY METHOD 03/18/2025 10:29 AM [facility] LAB Basophils Relative 0.9 % LAB HEMETOLOGY METHOD 03/18/2025 10:29 AM [facility] LAB Immature Granulocytes Relative 1.3 % LAB HEMETOLOGY METHOD 03/18/2025 10:29 AM [facility] LAB Neutrophils Absolute 3.03 1.50 - 7.00 K/[facility] LAB HEMETOLOGY METHOD 03/18/2025 10:29 AM [facility] LAB Lymphocytes Absolute 1.76 1.00 - 5.00 K/[facility] LAB HEMETOLOGY METHOD 03/18/2025 10:29 AM [facility] LAB Monocytes Absolute 0.32 0.20 - 1.00 K/[facility] LAB HEMETOLOGY METHOD 03/18/2025 10:29 AM [facility] LAB Eosinophils Absolute 0.16 0.00 - 0.50 K/[facility] LAB HEMETOLOGY METHOD 03/18/2025 10:29 AM EDT [facility] Basophils Absolute 0.05 0.00 - 0.20 K/[facility] LAB HEMETOLOGY METHOD 03/18/2025 10:29 AM EDT [facility] Immature Granulocytes Absolute 0.07(H) 0.00 - 0.03 K/[facility] LAB HEMETOLOGY METHOD 03/18/2025 10:29 AM EDT [facility] Blood Venous blood specimen / Unknown Venipuncture / Unknown 03/18/2025 7:00 AM EDT 03/18/2025 10:00 AM EDT Laura Gramajo TOOL CHASER LAB BLOOD ORDERABLES Final Resu lt Performing Organization Address City/[facility] [address]/ZIP Co de Phone Number [facility] [address] [place] [address], [place] [phone] * (ABNORMAL) Ammonia (03/18/2025 7:00 AM EDT) Ammonia 79(H) 11 - 35 mcmol/L LAB CHEMISTRY METHOD 03/18/2025 10:24 AM EDT [facility] Blood Venous blood specimen / Unknown Venipuncture / Unknown 03/18/2025 7:00 AM EDT 03/18/2025 10:00 AM EDT Laura Gramajo TOOL CHASER LAB BLOOD ORDERABLES Final Resu lt [facility] [address] [place] [address], [place] [phone] * Valproic acid level, total (03/18/2025 7:00 AM EDT) Valproic Acid, Total 73 50 - 100 mcg/mL LAB CHEMISTRY METHOD 03/18/2025 12:00 PM EDT [facility] Blood Venous blood specimen / Unknown Venipuncture / Unknown 03/18/2025 7:00 AM EDT 03/18/2025 10:00 AM EDT us Laura Gramajo NP LAB BLOOD ORDERABLES Final Resu lt [facility] [address] [place] [address], [place] [phone] * (ABNORMAL) Hepatic function panel (03/18/2025 7:00 AM EDT) Total Protein 6.5 6.0 - 8.0 g/dL LAB CHEMISTRY METHOD 03/18/2025 12:00 PM [facility] Albumin 3.3 3.2 - 5.0 g/dL LAB CHEMISTRY METHOD 03/18/2025 12:00 PM [facility] Total Bilirubin 0.3 0.0 - 1.4 mg/dL LAB CHEMISTRY METHOD 03/18/2025 12:00 PM [facility] Bilirubin, Direct <0.1 0.0 - 0.3 mg/dL LAB CHEMISTRY METHOD 03/18/2025 12:00 PM [facility] LAB Comment:Hemolysis present Bilirubin, Indirect LAB CHEMISTRY METHOD 03/18/2025 12:00 PM [facility] LAB Comment:Unable to calculate Indirect Bilirubin. ALT (SGPT) 28 10 - 60 unit/L LAB CHEMISTRY METHOD 03/18/2025 12:00 PM [facility] AST (SGOT) 24 10 - 42 unit/L LAB CHEMISTRY METHOD 03/18/2025 12:00 PM [facility] LAB Comment:Hemolysis present Alkaline Phosphatase 132(H) 42 - 121 unit/L LAB CHEMISTRY METHOD 03/18/2025 12:00 PM [facility] Blood Venous blood specimen / Unknown Venipuncture / Unknown 03/18/2025 7:00 AM EDT 03/18/2025 10:00 AM EDT Laura Gramajo NP LAB BLOOD ORDERABLES Final Resu lt Performing Organization Address [facility] [address]/ZIP Co de Phone Number [facility] [address] [place] [address], [place] [phone] * Ethanol (03/15/2025 4:47 PM EDT) Ethanol Level <3 0 - 10 mg/dL LAB CHEMISTRY METHOD 03/15/2025 5:50 PM EDT [facility] Blood Venous blood specimen / Unknown Venipuncture / Unknown 03/15/2025 4:47 PM EDT 03/15/2025 5:13 PM EDT Robert Miranda MD LAB BLOOD ORDERABLES Final Res ult Performing Organization Address City/[facility] [address]/ZIP Co de Phone Number [facility] [address] [place] [address], [place] [phone] * (ABNORMAL) Acetaminophen level (03/15/2025 4:47 PM EDT) Acetaminophen Level <2.0(L) 10.0 - 30.0 mcg/mL LAB CHEMISTRY METHOD 03/15/2025 5:50 PM EDT [facility] Blood Venous blood specimen / Unknown Venipuncture / Unknown 03/15/2025 4:47 PM EDT 03/15/2025 5:13 PM EDT Robert Miranda MD LAB BLOOD ORDERABLES Final Res ult Performing Organization Address City/[facility] [address]/ZIP Co de Phone Number [facility] [address] [place] [address], [place] [phone] * (ABNORMAL) Salicylate level (03/15/2025 4:47 PM EDT) Pathologist [facility] Salicylate Level <1.7(L) 2.0 - 29.0 mg/dL LAB CHEMISTRY METHOD 03/15/2025 5:50 PM EDT [facility] Blood Venous blood specimen / Unknown Venipuncture / Unknown 03/15/2025 4:47 PM EDT 03/15/2025 5:13 PM EDT us Robert Miranda MD LAB BLOOD ORDERABLES Final Res ult [facility] [address] [place] [address], * (ABNORMAL) Comprehensive metabolic panel (03/15/2025 4:47 PM EDT) [facility] Sodium 137 133 - 145 mmol/L LAB CHEMISTRY METHOD 03/15/2025 5:56 PM [facility] Potassium 4.3 3.5 - 5.5 mmol/L LAB CHEMISTRY METHOD 03/15/2025 5:56 PM [facility] Chloride 106 96 - 110 mmol/L LAB CHEMISTRY METHOD 03/15/2025 5:56 PM [facility] CO2 24 21 - 32 mmol/L LAB CHEMISTRY METHOD 03/15/2025 5:56 PM [facility] Anion Gap 7 3 - 11 LAB CHEMISTRY METHOD 03/15/2025 5:56 PM [facility] Glucose 118(H) 70 - 100 mg/dL LAB CHEMISTRY METHOD 03/15/2025 5:56 PM [facility] BUN 15 5 - 25 mg/dL LAB CHEMISTRY METHOD 03/15/2025 5:56 PM [facility] Creatinine 0.77 0.70 - 1.30 mg/dL LAB CHEMISTRY METHOD 03/15/2025 5:56 PM [facility] LAB eGFR 108 >=60 mL/min/1. 73m2 LAB CHEMISTRY METHOD 03/15/2025 5:56 PM EDT [facility] Comment:Calculation based on the Chronic Kidney Disease Epidemiology Collaboration (CKD-EPI) equation refit without adjustment for race. BUN/Creatinine Ratio 19.5 LAB CHEMISTRY METHOD 03/15/2025 5:56 PM EDT [facility] Calcium 9.0 8.5 - 10.5 mg/dL LAB CHEMISTRY METHOD 03/15/2025 5:56 PM EDT [facility] AST (SGOT) 16 10 - 42 unit/L LAB CHEMISTRY METHOD 03/15/2025 5:56 PM [facility] ALT (SGPT) 33 10 - 60 unit/L LAB CHEMISTRY METHOD 03/15/2025 5:56 PM [facility] Alkaline Phosphatase 147(H) 42 - 121 unit/L LAB CHEMISTRY METHOD 03/15/2025 5:56 PM EDT [facility] Total Protein 6.7 6.0 - 8.0 g/dL LAB CHEMISTRY METHOD 03/15/2025 5:56 PM [facility] Albumin 3.6 3.2 - 5.0 g/dL LAB CHEMISTRY METHOD 03/15/2025 5:56 PM [facility] Total Bilirubin 0.3 0.0 - 1.4 mg/dL LAB CHEMISTRY METHOD 03/15/2025 5:56 PM EDT [facility] Blood Venous blood specimen / Unknown Venipuncture / Unknown 03/15/2025 4:47 PM EDT 03/15/2025 5:13 PM EDT us Robert Miranda MD LAB BLOOD ORDERABLES Final Res ult [facility] [address] [place] [address], [place] [phone] * (ABNORMAL) Drug abuse screen 8a panel, urine (03/15/2025 3:20 PM EDT) [facility] Signature Amphetamine Screen, Ur Negative Negative LAB CHEMISTRY METHOD 5 4:17 PM T [facility] Comment:Certain OTC medicati ons containing ephedrine, phenylephrine, pseudoephedrine and phenylpropanolamine can cause false positive results. Barbiturate Screen, Ur Negative Negative LAB CHEMISTRY METHOD 5 4:17 PM EDT [facility] Benzodiazepine Screen, Ur Positive(A ) Negative LAB CHEMISTRY METHOD 5 4:17 PM T [facility] Cocaine Screen, Ur Positive(A ) Negative LAB CHEMISTRY METHOD 5 4:17 PM [facility] Opiate Screen, Ur Negative Negative LAB CHEMISTRY METHOD 5 4:17 PM [facility] Cannabinoid (THC) Screen, Ur Negative Negative LAB CHEMISTRY METHOD 5 4:17 PM [facility] Comment:Specimens from patie nts taking pantoprazole sodium (Protonix) have been shown to produce false positive results. Oxycodone Screen, Ur Negative Negative LAB CHEMISTRY METHOD 5 4:17 PM [facility] Fentanyl, Ur Negative Negative LAB CHEMISTRY METHOD 5 4:17 PM [facility] Urine Urine specimen obtained by clean catch procedure / Unknown Non-blood Collection / Unknown 03/15/2025 3:20 PM EDT 03/15/2025 3:52 PM EDT Narrative [facility] - 03/15/2025 4:17 PM EDT Assay cutoffs: Amphetamines 1000 ng/mL Barbiturates 200 ng/mL Benzodiazepines 200 ng/mL Cocaine 300 ng/mL Fentanyl 1 ng/mL Opiates 300 ng/mL Oxycodone 100 ng/mL THC 50 ng/mL Semi-quantitative assay for screening purposes only. Unconfirmed screening result should not be used for non-medical purposes. *ALTERNATE METHOD CONFIRMATION DONE UPON REQUEST ONLY* Robert Miranda MD LAB URINE ORDERABLES Final Res ult Performing Organization Address [facility] [address]/ZIP Co de Phone Number [facility] [address] [place] [address], [place] [phone] * (ABNORMAL) Buprenorphine screen, urine (03/15/2025 3:20 PM EDT) Buprenorphine Screen Urine Positive (A) Negative LAB CHEMISTRY METHOD 03/15/2025 4:17 PM EDT [facility] Urine Urine specimen obtained by clean catch procedure / Unknown Non-blood Collection / Unknown 03/15/2025 3:20 PM EDT 03/15/2025 3:52 PM EDT Narrative [facility] - 03/15/2025 4:17 PM EDT Assay cutoff 5 ng/mL Semi-quantitative assay for screening purposes only. Unconfirmed screening result should not be used for non-medical purposes. *ALTERNATE METHOD CONFIRMATION DONE UPON REQUEST ONLY* Robert Miranda MD LAB URINE ORDERABLES Final Res ult Performing Organization Address [facility] [address]/[facility] de Phone Number [facility] [address] [place] [address], [place] [phone] * Methadone, urine (03/15/2025 3:20 PM EDT) [facility] Methadone Screen, Urine Negative Negative LAB CHEMISTRY METHOD 03/15/2025 4:17 PM EDT [facility] Comment: Assay cutoff 300 ng/mL Semi-quantitative assay for screening purposes only. Unconfirmed screening result should not be used for non-medical purposes. *ALTERNATE METHOD CONFIRMATION DONE UPON REQUEST ONLY* Urine Urine specimen obtained by clean catch procedure / Unknown Non-blood Collection / Unknown 03/15/2025 3:20 PM EDT 03/15/2025 3:52 PM EDT Robert Miranda MD LAB URINE ORDERABLES Final Res ult Performing Organization Address [facility] [address]/[facility] Co de Phone Number [facility] [address] [place] [address], * Phencyclidine, urine (03/15/2025 3:20 PM EDT) PCP Scrn, Ur Negative Negative LAB CHEMISTRY METHOD 03/15/2025 4:17 PM EDT [facility] Comment: Assay cutoff 25 ng/mL Semi-quantitative assay for screening purposes only. Unconfirmed screening result should not be used for non-medical purposes. *ALTERNATE METHOD CONFIRMATION DONE UPON REQUEST ONLY* Urine Urine specimen obtained by clean catch procedure / Unknown Non-blood Collection / Unknown 03/15/2025 3:20 PM EDT 03/15/2025 3:52 PM EDT Robert Miranda MD LAB URINE ORDERABLES Final Res ult Performing Organization Address [facility] [address]/[facility] Co de Phone Number [facility] [address] [place] [address], [place] [phone] * HIV 1,2 antibody, p24 antigen with reflex to differentiation (11/10/2024 8:28 AM EDT) HIV Combo AB/AG Negative Negative LAB CHEMISTRY METHOD 11/10/2024 2:24 PM EDT [facility] Blood Venous blood specimen / Unknown Venipuncture / Unknown 11/10/2024 8:28 AM EDT 11/10/2024 8:28 AM EDT Narrative [facility] - 11/10/2024 2:24 PM EDT This assay is a 4th generation assay allowing for earlier detection of HIV infection by detecting the presence of the HIV-1 p24 antigen as well as the traditional antibodies to HIV type 1 (including group O) and type 2. Use of a 4th generation assay is the current CDC recommendation for HIV screening. Fer Swanson MD LAB BLOOD ORDERABLES F inal Result Performing Organization Address City/[facility] [address]/ZIP Co de Phone Number [facility] [address] [place] [address], [place] [phone] * (ABNORMAL) Lipid panel with reflex to direct LDL (11/10/2024 8:28 AM EDT) Cholesterol 164 0 - 200 mg/dL LAB CHEMISTRY METHOD 11/10/2024 11:08 AM EDT [facility] Triglycerides 214(H) 0 - 150 mg/dL LAB CHEMISTRY METHOD 11/10/2024 11:08 AM EDT [facility] HDL 34(L) >=40 mg/dL LAB CHEMISTRY METHOD 11/10[facility]24 [facility] LDL Calculated 87 0 - 100 mg/dL LAB CHEMISTRY METHOD 11/10/2024 11:08 AM EDT [facility] VLDL Cholesterol [place] 42.8 mg/dL LAB CHEMISTRY METHOD 11/10/2024 11:08 AM EDT [facility] Non HDL Chol. (LDL+VLDL) 130 <145 mg/dL LAB CHEMISTRY METHOD 11/10/2024 11:08 AM T [facility] Chol/HDL Ratio 4.8(H) 0.0 - 4.4 LAB CHEMISTRY METHOD 11/10/2024 11:08 AM T [facility] Blood Venous blood specimen / Unknown Venipuncture / Unknown 11/10/2024 8:28 AM EDT 11/10/2024 8:28 AM EDT Fer Swanson MD LAB BLOOD ORDERABLES F inal Result [facility] [address] [place] [address], [place] [phone] * Hepatitis panel, acute with reflex to confirmation (11/10/2024 8:28 AM EDT) Hepatitis B Surface Ag Negative Negative LAB CHEMISTRY METHOD 11/10/2024 2:25 PM EDT [facility] Hepatitis A Antibody IgM Negative Negative LAB CHEMISTRY METHOD 11/10/2024 2:25 PM EDT [facility] Hep B Core IgM Negative Negative LAB CHEMISTRY METHOD 11/10/2024 2:25 PM EDT [facility] Hepatitis C Antibody Negative Negative LAB CHEMISTRY METHOD 11/10/2024 2:25 PM EDT [facility] Blood Venous blood specimen / Unknown Venipuncture / Unknown 11/10/2024 8:28 AM EDT 11/10/2024 8:28 AM EDT us Fer Swanson MD LAB BLOOD ORDERABLES F inal Result [facility] [address] [place] [address], [place] [phone] from Last 3 Months or Most Recently Relevant to Health Maintenance Insurance [id number] Care Teams Varnishing Unit Tool Setter Relationship Specialty Start Date End Date Fer Swanson MD [address] [place] [address] PCP - General Internal Medicine 06/01/24
--- OUTSIDE RECORDS SUMMARY | 2025-04-30 03:41 | XMS_ITS | Encounter Summary ---
Author Organization [facility] Address [address] [place] [address] Care Team Providers Care Roller Skate Repairer Name Role Phone Fer Swanson MD Primary Care Provider Encounter Details Date Type Department Care Team (Late st Contact Info) Description 03/18/2025 Lab Requisition [facility] - Main Lab [address] [facility] [place] [address] Laura Gramajo NP [address] [place] [address] Social History Tobacco Use Types Packs/Day Years Used Date Smoking Tobacco: Every Day Cigarettes 1 20 Smokeless Tobacco: Never Alcohol Use Standard Drinks/Week Comments Not Currently 0 (1 standard drink = 0.6 oz pur e alcohol) Sex and Gender Information Value Date Recorded Sex Assigned at Male 11/15/2024 10:25 AM EDT Legal Sex Male 2:13 AM EST Gender Identity Male 11/15/2024 10:25 AM EDT Sexual Orientation Straight 11/15/2024 10 :25 AM EDT documented as of this encounter Plan of Treatment Not on file documented as of this encounter Visit Diagnoses Not on filedocumented in this encounter Additional Health Concerns Assessment Noted Time PHQ-9 Depression Total Score: 15 025 2:47 PM EDT documented as of this encounter Care Teams Roller Skate Repairer Relationship Specialty Start Date End Date Fer Swanson MD [address] [place] [address] PCP - General Internal Medicine 06/01/24 documented as of this encounter
--- OUTSIDE RECORDS SUMMARY | 2025-04-30 03:41 | XMS_ITS | Encounter Summary ---
Author Organization [facility] Address [address] [place] [address] Care Team Providers Care Health Services Manager Name Role Phone Fer Swanson MD Primary Care Provider Encounter Details Date Type Department Care Team (Late st Contact Info) Description 03/18/2025 Lab Requisition [facility] - Main Lab [address] [place] [address] Laura Gramajo NP [address] [place] [address] Other assisted (current) drug therapy Social History Tobacco Use Types Packs/Day Years [...] on file documented as of this encounter Procedures Procedure Name Priority Date/Time Associated Diagnosis Comments CBC WITH AUTO DIFFERENTIAL Routine 03/18/2025 7:00 AM EDT Other continuous churn buttermaker (current) drug therapy CBC AND DIFFERENTIAL Routine 03/18/2025 7:00 AM EDT Other assisted (current) drug therapy AMMONIA Routine 03/18/2025 7:00 AM EDT Other continuous churn buttermaker (current) drug therapy VALPROIC ACID LEVEL, TOTAL Routine 03/18/2025 7:00 AM EDT Other assisted (current) drug therapy HEPATIC FUNCTION PANEL Routine 03/18/2025 7:00 AM EDT Other continuous churn buttermaker (current) drug therapy documented in this encounter Results * (ABNORMAL) CBC auto differential (03/18/2025 7:00 AM EDT) [facility] WBC 5.4 4.8 - 10.8 K/mcL LAB HEMETOLOGY METHOD 03/18/2025 10:29 AM [facility] LAB RBC 4.30(L) 4.50 - 5.50 M/mcL LAB HEMETOLOGY METHOD 03/18/2025 10:29 AM [facility] LAB Hemoglobin 12.6(L) 13.5 - 17.5 g/dL LAB HEMETOLOGY METHOD 03/18/2025 10:29 AM [facility] LAB Hematocrit 39.2(L) 42.0 - 54.0 % LAB HEMETOLOGY METHOD 03/18/2025 10:29 AM [facility] LAB MCV 91.2 79.0 - 98.0 FL LAB HEMETOLOGY METHOD 03/18/2025 10:29 AM [facility] LAB MCH 29.3 27.0 - 32.0 pcg LAB HEMETOLOGY METHOD 03/18/2025 10:29 AM [facility] LAB MCHC 32.1 32.0 - 37.0 g/dL LAB HEMETOLOGY METHOD 03/18/2025 10:29 AM [facility] LAB RDW 13.5 11.0 - 15.0 % LAB HEMETOLOGY METHOD 03/18/2025 10:29 AM [facility] LAB Platelets 213 130 - 400 K/mcL LAB HEMETOLOGY METHOD 03/18/2025 10:29 AM [facility] LAB MPV 10.6 7.0 - 11.0 FL LAB HEMETOLOGY METHOD 03/18/2025 10:29 AM [facility] LAB NRBC 0.0 <1.0 % LAB HEMETOLOGY METHOD 03/18/2025 10:29 AM [facility] LAB NRBC Absolute 0.00 <0.10 K/mcL LAB HEMETOLOGY METHOD 03/18/2025 10:29 AM [facility] Neutrophils Relative 56.2 % LAB HEMETOLOGY METHOD 03/18/2025 10:29 AM [facility] Lymphocytes Relative 32.7 % LAB HEMETOLOGY METHOD 03/18/2025 10:29 AM [facility] Monocytes Relative 5.9 % LAB HEMETOLOGY METHOD 03/18/2025 10:29 AM [facility] Eosinophils Relative 3.0 % LAB HEMETOLOGY METHOD 03/18/2025 10:29 AM [facility] Basophils Relative 0.9 % LAB HEMETOLOGY METHOD 03/18/2025 10:29 AM [facility] Immature Granulocytes Relative 1.3 % LAB HEMETOLOGY METHOD 03/18/2025 10:29 AM [facility] Neutrophils Absolute 3.03 1.50 - 7.00 K/mcL LAB HEMETOLOGY METHOD 03/18/2025 10:29 AM [facility] Lymphocytes Absolute 1.76 1.00 - 5.00 K/mcL LAB HEMETOLOGY METHOD 03/18/2025 10:29 AM [facility] Monocytes Absolute 0.32 0.20 - 1.00 K/mcL LAB HEMETOLOGY METHOD 03/18/2025 10:29 AM EDT [facility] LAB Eosinophils Absolute 0.16 0.00 - 0.50 K/[facility] LAB HEMETOLOGY METHOD 03/18/2025 10:29 AM EDT [facility] LAB Basophils Absolute 0.05 0.00 - 0.20 K/[facility] LAB HEMETOLOGY METHOD 03/18/2025 10:29 AM EDT [facility] LAB Immature Granulocytes Absolute 0.07(H) 0.00 - 0.03 K/[facility] LAB HEMETOLOGY METHOD 03/18/2025 10:29 AM EDT [facility] LAB Blood Venous blood specimen / Unknown Venipuncture / Unknown 03/18/2025 7:00 AM EDT 03/18/2025 10:00 AM EDT Laura Gramajo SENIOR COMMUNICATIONS SPECIALIST LAB BLOOD ORDERABLES Final Resu lt Performing Organization Address City/[facility]/ZIP Co de Phone Number [facility] LAB [address] [place] [address], [place] [phone] * (ABNORMAL) Ammonia (03/18/2025 7:00 AM EDT) Ammonia 79(H) 11 - 35 mcmol/L LAB CHEMISTRY METHOD 03/18/2025 10:24 AM EDT [facility] Blood Venous blood specimen / Unknown Venipuncture / Unknown 03/18/2025 7:00 AM EDT 03/18/2025 10:00 AM EDT Laurarenu Gramajo SENIOR COMMUNICATIONS SPECIALIST LAB BLOOD ORDERABLES Final Resu lt Performing Organization Address City/[facility]/ZIP Co de Phone Number [facility] [address] [place] [address], [place] [phone] * Valproic acid level, total (03/18/2025 7:00 AM EDT) Valproic Acid, Total 73 50 - 100 mcg/mL LAB CHEMISTRY METHOD 03/18/2025 12:00 PM [facility] Blood Venous blood specimen / Unknown Venipuncture / Unknown 03/18/2025 7:00 AM EDT 03/18/2025 10:00 AM EDT us Lauraalistair Gramajo SENIOR COMMUNICATIONS SPECIALIST LAB BLOOD ORDERABLES Final Resu lt [facility] [address] [place] [address], * (ABNORMAL) Hepatic function panel (03/18/2025 7:00 AM EDT) Total Protein 6.5 6.0 - 8.0 g/dL LAB CHEMISTRY METHOD 03/18/2025 12:00 PM [facility] Albumin 3.3 3.2 - 5.0 g/dL LAB CHEMISTRY METHOD 03/18/2025 12:00 PM [facility] Total Bilirubin 0.3 0.0 - 1.4 mg/dL LAB CHEMISTRY METHOD 03/18/2025 12:00 PM [facility] Bilirubin, Direct <0.1 0.0 - 0.3 mg/dL LAB CHEMISTRY METHOD 03/18/2025 12:00 PM [facility] Comment:Hemolysis present Bilirubin, Indirect LAB CHEMISTRY METHOD 03/18/2025 12:00 PM [facility] Comment:Unable to calculate Indirect Bilirubin. ALT (SGPT) 28 10 - 60 unit/L LAB CHEMISTRY METHOD 03/18/2025 12:00 PM [facility] AST (SGOT) 24 10 - 42 unit/L LAB CHEMISTRY METHOD 03/18/2025 12:00 PM [facility] LAB Comment:Hemolysis present Alkaline Phosphatase 132(H) 42 - 121 unit/L LAB CHEMISTRY METHOD 03/18/2025 12:00 PM [facility] Blood Venous blood specimen / Unknown Venipuncture / Unknown 03/18/2025 7:00 AM EDT 03/18/2025 10:00 AM EDT us Laura Gramajo SENIOR COMMUNICATIONS SPECIALIST LAB BLOOD ORDERABLES Final Resu lt [facility] [address] [place] [address], documented in this encounter Visit Diagnoses Diagnosis Other continuous churn buttermaker (current) drug therapy documented in this encounter Additional Health Concerns Assessment Noted Time PHQ-9 Depression Total Score: 15 025 2:47 PM EDT documented as of this encounter Care Teams Health Services Manager Relationship Specialty Start Date End Date Fer Swanson MD [address] [place] [address] PCP - General Internal Medicine 06/01/24 documented as of this encounter
--- NOTE | 2025-04-30 03:48 | ED_ITS ---
HPI - General Adult General Chief complaint: Extremity Problem Stated complaint: left leg swollen/pain Time Seen by Provider: 04/30/25 03:46 Source: patient Limitations: no limitations History of Present Illness ED Provider: Katina Hastings PA-C HPI narrative: 49-year-old male with a history of diabetes, polysubstance abuse, bipolar, PTSD and housing and security, presents with left anterior mooney swelling and redness. Patient states he has developed increasing pain and swelling at the site, unclear duration of symptoms. Denies known fever. Patient states he has been ?walking a lot?. No trauma to the area. No calf pain. Related Data Home Medications ?Medication ?Instructions ?Recorded ?Confirmed buprenorphine 8 mg-naloxone 2 mg 1 film sublingual TID 01/13/25 01/13/25 sublingual film (Suboxone) bupropion HCl 150 mg 24 hr tablet, 150 mg PO QAM 01/1301/13/25 extended release divalproex 500 mg tablet,delayed 1,000 mg PO BEDTIME 0 01/13/25 01/13/25 release divalproex 500 mg tablet,delayed 500 mg PO DAILY 01/1301/13/25 release fluticasone furoate 100 1 ea inhalation DAILY 01/13/25 mcg-vilanterol 25 mcg/dose inhalation powder (Breo Ellipta) gabapentin 300 mg capsule 300 mg PO BEDTIME 01/13/25 0 01/13/25 glipizide 5 mg tablet, extended 5 mg PO BID 01/13/25 0 01/13/25 release 24 hr quetiapine 100 mg tablet 100 mg PO QAM 01/13/2501/13 quetiapine 50 mg tablet 50 mg PO BID 01/13/25 topiramate 50 mg tablet 50 mg PO BID 01/13/25 Previous Rx's ?Medication ?Instructions ?Recorded amlodipine 5 mg tablet 5 mg PO DAILY 30 days #30 ta bs 06/18/24 baclofen 10 mg tablet 10 mg PO BID 30 days #60 tab s 06/18/24 clonidine HCl 0.2 mg tablet 0.2 mg PO BID 30 days #60 tabs 06/18/24 hydroxyzine HCl 25 mg tablet 25 mg PO Q6H PRN Anxiety 30 days 06/18/24 #90 tabs metformin 1,000 mg tablet 1,000 mg PO BIDWMEAL 30 days #60 06/18/24 tabs nicotine (polacrilex) 4 mg gum 4 mg buccal Q2H PRN Yaron otine 06/18/24 Cravings 30 days #100 ea nicotine 21 mg/24 hr daily 21 mg transdermal DAILY PRN 06/18/24 transdermal patch smoking cessation 28 days #2 8 ea prazosin 2 mg capsule 2 mg PO BEDTIME 30 days #30 caps 06/18/24 quetiapine 400 mg tablet 400 mg PO BEDTIME 30 days #3 0 tabs 06/18/24 doxycycline hyclate 100 mg capsule 100 mg PO BID #13 c aps 04/30/25 Allergies Allergy/AdvReac Type Severity Reaction Status Date / Time No Known Allergies Allergy Verified 04/30/25 03:24 Review of Systems 2 Review of Systems: Yes all other systems are reviewed and are negative Constitutional: Constitutional: Denies fatigue and Denies fever(s) Musculoskeletal: Musculoskeletal: Denies arthralgias and Denies joint swelling Integumentary/Breasts: Skin/Breast: Reports erythema, Reports skin swelling, Denies skin ulcer, Denies sores and Denies wounds Endocrine: Endocrine: Denies fatigue PMFSH Past Medical History Attestation statement: The following information was validated with the patient. Medical History (Updated 04/30/25 @ 04:36 by VIPIN Michelle) Substance use disorder Homeless Opioid use disorder Cocaine use disorder PTSD (post-traumatic stress disorder) Social History Social History Household Members: None Housing: Homeless Do you presently have visiting nurse or other home services: No Alcohol intake: current Alcohol intake frequency: a few times a week Alcohol type: beer Patient Tobacco Use Status: Current everyday Tobacco user Tobacco use type: Cigarette Cigarette Packs Per Day: 1 Cigarettes Per Day: 20.0 Years Smoked: 25 e-Cigarette/Vaping Use: Currently Using Second Hand Smoke Exposure: Yes Substance Use Type: Crack/Cocaine Advance Directives: No Advance Directives Information Provided: Yes service: No Sexual orientation: Unable to collect Physical Exam ED Vital Signs: Vital Signs - 24 hr 04/30/25 03:20 Temperature 97.9 F Pulse Rate 88 Respiratory Rate 18 Blood Pressure 146/85 H Pulse Oximetry 95 Oxygen Delivery Method Room Air BMI result Body Mass Index 26.6 Const Other: Alert well-appearing Orientation/consciousness: patient oriented x3 Resp Effort & Inspection: normal respiratory effort Cardio Other: Normal peripheral perfusion Skin Other: Warm dry no rash Neuro General: patient oriented x3, gait normal, no focal motor deficits and CN's II- XI intact bilaterally Extrem Other: Focal area of erythema, swelling and warmth noted over distal anterior mooney it is not circumferential, tender to touch Psych Other: Cooperative Medical Decision Making Medical Decision Making [facility] Narrative: 49-year-old male with a history of diabetes, polysubstance abuse, bipolar, PTSD and housing and security, presents with left anterior mooney swelling and redness. Patient states he has developed increasing pain and swelling at the site, unclear duration of symptoms. Denies known fever. Patient states he has been ?walking a lot?. No trauma to the area. No calf pain. Problem: Psychiatric illness, polysubstance abuse, housing and security, diabetes History: Per patient I have considered the following differential diagnoses: Cellulitis, purulent cellulitis, abscess, fracture, dislocation, DVT Plan: Patient has a very focal area of cellulitis, I do not see track dang in the area, there was no region of fluctuance to suggest an abscess, no open wound or sore. He does not require imaging, there was no trauma, this is not fracture or dislocation. I also do not think this is DVT, the swelling and redness is very focal to the anterior moonye. We will screen basic labs with inflammatory markers we will start on antibiotics. I have independently reviewed the following tests: Labs: No leukocytosis, not anemic, no electrolyte abnormality, C-reactive protein 0.67, ESR pending, Differential Diagnosis Differential Diagnoses: The differential diagnosis associated with the presentation includes See medical decision-making Admission/Observation Consideration of admission/observation: Escalation of care including admission/observation considered Not applicable Lab Data [facility] Lab Attestation statement: I reviewed the patient's lab results. 04/30/25 04:07 04/30/25 04:07 Labs: Lab Results 04/30/25 Range/Units 04:07 WBC 8.2 (4.8-10.8) X10*3/uL RBC 4.62 (4.60-5.80) X10*6/uL Hgb 14.1 (14.0-18.0) g/dl Hct 40.4 L (42.0-52.0) % MCV 87.4 (80.0-98.0) fL MCH 30.5 (27.0-33.0) pg MCHC 34.9 (31.0-36.0) g/dl RDW 14.5 (11.0-16.0) % Plt Count 224 (160-400) X10*3/uL MPV 10.8 (9.4-12.4) fL Immature Gran % (Auto) 0.4 (0.0-0.4) % Neut % (Auto) 71.1 (45-73) % Lymph % (Auto) 22.8 (20-40) % Clayton % (Auto) 4.7 (2-11) % Eos % (Auto) 0.4 (0-4) % Baso % (Auto) 0.6 (0-2) % Lymph # (Auto) 1.9 (1.2-4.9) X10*3/uL Clayton # (Auto) 0.4 (0.1-1.2) X10*3/uL Eos # (Auto) 0.0 (0.0-0.4) X10*3/uL Baso # (Auto) 0.1 (0.0-0.2) X10*3/uL Abs Immat Gran (auto) 0.03 (0.00-0.03) X10*3/uL Absolute Neuts (auto) 5.8 (2.0-8.3) x10*3/uL Absolute Nucleated RBC 0.000 (0.0-0.012) X10*3/uL Nucleated RBC % (auto) 0.0 (0.0-0.2) /100WBC Sodium 137 (135-145) mmol/L Potassium 3.8 (3.3-5.1) mmol/L Chloride 105 (96-108) mmol/L Carbon Dioxide 20 L (22-29) mmol/L Anion Gap 16 (12-20) BUN 12 (9-16) mg/dL Creatinine 0.67 (0.5-1.4) mg/dL Estim Creat Clear Calc 130.4 Estimated GFR > 60 Random Glucose 107 (60-115) mg/dL Calcium 8.9 (8.4-10.2) mg/dL Magnesium 1.9 (1.6-2.6) mg/dL C-Reactive Protein 0.67 H (< or = 0.50) mg/dL Discharge Plan Discharge Clinical Impression: Cellulitis of left lower leg Patient Disposition: Home, Self-Care Instructions: Cellulitis (ED) Additional Instructions: All of your screening labs were essentially normal, we are treating you for suspect early cellulitis. See home care instructions. Take the doxycycline as directed, follow up with your primary care. Prescriptions: New doxycycline hyclate 100 mg capsule 100 mg PO BID Qty: 13 0RF No Action baclofen 10 mg Tablet 10 mg PO BID 30 Days Qty: 60 1RF nicotine 21 mg/24 hr Patch 24 Hour 21 mg transdermal DAILY PRN (Reason: smoking cessation) 28 Days Qty: 28 1RF Rx Instructions: remove at bedtime hydroxyzine HCl 25 mg Tablet 25 mg PO Q6H PRN (Reason: Anxiety) 30 Days Qty: 90 1RF amlodipine 5 mg tablet 5 mg PO DAILY 30 Days Qty: 30 1RF clonidine HCl 0.2 mg Tablet 0.2 mg PO BID 30 Days Qty: 60 1RF nicotine (polacrilex) 4 mg Gum 4 mg BUCCAL Q2H PRN (Reason: Nicotine Cravings) 30 Days Qty: 100 1RF metformin 1,000 mg tablet 1,000 mg PO BIDWMEAL 30 Days Qty: 60 1RF prazosin 2 mg capsule 2 mg PO BEDTIME 30 Days Qty: 30 1RF quetiapine 400 mg tablet 400 mg PO BEDTIME 30 Days Qty: 30 1RF buprenorphine-naloxone [Suboxone] 8-2 mg film 1 film sublingual TID fluticasone furoate-vilanterol [Breo Ellipta] 100-25 mcg/dose blister with device 1 ea inhalation DAILY bupropion HCl 150 mg tablet extended release 24 hr 150 mg PO QAM divalproex 500 mg tablet,delayed release (DR/EC) 500 mg PO DAILY gabapentin 300 mg capsule 300 mg PO BEDTIME glipizide 5 mg tablet extended release 24hr 5 mg PO BID topiramate 50 mg tablet 50 mg PO BID quetiapine 100 mg tablet 100 mg PO QAM quetiapine 50 mg tablet 50 mg PO BID Rx Instructions: takes at 1200 and 1800 divalproex 500 mg tablet,delayed release (DR/EC) 1,000 mg PO BEDTIME Print Language: Telugu
[2025-04-30 04:12] LABS: MANUAL DIFF FLAG NO
[2025-04-30 04:19] LABS: Hematocrit 40.4 % (42.0-52.0); Hemoglobin 14.1 g/dl (14.0-18.0); Imm Gran Abs Auto 0.03 X10*3/uL (0.00-0.03); Imm Gran Pct Auto 0.4 % (0.0-0.4); Lymphocytes Absolute Auto 1.9 X10*3/uL (1.2-4.9); Mean Corpuscular HGB Conc 34.9 g/dl (31.0-36.0); Mean Corpuscular Hemoglobin 30.5 pg (27.0-33.0); Mean Corpuscular Volume 87.4 fL (80.0-98.0); NRBC Abs Auto 0.000 X10*3/uL (0.0-0.012); NRBC Pct Auto 0.0 /100WBC (0.0-0.2); Platelet Count 224 X10*3/uL (160-400); Red Blood Count 4.62 X10*6/uL (4.60-5.80); White Blood Count 8.2 X10*3/uL (4.8-10.8)
[2025-04-30 04:27] LABS: Anion Gap 16 (12-20); Blood Urea Nitrogen 12 mg/dL (9-16); Calcium 8.9 mg/dL (8.4-10.2); Carbon Dioxide 20 mmol/L (22-29); Chloride 105 mmol/L (96-108); Creatinine Clr Calc Pharmacy 130.4; Estimated Glomerular Filt Rate > 60; Magnesium 1.9 mg/dL (1.6-2.6); Potassium 3.8 mmol/L (3.3-5.1); Sodium 137 mmol/L (135-145)
[2025-04-30 05:01] LABS: Erythrocyte Sedimentation Rate 2 MM/HR (0-15)
[2025-04-30 05:03] VITALS: BP 146/85; PULSE 88; RESP 18; TEMP 36.6; O2SAT 95
== END 2025-04-30 05:04 | disposition home or self-care (01) ==
PROVIDERS: Physician Assistant Medical; Emergency Provider Emergency Medicine; PCP Internal Medicine
DX: L03.116 Cellulitis of left lower limb (principal); E11.9 Type 2 diabetes mellitus without complications; Z59.02 Unsheltered homelessness
CPT/HCPCS: 36415; 80048; 83735; 85025; 85652; 86140; 99283; 99284

== ENCOUNTER 2025-05-02 22:05 | Emergency (ER) | payer OTHER, SELFPAY | END 2025-05-02 22:39 | disposition left against medical advice (07) | PROVIDERS: Emergency Provider Emergency Medicine | DX: M25.569 Pain in unspecified knee (principal) ==

== ENCOUNTER 2025-05-03 00:30 | Emergency (ER) | payer OTHER, SELFPAY ==
[2025-05-03 00:33] VITALS: BP 156/86; PULSE 80; RESP 20; TEMP 36.1; O2SAT 98; BMI 27.3
[2025-05-03 00:55] LABS: Hematocrit 42.3 % (42.0-52.0); Hemoglobin 14.7 g/dl (14.0-18.0); Imm Gran Abs Auto 0.02 X10*3/uL (0.00-0.03); Imm Gran Pct Auto 0.2 % (0.0-0.4); Lymphocytes Absolute Auto 2.3 X10*3/uL (1.2-4.9); MANUAL DIFF FLAG NO; Mean Corpuscular HGB Conc 34.8 g/dl (31.0-36.0); Mean Corpuscular Hemoglobin 30.4 pg (27.0-33.0); Mean Corpuscular Volume 87.6 fL (80.0-98.0); NRBC Abs Auto 0.000 X10*3/uL (0.0-0.012); NRBC Pct Auto 0.0 /100WBC (0.0-0.2); Platelet Count 264 X10*3/uL (160-400); Red Blood Count 4.83 X10*6/uL (4.60-5.80); White Blood Count 10.8 X10*3/uL (4.8-10.8)
[2025-05-03 01:09] LABS: Alanine Aminotransferase 23 U/L (0-40); Albumin Level 4.4 g/dL (3.5-5.0); Alkaline Phosphatase 120 U/L (39-117); Anion Gap 13 (12-20); Aspartate Amino Transferase 26 U/L (5-37); Blood Urea Nitrogen 11 mg/dL (9-16); Calcium 9.1 mg/dL (8.4-10.2); Carbon Dioxide 21 mmol/L (22-29); Chloride 108 mmol/L (96-108); Creatinine Clr Calc Pharmacy 116.5; Estimated Glomerular Filt Rate > 60; Potassium 3.9 mmol/L (3.3-5.1); Sodium 138 mmol/L (135-145); Total Protein 6.8 g/dL (6.5-8.0)
--- NOTE | 2025-05-03 02:05 | PC.NURSE ---
pt provided food per request. pt was resting comfortably, then got agitated that a provider had not seen him yet and he was in pain. this RN offered tylenol or ibuprofen. pt refused. encouraged pt to stay to see provider for pain or get help with detox as requested. pt states i don't want detox, im in pain pt then walked out of ED.
== END 2025-05-03 02:09 | disposition left against medical advice (07) ==
PROVIDERS: Emergency Provider Emergency Medicine
DX: M79.672 Pain in left foot (principal); M79.671 Pain in right foot
CPT/HCPCS: 36415; 80053; 85025; 99281

== ENCOUNTER 2025-05-26 18:52 | Emergency (ER) | payer OTHER, SELFPAY ==
--- OUTSIDE RECORDS SUMMARY | 2025-05-22 18:59 | XMS_ITS | Encounter Summary ---
Author Organization [facility] Address [address] [place] [address] Care Team Providers Care Scalder Name Role Phone Fer Swanson MD Primary Care Provider Reason for Visit * Reason Comments Abdominal Pain Encounter Details Date Type Department Care Team ([facility] Contact Info) Description 05/22/2025 6:59 PM EST - 05/22/2025 10:45 PM EST Emergency [facility] Emergency [address] [place] [id number] Kobe Baker MD [address] [place] [address] Encounter for assessment of STD exposure (Primary Dx) Discharge Disposition: Home or Self Care Social History Tobacco Use Types Packs/Day Years [...] AM EDT documented as of this encounter Last Filed Vital Signs Vital Sign Reading Time Taken Comments Blood Pressure 133/69 05/22/2025 7:14 PM EST Pulse 81 05/22/2025 7:14 PM EST Temperature 36.8 C (98.3 F) 05/22/2025 7:14 PM EST Respiratory Rate 18 05/22/2025 7:14 PM EST Oxygen Saturation 97% 05/22/2025 7:14 PM EST Inhaled Oxygen Concentration - - Weight 77.1 kg (170 lb) 05/22/2025 7:20 PM EST Height 175.3 cm (5' 9 ) 05/22/2025 7:20 PM EST Body Mass Index 25.1 05/22/2025 7:20 PM EST documented in this encounter Functional Status * Are you deaf or do you have serious difficulty hearing? Answer Date of Assessment Author No 05/22/2025 7:20 PM EST Cinthia Horner RN * Are you blind or do you have serious difficulty seeing, even when wearing glasses? Answer Date of Assessment Author No 05/22/2025 7:20 PM Cinthia Seo RN * Do you have serious difficulty walking or climbing stairs? Answer Date of Assessment Author No 05/22/2025 7:20 PM Cinthia Seo RN * Do you have serious difficulty dressing or bathing? Answer Date of Assessment Author No 05/22/2025 7:20 PM Cinthia Seo RN * Because of a physical, mental, or emotional condition, do you have serious difficulty doing errandsalone such as visiting the doctor? Answer Date of Assessment Author No 05/22/2025 7:20 PM Cinthia Seo RN * Calculated C-SSRS Risk Score (Lifetime/Recent) Answer Date of Assessment Author No Risk Indicated 05/22/2025 7:21 PM EST Cinthia Salazar RN * [place]lette Suicide Severity Rating Scale (Screener/Recent Self-Report) Question Answer Date of Assessment Author 1. Wish to be (Past 1 Month) No 05/22/2025 7:21 PM Cinthia Seo RN 2. Non-Specific Active Suici dora Thoughts (Past 1 Month) No 05/22/2025 7:21 PM Italia Seo RN 6. Suicidal Behavior (Lifetime) No 7:21 PM Cinthia Seo RN documented as of this encounter Mental Status * Because of a physical, mental, or emotional condition, do you have serious difficulty concentrating, remembering, or making decisions? (5 years old or older) Answer Entry Date Author No 05/22/2025 7:20 PM EST Cinthia Horner RN documented in this encounter Discharge Instructions * Discharge Instructions* Kobe Baker MD - 05/22/2025 8:42 PM EST Follow up on MyChart and primary care doctor for the results of your syphilis test. documented in this encounter Medications at Time of Discharge amLODIPine (NORVASC) 5 mg tablet Take 1 tablet (5 mg total) by mouth 1 (one) time each day. 90 each 1 11/09/2024 baclofen (LIORESAL) 10 mg tablet Take 1 tablet (10 mg total) by mouth 2 (two) times a day. bisacodyL (DULCOLAX) 5 mg EC tablet Take 2 tablets by mouth right before beginning bowel prep. See instructions provided by the office 2 tablet 01/18/2025 blood sugar diagnostic (FreeStyle Lite Strips) test stripIndication s:Type 2 diabetes mellitus with hyperglycemia, with long-term current use of insulin (CMS/HCC V24, CMS/HCC V28) Use to test blood sugar daily 100 each 3 11/11/2024 6 Breo Ellipta 100-25 mcg/dose inhaler Inhale 1 puff by mouth 1 (one) time each day. 1 each 2 11/09/2024 buprenorphine-n aloxone (Suboxone) 8-2 mg [address] film [address] 2 films under the tongue 3 (three) times a day. After the medication is completely dissolved, take a large sip of water, swish it around teeth and gums, and swallow. Wait at least 1 hour before brushing teeth to avoid damage to your teeth. buPROPion XL (WELLBUTRIN XL) 150 mg 24 hr tablet Take 1 tablet (150 mg total) by mouth 1 (one) time each day. Do not crush, chew, or split. cloNIDine (CATAPRES) 0.2 mg tablet Take 1 tablet (0.2 mg total) by mouth 2 (two) times a day. divalproex (DEPAKOTE) [address] tablet Take 1 tablet (500 mg total) by mouth See administration instructions. Do not crush, chew, or split.1 tab in morning and 2 tab in evening FreeStyle Lancets 28 gauge lancetsIndicati ons:Type 2 diabetes mellitus with hyperglycemia, with long-term current use of insulin ([facility] V24, [facility] V28) Use to test blood sugar daily 100 each 3 11/11/2024 6 FreeStyle Lite Meter monitoring kitIndications: Type 2 diabetes mellitus with hyperglycemia, with long-term current use of insulin ([facility] V24, [facility] V28) 1 each 1 (one) time each day. Use to test blood sugar daily 1 each 11/11/2024 gabapentin (NEURONTIN) 300 mg capsule Take 1 capsule (300 mg total) by mouth 1 (one) time each day. glipiZIDE (Glucotrol XL) 5 mg 24 hr tablet Take 1 tablet (5 mg total) by mouth 2 (two) times a day with meals. Do not crush, chew, or split. 180 each 1 11/10/2024 hydrOXYzine HCL (ATARAX) 50 mg tablet 1 tablet (50 mg total). lisinopriL (PRINIVIL,ZESTR IL) 10 mg tablet Take 1 tablet (10 mg total) by mouth 1 (one) time each day. metFORMIN (GLUCOPHAGE) 1,000 mg tablet Take 1 tablet (1,000 mg total) by mouth 2 (two) times a day with meals. 180 each 1 11/09/2024 nicotine (NICODERM CQ) 21 mg/[address] 1 patch on the skin 1 (one) time each day at the same time. nicotine polacrilex (NICORETTE) [address] 1 each (4 mg total) into mouth between cheek and gum every 2 (two) hours if needed for smoking cessation. polyethylene glycol (Golytely) 236-22.74-6.74 -5.86 gram solution Take 4L by mouth once for one dose. May substitue any PEG. Starting at 2PM the day before your procedure drink 1 8oz glasses at your own pace until you complete half of the gallon. Finish 2nd half of the gallon at 8PM. 4000 mL 01/18/2025 prazosin (MINIPRESS) 2 mg capsule Take 1 capsule (2 mg total) by mouth at bedtime. QUEtiapine (SEROquel) 100 mg tablet Take 1 tablet (100 mg total) by mouth 1 (one) time each day in the morning. QUEtiapine (SEROquel) 400 mg tablet Take 1 tablet (400 mg total) by mouth at bedtime. QUEtiapine (SEROquel) 50 mg tablet Take 1 tablet (50 mg total) by mouth 2 (two) times a day. topiramate (TOPAMAX SPRINKLE) 25 mg capsule Take 1 capsule (25 mg total) by mouth 2 (two) times a day. Do not crush or chew. Ventolin HFA 90 mcg/actuation inhaler INHALE 2 PUFFS BY MOUTH EVERY 6 HOURS NEEDED FOR WHEEZE OR FOR SHORTNESS OF BREATH 18 each 12/28/2024 documented as of this encounter Discharge Disposition Disposition Code Departure Means Destination Comment s Home or Self Long-Term documented in this encounter Progress Notes * Cinthia Horner RN - 05/22/2025 10:36 PM EST Security at bedside. PT given lyft ride home. PT given clothes from donation closet. * Cinthia Horner RN - 05/22/2025 10:00 PM EST Provider endorses these are chronic issues that require appropriate follow with pcp and medication compliance. Pt to be d/c'd. Security to be involved if needed d/t pt agitation. * Cinthia Horner RN - 05/22/2025 9:49 PM EST PT given food and drink at this time. Attempted to d/c pt as well. PT becomes agitated and irritable. Pt states he cannot walk d/t pins and needles in his feet and hands. PT endorses an injury to left shoulder 5 years ago, stating he did not follow through with referred surgical intervention at that time because it wasn't hurting then . PT states he has decreased ROM to left arm d/t shoulder pain r/t said injury 5 years ago. PT educated on importance of medication compliance, [facility] so he cannot get results from lab testing today. He cannot make calls to PCP. PT educated on shelters in the area, pt stated that shelters cause him PTSD and someone would get hurt so he does not go to them. Pt educated on appropriate use of Emergency department. Provider in department to be made aware. * Kiera Quintero RN - 05/22/2025 7:02 PM EST Homeless BIBA for abd pain, vomiting, and left foot pain that started yesterday. Recent diagnosis of cellulitis to left foot that was improving but got re- agitated when he hit his foot on a piece of furniture yesterday. * Kobe Baker MD - 05/22/2025 6:55 PM EST HPI Chief Complaint Patient presents with Abdominal Pain 49-year-old male presents with abdominal pain, vomiting, and left foot pain that began yesterday. He has a recent diagnosis of left foot cellulitis, which had been improving but was re-aggravated yesterday after striking his foot on a piece of furniture. Past medical history includes anxiety, bipolar I disorder, depression, hypertension, post-traumatic stress disorder, substance abuse, and type 2diabetes mellitus. Patient denies other symptoms. Self-transport. History provided by: Patient Skipwith Coma Scale Score: 15 Patient History Medical History[1] Surgical History[2] Family History[3] Social History Tobacco Use Smoking status: Every Day Current packs/day: 1.00 Average packs/day: 1 pack/day for 20.0 years (20.0 ttl pk-yrs) Types: Cigarettes Smokeless tobacco: Never Substance Use Topics Alcohol use: Not Currently Drug use: Not on file Comment: history of crack cocaine, marijuana, Review of Systems Review of Systems Physical Exam ED Triage Vitals [05/22/25 1914] Temp Heart Rate Resp BP 36.8 ??C (98.3 ??F) 81 18 133/69 SpO2 Temp Source Heart Rate Source Patient Position 97 % Oral Monitor Sitting BP Location FiO2 (%) Left arm -- Physical Exam Vitals and nursing note reviewed. Constitutional: Appearance: Normal appearance. HENT: Head: Normocephalic and atraumatic. Nose: Nose normal. Mouth/Throat: Mouth: Mucous membranes are moist. Eyes: Extraocular Movements: Extraocular movements intact. Conjunctiva/sclera: Conjunctivae normal. Pupils: Pupils are equal, round, and reactive to light. Cardiovascular: Rate and Rhythm: Normal rate. Pulses: Normal pulses. Pulmonary: Effort: Pulmonary effort is normal. Abdominal: General: Abdomen is flat. Palpations: Abdomen is soft. Musculoskeletal: General: Normal range of motion. Cervical back: Normal range of motion. Skin: General: Skin is warm and dry. Capillary Refill: Capillary refill takes less than 2 seconds. Neurological: General: No focal deficit present. Mental Status: He is alert. Mental status is at baseline. Psychiatric: Mood and Affect: Mood normal. Behavior: Behavior normal. ED Course & MDM Clinical Impressions as of 05/23/25137 Encounter for assessment of STD exposure Medical Decision Making 49-year-old male, history of homelessness, is evaluated with chief complaints of requesting syphilis test. Patient reports that he needs syphilis testing to return to a [facility] house. This was obtained and he will be discharged and told to follow-up with his lab results on [facility]. Patient otherwise denies any acute medical complaints. Will plan for discharge to home and follow-up as needed outpatient. Problems Addressed: Encounter for assessment of STD exposure: acute illness or injury Procedures [1] Past Medical History: Diagnosis Date Anxiety Bipolar 1 disorder (CMS/HCC V24, CMS/HCC V28) Depression HTN (hypertension) PTSD (post-traumatic stress disorder) Substance abuse ([facility] V24, [facility] V28) Type 2 diabetes mellitus (CMS/HCC V24, CMS/[facility] V28) [2] Past Surgical History: Procedure Laterality Date NO PAST SURGERIES [3] Family History Problem Relation Name Age of Onset COPD Mother Cirrhosis Father Kobe Baker MD 05/23/25 013 documented in this encounter Plan of Treatment Not on file documented as of this encounter Procedures Procedure Name Priority Date/Time Associated Diagnosis Comments HIV 1, 2 ANTIBODY, P24 ANTIGEN WITH REFLEX TO DIFFERENTIATION STAT 05/22/2025 9:14 PM EST TREPONEMA PALLIDUM ANTIBODY WITH REFLEX TO RPR AND PARTICLE AGGLUTINATION STAT 05/22/2025 9:14 PM EST POCT GLUCOSE BLOOD Routine 05/22/2025 7: 36 PM EST documented in this encounter Results * HIV 1,2 antibody, p24 antigen with reflex to differentiation (05/22/2025 9:14 PM EST) HIV Combo AB/AG Negative Negative 05/22/2025 10:24 PM EST [facility] Blood Venous blood specimen / Unknown Venipuncture / Unknown 05/22/2025 9:14 PM EST 05/22/2025 9:23 PM EST Narrative [facility] - 05/22/2025 10:24 PM EST This assay is a 4th generation assay allowing for earlier detection of HIV infection by detecting the presence of the HIV-1 p24 antigen as well as the traditional antibodies to HIV type 1 (including group O) and type 2. Use of a 4th generation assay is the current CDC recommendation for HIV screening. us Kobe Baker MD LAB BLOOD ORDERABLES Final Resul t [facility] [address] [place] [address], * Treponema pallidum antibody with reflex to RPR and particle agglutination (05/22/2025 9:14 PM EST) T. Pallidum Antibodies Negative Negative 05/22/2025 10:13 PM EST [facility] Blood Venous blood specimen / Unknown Venipuncture / Unknown 05/22/2025 9:14 PM EST 05/22/2025 9:23 PM EST us Kobe Baker MD LAB BLOOD ORDERABLES Final Resul t Performing Organization Address City/[facility]/ZIP Co de Phone Number [facility] [address] [place] [address], [place] [phone] * (ABNORMAL) POCT Glucose, blood (05/22/2025 7:36 PM EST) [facility] Glucose POCT 229(H) 70 - 100 mg/dL 05/22/2025 7:36 PM EST [facility] Blood Capillary blood specimen / Unknown 05/22/2025 7:36 PM EST 05/22/2025 7:37 PM EST us Generic Provider Poct LAB POINT OF CARE TEST DOCKED DEVICE UNSOLICITED RESULTS Final Result Performing Organization Address City/[facility]/ZIP Co de Phone Number [facility] [address] [place] [address], [place] [phone] documented in this encounter Visit Diagnoses Diagnosis Encounter for assessment of STD exposure- Primary documented in this encounter Additional Health Concerns Assessment Noted Time PHQ-9 Depression Total Score: 15 12/10/ 025 2:47 PM EDT documented as of this encounter Care Teams Scalder Relationship Specialty Start Date End Date Fer Swanson MD [address] [place] [address] PCP - General Internal Medicine 06/01/24 documented as of this encounter
[2025-05-26 19:11] VITALS: BMI 25.1
[2025-05-26 19:28] VITALS: BP 161/89; PULSE 84; RESP 16; TEMP 36.6; O2SAT 100
[2025-05-26 19:43] LABS: MANUAL DIFF FLAG NO
[2025-05-26 19:46] LABS: Hematocrit 45.4 % (42.0-52.0); Hemoglobin 15.5 g/dl (14.0-18.0); Imm Gran Abs Auto 0.03 X10*3/uL (0.00-0.03); Imm Gran Pct Auto 0.3 % (0.0-0.4); Lymphocytes Absolute Auto 3.7 X10*3/uL (1.2-4.9); Mean Corpuscular HGB Conc 34.1 g/dl (31.0-36.0); Mean Corpuscular Hemoglobin 30.8 pg (27.0-33.0); Mean Corpuscular Volume 90.3 fL (80.0-98.0); NRBC Abs Auto 0.000 X10*3/uL (0.0-0.012); NRBC Pct Auto 0.0 /100WBC (0.0-0.2); Platelet Count 277 X10*3/uL (160-400); Red Blood Count 5.03 X10*6/uL (4.60-5.80); White Blood Count 9.5 X10*3/uL (4.8-10.8)
[2025-05-26 19:51] LABS: Appearance Urine Clear; Glucose Urine UA Negative (Negative); PH 6.0 (5.0-9.0); Specific Gravity - Urine <= 1.005 (1.005-1.025)
[2025-05-26 19:56] LABS: Cannabinoid Screen Urine Not Detected (Not Detect)
[2025-05-26 19:57] LABS: Alanine Aminotransferase 20 U/L (0-40); Albumin Level 4.2 g/dL (3.5-5.0); Alkaline Phosphatase 186 U/L (39-117); Anion Gap 12 (12-20); Aspartate Amino Transferase 17 U/L (5-37); Blood Urea Nitrogen 13 mg/dL (9-16); Calcium 8.7 mg/dL (8.4-10.2); Carbon Dioxide 22 mmol/L (22-29); Chloride 114 mmol/L (96-108); Creatinine Clr Calc Pharmacy 124.8; Estimated Glomerular Filt Rate > 60; Potassium 3.5 mmol/L (3.3-5.1); Sodium 144 mmol/L (135-145); Total Protein 6.7 g/dL (6.5-8.0)
--- NOTE | 2025-05-26 20:07 | ED.PSYCH ---
HPI - Psych General Chief Complaint: Psychiatric Symptoms Stated Complaint: CRISIS Time Seen by Provider: 05/26/25 19:24 History of Present Illness ED Provider: Kay Nolan NP HPI Narrative: 49-year-old male medical history significant for homelessness and housing instability, opioid use disorder, cocaine use disorder, PTSD, bipolar 1 presents to the ED via EMS from [facility] for reporting suicidal statements and feeling hopeless. Patient reports he is currently living in a tent, has not taken his meds in months, he can not read the directions on pill bottles because they got wet. He also reports that he would like to hurt several people, but denies any active plan. He does not have any active suicidal ideation plan, but reports anger that the world has not taken him away yet, and he has not yet. No chest pain or pressure, shortness of breath, abdominal pain, urinary complaints. No fever, chills, recent illnesses. Related Data Home Medications ?Medication ?Instructions ?Recorded ?Confirmed baclofen 10 mg tablet 10 mg PO BID 05/27/25 05/27/25 bupropion HCl 150 mg 24 hr tablet, 150 mg PO QAM 05/27/25 05/27/25 extended release gabapentin 300 mg capsule 300 mg PO TID 05/27/25 05/27/25 prazosin 2 mg capsule 2 mg PO BEDTIME 05/27/25 05/27/25 quetiapine 200 mg tablet 200 mg PO BEDTIME PRN Insomnia 05/27/25 05/27/25 Allergies Allergy/AdvReac Type Severity Reaction Status Date / Time No Known Allergies Allergy Verified 05/26/25 19:13 Review of Systems Review of Systems: ROS is otherwise negative unless mentioned in HPI. [facility] Past Medical History Medical History (Updated 05/28/25 @ 00:01 by Nunu Ness) Substance use disorder Homeless Opioid use disorder Cocaine use disorder PTSD (post-traumatic stress disorder) Social History Social History Household Members: None Housing: Homeless Do you presently have visiting nurse or other home services: No Alcohol intake: current Alcohol intake frequency: does not drink Alcohol type: beer Patient Tobacco Use Status: Current everyday Tobacco user Tobacco use type: Cigarette Cigarette Packs Per Day: 1 Cigarettes Per Day: 20.0 Years Smoked: 25 e-Cigarette/Vaping Use: Currently Using Second Hand Smoke Exposure: Yes Substance Use Type: Crack/Cocaine Advance Directives: No Advance Directives Information Provided: No Do you have a plan to hurt others: No Plan service: No Sexual orientation: Unable to collect Physical Exam Exam: Exam: Nursing notes and vital signs reviewed. Constitutional: Well-appearing, NAD. Alert. Oriented X3. Eyes: EOMI. ENT: Pharynx normal. Neck: Normal inspection. Neck supple. Respiratory: No respiratory distress. Abdomen: Nondistended. Skin: Skin warm and dry. Normal skin color. Extremities: No lower extremity edema. Neuro: Oriented X 3. No motor deficit. Vital Signs: Vital Signs: Last Vital Signs Temp 98.2 F 05/27/25 12:36 Pulse 62 05/27/25 12:36 Resp 20 05/27/25 12:36 BP 152/78 H 05/27/25 12:36 Pulse Ox 98 05/27/25 12:36 O2 Del Method Room Air 05/27/25 04:24 BMI result Body Mass Index 25.1 Course Reevaluation(s) Reevaluation #1: Krogius: The patient was seen by the care team. The care team counselor felt the patient should be hospitalized and that a section 12 should be a should because the patient had made several statements suggesting risk to self or others. Apparently initially the patient seemed amenable to the idea of psychiatric hospitalization but the patient is subsequently became quite agitated and insisted on being discharged. Security was called and the patient for some time seems quite agitated and upset. The patient continued to state that if they were discharge they would try to do something to provoke someone to hurt them. It seemed clear to me that the patient required hospitalization and needed to be kept here on a section 12. I thought the patient would require restraints and sedation and I ordered intramuscular doses of olanzapine and midazolam but before these medications were given the security team had managed to deescalate the patient's agitation. The patient then spoke some more with the care team counselor and ultimately agreed to cooperate for a psychiatric bed search. 8:51 AM 05/27/2025 (Dr. Jose Hull): Time: 08:51 Date: 05/27/25 Provider: Jose Hull DO Physician observation ended. patient admitted inpatient level of care Time: 01:52 Medications Administered Discontinued Medications Generic Name Dose Route Start Last Admin Trade Name Concha PRN Reason Stop Dose Admin Diphenhydramine HCl 50 mg 05/26/25 21:39 05/26/25 23:43 Diphenhydramine Hcl 50 Mg/Ml Vial IM 05/26/25 21:40 Not Given ONCE ONE Midazolam HCl 5 mg 05/26/25 21:38 05/26/25 23:42 Midazolam Hcl 5 Mg/Ml Vial IM 05/26/25 21:39 Not Given ONCE ONE Olanzapine 10 mg 05/26/25 21:38 05/26/25 23:42 Olanzapine 10 Mg Vial IM 05/26/25 21:39 Not Given ONCE ONE Medical Decision Making Medical Decision Making MDM Narrative: 8:09 PM 05/26/2025 (Kay Nolan NP): Upon my initial assessment of this patient, he appears well, alert, oriented x3 answering questions appropriately. He does report passive suicidal and homicidal ideations. He has a history of opioid and cocaine use, PTSD, bipolar 1. He has not had his medications for several months because he reports that he is living in a tent, medications got wet, and he was unable to keep taking the medicines. His lab work is overall reassuring at this time. Plan for care team eval prior to dispo. Differential Diagnosis Differential Diagnoses: The differential diagnosis associated with the presentation includes Mental health crisis, SI, HI Admission/Observation Consideration of admission/observation: Escalation of care including admission/observation considered Consult Healthcare Provider Management of the patient was discussed with: Behavioral Health Provider Lab Data [facility] Lab Attestation statement: I reviewed the patient's lab results. (Reassuring overall.) 05/26/25 19:38 05/26/25 19:38 Labs: Lab Results 05/26/25 05/26/25 Range/Units 19:33 19:38 WBC 9.5 (4.8-10.8) X10*3/uL RBC 5.03 (4.60-5.80) X10*6/uL Hgb 15.5 (14.0-18.0) g/dl Hct 45.4 (42.0-52.0) % MCV 90.3 (80.0-98.0) fL MCH 30.8 (27.0-33.0) pg MCHC 34.1 (31.0-36.0) g/dl RDW 14.3 (11.0-16.0) % Plt Count 277 (160-400) X10*3/uL MPV 10.2 (9.4-12.4) fL Immature Gran % (Auto) 0.3 (0.0-0.4) % Neut % (Auto) 52.3 (45-73) % Lymph % (Auto) 38.6 (20-40) % Hockley % (Auto) 6.6 (2-11) % Eos % (Auto) 1.6 (0-4) % Baso % (Auto) 0.6 (0-2) % Lymph # (Auto) 3.7 (1.2-4.9) X10*3/uL [place]ley # (Auto) 0.6 (0.1-1.2) X10*3/uL Eos # (Auto) 0.2 (0.0-0.4) X10*3/uL Baso # (Auto) 0.1 (0.0-0.2) X10*3/uL Abs Immat Gran (auto) 0.03 (0.00-0.03) X10*3/uL Absolute Neuts (auto) 4.9 (2.0-8.3) x10*3/uL Absolute Nucleated RBC 0.000 (0.0-0.012) X10*3/uL Nucleated RBC % (auto) 0.0 (0.0-0.2) /100WBC Sodium 144 (135-145) mmol/L Potassium 3.5 (3.3-5.1) mmol/L Chloride 114 H (96-108) mmol/L Carbon Dioxide 22 (22-29) mmol/L Anion Gap 12 (12-20) BUN 13 (9-16) mg/dL Creatinine 0.70 (0.5-1.4) mg/dL Estim Creat Clear Calc 124.8 Estimated GFR > 60 Random Glucose 133 H (60-115) mg/dL Calcium 8.7 (8.4-10.2) mg/dL Total Bilirubin 0.2 (0.0-1.0) mg/dL AST 17 (5-37) U/L ALT 20 (0-40) U/L Alkaline Phosphatase 186 H (39-117) U/L Total Protein 6.7 (6.5-8.0) g/dL Albumin 4.2 (3.5-5.0) g/dL Urine Color Yellow Urine Appearance Clear Urine pH 6.0 (5.0-9.0) Ur Specific Berne <= 1.005 (1.005-1.025) Urine Protein Negative (Neg-Trace) mg/dL Urine Glucose (UA) Negative (Negative) mg/dL Urine Ketones Negative (Negative) mg/dL Urine Blood Negative (Negative) Urine Nitrite Negative (Negative) Ur Leukocyte Esterase Negative (Negative) Urine RBC 0-2 (0-2) /HPF Urine WBC 0-5 (0-5) /HPF Ur Squamous Epith Cells 0-2 (0-2) /HPF Urine Bacteria None Seen (None Seen) Hyaline Casts 0-2 (0-2) /LPF Urine Opiates Screen Not Detected (Not Detect) Ur Buprenorphine Scrn Not Detected (Not Detect) ng/mL Ur Oxycodone Screen Not Detected (Not Detect) ng/mL Urine Methadone Screen Not Detected (Not Detect) ng/mL Urine Fentanyl Screen Not Detected (Not Detect) Ur Barbiturates Screen Not Detected (Not Detect) Ur Phencyclidine Scrn Not Detected (Not Detect) Ur Amphetamines Screen Not Detected (Not Detect) U Benzodiazepines Scrn Not Detected (Not Detect) Urine Cocaine Screen POSITIVE H (Not Detect) U Marijuana (THC) Screen Not Detected (Not Detect) Independent Historian Clinical information obtained from an independent historian. History obtained from or confirmed by: EMS External Record Review External record reviewed: Other (Prior ER visits.) Chronic Conditions Patient?s care impacted by: Other (PTSD, bipolar) Social Determinants Patient?s care significantly limited by Social Determinants of Health including: Inadequate housing, Alcoholism and drug addiction in family, Problems related to primary support group and Problems related to employment Discharge Plan Discharge Clinical Impression: Depression, Suicidal ideation Patient Disposition: Xfer Acute Care Hospital Transfer Details: [facility] [address] [facility] for dual diagnosis treatment Additional Instructions: You were seen in our Emergency Department today for treatment of a behavioral health issue. It is important after your visit that you follow up with either your behavioral health provider or a primary care doctor within 7 days.? If you have trouble finding a therapist you can reach out to [address] [phone] The National Suicide and Crisis Lifeline can be reached 7 days a week 24 hours a day.? Call 988 to speak with someone.? Return for any worsening symptoms or concerns such as thoughts of self harm or harm to others. Please call 911 if you feel your mental health is worsening.? Prescriptions: No Action quetiapine 200 mg tablet 200 mg PO BEDTIME PRN (Reason: Insomnia) baclofen 10 mg tablet 10 mg PO BID gabapentin 300 mg capsule 300 mg PO TID prazosin 2 mg capsule 2 mg PO BEDTIME bupropion HCl 150 mg tablet extended release 24 hr 150 mg PO QAM Interventions: [place]-Suicide Risk Severity Scale Last Done: 05/26/25 19:21 Acute Care Transfer Worksheet (ED) Last Done: 05/27/25 12:36 Discharge Date/Time: 05/27/25 12:43 Print Language: Omani
--- NOTE | 2025-05-26 22:33 | PC.NURSE ---
Pt chose to sleep on the floor of his room, he was woken by the medical provider then seen by the care team, he stated to care team that he was in agreement with the plan. He within a half hour he came out of his room yelling and demanding to leave or for staff to rough him up and hurt him. He continues to yell and threaten security. MD came over to talk with patient, IM meds orderded and Pt became close to requiring restraint. Pt and security went to his room and Pt was able to calm down and listen to the care team re-explain the paln.
--- OUTSIDE RECORDS SUMMARY | 2025-05-26 23:47 | XMS_ITS | Encounter Summary ---
Author Organization [facility] Address [address] [place] [address] Care Team Providers Care Manager Lpn Name Role Phone Fer Swanson MD Primary Care Provider Encounter Details Date Type Department Care Team (Late st Contact Info) Description 03/18/2025 Lab Requisition [facility] - Main Lab [address] [place] [address] Laura Gramajo NP [address] [place] [address] Other director long term care (current) drug therapy Social History Tobacco Use [...] AM EDT Other assisted (current) drug therapy CBC AND DIFFERENTIAL Routine 03/18/2025 7:00 AM EDT Other assisted (current) drug therapy AMMONIA Routine 03/18/2025 7:00 AM EDT Other assisted (current) drug therapy VALPROIC ACID LEVEL, TOTAL Routine 03/18/2025 7:00 AM EDT Other director long term care (current) drug therapy HEPATIC FUNCTION PANEL Routine 03/18/2025 7:00 AM EDT Other director long term care (current) drug therapy documented in this encounter Results * (ABNORMAL) CBC auto differential (03/18/2025 7:00 AM EDT) [facility] WBC 5.4 4.8 - 10.8 K/mcL LAB HEMETOLOGY METHOD 03/18/2025 10:29 AM [facility] RBC 4.30(L) 4.50 - 5.50 M/mcL LAB HEMETOLOGY METHOD 03/18/2025 10:29 AM [facility] Hemoglobin 12.6(L) 13.5 - 17.5 g/dL LAB HEMETOLOGY METHOD 03/18/2025 10:29 AM [facility] Hematocrit 39.2(L) 42.0 - 54.0 % LAB HEMETOLOGY METHOD 03/18/2025 10:29 AM [facility] MCV 91.2 79.0 - 98.0 FL LAB HEMETOLOGY METHOD 03/18/2025 10:29 AM [facility] MCH 29.3 27.0 - 32.0 pcg LAB HEMETOLOGY METHOD 03/18/2025 10:29 AM [facility] MCHC 32.1 32.0 - 37.0 g/dL LAB HEMETOLOGY METHOD 03/18/2025 10:29 AM [facility] RDW 13.5 11.0 - 15.0 % LAB HEMETOLOGY METHOD 03/18/2025 10:29 AM [facility] Platelets 213 130 - 400 K/mcL LAB HEMETOLOGY METHOD 03/18/2025 10:29 AM [facility] MPV 10.6 7.0 - 11.0 FL LAB HEMETOLOGY METHOD 03/18/2025 10:29 AM [facility] NRBC 0.0 <1.0 % LAB HEMETOLOGY METHOD 03/18/2025 10:29 AM [facility] NRBC Absolute 0.00 <0.10 K/mcL LAB HEMETOLOGY METHOD 03/18/2025 10:29 AM [facility] Neutrophils Relative 56.2 % LAB HEMETOLOGY METHOD 03/18/2025 10:29 AM [facility] Lymphocytes Relative 32.7 % LAB HEMETOLOGY METHOD 03/18/2025 10:29 AM [facility] Monocytes Relative 5.9 % LAB HEMETOLOGY METHOD 03/18/2025 10:29 AM [facility] Eosinophils Relative 3.0 % LAB HEMETOLOGY METHOD 03/18/2025 10:29 AM [facility] Basophils Relative 0.9 % LAB HEMETOLOGY METHOD 03/18/2025 10:29 AM [facility] Immature Granulocytes Relative 1.3 % LAB HEMETOLOGY METHOD 03/18/2025 10:29 AM [facility] Neutrophils Absolute 3.03 1.50 - 7.00 K/mcL LAB HEMETOLOGY METHOD 03/18/2025 10:29 AM [facility] Lymphocytes Absolute 1.76 1.00 - 5.00 K/mcL LAB HEMETOLOGY METHOD 03/18/2025 10:29 AM [facility] Monocytes Absolute 0.32 0.20 - 1.00 K/mcL LAB HEMETOLOGY METHOD 03/18/2025 10:29 AM [facility] Eosinophils Absolute 0.16 0.00 - 0.50 K/[facility] LAB HEMETOLOGY METHOD 03/18/2025 10:29 AM EDT [facility] Basophils Absolute 0.05 0.00 - 0.20 K/[facility] LAB HEMETOLOGY METHOD 03/18/2025 10:29 AM EDT [facility] Immature Granulocytes Absolute 0.07(H) 0.00 - 0.03 K/[facility] LAB HEMETOLOGY METHOD 03/18/2025 10:29 AM EDT [facility] Blood Venous blood specimen / Unknown Venipuncture / Unknown 03/18/2025 7:00 AM EDT 03/18/2025 10:00 AM EDT Laura Gramajo [facility] LAB BLOOD ORDERABLES Final Resu lt Performing Organization Address City/[facility]/ZIP Co de Phone Number [facility] [address] [place] [address], [place] [phone] * (ABNORMAL) Ammonia (03/18/2025 7:00 AM EDT) Ammonia 79(H) 11 - 35 mcmol/L LAB CHEMISTRY METHOD 03/18/2025 10:24 AM EDT [facility] Blood Venous blood specimen / Unknown Venipuncture / Unknown 03/18/2025 7:00 AM EDT 03/18/2025 10:00 AM EDT Laura Avila [facility] LAB BLOOD ORDERABLES Final Resu lt [facility] [address] [place] [address], [place] [phone] * Valproic acid level, total (03/18/2025 7:00 AM EDT) Valproic Acid, Total 73 50 - 100 mcg/mL LAB CHEMISTRY METHOD 03/18/2025 12:00 PM [facility] Blood Venous blood specimen / Unknown Venipuncture / Unknown 03/18/2025 7:00 AM EDT 03/18/2025 10:00 AM EDT us Laura Gramajo [facility] LAB BLOOD ORDERABLES Final Resu lt [facility] [address] [place] [address], * (ABNORMAL) Hepatic function panel (03/18/2025 7:00 AM EDT) Total Protein 6.5 6.0 - 8.0 g/dL LAB CHEMISTRY METHOD 03/18/2025 12:00 PM [facility] Albumin 3.3 3.2 - 5.0 g/dL LAB CHEMISTRY METHOD 03/18/2025 12:00 PM [facility] Total Bilirubin 0.3 0.0 - 1.4 mg/dL LAB CHEMISTRY METHOD 03/18/2025 12:00 PM [facility] Bilirubin, Direct <0.1 0.0 - 0.3 mg/dL LAB CHEMISTRY METHOD 03/18/2025 12:00 PM [facility] Comment:Hemolysis present Bilirubin, Indirect LAB CHEMISTRY METHOD 03/18/2025 12:00 PM [facility] Comment:Unable to calculate Indirect Bilirubin. ALT (SGPT) 28 10 - 60 unit/L LAB CHEMISTRY METHOD 03/18/2025 12:00 PM [facility] AST (SGOT) 24 10 - 42 unit/L LAB CHEMISTRY METHOD 03/18/2025 12:00 PM [facility] Comment:Hemolysis present Alkaline Phosphatase 132(H) 42 - 121 unit/L LAB CHEMISTRY METHOD 03/18/2025 12:00 PM [facility] Blood Venous blood specimen / Unknown Venipuncture / Unknown 03/18/2025 7:00 AM EDT 03/18/2025 10:00 AM EDT us Laura Gramajo [facility] LAB BLOOD ORDERABLES Final Resu lt [facility] [address] [place] [address], documented in this encounter Visit Diagnoses Diagnosis Other director long term care (current) drug therapy documented in this encounter Additional Health Concerns Assessment Noted Time PHQ-9 Depression Total Score: 15 025 2:47 PM EDT documented as of this encounter Care Teams Manager Lpn Relationship Specialty Start Date End Date Fer Swanson MD [address] [place] [address] PCP - General Internal Medicine 06/01/24 documented as of this encounter
--- OUTSIDE RECORDS SUMMARY | 2025-05-26 23:47 | XMS_ITS | Clinical Summary ---
Author Organization [facility] Address [address] [place] [address] Care Team Providers Care Dietetics Teacher Name Role Phone Unavailable Primary Care Provider Unavailabl e Encounters Date Type Department Care Team Description 02/28/2025 Patient Outreach [facility] [address] [place] [phone] Zeb Damon Recovery Supports from Last 3 [...] patient's age to complete this topic Insurance ([facility])
--- OUTSIDE RECORDS SUMMARY | 2025-05-26 23:47 | XMS_ITS | Encounter Summary ---
Author Organization [facility] Address [address] [place] [address] Care Team Providers Care Contract Writer Name Role Phone Fer Swanson MD Primary Care Provider Encounter Details Date Type Department Care Team (Late st Contact Info) Description 03/18/2025 Lab Requisition [facility] - Main Lab [address] [place] [address] Laura Gramajo NP [address] [place] [address] Social History Tobacco Use Types Packs/Day Years [...] documented as of this encounter Care Teams Contract Writer Relationship Specialty Start Date End Date Fer Swanson MD [address] [place] [address] PCP - General Internal Medicine 06/01/24 documented as of this encounter
--- OUTSIDE RECORDS SUMMARY | 2025-05-26 23:47 | XMS_ITS | Clinical Summary ---
Author Organization [address] Address [address] [place] [address] Phone Care Team Providers Care [employer] Name Role Phone Fer Swanson MD Primary [...] hyperglycemia, with long-term current use of insulin ([facility] V24, [facility] V28) Use to test blood sugar daily 100 each 3 5 026 Active FreeStyle Lancets 28 gauge lancetsIndicat ions:Type 2 diabetes mellitus with hyperglycemia, with long-term current use of insulin ([facility] V24, [facility] V28) Use to test blood sugar daily [...] male 11/09/2024 Bipolar affective disorder, current episode mixe d 11/09/2024 Resolved Problems Problem Noted Date Diagnosed Date Resolved Date Polysubstance abuse 11/09/2024 01/25/20 25 Encounters Date Type Department Care Team Description 05/22/2025 6:59 PM EST - 05/22/2025 10:45 PM EST Emergency [facility] Emergency [address] [place] [address] Kobe Baker MD Encounter for assessment of STD exposure (Primary Dx) Discharge Disposition: Home or Self Care 03/18/2025 Lab Requisition [facility] - Main Lab [address] [place] [address] Laura Gramajo NP 03/18/2025 Lab Requisition [facility] - Main Lab [address] [place] [address] Laura Gramajo NP Other longterm (current) drug therapy 03/15/2025 2:36 PM EDT - 03/15/2025 8:46 PM EDT Emergency [facility] Emergency [address] [place] [address] Robert Miranda MD Corrado, Adam D, MD Polysubstance use disorder (Primary Dx); Mental health problem [facility]charge [facility]position[facility] Last 3 Months Immunizations Immunization Administration Dates Next Due Tdap Tetanus diptheria acell ular pertussis (Boostrix; Adacel) 7yo and older 01/24/2023 Surgical History Surgery Date Site/Laterality Comments NO PAST SURGERIES Medical History Medical History Date Comments Type 2 diabetes mellitus ([facility] V24, [facility] V 28) HTN (hypertension) Substance abuse ([facility] V24, [facility] V28) PTSD (post-traumatic stress disorder) Anxiety Depression Bipolar 1 disorder ([facility] V24, [facility] V28) Family History Medical History Relation Name [...] Orientation Straight 11/15/2024 10 :25 AM EDT Last Filed Vital Signs Vital Sign Reading [...] Mass Index 25.1 05/22/2025 7:20 PM EST Plan of Treatment Health Maintenance Due Date [...] Patients (1 - 1-dose 75+ series) 2048 Hepatitis C Screening Completed 11/10/2024 Depression Screening Completed 12/10/2024 HIV Screening Completed 05/22/2025, 11/10/2024 HIB Vaccines Aged Out No longer eligi [...] BLOOD Routine 05/22/2025 7: 36 PM EST CBC WITH AUTO DIFFERENTIAL Routine 03/18/2025 7:00 AM EDT Other terminal system operator (current) drug therapy AMMONIA Routine 03/18/2025 7:00 AM EDT Other terminal system operator (current) drug therapy VALPROIC ACID LEVEL, TOTAL Routine 03/18/2025 7:00 AM EDT Other terminal system operator (current) drug therapy HEPATIC FUNCTION PANEL Routine 7:00 AM EDT Other terminal system operator (current) drug therapy CBC AND DIFFERENTIAL Routine 03/18/2025 7:00 AM EDT Other terminal system operator (current) drug therapy CBC WITH AUTO DIFFERENTIAL STAT 03/15/2025 4:47 PM EDT SALICYLATE LEVEL STAT 03/15/2025 4:47 PM EDT ACETAMINOPHEN LEVEL STAT 03/15/2025 4 :47 PM EDT ETHANOL STAT 03/15/2025 4:47 PM EDT COMPREHENSIVE METABOLIC PANEL STAT 03/15/2025 4:47 PM EDT CBC AND DIFFERENTIAL STAT 03/15/2025 4:47 PM EDT METHADONE SCREEN, URINE STAT 03/15/20 25 3:20 PM EDT PHENCYCLIDINE, URINE STAT 03/15/2025 [...] hyperglycemia, with long-term current use of insulin ([facility] V24, [facility] V28) from Last 3 Months or Most Recently Relevant to Health Maintenance Results * HIV 1,2 antibody, p24 antigen [...] Final Resul t [facility] [address] [place] [address], * Treponema pallidum antibody with reflex to RPR and particle agglutination (05/22/2025 9:14 PM EST) Pathologist [facility] T. Pallidum Antibodies Negative Negative 05/22/2025 10:13 PM EST [facility] Blood Venous blood specimen / Unknown Venipuncture / Unknown 05/22/2025 9:14 PM EST 05/22/2025 9:23 PM EST Kobe Baker MD LAB BLOOD ORDERABLES Final Resul t Performing Organization Address City/[facility]/ZIP Co de Phone Number [facility] [address] [place] [address], * (ABNORMAL) POCT Glucose, blood (05/22/2025 7:36 PM EST) [facility] Glucose POCT 229(H) 70 - 100 mg/dL 05/22/2025 7:36 PM EST [facility] Blood Capillary blood specimen / Unknown 05/22/2025 7:36 PM EST 05/22/2025 7:37 PM EST Generic Provider Poct LAB POINT OF CARE TEST DOCKED DEVICE UNSOLICITED RESULTS Final Result Performing Organization Address City/[facility]/ZIP Co de Phone Number [facility] [address] [place] [address], [place] [phone] * (ABNORMAL) CBC auto differential (03/18/2025 7:00 AM EDT) Only the most recent of2 resultswithin the time period is included. Pathologist [facility] WBC 5.4 4.8 - 10.8 K/[facility] LAB HEMETOLOGY METHOD 03/18/2025 10:29 AM EDT [facility] RBC 4.30(L) 4.50 - 5.50 M/[facility] LAB HEMETOLOGY METHOD 03/18/2025 10:29 AM EDT [facility] Hemoglobin 12.6(L) 13.5 - 17.5 g/dL LAB HEMETOLOGY METHOD 03/18/2025 10:[address] [facility] Hematocrit 39.2(L) 42.0 - 54.0 % LAB HEMETOLOGY METHOD 03/18/2025 10:[address] [facility] MCV 91.2 79.0 - 98.0 FL LAB HEMETOLOGY METHOD 03/18/2025 10:[address] [facility] MCH 29.3 27.0 - 32.0 pcg LAB HEMETOLOGY METHOD 03/18/2025 10:[address] [facility] MCHC 32.1 32.0 - 37.0 g/dL LAB HEMETOLOGY METHOD 03/18/2025 10:[address] [facility] RDW 13.5 11.0 - 15.0 % LAB HEMETOLOGY METHOD 03/18/2025 10:[address] [facility] Platelets 213 130 - 400 K/mcL LAB HEMETOLOGY METHOD 03/18/2025 10:[address] [facility] MPV 10.6 7.0 - 11.0 FL LAB HEMETOLOGY METHOD 03/18/2025 10:[address] [facility] NRBC 0.0 <1.0 % LAB HEMETOLOGY METHOD 03/18/2025 10:[address] [facility] NRBC Absolute 0.00 <0.10 K/mcL LAB HEMETOLOGY METHOD 03/18/2025 10:[address] [facility] Neutrophils Relative 56.2 % LAB HEMETOLOGY METHOD 03/18/2025 10:[address] [facility] Lymphocytes Relative 32.7 % LAB HEMETOLOGY METHOD 03/18/2025 10:[address] [facility] Monocytes Relative 5.9 % LAB HEMETOLOGY METHOD 03/18/2025 10:29 AM EDT [facility] Eosinophils Relative 3.0 % LAB HEMETOLOGY METHOD 03/18/2025 10:29 AM EDT [facility] Basophils Relative 0.9 % LAB HEMETOLOGY METHOD 03/18/2025 10:29 AM EDT [facility] Immature Granulocytes Relative 1.3 % LAB HEMETOLOGY METHOD 03/18/2025 10:29 AM EDT [facility] Neutrophils Absolute 3.03 1.50 - 7.00 K/mcL LAB HEMETOLOGY METHOD 03/18/2025 10:29 AM EDT [facility] Lymphocytes Absolute 1.76 1.00 - 5.00 K/mcL LAB HEMETOLOGY METHOD 03/18/2025 10:29 AM EDT [facility] Monocytes Absolute 0.32 0.20 - 1.00 K/mcL LAB HEMETOLOGY METHOD 03/18/2025 10:29 AM EDT [facility] Eosinophils Absolute 0.16 0.00 - 0.50 K/mcL LAB HEMETOLOGY METHOD 03/18/2025 10:29 AM EDT [facility] Basophils Absolute 0.05 0.00 - 0.20 K/mcL LAB HEMETOLOGY METHOD 03/18/2025 10:29 AM EDT [facility] Immature Granulocytes Absolute 0.07(H) 0.00 - 0.03 K/mcL LAB HEMETOLOGY METHOD 03/18/2025 10:29 AM EDT [facility] Blood Venous blood specimen / Unknown Venipuncture / Unknown 03/18/2025 7:00 AM EDT 03/18/2025 10:00 AM EDT us Laura Gramajo NP LAB BLOOD ORDERABLES Final Resu lt [facility] [address] [place] [address], [place] [phone] * (ABNORMAL) Ammonia (03/18/2025 7:00 AM EDT) Pathologist [facility] Ammonia 79(H) 11 - 35 mcmol/L LAB CHEMISTRY METHOD 03/18/2025 10:24 AM EDT [facility] Blood Venous blood specimen / Unknown Venipuncture / Unknown 03/18/2025 7:00 AM EDT 03/18/2025 10:00 AM EDT [facility] LAB BLOOD ORDERABLES Final Resu lt Performing Organization Address City/[facility]/ZIP Co de Phone Number [facility] [address] [place] [address], [place] [phone] * Valproic acid level, total (03/18/2025 7:00 AM EDT) Pathologist [facility] Valproic Acid, Total 73 50 - 100 mcg/mL LAB CHEMISTRY METHOD 03/18/2025 12:00 PM EDT [facility] Blood Venous blood specimen / Unknown Venipuncture / Unknown 03/18/2025 7:00 AM EDT 03/18/2025 10:00 AM EDT [facility] LAB BLOOD ORDERABLES Final Resu lt Performing Organization Address City/[facility]/ZIP Co de Phone Number [facility] [address] [place] [address], [place] [phone] * (ABNORMAL) Hepatic function panel (03/18/2025 7:00 AM EDT) Pathologist [facility] Total Protein 6.5 6.0 - 8.0 g/dL LAB CHEMISTRY METHOD 03/18/2025 12:00 PM EDT [facility] Albumin 3.3 3.2 - 5.0 g/dL LAB CHEMISTRY METHOD 03/18/2025 12:00 PM EDT [facility] Total Bilirubin 0.3 0.0 - 1.4 mg/dL LAB CHEMISTRY METHOD 03/18/2025 12:00 PM EDT [facility] Bilirubin, Direct <0.1 0.0 - 0.3 mg/dL LAB CHEMISTRY METHOD 03/18/2025 12:00 PM EDT [facility] Comment:Hemolysis present Bilirubin, Indirect LAB CHEMISTRY METHOD 03/18/2025 12:00 PM EDT [facility] Comment:Unable to calculate Indirect Bilirubin. ALT (SGPT) 28 10 - 60 unit/L LAB CHEMISTRY METHOD 03/18/2025 12:00 PM EDT [facility] AST (SGOT) 24 10 - 42 unit/L LAB CHEMISTRY METHOD 03/18/2025 12:00 PM EDT [facility] Comment:Hemolysis present Alkaline Phosphatase 132(H) 42 - 121 unit/L LAB CHEMISTRY METHOD 03/18/2025 12:00 PM EDT [facility] Blood Venous blood specimen / Unknown Venipuncture / Unknown 03/18/2025 7:00 AM EDT 03/18/2025 10:00 AM EDT Laura Gramajo NP LAB BLOOD ORDERABLES Final Resu lt Performing Organization Address [facility]/ZIP Co de Phone Number [facility] [address] [place] [address], * Ethanol (03/15/2025 4:47 PM EDT) Ethanol Level <3 0 - 10 mg/dL LAB CHEMISTRY METHOD 03/15/2025 5:50 PM EDT [facility] Blood Venous blood specimen / Unknown Venipuncture / Unknown 03/15/2025 4:47 PM EDT 03/15/2025 5:13 PM EDT Robert Miranda MD LAB BLOOD ORDERABLES Final Res ult [facility] [address] [place] [address], [place] [phone] * (ABNORMAL) Acetaminophen level (03/15/2025 4:47 PM EDT) Acetaminophen Level <2.0(L) 10.0 - 30.0 mcg/mL LAB CHEMISTRY METHOD 03/15/2025 5:50 PM EDT [facility] Blood Venous blood specimen / Unknown Venipuncture / Unknown 03/15/2025 4:47 PM EDT 03/15/2025 5:13 PM EDT Robert Miranda MD LAB BLOOD ORDERABLES Final Res ult Performing Organization Address [facility] de Phone Number [facility] [address] [place] [address], [place] [phone] * (ABNORMAL) Salicylate level (03/15/2025 4:47 PM EDT) Salicylate Level <1.7(L) 2.0 - 29.0 mg/dL LAB CHEMISTRY METHOD 03/15/2025 5:50 PM EDT [facility] Blood Venous blood specimen / Unknown Venipuncture / Unknown 03/15/2025 4:47 PM EDT 03/15/2025 5:13 PM EDT Robert Miranda MD LAB BLOOD ORDERABLES Final Res ult Performing Organization Address [facility] Co de Phone Number [facility] [address] [place] [address], [place] [phone] * (ABNORMAL) Comprehensive metabolic panel (03/15/2025 4:47 PM EDT) Sodium 137 133 - 145 mmol/L LAB CHEMISTRY METHOD 03/15/2025 5:56 PM EDT [facility] Potassium 4.3 3.5 - 5.5 mmol/L LAB CHEMISTRY METHOD 03/15/2025 5:[address] [facility] Chloride 106 96 - 110 mmol/L LAB CHEMISTRY METHOD 03/15/2025 5:[address] [facility] CO2 24 21 - 32 mmol/L LAB CHEMISTRY METHOD 03/15/2025 5:[address] [facility] Anion Gap 7 3 - 11 LAB CHEMISTRY METHOD 03/15/2025 5:[address] [facility] Glucose 118(H) 70 - 100 mg/dL LAB CHEMISTRY METHOD 03/15/2025 5:[address] [facility] BUN 15 5 - 25 mg/dL LAB CHEMISTRY METHOD 03/15/2025 5:[address] [facility] Creatinine 0.77 0.70 - 1.30 mg/dL LAB CHEMISTRY METHOD 03/15/2025 5:[address] [facility] eGFR 108 >=60 mL/min/1. 73m2 LAB CHEMISTRY METHOD 03/15/2025 5:[address] [facility] Comment:Calculation based on the Chronic Kidney Disease Epidemiology Collaboration (CKD-EPI) equation refit without adjustment for race. BUN/Creatinine Ratio 19.5 LAB CHEMISTRY METHOD 03/15/2025 5:[address] [facility] Calcium 9.0 8.5 - 10.5 mg/dL LAB CHEMISTRY METHOD 03/15/2025 5:[address] [facility] AST (SGOT) 16 10 - 42 unit/L LAB CHEMISTRY METHOD 03/15/2025 5:[address] [facility] ALT (SGPT) 33 10 - 60 unit/L LAB CHEMISTRY METHOD 03/15/2025 5:[address] [facility] Alkaline Phosphatase 147(H) 42 - 121 unit/L LAB CHEMISTRY METHOD 03/15/2025 5:[address] [facility] Total Protein 6.7 6.0 - 8.0 g/dL LAB CHEMISTRY METHOD 03/15/2025 5:56 PM EDT [facility] Albumin 3.6 3.2 - 5.0 g/dL LAB CHEMISTRY METHOD 03/15/2025 5:56 PM EDT [facility] Total Bilirubin 0.3 0.0 - 1.4 mg/dL LAB CHEMISTRY METHOD 03/15/2025 5:56 PM EDT [facility] Blood Venous blood specimen / Unknown Venipuncture / Unknown 03/15/2025 4:47 PM EDT 03/15/2025 5:13 PM EDT Robert Miranda MD LAB BLOOD ORDERABLES Final Res ult [facility] [address] [place] [address], [place] [phone] * (ABNORMAL) Drug abuse screen 8a panel, urine (03/15/2025 3:20 PM EDT) Amphetamine Screen, Ur Negative Negative LAB CHEMISTRY METHOD 5 4:17 PM EDT [facility] Comment:Certain OTC medicati ons containing ephedrine, phenylephrine, pseudoephedrine and phenylpropanolamine can cause false positive results. Barbiturate Screen, Ur Negative Negative LAB CHEMISTRY METHOD 5 4:17 PM EDT [facility] Benzodiazepine Screen, Ur Positive(A ) Negative LAB CHEMISTRY METHOD 5 4:17 PM EDT [facility] Cocaine Screen, Ur Positive(A ) Negative LAB CHEMISTRY METHOD 5 4:17 PM EDT [facility] Opiate Screen, Ur Negative Negative LAB CHEMISTRY METHOD 5 4:17 PM EDT [facility] Cannabinoid (THC) Screen, Ur Negative Negative LAB CHEMISTRY METHOD 5 4:17 PM EDT [facility] Comment:Specimens from patie nts taking pantoprazole sodium (Protonix) have been shown to produce false positive results. Oxycodone Screen, Ur Negative Negative LAB CHEMISTRY METHOD 5 4:17 PM EDT [facility] Fentanyl, Ur Negative Negative LAB CHEMISTRY METHOD 5 4:17 PM EDT [facility] Urine Urine specimen obtained by clean catch procedure / Unknown Non-blood Collection / Unknown 03/15/2025 3:20 PM EDT 03/15/2025 3:[address] [facility] - 03/15/2025 4:17 PM EDT Assay [...] MD LAB URINE ORDERABLES Final Res ult [facility] [address] [place] [address], [place] [phone] * (ABNORMAL) Buprenorphine screen, urine (03/15/2025 3:20 PM EDT) [facility] Buprenorphine Screen Urine Positive (A) Negative LAB CHEMISTRY METHOD 03/15/2025 4:17 PM EDT [facility] Urine Urine specimen obtained by clean catch procedure / Unknown Non-blood Collection / Unknown 03/15/2025 3:20 PM EDT 03/15/2025 3:[address] [facility] - 03/15/2025 4:17 PM EDT Assay cutoff 5 ng/mL Semi-quantitative assay for screening purposes only. Unconfirmed screening result should not be used for non-medical purposes. *ALTERNATE METHOD CONFIRMATION DONE UPON REQUEST ONLY* Robert Miranda MD LAB URINE ORDERABLES Final Res ult Performing Organization Address [facility] Co de Phone Number [facility] [address] [place] [address], [place] [phone] * Methadone, urine (03/15/2025 3:20 PM EDT) Methadone Screen, Urine Negative Negative LAB CHEMISTRY METHOD 03/15/2025 4:17 PM EDT [facility] Comment: Assay cutoff 300 ng/mL [...] ORDERABLES Final Res ult Performing Organization Address [facility] Co de Phone Number [facility] [address] [place] [address], [place] [phone] * Phencyclidine, urine (03/15/2025 3:20 PM EDT) PCP Scrn, Ur Negative Negative LAB CHEMISTRY METHOD 03/15/2025 4:17 PM EDT [facility] Comment: Assay cutoff 25 ng/mL Semi-quantitative assay for screening purposes only. Unconfirmed screening result should not be used for non-medical purposes. *ALTERNATE METHOD CONFIRMATION DONE UPON REQUEST ONLY* Urine Urine specimen obtained by clean catch procedure / Unknown Non-blood Collection / Unknown 03/15/2025 3:20 PM EDT 03/15/2025 3:52 PM EDT Robert Miranda MD LAB URINE ORDERABLES Final Res ult [facility] [address] [place] [address], [place] [phone] * (ABNORMAL) Lipid panel with reflex to direct LDL (11/10/2024 8:28 AM EDT) Cholesterol 164 0 - 200 mg/dL LAB CHEMISTRY METHOD 11/10/2024 11:08 AM EDT [facility] Triglycerides 214(H) 0 - 150 mg/dL LAB CHEMISTRY METHOD 11/10/2024 11:08 AM EDT [facility] HDL 34(L) >=40 mg/dL LAB CHEMISTRY METHOD 11/10[facility]24 [facility] LDL Calculated 87 0 - 100 mg/dL LAB CHEMISTRY METHOD 11/10/2024 11:08 AM EDT [facility] VLDL Cholesterol [place] 42.8 mg/dL LAB CHEMISTRY METHOD 11/10/2024 11:08 AM EDT [facility] Non HDL Chol. (LDL+VLDL) 130 <145 mg/dL LAB CHEMISTRY METHOD 11/10/2024 11:08 AM EDT [facility] Chol/HDL Ratio 4.8(H) 0.0 - 4.4 LAB CHEMISTRY METHOD 11/10/2024 11:[address] [facility] Blood Venous blood specimen / Unknown Venipuncture / Unknown 11/10/2024 8:28 AM EDT 11/10/2024 8:28 AM EDT Fer Swanson MD LAB BLOOD ORDERABLES F inal Result [facility] [address] [place] [address], [place] [phone] * Hepatitis panel, acute with reflex to confirmation (11/10/2024 8:28 AM EDT) Hepatitis B Surface Ag Negative Negative LAB CHEMISTRY METHOD 11/10/2024 2:25 PM EDT [facility] Hepatitis A Antibody IgM Negative Negative LAB CHEMISTRY METHOD 11/10/2024 2:25 PM EDT [facility] Hep B Core IgM Negative Negative LAB CHEMISTRY METHOD 11/10/2024 2:25 PM EDT [facility] Hepatitis C Antibody Negative Negative LAB CHEMISTRY METHOD 11/10/2024 2:25 PM EDT [facility] Blood Venous blood specimen / Unknown Venipuncture / Unknown 11/10/2024 8:28 AM EDT 11/10/2024 8:28 AM EDT Fer Swanson MD LAB BLOOD ORDERABLES F inal Result [facility] [address] [place] [address], from Last 3 Months or Most Recently Relevant to [place] [address] Care Teams [employer] Relationship Specialty Start Date End Date Fer Swanson MD [address] [place] [address] PCP - General Internal Medicine 06/01/24
--- NOTE | 2025-05-27 00:36 | PC.NURSE ---
Took over care from PANFILO Gonzalez, pt sleeping at this time.
--- NOTE | 2025-05-27 04:16 | PC.NURSE ---
pt oob to bathroom, sandwich given.
[2025-05-27 04:24] VITALS: BP 152/78; PULSE 62; RESP 20; TEMP 36.8; O2SAT 98
--- NOTE | 2025-05-27 04:43 | PC.NURSE ---
pt sleeping at this time.
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
--- NOTE | 2025-05-27 09:21 | PC.NURSE ---
Patient was up for discharge however, when presented with discharge paperwork, patient became agitated, yelling at this RN I am fucking suicidal, what do you not understand about that, Ill fucking go kill myself because of you, fucking dumbasses . Security present. Huyen, CARE team clinician spoke with patient and ultimate decision to continue dual search for patient. Pt agreeable to being respectful with staff
--- NOTE | 2025-05-27 10:57 | MHC.CARE ---
Patient has been accepted to [facility] located @ [address] [facility], [address]. ETA 1PM . Ambulance picker tender helper here @ 1200pm. N2N is not needed. The accepting provider is Dr Darcie Donnelly. F29 Pychosis F32.9 Unspecfied Depressive D/o F14.10 Cocaine Use D/o
--- NOTE | 2025-05-27 12:35 | PC.NURSE ---
Addendum entered by Johnna Murillo RN 05/27/25 12:38: Pt noted to have full range of motion in left shoulder, able to pick items up without issue Original Note: pt refused to go to xray
[2025-05-27 12:36] VITALS: BP 152/78; PULSE 62; RESP 20; TEMP 36.8; O2SAT 98
== END 2025-05-27 12:43 | disposition short-term general hospital (02) ==
PROVIDERS: Emergency Provider Emergency Medicine; PCP Internal Medicine
DX: F33.1 Major depressive disorder, recurrent, moderate (principal); R45.851 Suicidal ideations; Z51.81 Encounter for therapeutic drug level monitoring; Z79.899 Other long term (current) drug therapy; Z59.00 Homelessness unspecified; F17.210 Nicotine dependence, cigarettes, uncomplicated
CPT/HCPCS: 36415; 80053; 80307; 81001; 85025; 99285; S9485